=== PATIENT | male | born 1960 | race Caucasian/White ===

== ENCOUNTER → 2016-12-31 | Outpatient (CLI) | payer OTHER ==
[~2016-12-31] MED LIST: ALLERGY10 MG PO; ALLOPURINOL100 MG PO; ALPHA LIPOIC ACID; AMITRIPTYLINE H10 M1 PO; AMOXICILLIN500 MG PO; ASPIR-TRIN325 MG PO; AUGMENTIN 500 M1 TAB PO; AUGMENTIN 875 M1 TAB PO; AUGMENTIN 875875 MG PO; BACTRIM DS 8001 TA1 PO; BAYER PLUS325 MG PO; BENTYL; BENTYL10 MG PO; BUTORPHANOL10 MG/ML NS; CALCIUM; CALCIUM 6001 TA1 PO; CARAFATE1 G1 PO; CARAFATE1 GM PO; CATAFLAM50 MG PO; CETIRIZINE10 MG PO; CIPRO500 MG PO; CLARITIN10 MG PO; COLACE100 MG PO; COMPAZINE10 M1 PO; COMPAZINE10 MG PO; CORDROL20 MG PO; CORTISPORIN SUS10 ML OT; DARVOCET N 1001 TAB PO; DAYPRO600 M1 PO; DEPAKOTE500 MG PO; DEXILANT60 M1 PO; DICYCLOMINE10 MG PO; DULCOLAX100 MG PO; Depakote250 MG PO; EFFEXOR XR150 M1 PO; EFFEXOR XR37.5 MG PO; EFFEXOR XR75 M1 PO; EFFEXOR100 MG PO; EFFEXOR25 MG PO; EFFEXOR37.5 MG PO; EFFEXOR75 MG PO; EPIPEN 0.3MG0.3 MG IM; FLEXERIL10 MG PO; FLOMAX0.4 MG PO; FLOVENT0.11 MG/AC INH; FLOXIN PO; GEODON20 M1 PO; GEODON20 MG PO; GEODON40 MG PO; HYDROCODONE BIT1 T11 PO; HYDROCODONE BIT1 T12 PO; HYDROCODONE/ACE1 T14 PO; IMITREX25 MG PO; IMITREX50 MG PO; K-DUR 1010 MEQ PO; K-NORM10 MEQ PO; LEVAQUIN750 MG PO; LIPITOR10 MG PO; LYRICA200 M1 PO; LYRICA200 MG PO; MEDROL DOSEPAK4 MG PO; MIACALCIN SPRAY1 EA NAS; MIRALAX POWDER255 G1 PO; MIRALAX17 GM/DOSE PO; MIRALAX17 GM/PACK PO; MOTRIN800 MG PO; MS CONTIN15 MG PO; MUCINEX600 MG PO; MULTIPLE VITAMI1 TA3 PO; NAPROSYN500 MG PO; NORCO 325 MG-51 TAB PO; NORCO 5-325 TA1 EACH PO; NORCO 7.5-3251 EACH PO; NORFLEX100 MG PO; Ondansetron4 MG PO; PANTOPRAZOLE SO40 MG PO; PERCOCET 325 MG1 TA2 PO; POLYETHYLENE GL1 P16; POTASSIUM20 MEQ PO; POTASSIUM99 MG PO; PREDNISONE10 MG PO; PREVACID SOLUTA30 MG PO; PROAIR HFA0.09 MG/AC IH; PROTONIX40 MG PO; RELPAX40 MG PO; ROBAXIN750 MG PO; SLOW MAG 110 MG64 MG PO; SPIRIVA -- 3018 MCG INH; TORADOL10 MG PO; TRAMADOL HCL50 MG PO; TRAMADOL50 MG PO; TRAZADONE HYDR100 MG PO; TRAZODONE100 MG PO; ULTRAM50 MG PO; VALIUM5 MG PO; VENTOLIN0.09 MG/AC IH; VICODIN 5/500 505 MG PO; VICODIN 500 MG-1 TAB PO; VISTARIL25 M2 PO; VITAMIN D; VITAMIN D2400 IU PO; VITAMIN D33000 UNIT PO; VITAMIN D400 I1 PO; VITAMIN D50000 I2 PO; VITAMIN D50000 I3 PO; VITAMIN E400 UNI1 PO; VYTORIN 10 MG-41 TA1 PO; VYTORIN 10 MG-41 TAB PO; XANAX0.5 MG PO; ZANTAC150 MG PO; ZETIA10 MG PO; ZOFRAN4 MG PO; ZYLOPRIM100 MG PO; Zofran4 MG PO
[2016-12-31 09:19] LABS: BASO # 0.1 10*3/uL (0.0-0.1); BASO % 0.6 % (0.0-1.0); EOS # 0.2 10*3/uL (0.0-0.4); EOS % 1.8 % (1.0-4.0); HEMATOCRIT 46.4 % (42.0-52.0); LYMPH # 2.9 10*3/uL (1.3-4.4); LYMPH % 27.8 % (27.0-41.0); MEAN CELL VOLUME 88.7 fl (80.0-94.0); MEAN CORPUSCULAR HGB 32.5 pg (27.0-31.0); MEAN CORPUSCULAR HGB CONC 36.6 g/dl (33.0-37.0); MEAN PLATELET VOLUME 9.9 fl (9.6-12.3); MONO # 0.6 10*3/uL (0.1-1.0); MONO % 6.1 % (3.0-9.0); NEUT # 6.6 10*3/uL (2.3-7.9); NEUT % 63.4 % (47.0-73.0); PLATELET COUNT AUTOMATED 313 10*3/uL (130-400); RED BLOOD COUNT 5.23 10*6/uL (4.50-5.90); RED CELL DISTRI WIDTH 11.9 % (0-14.5); WHITE BLOOD COUNT 10.3 10*3/uL (4.8-10.8)
[2016-12-31 09:37] LABS: ALBUMIN 4.5 gm/dl (3.1-4.5); ALKALINE PHOSPHATASE 89 U/L (45-117); BILIRUBIN, TOTAL 0.8 mg/dl (0.2-1.0); BUN 14 mg/dl (7-24); CARBON DIOXIDE 26 mmol/L (21-32); CHLORIDE 104 mmol/L (98-107); CHOLESTEROL 205 mg/dL (<200); EST GLOM FILT AFRICAN AMERICAN > 60 ml/min; GLUCOSE 110 mg/dL (65-99); HDL CHOLESTEROL 52 mg/dl (40-60); LDL CHOLESTEROL 133 mg/dL (9-159); POTASSIUM 3.5 mmol/L (3.5-5.1); SGOT/AST 98 IU/L (3-35); SGPT/ALT 53 U/L (12-78); SODIUM 143 mmol/L (136-145); TOTAL PROTEIN 7.9 gm/dL (6.4-8.2); TRIGLYCERIDES 99 mg/dl (<150); VLDL CHOLESTEROL 20 mg/dL (6-40)
== END | disposition home or self-care (01) ==
LOC: LAB 08:23
PROVIDERS: Nurse Practitioner Family
DX: E78.4 Other hyperlipidemia (principal); M54.5 Low back pain; R81 Glycosuria

== ENCOUNTER → 2017-01-11 | Outpatient (CLI) | payer OTHER | END | disposition home or self-care (01) | LOC: MRI 10:12 | DX: M17.12 Unilateral primary osteoarthritis, left knee (principal); M25.562 Pain in left knee; M25.462 Effusion, left knee ==

== ENCOUNTER → 2017-01-17 | Outpatient (CLI) | payer OTHER ==
[2017-01-17 08:20] LABS: HEMOGLOBIN A1c 5.9 % (4.8-5.6)
[2017-01-17 08:38] LABS: ALBUMIN 4.5 gm/dl (3.1-4.5); ALKALINE PHOSPHATASE 86 U/L (45-117); BILIRUBIN, DIRECT 0.2 mg/dL (0.0-0.2); BILIRUBIN, TOTAL 0.8 mg/dl (0.2-1.0); BUN 8 mg/dl (7-24); CARBON DIOXIDE 28 mmol/L (21-32); CHLORIDE 105 mmol/L (98-107); CHOLESTEROL 175 mg/dL (<200); EST GLOM FILT AFRICAN AMERICAN > 60 ml/min; GLUCOSE 99 mg/dL (65-99); HDL CHOLESTEROL 54 mg/dl (40-60); LDL CHOLESTEROL 100 mg/dL (9-159); POTASSIUM 3.5 mmol/L (3.5-5.1); SGOT/AST 20 IU/L (3-35); SGPT/ALT 33 U/L (12-78); SODIUM 142 mmol/L (136-145); TOTAL PROTEIN 7.8 gm/dL (6.4-8.2); TRIGLYCERIDES 106 mg/dl (<150); VLDL CHOLESTEROL 21 mg/dL (6-40)
[2017-01-17 09:38] LABS: VITAMIN D, 25-HYDROXY 38.1 ng/mL (30-100)
[2017-01-18 09:30] LABS: BILIRUBIN NEGATIVE (NEGATIVE); BLOOD NEGATIVE (NEGATIVE); CLARITY CLEAR (CLEAR); COLOR YELLOW (YELLOW); GLUCOSE NEGATIVE (NEGATIVE); KETONE NEGATIVE (NEGATIVE); LEUKO ESTERASE NEGATIVE (NEGATIVE); NITRITE NEGATIVE (NEGATIVE); PROTEIN NEGATIVE (NEGATIVE)
[2017-01-18 10:07] LABS: EPITHELIAL CELLS 0-2; MUCOUS 2+; WBC 0-2 wbc/hpf (0-5)
== END | disposition home or self-care (01) ==
LOC: LAB 07:40
PROVIDERS: Internal Medicine
DX: E11.65 Type 2 diabetes mellitus with hyperglycemia (principal); E11.42 Type 2 diabetes mellitus with diabetic polyneuropathy; E55.9 Vitamin D deficiency, unspecified; N52.9 Male erectile dysfunction, unspecified; E78.5 Hyperlipidemia, unspecified; E29.1 Testicular hypofunction

== ENCOUNTER 2017-02-20 22:16 | Inpatient (IN) | payer OTHER ==
[~2017-02-20] VITALS: Ht 170.2 cm; Wt 89.8 kg
--- NOTE | ~2017-02-20 | ST ---
[place], [place] EXERCISE STRESS TEST REPORT NAME: [facility]BY WATT JR [facility] [id number] UNIT #: [id number] ROOM: 411 DOCTOR: AJIT RAYMUNDO [facility],RAPHAEL BIRTHDATE: [birth year] DOS: 02/23/2017 Received Lexiscan 0.4 mg at 10 seconds, heart rate is 93. No ischemic changes on EKG. No complications noted. The patient tolerated the procedure well and myocardial perfusion scan to follow. Isotope was injected. RAPHAEL FONG MD CM:STRESS:EXERCISE STRESS TEST REPORT [id number] RAPHAEL FONG MD [facility]
--- NOTE | ~2017-02-20 | CON ---
[place], [place] REPORT OF CONSULTATION [facility] [id number] UNIT #: [id number] ROOM: 411 DOCTOR: [facility]IT [facility]UNDO [facility] BIR[facility]: [birth year] DOS: 02/23/2017 CARDIOLOGY CONSULTATION IMPRESSION: Chest pain, evaluating for ischemic heart disease. No further symptoms at this time. No syncope or presyncope, which was unremarkable. The patient came through the Emergency Room and myocardial perfusion scan is pending and denies any nausea or vomiting. No loose bowel movements. No syncope or presyncope. PHYSICAL EXAMINATION: VITAL SIGNS: Stable with blood pressure 120/67, heart rate is 86 and respiratory rate is 18, pulse ox is good. SKIN: Warm, not diaphoretic. NECK: Supple. LUNGS: No rales heard. HEART: S1, S2. No gallops. CARDIOPULMONARY: As described. GASTROINTESTINAL: Unremarkable. ABDOMEN: Soft. SKIN: Color is good. NEUROLOGICAL: No focal neurological deficits noted. RECTAL AND GENITALIA: Exam deferred, unrelated. DIAGNOSES: Chest pain, evaluating for ischemic heart disease and a possible posttraumatic stress syndrome, chronic obstructive airway disease and chronic kidney disease stage 2, chronic hypertension with hypertensive cardiovascular disease, and history of bronchial asthma. Cardiac chest pain, evaluating for ischemic disease. Workup is in progress. I will continue the current therapy and continue to follow the patient. If the myocardial perfusion scan is abnormal, it will moderately increase the risk, may consider further evaluation. If mild, we will manage conservatively with medical therapy. RAPHAEL FONG MD CM:CONSTR:REPORT OF CONSULTATION 0937 02/24/17 0707 interface
--- NOTE | ~2017-02-20 | EKG ---
[place], [place] ELECTROCARDIOGRAM REPORT NAME: BOBBY WATT JR UNIT #: [id number] ROOM: 411 DOCTOR: JABIER PERDOMO MD BIRTHDATE: [birth year] DOS: 02/20/2017 TIME: 22:23 p.m. Sinus tachycardia at rate of 106. Abnormal R-wave with early precordial R-wave progression. Incomplete right bundle branch block, possible left ventricular hypertrophy by voltage criteria, nonspecific T-wave abnormality, abnormal electrocardiogram. JABIER PERDOMO MD CM:EKGRPT:ELECTROCARDIOGRAM REPORT [id number] JABIER PERDOMO MD
[2017-02-20 22:20] VITALS: BP 173/112
[2017-02-20 22:38] LABS: BASO # 0.1 10*3/uL (0.0-0.1); BASO % 0.5 % (0.0-1.0); EOS # 0.1 10*3/uL (0.0-0.4); EOS % 0.9 % (1.0-4.0); HEMATOCRIT 52.8 % (42.0-52.0); LYMPH # 2.1 10*3/uL (1.3-4.4); LYMPH % 19.4 % (27.0-41.0); MEAN CELL VOLUME 88.7 fl (80.0-94.0); MEAN CORPUSCULAR HGB 31.9 pg (27.0-31.0); MEAN PLATELET VOLUME 9.4 fl (9.6-12.3); MONO # 0.8 10*3/uL (0.1-1.0); MONO % 7.3 % (3.0-9.0); NEUT # 7.6 10*3/uL (2.3-7.9); NEUT % 71.7 % (47.0-73.0); PLATELET COUNT AUTOMATED 318 10*3/uL (130-400); RED BLOOD COUNT 5.95 10*6/uL (4.50-5.90); WHITE BLOOD COUNT 10.6 10*3/uL (4.8-10.8)
[2017-02-20 22:47] LABS: INTERNATIONAL NORM RATIO 1.1 (2.0-3.5); PROTHROMBIN TIME 11.4 SECONDS (9.0-12.4)
[2017-02-20 22:56] LABS: BUN 12 mg/dl (7-24); CARBON DIOXIDE 25 mmol/L (21-32); CHLORIDE 102 mmol/L (98-107); EST GLOM FILT AFRICAN AMERICAN > 60 ml/min; GLUCOSE 126 mg/dL (65-99); MAGNESIUM 1.6 mg/dL (1.5-2.1); POTASSIUM 3.9 mmol/L (3.5-5.1); SODIUM 142 mmol/L (136-145)
[2017-02-20 22:57] LABS: TROPONIN I < 0.015 ng/ml (<0.045)
[2017-02-20 23:15] VITALS: BP 168/110
[2017-02-20 23:24] VITALS: BP 134/92
[2017-02-20 23:48] VITALS: BP 128/88
[2017-02-21 00:30] VITALS: BP 141/85
[2017-02-21 00:37] LABS: CPK 155 U/L (39-308); TROPONIN I < 0.015 ng/ml (<0.045)
[2017-02-21 00:45] VITALS: BP 141/85
[2017-02-21 07:07] LABS: BASO # 0.1 10*3/uL (0.0-0.1); BASO % 0.6 % (0.0-1.0); EOS # 0.2 10*3/uL (0.0-0.4); HEMATOCRIT 49.1 % (42.0-52.0); HEMOGLOBIN 17.7 g/dl (14.0-18.0); LYMPH % 30.7 % (27.0-41.0); MEAN CELL VOLUME 88.6 fl (80.0-94.0); MEAN CORPUSCULAR HGB 31.9 pg (27.0-31.0); MEAN PLATELET VOLUME 9.6 fl (9.6-12.3); MONO # 0.9 10*3/uL (0.1-1.0); MONO % 9.8 % (3.0-9.0); NEUT # 5.4 10*3/uL (2.3-7.9); NEUT % 56.7 % (47.0-73.0); PLATELET COUNT AUTOMATED 304 10*3/uL (130-400); RED BLOOD COUNT 5.54 10*6/uL (4.50-5.90); RED CELL DISTRI WIDTH 12.1 % (0-14.5); WHITE BLOOD COUNT 9.6 10*3/uL (4.8-10.8)
[2017-02-21 07:08] LABS: CKMB 1.2 ng/ml (0.5-3.6); CPK 124 U/L (39-308)
[2017-02-21 07:09] LABS: TROPONIN I < 0.015 ng/ml (<0.045)
[2017-02-21 07:26] LABS: CHLORIDE 102 mmol/L (98-107); FREE T4 1.14 ng/dl (0.76-1.46); POTASSIUM 3.6 mmol/L (3.5-5.1); SODIUM 143 mmol/L (136-145)
[2017-02-21 07:37] LABS: ALBUMIN 4.4 gm/dl (3.1-4.5); ALKALINE PHOSPHATASE 74 U/L (45-117); BUN 13 mg/dl (7-24); CARBON DIOXIDE 29 mmol/L (21-32); EST GLOM FILT AFRICAN AMERICAN > 60 ml/min; GLUCOSE 99 mg/dL (65-99); MAGNESIUM 1.8 mg/dL (1.5-2.1); PHOSPHOROUS 4.1 mg/dL (2.5-4.9); SGOT/AST 22 IU/L (3-35); SGPT/ALT 28 U/L (12-78); TOTAL PROTEIN 7.5 gm/dL (6.4-8.2)
[2017-02-21 07:48] LABS: INTERNATIONAL NORM RATIO 1.1 (2.0-3.5); PROTHROMBIN TIME 11.4 SECONDS (9.0-12.4)
[2017-02-21 08:00] VITALS: BP 116/81
[2017-02-21 08:16] LABS: FOLIC ACID 16.2 ng/mL (>5.38); VITAMIN D, 25-HYDROXY 42.2 ng/mL (30-100)
[2017-02-21 12:00] VITALS: BP 133/84
[2017-02-21 16:00] VITALS: BP 134/80
[2017-02-21] MEDS ORDERED: MIRTAZAPINE30 M2 PO (18:07)
[2017-02-21] MEDS ORDERED: VITAMIN D33000 UNIT PO (18:08)
[2017-02-21] MEDS ORDERED: OXYCODONE AND A1 TA4 PO (18:10)
[2017-02-21] MEDS ORDERED: FLUTICASON0.05 MG/Ac NAS (18:11)
[2017-02-21] MEDS ORDERED: VENTOLIN H0.09 MG/AC INH (18:13)
[2017-02-21] MEDS ORDERED: Flovent 220 M220 MCG INH (18:16)
[2017-02-21 20:00] VITALS: BP 124/89
[2017-02-22] VITALS: BP 132/87
[2017-02-22 08:00] VITALS: BP 107/86
[2017-02-22 12:00] VITALS: BP 120/67
[2017-02-22 16:00] VITALS: BP 138/81
[2017-02-22 20:00] VITALS: BP 134/83
[2017-02-23] VITALS: BP 124/84
[2017-02-23 08:00] VITALS: BP 112/73
[2017-02-23 12:00] VITALS: BP 130/73
[2017-02-23 16:00] VITALS: BP 123/80
[2017-02-23 20:00] VITALS: BP 129/78
[2017-02-23] MEDS ORDERED: TOPROL XL50 M1 PO (20:38)
== END 2017-02-23 21:40 | disposition home or self-care (01) | DRG 206 ==
LOC: ED 22:16 → 4E 23:09 → EDHOLD 23:09 → 4E 23:58
PROVIDERS: Internal Medicine; Student in an Organized Health Care Education/Training Program
PROC: 4A02XM4 Measurement of Cardiac Total Activity, External Approach (ICD-10-PCS; principal; 2017-02-23)
PROC: 3E073KZ Introduction of Other Diagnostic Substance into Coronary Artery, Percutaneous Approach (ICD-10-PCS; 2017-02-23)
DX: M94.0 Chondrocostal junction syndrome [Tietze] (principal); I13.0 Hypertensive heart and chronic kidney disease with heart failure and stage 1 through stage 4 chronic kidney disease, or unspecified chronic kidney disease; I50.32 Chronic diastolic (congestive) heart failure; F33.9 Major depressive disorder, recurrent, unspecified; I25.2 Old myocardial infarction; G62.9 Polyneuropathy, unspecified; M54.9 Dorsalgia, unspecified; N18.2 Chronic kidney disease, stage 2 (mild); J44.9 Chronic obstructive pulmonary disease, unspecified; F41.0 Panic disorder [episodic paroxysmal anxiety]; K21.9 Gastro-esophageal reflux disease without esophagitis; R73.03 Prediabetes; M81.0 Age-related osteoporosis without current pathological fracture; E66.09 Other obesity due to excess calories; F43.10 Post-traumatic stress disorder, unspecified; G43.909 Migraine, unspecified, not intractable, without status migrainosus; J30.2 Other seasonal allergic rhinitis; Z68.31 Body mass index [BMI] 31.0-31.9, adult; Z90.49 Acquired absence of other specified parts of digestive tract; Z87.891 Personal history of nicotine dependence; Z83.6 Family history of other diseases of the respiratory system; Z88.1 Allergy status to other antibiotic agents; Z88.8 Allergy status to other drugs, medicaments and biological substances; Z79.899 Other long term (current) drug therapy

== ENCOUNTER → 2017-04-24 | Outpatient (CLI) | payer OTHER ==
[~2017-04-24] MED LIST changes: +FLUTICASON0.05 MG/Ac NAS; +Flovent 220 M220 MCG INH; +MIRTAZAPINE30 M2 PO; +OXYCODONE AND A1 TA4 PO; +TOPROL XL50 M1 PO; +VENTOLIN H0.09 MG/AC INH
[2017-04-24 08:44] LABS: BASO % 0.5 % (0.0-1.0); EOS # 0.2 10*3/uL (0.0-0.4); EOS % 2.5 % (1.0-4.0); HEMATOCRIT 47.5 % (42.0-52.0); HEMOGLOBIN 17.1 g/dl (14.0-18.0); LYMPH # 1.8 10*3/uL (1.3-4.4); LYMPH % 22.8 % (27.0-41.0); MEAN CELL VOLUME 90.8 fl (80.0-94.0); MEAN CORPUSCULAR HGB 32.7 pg (27.0-31.0); MEAN PLATELET VOLUME 9.8 fl (9.6-12.3); MONO # 0.5 10*3/uL (0.1-1.0); MONO % 5.8 % (3.0-9.0); NEUT # 5.3 10*3/uL (2.3-7.9); NEUT % 68.1 % (47.0-73.0); PLATELET COUNT AUTOMATED 255 10*3/uL (130-400); RED BLOOD COUNT 5.23 10*6/uL (4.50-5.90); RED CELL DISTRI WIDTH 11.7 % (0-14.5); WHITE BLOOD COUNT 7.7 10*3/uL (4.8-10.8)
[2017-04-24 09:14] LABS: ALBUMIN 4.3 gm/dl (3.1-4.5); ALKALINE PHOSPHATASE 76 U/L (45-117); BILIRUBIN, TOTAL 0.8 mg/dl (0.2-1.0); BUN 10 mg/dl (7-24); CARBON DIOXIDE 29 mmol/L (21-32); CHLORIDE 102 mmol/L (98-107); CHOLESTEROL 164 mg/dL (<200); EST GLOM FILT AFRICAN AMERICAN > 60 ml/min; GLUCOSE 108 mg/dL (65-99); HDL CHOLESTEROL 48 mg/dl (40-60); LDL CHOLESTEROL 94 mg/dL (9-159); POTASSIUM 4.6 mmol/L (3.5-5.1); SGOT/AST 16 IU/L (3-35); SGPT/ALT 26 U/L (12-78); SODIUM 143 mmol/L (136-145); TOTAL PROTEIN 7.5 gm/dL (6.4-8.2); TRIGLYCERIDES 108 mg/dl (<150); VLDL CHOLESTEROL 22 mg/dL (6-40)
[2017-04-24 09:21] LABS: THYROID STIM HORMONE (HS) 0.437 uIU/ml (0.358-4.75)
== END ==
LOC: LAB 08:07
PROVIDERS: Nurse Practitioner Family
DX: J44.9 Chronic obstructive pulmonary disease, unspecified (principal); E78.4 Other hyperlipidemia; R73.01 Impaired fasting glucose

== ENCOUNTER 2017-05-11 21:09 | Emergency (ER) | payer OTHER ==
[~2017-05-11] VITALS: Ht 170.1 cm; Wt 90.7 kg
[2017-05-11 21:21] VITALS: BP 144/91
[2017-05-11] MEDS ORDERED: MEDROL DOSEPAK4 MG PO (22:03)
== END 2017-05-11 22:35 | disposition home or self-care (01) ==
LOC: ED 21:09
DX: L25.9 Unspecified contact dermatitis, unspecified cause (principal); Z87.891 Personal history of nicotine dependence; Z90.49 Acquired absence of other specified parts of digestive tract; Z88.1 Allergy status to other antibiotic agents; Z88.8 Allergy status to other drugs, medicaments and biological substances; Z79.899 Other long term (current) drug therapy

== ENCOUNTER 2017-05-21 22:27 | Emergency (ER) | payer OTHER ==
[~2017-05-21] VITALS: Ht 170.1 cm; Wt 93.9 kg
[2017-05-21 23:24] LABS: BASO % 0.4 % (0.0-1.0); EOS # 0.1 10*3/uL (0.0-0.4); EOS % 0.7 % (1.0-4.0); HEMATOCRIT 46.2 % (42.0-52.0); HEMOGLOBIN 16.4 g/dl (14.0-18.0); LYMPH # 2.1 10*3/uL (1.3-4.4); LYMPH % 19.9 % (27.0-41.0); MEAN CELL VOLUME 90.4 fl (80.0-94.0); MEAN CORPUSCULAR HGB 32.1 pg (27.0-31.0); MEAN CORPUSCULAR HGB CONC 35.5 g/dl (33.0-37.0); MEAN PLATELET VOLUME 9.1 fl (9.6-12.3); MONO # 0.7 10*3/uL (0.1-1.0); MONO % 6.2 % (3.0-9.0); NEUT # 7.8 10*3/uL (2.3-7.9); NEUT % 72.4 % (47.0-73.0); PLATELET COUNT AUTOMATED 276 10*3/uL (130-400); RED BLOOD COUNT 5.11 10*6/uL (4.50-5.90); RED CELL DISTRI WIDTH 11.8 % (0-14.5); WHITE BLOOD COUNT 10.7 10*3/uL (4.8-10.8)
[2017-05-21 23:40] VITALS: BP 148/91
[2017-05-21 23:40] LABS: ALBUMIN 3.9 gm/dl (3.1-4.5); ALKALINE PHOSPHATASE 92 U/L (45-117); BILIRUBIN, TOTAL 0.7 mg/dl (0.2-1.0); BUN 11 mg/dl (7-24); CARBON DIOXIDE 29 mmol/L (21-32); CHLORIDE 101 mmol/L (98-107); EST GLOM FILT AFRICAN AMERICAN > 60 ml/min; GLUCOSE 124 mg/dL (65-99); POTASSIUM 3.5 mmol/L (3.5-5.1); SGOT/AST 30 IU/L (3-35); SGPT/ALT 35 U/L (12-78); SODIUM 140 mmol/L (136-145); TOTAL PROTEIN 7.3 gm/dL (6.4-8.2)
== END 2017-05-22 01:36 | disposition home or self-care (01) ==
LOC: ED 22:27
PROVIDERS: Emergency Medicine
DX: R10.31 Right lower quadrant pain (principal); R11.0 Nausea; I13.0 Hypertensive heart and chronic kidney disease with heart failure and stage 1 through stage 4 chronic kidney disease, or unspecified chronic kidney disease; E11.22 Type 2 diabetes mellitus with diabetic chronic kidney disease; N18.2 Chronic kidney disease, stage 2 (mild); I50.32 Chronic diastolic (congestive) heart failure; J44.9 Chronic obstructive pulmonary disease, unspecified; M81.0 Age-related osteoporosis without current pathological fracture; I25.2 Old myocardial infarction; K21.9 Gastro-esophageal reflux disease without esophagitis; G43.909 Migraine, unspecified, not intractable, without status migrainosus; E10.42 Type 1 diabetes mellitus with diabetic polyneuropathy; J45.909 Unspecified asthma, uncomplicated; Z88.1 Allergy status to other antibiotic agents; Z88.8 Allergy status to other drugs, medicaments and biological substances; Z79.899 Other long term (current) drug therapy; Z87.891 Personal history of nicotine dependence

== ENCOUNTER → 2017-05-23 | Outpatient (CLI) | payer OTHER | END | disposition home or self-care (01) | LOC: RESCLI 08:27 | DX: J44.9 Chronic obstructive pulmonary disease, unspecified (principal); R00.0 Tachycardia, unspecified; I10 Essential (primary) hypertension; K21.0 Gastro-esophageal reflux disease with esophagitis; R73.03 Prediabetes; E78.5 Hyperlipidemia, unspecified; F32.9 Major depressive disorder, single episode, unspecified; F41.9 Anxiety disorder, unspecified; J30.2 Other seasonal allergic rhinitis; G89.29 Other chronic pain; G43.909 Migraine, unspecified, not intractable, without status migrainosus ==

== ENCOUNTER 2017-05-26 11:51 | Inpatient (IN) | payer OTHER ==
[~2017-05-26] VITALS: Ht 170.2 cm; Wt 89.4 kg
--- NOTE | ~2017-05-26 | CON ---
[place], [place] REPORT OF CONSULTATION [id number] UNIT #: [id number] ROOM: 508 DOCTOR: Deandra CORREA,SEB BIRTHDATE: [birth year] DOS: 05/27/2017 CHIEF COMPLAINT: "I am doing okay." HISTORY OF PRESENT ILLNESS: The patient is a 57-year-old male with history of hep C and alcoholism, also has a history of schizoaffective disorder, presented to the ER with 2 weeks history of having waxing and waning confusion. He was somewhat lucid. The patient was admitted and consult was called. The patient has long history of schizoaffective disorder and has been in treatment for over 20 years. He has been taking Effexor, Geodon, diazepam and Remeron. Today, he is lying in bed, states he is doing better. His thoughts are getting clearer. Mood is okay, not feeling down or sad. He did sleep okay last night. Appetite is okay. Denies any auditory or visual hallucinations. Denies any thoughts of self-harm. PAST MEDICAL HISTORY: Asthma, CKD, COPD and hypertension. MENTAL STATUS EXAMINATION: The patient is alert, oriented, calm and interactive. Mood euthymic. Affect is appropriate, though he is somewhat tangential, jumping topics and religiously preoccupied. ASSESSMENT AND PLAN: Schizoaffective disorder. PLAN: The patient currently is taking venlafaxine ER 150 mg, Geodon 60 mg daily, diazepam 5 mg b.i.d. and Remeron 30 mg at bedtime, and he does not want to change his medicines. States that he has been doing well on these and he does not want any change, so we shall continue with the same medicines and keep a followup. SEB CORREA MD CM:CONSTR:REPORT OF CONSULTATION 0954 05/27/17 1027 interface
[~2017-05-26 11:51] MED LIST changes: +FLOVENT HFA12 GM INH; -Flovent 220 M220 MCG INH
[2017-05-26 11:57] VITALS: BP 154/90
[2017-05-26 12:33] LABS: BASO # 0.1 10*3/uL (0.0-0.1); BASO % 0.6 % (0.0-1.0); EOS # 0.2 10*3/uL (0.0-0.4); EOS % 2.1 % (1.0-4.0); HEMATOCRIT 43.3 % (42.0-52.0); HEMOGLOBIN 15.2 g/dl (14.0-18.0); LYMPH % 36.4 % (27.0-41.0); MEAN CELL VOLUME 92.3 fl (80.0-94.0); MEAN CORPUSCULAR HGB 32.4 pg (27.0-31.0); MEAN CORPUSCULAR HGB CONC 35.1 g/dl (33.0-37.0); MEAN PLATELET VOLUME 9.6 fl (9.6-12.3); MONO # 0.5 10*3/uL (0.1-1.0); NEUT # 4.4 10*3/uL (2.3-7.9); NEUT % 54.4 % (47.0-73.0); PLATELET COUNT AUTOMATED 237 10*3/uL (130-400); RED BLOOD COUNT 4.69 10*6/uL (4.50-5.90); RED CELL DISTRI WIDTH 11.9 % (0-14.5); WHITE BLOOD COUNT 8.1 10*3/uL (4.8-10.8)
[2017-05-26 12:44] LABS: PROTHROMBIN TIME 10.9 SECONDS (9.0-12.4)
[2017-05-26 12:50] LABS: ALBUMIN 3.8 gm/dl (3.1-4.5); ALKALINE PHOSPHATASE 71 U/L (45-117); BILIRUBIN, TOTAL 0.6 mg/dl (0.2-1.0); BUN 6 mg/dl (7-24); CARBON DIOXIDE 24 mmol/L (21-32); CHLORIDE 105 mmol/L (98-107); CPK 62 U/L (39-308); EST GLOM FILT AFRICAN AMERICAN > 60 ml/min; GLUCOSE 173 mg/dL (65-99); MAGNESIUM 1.4 mg/dL (1.5-2.1); POTASSIUM 3.6 mmol/L (3.5-5.1); SGOT/AST 17 IU/L (3-35); SGPT/ALT 27 U/L (12-78); SODIUM 137 mmol/L (136-145); TOTAL PROTEIN 6.6 gm/dL (6.4-8.2)
[2017-05-26 12:52] LABS: C-REACTIVE PROTEIN < 0.29 MG/DL (0-0.3); CKMB < 0.5 ng/ml (0.5-3.6); TROPONIN I < 0.015 ng/ml (<0.045)
[2017-05-26 13:40] LABS: BILIRUBIN NEGATIVE (NEGATIVE); BLOOD NEGATIVE (NEGATIVE); CLARITY CLEAR (CLEAR); COLOR YELLOW (YELLOW); GLUCOSE NEGATIVE (NEGATIVE); KETONE NEGATIVE (NEGATIVE); LEUKO ESTERASE NEGATIVE (NEGATIVE); NITRITE NEGATIVE (NEGATIVE); PH 5.5 (5.0-9.0); PROTEIN NEGATIVE (NEGATIVE); SPECIFIC GRAVITY <= 1.005 (1.005-1.030); UROBILINOGEN 0.2 E.U./dl (0.2-1.0)
[2017-05-26 13:45] LABS: URINE AMPHETAMINES < 1000 (1000ng/ml); URINE BARBITURATES > 200 (200ng/ml); URINE COCAINE < 300 (300ng/ml)
[2017-05-26 13:59] LABS: EPITHELIAL CELLS 0-2; URINE REFLEX COMMENT NO (NO)
[2017-05-26 14:30] LABS: LA>2 REFLEX 2 HR DRAW NOW
[2017-05-26 17:00] VITALS: BP 143/76
[2017-05-26 20:00] VITALS: BP 111/63
[2017-05-27] VITALS: BP 117/74
[2017-05-27 05:55] LABS: BASO # 0.1 10*3/uL (0.0-0.1); BASO % 0.6 % (0.0-1.0); EOS # 0.2 10*3/uL (0.0-0.4); EOS % 2.6 % (1.0-4.0); HEMATOCRIT 39.1 % (42.0-52.0); HEMOGLOBIN 13.9 g/dl (14.0-18.0); LYMPH # 2.4 10*3/uL (1.3-4.4); LYMPH % 30.9 % (27.0-41.0); MEAN CELL VOLUME 91.6 fl (80.0-94.0); MEAN CORPUSCULAR HGB 32.6 pg (27.0-31.0); MEAN CORPUSCULAR HGB CONC 35.5 g/dl (33.0-37.0); MEAN PLATELET VOLUME 9.6 fl (9.6-12.3); MONO # 0.6 10*3/uL (0.1-1.0); MONO % 7.1 % (3.0-9.0); NEUT # 4.6 10*3/uL (2.3-7.9); NEUT % 58.5 % (47.0-73.0); PLATELET COUNT AUTOMATED 214 10*3/uL (130-400); RED BLOOD COUNT 4.27 10*6/uL (4.50-5.90); RED CELL DISTRI WIDTH 11.9 % (0-14.5); WHITE BLOOD COUNT 7.8 10*3/uL (4.8-10.8)
[2017-05-27 06:29] LABS: ALBUMIN 3.4 gm/dl (3.1-4.5); ALKALINE PHOSPHATASE 66 U/L (45-117); BILIRUBIN, TOTAL 0.3 mg/dl (0.2-1.0); BUN 8 mg/dl (7-24); CARBON DIOXIDE 29 mmol/L (21-32); CHLORIDE 105 mmol/L (98-107); EST GLOM FILT AFRICAN AMERICAN > 60 ml/min; GLUCOSE 115 mg/dL (65-99); MAGNESIUM 1.6 mg/dL (1.5-2.1); PHOSPHOROUS 2.8 mg/dL (2.5-4.9); POTASSIUM 3.5 mmol/L (3.5-5.1); SGOT/AST 13 IU/L (3-35); SGPT/ALT 24 U/L (12-78); SODIUM 141 mmol/L (136-145)
[2017-05-27 06:33] LABS: VITAMIN D, 25-HYDROXY 39.2 ng/mL (30-100)
[2017-05-27 06:34] LABS: FOLIC ACID 5.92 ng/mL (>5.38); PROTHROMBIN TIME 11.1 SECONDS (9.0-12.4)
[2017-05-27 06:37] LABS: FREE T4 0.88 ng/dl (0.76-1.46); TOTAL PROTEIN 5.8 gm/dL (6.4-8.2)
[2017-05-27 08:00] VITALS: BP 101/57
[2017-05-27] MEDS ORDERED: METOPROLOL SUC100 M1 PO (10:08)
[2017-05-27] MEDS ORDERED: TAMSULOSIN HCL0.4 MG PO (10:09)
[2017-05-27] MEDS ORDERED: AMITRIPTYLINE25 MG PO (10:17)
[2017-05-27] MEDS ORDERED: PERCOCET 10-321 EACH PO (10:21)
[2017-05-27] MEDS ORDERED: ALL DAY ALLERGY10 MG PO (10:24)
[2017-05-27] MEDS ORDERED: VITAMIN E400 UNI2 PO (10:25)
[2017-05-27 12:00] VITALS: BP 116/76
== END 2017-05-27 16:30 | disposition home or self-care (01) | DRG 71 ==
LOC: ED 11:51 → EDHOLD 15:36 → 5E 15:38
PROVIDERS: Emergency Medicine; Internal Medicine
DX: G93.41 Metabolic encephalopathy (principal); E87.2 Acidosis; D80.3 Selective deficiency of immunoglobulin G [IgG] subclasses; E44.0 Moderate protein-calorie malnutrition; I50.32 Chronic diastolic (congestive) heart failure; I13.0 Hypertensive heart and chronic kidney disease with heart failure and stage 1 through stage 4 chronic kidney disease, or unspecified chronic kidney disease; F33.9 Major depressive disorder, recurrent, unspecified; R41.0 Disorientation, unspecified; J45.909 Unspecified asthma, uncomplicated; N18.2 Chronic kidney disease, stage 2 (mild); J44.9 Chronic obstructive pulmonary disease, unspecified; K21.9 Gastro-esophageal reflux disease without esophagitis; G43.909 Migraine, unspecified, not intractable, without status migrainosus; F41.0 Panic disorder [episodic paroxysmal anxiety]; G62.9 Polyneuropathy, unspecified; F43.10 Post-traumatic stress disorder, unspecified; M81.0 Age-related osteoporosis without current pathological fracture; E66.9 Obesity, unspecified; F13.10 Sedative, hypnotic or anxiolytic abuse, uncomplicated; E83.42 Hypomagnesemia; R73.9 Hyperglycemia, unspecified; R73.03 Prediabetes; F25.9 Schizoaffective disorder, unspecified; Z68.30 Body mass index [BMI] 30.0-30.9, adult; Z86.19 Personal history of other infectious and parasitic diseases; I25.2 Old myocardial infarction; Z90.49 Acquired absence of other specified parts of digestive tract; Z87.891 Personal history of nicotine dependence; Z83.6 Family history of other diseases of the respiratory system; Z80.8 Family history of malignant neoplasm of other organs or systems; Z88.1 Allergy status to other antibiotic agents

== ENCOUNTER → 2017-06-20 | Outpatient (CLI) | payer OTHER ==
[~2017-06-20] MED LIST changes: +ALL DAY ALLERGY10 MG PO; +AMITRIPTYLINE25 MG PO; +METOPROLOL SUC100 M1 PO; +PERCOCET 10-321 EACH PO; +TAMSULOSIN HCL0.4 MG PO; +VITAMIN E400 UNI2 PO
== END | disposition home or self-care (01) ==
LOC: RESCLI 03:03
DX: J44.9 Chronic obstructive pulmonary disease, unspecified (principal); I10 Essential (primary) hypertension; K21.0 Gastro-esophageal reflux disease with esophagitis; E78.5 Hyperlipidemia, unspecified; F32.9 Major depressive disorder, single episode, unspecified; F41.9 Anxiety disorder, unspecified; G89.29 Other chronic pain; G43.909 Migraine, unspecified, not intractable, without status migrainosus; R73.03 Prediabetes; J30.2 Other seasonal allergic rhinitis; E55.9 Vitamin D deficiency, unspecified; E87.6 Hypokalemia; Z87.891 Personal history of nicotine dependence; Z88.1 Allergy status to other antibiotic agents

== ENCOUNTER 2017-06-28 12:06 | Inpatient (IN) | payer OTHER ==
[~2017-06-28] VITALS: Ht 170.2 cm; Wt 88.1 kg
[2017-06-28 12:24] VITALS: BP 109/67
[2017-06-28 12:59] LABS: BILIRUBIN NEGATIVE (NEGATIVE); BLOOD NEGATIVE (NEGATIVE); CLARITY CLEAR (CLEAR); COLOR YELLOW (YELLOW); GLUCOSE NEGATIVE (NEGATIVE); KETONE NEGATIVE (NEGATIVE); LEUKO ESTERASE NEGATIVE (NEGATIVE); NITRITE NEGATIVE (NEGATIVE); PH 5.5 (5.0-9.0); UROBILINOGEN 0.2 E.U./dl (0.2-1.0)
[2017-06-28 13:04] LABS: BASO # 0.1 10*3/uL (0.0-0.1); BASO % 0.7 % (0.0-1.0); EOS # 0.3 10*3/uL (0.0-0.4); EOS % 4.1 % (1.0-4.0); HEMATOCRIT 40.2 % (42.0-52.0); HEMOGLOBIN 14.2 g/dl (14.0-18.0); LYMPH # 2.6 10*3/uL (1.3-4.4); LYMPH % 33.4 % (27.0-41.0); MEAN CELL VOLUME 91.2 fl (80.0-94.0); MEAN CORPUSCULAR HGB 32.2 pg (27.0-31.0); MEAN CORPUSCULAR HGB CONC 35.3 g/dl (33.0-37.0); MEAN PLATELET VOLUME 9.8 fl (9.6-12.3); MONO # 0.6 10*3/uL (0.1-1.0); MONO % 8.4 % (3.0-9.0); NEUT # 4.1 10*3/uL (2.3-7.9); NEUT % 53.1 % (47.0-73.0); PLATELET COUNT AUTOMATED 244 10*3/uL (130-400); RED BLOOD COUNT 4.41 10*6/uL (4.50-5.90); RED CELL DISTRI WIDTH 12.2 % (0-14.5); WHITE BLOOD COUNT 7.6 10*3/uL (4.8-10.8)
[2017-06-28 13:12] LABS: ACT PARTIAL THROMBO TIME 22.5 SECONDS (20.8-31.5)
[2017-06-28 13:21] LABS: ALBUMIN 3.6 gm/dl (3.1-4.5); ALKALINE PHOSPHATASE 70 U/L (45-117); BUN 6 mg/dl (7-24); CHLORIDE 104 mmol/L (98-107); CKMB 1.5 ng/ml (0.5-3.6); CPK 115 U/L (39-308); CREATININE 1.25 mg/dL (0.70-1.30); LIPASE 103 U/L (73-393); MAGNESIUM 1.8 mg/dL (1.5-2.1); POTASSIUM 3.9 mmol/L (3.5-5.1); SGOT/AST 22 IU/L (3-35); SGPT/ALT 25 U/L (12-78); SODIUM 137 mmol/L (136-145); TOTAL PROTEIN 6.3 gm/dL (6.4-8.2); TROPONIN I < 0.015 ng/ml (<0.045)
[2017-06-28 16:15] VITALS: BP 112/78
[2017-06-28 16:45] VITALS: BP 113/67
[2017-06-28 17:00] VITALS: BP 113/67
--- NOTE | 2017-06-28 17:00 | NUR ---
A 57, admitted to , under the services of MARY Ellis DO with a diagnosis of SYNCOPE. Chief complaint is DIZZINESS. Patient arrived via stretcher from ER. Monitor applied. Initial assessment completed. Vital signs taken and recorded. MARY ELLIS DO notified of admission to the unit. Orders received. See assessment for past medical history, medications and allergies. Patient and/or family oriented to unit. [facility]. Clothing/patient valuable form completed. ELIE CHAPMAN
--- NOTE | 2017-06-28 18:34 | NUR ---
PRN PAIN MED GIVEN FOR 9/10 HEADACHE.
[2017-06-28 20:00] VITALS: BP 97/59
--- NOTE | 2017-06-28 20:54 | NUR ---
DR. VASQUEZ NOTIFIED OF POSITIVE ORTHOS AND PATIENT SYMPTOMATIC. STATED THAT PATIENT WAS ON FLUIDS AT 100 AND HAS AN ECHO SCHEDULED FOR THE MORNING. DR. VASQUEZ STATED TO GIVE THE PATIENT A LITER BOLUS AT THIS TIME
[2017-06-29] VITALS: BP 99/68
[2017-06-29 06:50] LABS: BASO # 0.1 10*3/uL (0.0-0.1); BASO % 0.8 % (0.0-1.0); EOS # 0.3 10*3/uL (0.0-0.4); EOS % 4.4 % (1.0-4.0); HEMATOCRIT 37.2 % (42.0-52.0); HEMOGLOBIN 12.7 g/dl (14.0-18.0); LYMPH # 2.6 10*3/uL (1.3-4.4); LYMPH % 38.9 % (27.0-41.0); MEAN CELL VOLUME 93.5 fl (80.0-94.0); MEAN CORPUSCULAR HGB 31.9 pg (27.0-31.0); MEAN CORPUSCULAR HGB CONC 34.1 g/dl (33.0-37.0); MEAN PLATELET VOLUME 10.3 fl (9.6-12.3); MONO # 0.5 10*3/uL (0.1-1.0); MONO % 8.1 % (3.0-9.0); NEUT # 3.2 10*3/uL (2.3-7.9); NEUT % 47.5 % (47.0-73.0); PLATELET COUNT AUTOMATED 223 10*3/uL (130-400); RED BLOOD COUNT 3.98 10*6/uL (4.50-5.90); RED CELL DISTRI WIDTH 12.3 % (0-14.5); WHITE BLOOD COUNT 6.7 10*3/uL (4.8-10.8)
[2017-06-29 07:26] LABS: ACT PARTIAL THROMBO TIME 23.3 SECONDS (20.8-31.5)
[2017-06-29 07:27] LABS: BUN 6 mg/dl (7-24); CHLORIDE 108 mmol/L (98-107); CREATININE 0.93 mg/dL (0.70-1.30); MAGNESIUM 1.5 mg/dL (1.5-2.1); PHOSPHOROUS 2.2 mg/dL (2.5-4.9); POTASSIUM 4.1 mmol/L (3.5-5.1); SGOT/AST 14 IU/L (3-35); SGPT/ALT 20 U/L (12-78); SODIUM 142 mmol/L (136-145); TOTAL PROTEIN 5.5 gm/dL (6.4-8.2)
[2017-06-29 07:28] LABS: ALKALINE PHOSPHATASE 65 U/L (45-117)
[2017-06-29 08:00] VITALS: BP 113/71
--- NOTE | 2017-06-29 09:00 | NUR ---
Rep[employer] Service Dispatcher in to talk to patient. Patient states lives at home with alone. There are few steps in the home. Physician: carol staton Pharmacy: [facility] health services: none Patient's level of ADLs: INDEPENDENT Patient has working utilities: all working DME: none Follow-up physician's appointment after d/c: will be made by hospitalist nurse director upon discharge Does patient want to access PORTAL?: no Discharge plan discussed with patient, patient lives at home alone, is independent in adls and ambulation, drives, patient states he has a mental health pillowcase folder that helps him whenever he needs, patient states she will be going back home and denies any home needs. SAURABH MAXWELL
[2017-06-29 12:00] VITALS: BP 110/56
--- NOTE | 2017-06-29 13:45 | NUR ---
PHYSICAL THERAPY PAtient evaluated on 4, full evaluation to follow. Continue with PT as per plan of care with fall and vertigo precautions. Home with out patient PT as needed for vertigo if unresolved by D/C. PAtient is moderate complexity via chart review, tests and evaluation: [id number]. Thank you for this referral. Kelsey Goins,PT
--- NOTE | 2017-06-29 14:05 | NUR ---
Occupational Therapy evaluation completed this date on 4 with full eval to follow. Precautions include LOB x1 with head turning during evaluation, slower five times sit to stand but safe in position changes. Patient educated to move slower when position changes and to not turn head quickly when in standing. Patient appeared to understand. At this time patient is independent in functional mobility, transfers and ADLs in his room.No further OT indicated at this time. Recommend return home upon d/c. PT will address balance issues. Thank you for this referral. Nancy Denson OTR/L
[2017-06-29] MEDS ORDERED: PROTONIX40 MG PO (15:17)
[2017-06-29 16:00] VITALS: BP 102/63
--- NOTE | 2017-06-29 16:35 | NUR ---
[facility] Discharge instructions reviewed with patient/family. Patient receptive and verbalizes understanding. Follow-up care arranged. Written instructions given to patient/family. WAYNE MORALES
== END 2017-06-29 16:35 | disposition home or self-care (01) | DRG 312 ==
LOC: ED 12:06 → 4E 14:54 → EDHOLD 14:54 → 4E 15:06
PROVIDERS: Emergency Medicine; Family Medicine; ADMIT Internal Medicine
DX: I95.1 Orthostatic hypotension (principal); E43 Unspecified severe protein-calorie malnutrition; I50.32 Chronic diastolic (congestive) heart failure; I13.0 Hypertensive heart and chronic kidney disease with heart failure and stage 1 through stage 4 chronic kidney disease, or unspecified chronic kidney disease; J44.9 Chronic obstructive pulmonary disease, unspecified; N18.2 Chronic kidney disease, stage 2 (mild); G62.9 Polyneuropathy, unspecified; R26.81 Unsteadiness on feet; F43.10 Post-traumatic stress disorder, unspecified; K21.9 Gastro-esophageal reflux disease without esophagitis; R73.03 Prediabetes; G43.909 Migraine, unspecified, not intractable, without status migrainosus; M1A.9XX0 Chronic gout, unspecified, without tophus (tophi); M54.9 Dorsalgia, unspecified; G89.29 Other chronic pain; E78.5 Hyperlipidemia, unspecified; F32.9 Major depressive disorder, single episode, unspecified; W18.39XA Other fall on same level, initial encounter; E55.9 Vitamin D deficiency, unspecified; J30.2 Other seasonal allergic rhinitis; F41.0 Panic disorder [episodic paroxysmal anxiety]; Z68.30 Body mass index [BMI] 30.0-30.9, adult; Y93.89 Activity, other specified; Y92.89 Other specified places as the place of occurrence of the external cause; Y99.8 Other external cause status; I25.2 Old myocardial infarction; Z90.49 Acquired absence of other specified parts of digestive tract; Z87.891 Personal history of nicotine dependence; Z80.3 Family history of malignant neoplasm of breast; Z83.6 Family history of other diseases of the respiratory system; Z88.1 Allergy status to other antibiotic agents; Z88.8 Allergy status to other drugs, medicaments and biological substances; Z79.899 Other long term (current) drug therapy

== ENCOUNTER 2017-07-01 20:22 | Emergency (ER) | payer OTHER ==
[~2017-07-01] VITALS: Ht 170.1 cm; Wt 90.7 kg
[2017-07-01 20:26] VITALS: BP 100/58
[2017-07-01] MEDS ORDERED: GOOD NEIGHBOR M25 MG PO (20:56)
== END 2017-07-01 22:14 | disposition home or self-care (01) ==
LOC: ED 20:22
DX: R42 Dizziness and giddiness (principal); Z87.891 Personal history of nicotine dependence; Z98.890 Other specified postprocedural states; Z90.49 Acquired absence of other specified parts of digestive tract; Z79.899 Other long term (current) drug therapy; Z88.3 Allergy status to other anti-infective agents; Z88.1 Allergy status to other antibiotic agents; Z88.6 Allergy status to analgesic agent; Z88.8 Allergy status to other drugs, medicaments and biological substances

== ENCOUNTER → 2017-07-21 | Day surgery (SDC) | payer OTHER ==
[~2017-07-21] VITALS: Ht 170.1 cm; Wt 88.5 kg
[~2017-07-21] MED LIST changes: +GOOD NEIGHBOR M25 MG PO
--- NOTE | ~2017-07-21 | O ---
[place], [place] OPERATIVE NOTE NAME: BOBBY WATT JR UNIT #: [id number] ROOM: DOCTOR: JUNAID TAVARES MD BIRTHDATE: [birth year] DOS: HISTORY OF PRESENT ILLNESS: A[age]-year-old patient who has presented with chief complaint of epigastric distress, dyspepsia, undergoing investigation ____. FAMILY HISTORY: Grandfather with colonic carcinoma. PAST MEDICAL HISTORY: Hypertension, anxiety. PAST SURGICAL HISTORY: Cholecystectomy, ankle, neck and back. PROCEDURE: Today's procedure part of investigation is panendoscopy. PREMEDICATION: Versed and Diprivan. SCOPE: Olympus forward-viewing gastroscope Q10 video. REPORT: After putting the patient in the left lateral position and after application of lubricant to the scope, the scope was introduced. Thereafter, under direct visualization, I advanced through the length of the esophagus without difficulty. Esophagus cervicothoracic distally within normal limits. Gastric pouch was entered. Gastritis was seen. Hiatal hernia appreciated. Antral biopsy obtained. Duodenal bulb, second and third part within normal limits. The patient extubated after antral biopsy, tolerated the procedure well. IMPRESSION: Gastritis, hiatal hernia, status post biopsy. PLAN AND DISCUSSION: We are going to proceed with Carafate 1 gram a.m. and p.m. as well as Protonix 40 mg q.a.m., elevation of the head of the bed 6 inches all time, Extra Strength Gaviscon tablets 1 at bedtime is going to be prescribed and the patient was advised to have routine followup with you in office and p.r.n. visit with us in GI Clinic. I thank you very much indeed for your kind referral. [place], [place] OPERATIVE NOTE NAME: BOBBY WATT JR UNIT #: [id number] ROOM: DOCTOR: JUNAID TAVARES MD BIRTHDATE: [birth year] JUNAID TAVARES MD CM:OPRECORD:OPERATIVE NOTE 1207 1355 JUNAID TAVARES MD 07/21/17 4714 interface
[2017-07-21 10:44] VITALS: BP 130/89
[2017-07-21 12:01] VITALS: BP 122/76
[2017-07-21 12:15] VITALS: BP 118/82
[2017-07-21 12:29] VITALS: BP 124/80
== END | disposition home or self-care (01) ==
LOC: SDC 07-18 08:45
DX: K29.50 Unspecified chronic gastritis without bleeding (principal); K44.9 Diaphragmatic hernia without obstruction or gangrene; I10 Essential (primary) hypertension; F41.9 Anxiety disorder, unspecified; Z80.0 Family history of malignant neoplasm of digestive organs; Z90.49 Acquired absence of other specified parts of digestive tract

== ENCOUNTER 2017-08-23 17:35 | Emergency (ER) | payer OTHER ==
[~2017-08-23] VITALS: Ht 170.1 cm; Wt 93.0 kg
[2017-08-23 17:39] VITALS: BP 144/90
== END 2017-08-23 18:05 | disposition home or self-care (01) ==
LOC: ED 17:35
DX: G89.29 Other chronic pain (principal); Z98.890 Other specified postprocedural states; Z90.49 Acquired absence of other specified parts of digestive tract; Z87.891 Personal history of nicotine dependence; Z79.899 Other long term (current) drug therapy; Z88.3 Allergy status to other anti-infective agents; Z88.1 Allergy status to other antibiotic agents; Z88.8 Allergy status to other drugs, medicaments and biological substances; Z88.6 Allergy status to analgesic agent

== ENCOUNTER 2017-09-04 17:41 | Emergency (ER) | payer OTHER ==
[~2017-09-04] VITALS: Ht 170.1 cm; Wt 90.7 kg
[2017-09-04 17:50] VITALS: BP 184/104
[2017-09-04] MEDS ORDERED: NORCO 5-325 TA1 EACH PO (19:19)
== END 2017-09-04 19:24 | disposition home or self-care (01) ==
LOC: ED 17:41
DX: S22.31XA Fracture of one rib, right side, initial encounter for closed fracture (principal); Z90.49 Acquired absence of other specified parts of digestive tract; Z98.890 Other specified postprocedural states; Z87.891 Personal history of nicotine dependence; Z79.899 Other long term (current) drug therapy; Z88.3 Allergy status to other anti-infective agents; Z88.1 Allergy status to other antibiotic agents; Z88.8 Allergy status to other drugs, medicaments and biological substances; W17.89XA Other fall from one level to another, initial encounter; Y93.89 Activity, other specified; Y92.69 Other specified industrial and construction area as the place of occurrence of the external cause; Y99.9 Unspecified external cause status

== ENCOUNTER 2017-09-20 23:29 | Emergency (ER) | payer OTHER ==
[~2017-09-20] VITALS: Ht 170.1 cm; Wt 88.5 kg
[2017-09-20 23:37] VITALS: BP 141/86
[2017-09-20] MEDS ORDERED: CEPHALEXIN500 M1 PO (23:48)
== END 2017-09-21 00:09 | disposition home or self-care (01) ==
LOC: ED 23:29
DX: L98.8 Other specified disorders of the skin and subcutaneous tissue (principal); Z88.1 Allergy status to other antibiotic agents; Z88.8 Allergy status to other drugs, medicaments and biological substances; Z79.899 Other long term (current) drug therapy; Z90.49 Acquired absence of other specified parts of digestive tract; Z87.891 Personal history of nicotine dependence

== ENCOUNTER 2017-10-11 00:40 | Emergency (ER) | payer OTHER ==
[~2017-10-11] VITALS: Wt 86.2 kg
[~2017-10-11 00:40] MED LIST changes: +CEPHALEXIN500 M1 PO
[2017-10-11 00:45] VITALS: BP 161/91
[2017-10-11] MEDS ORDERED: PREDNISONE50 MG PO (00:53)
[2017-10-11] MEDS ORDERED: NAPROSYN500 MG PO (00:53)
== END 2017-10-11 01:11 | disposition home or self-care (01) ==
LOC: ED 00:40
DX: G89.29 Other chronic pain (principal); I13.0 Hypertensive heart and chronic kidney disease with heart failure and stage 1 through stage 4 chronic kidney disease, or unspecified chronic kidney disease; N18.2 Chronic kidney disease, stage 2 (mild); I50.32 Chronic diastolic (congestive) heart failure; K21.9 Gastro-esophageal reflux disease without esophagitis; E78.5 Hyperlipidemia, unspecified; E11.22 Type 2 diabetes mellitus with diabetic chronic kidney disease; E11.40 Type 2 diabetes mellitus with diabetic neuropathy, unspecified; Z87.891 Personal history of nicotine dependence; Z88.1 Allergy status to other antibiotic agents; Z79.899 Other long term (current) drug therapy; Z88.8 Allergy status to other drugs, medicaments and biological substances

== ENCOUNTER → 2017-10-19 | Outpatient (CLI) | payer OTHER ==
[~2017-10-19] MED LIST changes: +PREDNISONE50 MG PO
[2017-10-19 05:32] LABS: BUN 15 mg/dl (7-24); CHLORIDE 104 mmol/L (98-107); CHOLESTEROL 117 mg/dL (<200); CREATININE 1.01 mg/dL (0.70-1.30); HDL CHOLESTEROL 40 mg/dl (40-60); LDL CHOLESTEROL 58 mg/dL (9-159); POTASSIUM 3.5 mmol/L (3.5-5.1); SGOT/AST 18 IU/L (3-35); SGPT/ALT 28 U/L (12-78); SODIUM 144 mmol/L (136-145); TRIGLYCERIDES 95 mg/dl (<150); VLDL CHOLESTEROL 19 mg/dL (6-40)
== END | disposition home or self-care (01) ==
LOC: LAB 04:28
PROVIDERS: Internal Medicine Cardiovascular Disease
DX: I25.10 Atherosclerotic heart disease of native coronary artery without angina pectoris (principal)

== ENCOUNTER 2017-10-29 03:08 | Emergency (ER) | payer OTHER ==
[~2017-10-29] VITALS: Ht 170.1 cm; Wt 85.7 kg
[2017-10-29 03:25] VITALS: BP 139/95
[2017-10-29] MEDS ORDERED: EC NAPROSYN500 MG PO (04:50)
== END 2017-10-29 05:42 | disposition home or self-care (01) ==
LOC: ED 03:08
DX: M77.8 Other enthesopathies, not elsewhere classified (principal); G89.29 Other chronic pain; F41.9 Anxiety disorder, unspecified; I12.9 Hypertensive chronic kidney disease with stage 1 through stage 4 chronic kidney disease, or unspecified chronic kidney disease; N18.2 Chronic kidney disease, stage 2 (mild); J44.9 Chronic obstructive pulmonary disease, unspecified; F32.9 Major depressive disorder, single episode, unspecified; K21.9 Gastro-esophageal reflux disease without esophagitis; M10.9 Gout, unspecified; E78.5 Hyperlipidemia, unspecified; R73.9 Hyperglycemia, unspecified; G43.909 Migraine, unspecified, not intractable, without status migrainosus; F10.10 Alcohol abuse, uncomplicated; Z88.1 Allergy status to other antibiotic agents; Z88.8 Allergy status to other drugs, medicaments and biological substances; Z79.899 Other long term (current) drug therapy; Z90.49 Acquired absence of other specified parts of digestive tract

== ENCOUNTER 2017-11-23 20:08 | Emergency (ER) | payer OTHER ==
[~2017-11-23] VITALS: Ht 170.1 cm; Wt 83.9 kg
[~2017-11-23 20:08] MED LIST changes: +ABILIFY5 MG PO; +ATARAX,VISTARIL50 MG PO; +EC NAPROSYN500 MG PO
[2017-11-23 20:20] VITALS: BP 140/93
[2017-11-23 20:49] LABS: BASO # 0.1 10*3/uL (0.0-0.1); BASO % 0.5 % (0.0-1.0); EOS # 0.2 10*3/uL (0.0-0.4); EOS % 1.6 % (1.0-4.0); HEMATOCRIT 46.2 % (42.0-52.0); HEMOGLOBIN 16.5 g/dl (14.0-18.0); LYMPH # 1.7 10*3/uL (1.3-4.4); LYMPH % 17.8 % (27.0-41.0); MEAN CELL VOLUME 89.5 fl (80.0-94.0); MEAN CORPUSCULAR HGB CONC 35.7 g/dl (33.0-37.0); MEAN PLATELET VOLUME 9.4 fl (9.6-12.3); MONO # 0.5 10*3/uL (0.1-1.0); MONO % 5.7 % (3.0-9.0); NEUT # 7.1 10*3/uL (2.3-7.9); NEUT % 74.2 % (47.0-73.0); PLATELET COUNT AUTOMATED 316 10*3/uL (130-400); RED BLOOD COUNT 5.16 10*6/uL (4.50-5.90); RED CELL DISTRI WIDTH 12.4 % (0-14.5); WHITE BLOOD COUNT 9.6 10*3/uL (4.8-10.8)
[2017-11-23 21:04] LABS: ALBUMIN 4.5 gm/dl (3.1-4.5); ALKALINE PHOSPHATASE 101 U/L (45-117); BUN 10 mg/dl (7-24); CHLORIDE 103 mmol/L (98-107); CREATININE 1.34 mg/dL (0.70-1.30); POTASSIUM 3.6 mmol/L (3.5-5.1); SGOT/AST 23 IU/L (3-35); SGPT/ALT 31 U/L (12-78); SODIUM 138 mmol/L (136-145); TOTAL PROTEIN 7.3 gm/dL (6.4-8.2)
== END 2017-11-24 01:23 | disposition home or self-care (01) ==
LOC: ED 20:08
PROVIDERS: Nurse Practitioner
DX: K52.9 Noninfective gastroenteritis and colitis, unspecified (principal); I10 Essential (primary) hypertension; J45.909 Unspecified asthma, uncomplicated; Z87.891 Personal history of nicotine dependence; Z90.89 Acquired absence of other organs; Z98.890 Other specified postprocedural states; Z90.49 Acquired absence of other specified parts of digestive tract; Z79.899 Other long term (current) drug therapy; Z88.3 Allergy status to other anti-infective agents; Z88.1 Allergy status to other antibiotic agents; Z88.8 Allergy status to other drugs, medicaments and biological substances; Z88.6 Allergy status to analgesic agent

== ENCOUNTER → 2017-12-01 | Outpatient (CLI) | payer OTHER | END | disposition home or self-care (01) | LOC: CANPRECLI → ORTHO 01:51 | DX: M17.12 Unilateral primary osteoarthritis, left knee (principal); M94.262 Chondromalacia, left knee ==

== ENCOUNTER 2018-01-21 13:31 | Inpatient (IN) | payer OTHER ==
[2018-01-21] VITALS (7 sets, daily range): BP systolic 125–151; BP diastolic 76–92
[~2018-01-21] VITALS: Ht 170.1 cm; Wt 91.8 kg
--- NOTE | ~2018-01-21 | CON ---
[place], [place] REPORT OF CONSULTATION NAME: [facility]OBBY WATT JR [facility] [id number] UNIT #: [id number] ROOM: 530 DOCTOR: AJ[facility]DO [facility] B[facility]: [birth year] DOS: 01/22/2018 CARDIOLOGY CONSULTATION HISTORY OF PRESENT ILLNESS: The patient is a 57-year-old male came in with history of chest discomfort and progressive shortness of breath. The patient has history of chronic obstructive disease, congestive heart failure, and history of previous myocardial infarction. The patient was scheduled to have the stress done with Cardiology, but since had several stress done not too long ago and has been canceled. The patient has CT angiogram, no pulmonary emboli, but however, right middle lobe opacification with some atelectasis, underlying pneumonia is concerned; hence, on quinolones IV. Abdominal aortic calcification, but no aneurysm. REVIEW OF SYSTEMS: NEUROLOGICAL: Unremarkable. PSYCHIATRIC: Unremarkable. ENDOCRINOLOGY: Unremarkable. SKIN: Warm, not diaphoretic. NECK: Supple. PHYSICAL EXAMINATION: VITAL SIGNS: Blood pressure 132/83, heart rate is 57-68 and afebrile. HEENT: Unremarkable. NECK: Supple. No jugular venous distention. No carotid bruits were heard. LUNGS: Diminished breath sounds at bases. Basal rhonchi. HEART: S1, S2 regular. No gallops. ABDOMEN: Soft. Color is good, not diaphoretic. RECTAL AND GENITAL: Deferred unrelated. EXTREMITIES: No cyanosis. NEUROLOGIC: No focal neurological deficit noted. LABORATORY DATA: Potassium is low, at the supplements. GFR is normal. Initial enzymes were unremarkable. The CT as described, right middle lobe pneumonia. IMPRESSION: The patient also with 1. Glucose intolerance. 2. Chronic back pain. 3. Hypertension, stable now. PLAN: We will review the echocardiogram and examined the patient and explained to the patient. Optimize medical therapy for the pneumonia with antibiotics. We will follow as an outpatient if he has the pneumonia resolved. If he is still symptomatic, may consider either stress and if it is abnormal coronary artery. Otherwise, conservative medical therapy. I explained to the patient. The patient appears to be comfortable about the current plan of management. Thank you very much for asking me to see the patient. I will follow the patient. [place], [place] REPORT OF CONSULTATION NAME: BOBBY WATT JR W UNIT #: [id number] ROOM: [facility] DOCTOR: AJIT RAYMUNDO [facility]EL BIRTHDATE: [birth year] RAPHAEL FONG MD CM:CONSTR:REPORT OF CONSULTATION 1938 01/23/18 0411 interface
[2018-01-21 14:06] LABS: BASO % 0.4 % (0.0-1.0); EOS # 0.2 10*3/uL (0.0-0.4); EOS % 1.6 % (1.0-4.0); HEMATOCRIT 38.7 % (42.0-52.0); HEMOGLOBIN 13.6 g/dl (14.0-18.0); LYMPH # 1.3 10*3/uL (1.3-4.4); LYMPH % 14.2 % (27.0-41.0); MEAN CELL VOLUME 91.3 fl (80.0-94.0); MEAN CORPUSCULAR HGB 32.1 pg (27.0-31.0); MEAN CORPUSCULAR HGB CONC 35.1 g/dl (33.0-37.0); MEAN PLATELET VOLUME 9.2 fl (9.6-12.3); MONO # 0.6 10*3/uL (0.1-1.0); NEUT # 7.3 10*3/uL (2.3-7.9); NEUT % 77.5 % (47.0-73.0); PLATELET COUNT AUTOMATED 221 10*3/uL (130-400); RED BLOOD COUNT 4.24 10*6/uL (4.50-5.90); RED CELL DISTRI WIDTH 12.6 % (0-14.5); WHITE BLOOD COUNT 9.4 10*3/uL (4.8-10.8)
[2018-01-21 14:23] LABS: ALBUMIN 3.3 gm/dl (3.1-4.5); ALKALINE PHOSPHATASE 76 U/L (45-117); BUN 9 mg/dl (7-24); CHLORIDE 107 mmol/L (98-107); CREATININE 1.07 mg/dL (0.70-1.30); SGOT/AST 17 IU/L (3-35); SGPT/ALT 18 U/L (12-78); SODIUM 142 mmol/L (136-145); TOTAL PROTEIN 6.1 gm/dL (6.4-8.2)
[2018-01-21 14:27] LABS: TROPONIN I < 0.015 ng/ml (<0.045)
[2018-01-22] VITALS: BP 142/73
[2018-01-22 00:33] VITALS: BP 116/64
[2018-01-22 06:21] LABS: HEMATOCRIT 40.9 % (42.0-52.0); HEMOGLOBIN 14.1 g/dl (14.0-18.0); MEAN CELL VOLUME 91.7 fl (80.0-94.0); MEAN CORPUSCULAR HGB 31.6 pg (27.0-31.0); MEAN CORPUSCULAR HGB CONC 34.5 g/dl (33.0-37.0); MEAN PLATELET VOLUME 10.6 fl (9.6-12.3); PLATELET COUNT AUTOMATED 226 10*3/uL (130-400); RED BLOOD COUNT 4.46 10*6/uL (4.50-5.90); RED CELL DISTRI WIDTH 12.4 % (0-14.5); WHITE BLOOD COUNT 10.6 10*3/uL (4.8-10.8)
[2018-01-22 06:33] LABS: ALBUMIN 3.5 gm/dl (3.1-4.5); ALKALINE PHOSPHATASE 78 U/L (45-117); BUN 11 mg/dl (7-24); CHLORIDE 104 mmol/L (98-107); CHOLESTEROL 188 mg/dL (<200); CREATININE 1.05 mg/dL (0.70-1.30); HDL CHOLESTEROL 54 mg/dl (40-60); LDL CHOLESTEROL 126 mg/dL (9-159); PHOSPHOROUS 2.7 mg/dL (2.5-4.9); POTASSIUM 3.4 mmol/L (3.5-5.1); SGOT/AST 15 IU/L (3-35); SGPT/ALT 20 U/L (12-78); SODIUM 139 mmol/L (136-145); TOTAL PROTEIN 6.7 gm/dL (6.4-8.2); TRIGLYCERIDES 42 mg/dl (<150); VLDL CHOLESTEROL 8 mg/dL (6-40)
[2018-01-22 06:38] LABS: THYROID STIM HORMONE (HS) 0.227 uIU/ml (0.358-4.75)
[2018-01-22 06:47] LABS: PLATELET SUFFICIENCY NORMAL (NORMAL); TOTAL CELLS COUNTED 100 #CELLS
[2018-01-22 07:38] LABS: VITAMIN D, 25-HYDROXY 32.8 ng/mL (30-100)
[2018-01-22 08:00] VITALS: BP 142/79
[2018-01-22 12:00] VITALS: BP 157/77
[2018-01-22 16:00] VITALS: BP 100/50
[2018-01-22 20:00] VITALS: BP 118/65
[2018-01-23] VITALS: BP 138/70
[2018-01-23 08:00] VITALS: BP 112/64
[2018-01-23 12:00] VITALS: BP 142/75
[2018-01-23] MEDS ORDERED: PREDNISONE10 MG PO (14:18)
[2018-01-23] MEDS ORDERED: LEVAQUIN500 M2 PO (14:18)
[2018-01-23] MEDS ORDERED: MUCINEX ER600 MG PO (14:18)
[2018-01-23 16:00] VITALS: BP 136/70
== END 2018-01-23 16:35 | disposition home or self-care (01) | DRG 190 ==
LOC: ED 13:31 → EDHOLD 16:50 → 5E 16:50 → EDHOLD 17:07 → 5E 17:25
PROVIDERS: Emergency Medicine; Internal Medicine
DX: J44.0 Chronic obstructive pulmonary disease with (acute) lower respiratory infection (principal); J18.9 Pneumonia, unspecified organism; I13.0 Hypertensive heart and chronic kidney disease with heart failure and stage 1 through stage 4 chronic kidney disease, or unspecified chronic kidney disease; G62.9 Polyneuropathy, unspecified; I50.32 Chronic diastolic (congestive) heart failure; Z79.899 Other long term (current) drug therapy; F43.10 Post-traumatic stress disorder, unspecified; K57.90 Diverticulosis of intestine, part unspecified, without perforation or abscess without bleeding; N18.2 Chronic kidney disease, stage 2 (mild); D50.9 Iron deficiency anemia, unspecified; D72.810 Lymphocytopenia; R73.9 Hyperglycemia, unspecified; F41.0 Panic disorder [episodic paroxysmal anxiety]; K21.9 Gastro-esophageal reflux disease without esophagitis; R73.03 Prediabetes; G43.909 Migraine, unspecified, not intractable, without status migrainosus; M1A.9XX0 Chronic gout, unspecified, without tophus (tophi); M54.9 Dorsalgia, unspecified; G89.29 Other chronic pain; J44.1 Chronic obstructive pulmonary disease with (acute) exacerbation; E78.5 Hyperlipidemia, unspecified; F32.9 Major depressive disorder, single episode, unspecified; F41.9 Anxiety disorder, unspecified; E55.9 Vitamin D deficiency, unspecified; J30.2 Other seasonal allergic rhinitis; I25.2 Old myocardial infarction; Z90.49 Acquired absence of other specified parts of digestive tract; Z87.891 Personal history of nicotine dependence; Z80.1 Family history of malignant neoplasm of trachea, bronchus and lung; Z80.3 Family history of malignant neoplasm of breast; Z88.1 Allergy status to other antibiotic agents; Z88.2 Allergy status to sulfonamides

== ENCOUNTER → 2018-02-21 | Outpatient (CLI) | payer OTHER ==
[~2018-02-21] MED LIST changes: +LEVAQUIN500 M2 PO; +MUCINEX ER600 MG PO
== END | disposition home or self-care (01) ==
LOC: RAD 19:31
DX: J18.9 Pneumonia, unspecified organism (principal)

== ENCOUNTER 2018-02-26 03:48 | Inpatient (IN) | payer OTHER ==
[~2018-02-26] VITALS: Ht 170.1 cm; Wt 91.3 kg
[2018-02-26] VITALS (9 sets, daily range): BP systolic 95–122; BP diastolic 53–73
--- NOTE | ~2018-02-26 | O ---
[place], [place] OPERATIVE NOTE NAME: BOBBY WATT JR [facility] #: [id number] UNIT #: [id number] ROOM: 402 DOCTOR: JUNAID TAVARES MD BIRTHDATE: [birth year] DOS: 02/26/2018 INDICATIONS: A 58-year-old patient who presented with chief complaint of lower GI bleed. The patient has presented himself to the Emergency Room with a concern because of the bright blood per rectum. He had a panel of blood work done. His H and H was stable at 14 and 40 with white blood cell, which is normal. His chest x-ray, meanwhile was obtained and no acute pathology of concern identified. His INR was 0.9. CT scan of the abdomen and pelvis was done. No definitive pathology except chronic COPD at the bottom of the chest on CT scan of the abdomen and pelvis. PAST MEDICAL HISTORY: Depression, diverticulosis, history of chronic renal insufficiency, anxiety, hypertension, migraine cephalalgia, peripheral neuropathy, urolithiasis. PAST SURGICAL HISTORY: Cholecystectomy, lower back surgery, knees and neck surgery, and cholecystectomy. SOCIAL HISTORY: Passive smoker, nonalcohol consumer. FAMILY HISTORY: Noncontributory. ALLERGIES: DOXYCYCLINE, ERYTHROMYCIN, PHENYTOIN, PROMETHAZINE, CLARITHROMYCIN, GABAPENTIN, NIACIN. MEDICATIONS: Otherwise reviewed. He is not on blood thinners. PROCEDURE: Today's procedure part of investigation is colonoscopy in search of rectal bleed complaint. PREMEDICATION: Versed and propofol. SCOPE: Olympus forward-viewing colonoscope 10L video. REPORT: After putting the patient in left lateral position and application of lubricant to the scope, the scope was introduced. Thereafter, under direct visualization, advanced through the length of colon without difficulty. Base of the cecum explored, appendiceal orifice identified, and ileocecal valve was defined. No acute pathology of concern noticed. The patient extubated and tolerated the procedure well. IMPRESSION: Normal colonoscopic examination. No evidence of ischemia. There is no AV malformation, GI reflexion of the scope in the rectum, did not show any substantial hemorrhoid of concern. Therefore, this patient could have bled from a superficial vascular in insult in the rectal sphincter. At the present time, no bleeding. Therefore, we are going to proceed with feeding him regular diet and following him as outpatient. [place], [place] OPERATIVE NOTE NAME: BOBBY WATT JR UNIT #: [id number] ROOM: 402 DOCTOR: JUNAID TAVARES MD BIRTHDATE: [birth year] JUNAID TAVARES MD CM:OPRECORD:OPERATIVE NOTE 1824 34 JUNAID TAVARES MD 02/26/182033 interface
[2018-02-26] MEDS ORDERED: HYDROCODONE-AC1 EAC2 PO (04:07)
[2018-02-26 04:23] LABS: BASO # 0.1 10*3/uL (0.0-0.1); BASO % 0.8 % (0.0-1.0); EOS # 0.2 10*3/uL (0.0-0.4); EOS % 2.6 % (1.0-4.0); HEMATOCRIT 40.8 % (42.0-52.0); HEMOGLOBIN 14.2 g/dl (14.0-18.0); LYMPH # 2.5 10*3/uL (1.3-4.4); LYMPH % 27.8 % (27.0-41.0); MEAN CELL VOLUME 91.5 fl (80.0-94.0); MEAN CORPUSCULAR HGB 31.8 pg (27.0-31.0); MEAN CORPUSCULAR HGB CONC 34.8 g/dl (33.0-37.0); MEAN PLATELET VOLUME 9.7 fl (9.6-12.3); MONO # 0.8 10*3/uL (0.1-1.0); MONO % 8.6 % (3.0-9.0); NEUT # 5.5 10*3/uL (2.3-7.9); NEUT % 59.8 % (47.0-73.0); PLATELET COUNT AUTOMATED 270 10*3/uL (130-400); RED BLOOD COUNT 4.46 10*6/uL (4.50-5.90); RED CELL DISTRI WIDTH 12.4 % (0-14.5); WHITE BLOOD COUNT 9.1 10*3/uL (4.8-10.8)
[2018-02-26 04:31] LABS: ACT PARTIAL THROMBO TIME 21.2 SECONDS (20.8-31.5); INTERNATIONAL NORM RATIO 0.9 (2.0-3.5)
[2018-02-26 04:43] LABS: ALBUMIN 3.9 gm/dl (3.1-4.5); ALKALINE PHOSPHATASE 71 U/L (45-117); BUN 18 mg/dl (7-24); CHLORIDE 109 mmol/L (98-107); CREATININE 1.02 mg/dL (0.70-1.30); POTASSIUM 3.8 mmol/L (3.5-5.1); SGOT/AST 22 IU/L (3-35); SGPT/ALT 25 U/L (12-78); SODIUM 143 mmol/L (136-145); TOTAL PROTEIN 6.5 gm/dL (6.4-8.2)
[2018-02-26 04:50] LABS: TROPONIN I < 0.015 ng/ml (<0.045)
[2018-02-26 05:46] LABS: BILIRUBIN NEGATIVE (NEGATIVE); BLOOD NEGATIVE (NEGATIVE); CLARITY CLEAR (CLEAR); COLOR YELLOW (YELLOW); GLUCOSE NEGATIVE (NEGATIVE); KETONE NEGATIVE (NEGATIVE); LEUKO ESTERASE NEGATIVE (NEGATIVE); NITRITE NEGATIVE (NEGATIVE); PH 5.5 (5.0-9.0); SPECIFIC GRAVITY 1.025 (1.005-1.030); UROBILINOGEN 0.2 E.U./dl (0.2-1.0)
[2018-02-26 05:54] LABS: EPITHELIAL CELLS 0-5; WBC 0-2 wbc/hpf (0-5)
[2018-02-26] MEDS ORDERED: KETOROLAC10 MG PO (06:41)
[2018-02-26] MEDS ORDERED: NORCO 5-325 TA1 EACH PO (06:41)
[2018-02-26] MEDS ORDERED: PROTONIX40 MG PO (11:30)
[2018-02-26] MEDS ORDERED: NORCO 7.5-3251 EACH PO (11:33)
[2018-02-26] MEDS ORDERED: VITAMIN D33000 UNIT PO (11:36)
[2018-02-26] MEDS ORDERED: ATORVASTATIN CA10 M1 PO (11:37)
[2018-02-26] MEDS ORDERED: PROCHLORPERAZIN10 MG PO (11:38)
[2018-02-26] MEDS ORDERED: CETIRIZINE10 MG PO (11:39)
[2018-02-26] MEDS ORDERED: METOPROLOL SUC100 M1 PO (11:39)
== END 2018-02-26 21:28 | disposition left against medical advice (07) | DRG 393 ==
LOC: ED 03:48 → EDHOLD 07:27 → 4E 07:27
PROVIDERS: Student in an Organized Health Care Education/Training Program
PROC: 0DJD8ZZ Inspection of Lower Intestinal Tract, Via Natural or Artificial Opening Endoscopic (ICD-10-PCS; principal; 2018-02-26)
DX: S36.63XA Laceration of rectum, initial encounter (principal); K57.91 Diverticulosis of intestine, part unspecified, without perforation or abscess with bleeding; I13.0 Hypertensive heart and chronic kidney disease with heart failure and stage 1 through stage 4 chronic kidney disease, or unspecified chronic kidney disease; I50.32 Chronic diastolic (congestive) heart failure; M54.9 Dorsalgia, unspecified; G62.9 Polyneuropathy, unspecified; F32.9 Major depressive disorder, single episode, unspecified; R73.9 Hyperglycemia, unspecified; J44.9 Chronic obstructive pulmonary disease, unspecified; N18.2 Chronic kidney disease, stage 2 (mild); F41.0 Panic disorder [episodic paroxysmal anxiety]; K21.9 Gastro-esophageal reflux disease without esophagitis; R00.1 Bradycardia, unspecified; G43.909 Migraine, unspecified, not intractable, without status migrainosus; M1A.9XX0 Chronic gout, unspecified, without tophus (tophi); E55.9 Vitamin D deficiency, unspecified; J30.2 Other seasonal allergic rhinitis; K59.00 Constipation, unspecified; G89.29 Other chronic pain; E78.5 Hyperlipidemia, unspecified; F43.10 Post-traumatic stress disorder, unspecified; X58.XXXA Exposure to other specified factors, initial encounter; Z90.49 Acquired absence of other specified parts of digestive tract; Z87.891 Personal history of nicotine dependence; Z80.3 Family history of malignant neoplasm of breast; Z84.89 Family history of other specified conditions; Z88.1 Allergy status to other antibiotic agents; Z88.8 Allergy status to other drugs, medicaments and biological substances; Z79.899 Other long term (current) drug therapy; Y93.89 Activity, other specified; Y92.89 Other specified places as the place of occurrence of the external cause; Y99.8 Other external cause status

== ENCOUNTER 2018-03-19 23:23 | Emergency (ER) | payer OTHER ==
[~2018-03-19] VITALS: Ht 172.7 cm; Wt 93.9 kg
[2018-03-19 23:23] VITALS: BP 126/71
[~2018-03-19 23:23] MED LIST changes: +ATORVASTATIN CA10 M1 PO; +HYDROCODONE-AC1 EAC2 PO; +KETOROLAC10 MG PO; +PROCHLORPERAZIN10 MG PO
== END 2018-03-19 23:41 | disposition home or self-care (01) ==
LOC: ED 23:23
DX: L98.8 Other specified disorders of the skin and subcutaneous tissue (principal); I13.0 Hypertensive heart and chronic kidney disease with heart failure and stage 1 through stage 4 chronic kidney disease, or unspecified chronic kidney disease; E11.22 Type 2 diabetes mellitus with diabetic chronic kidney disease; N18.2 Chronic kidney disease, stage 2 (mild); E78.5 Hyperlipidemia, unspecified; M10.9 Gout, unspecified; J44.9 Chronic obstructive pulmonary disease, unspecified; Z79.899 Other long term (current) drug therapy; Z87.891 Personal history of nicotine dependence; Z88.1 Allergy status to other antibiotic agents; Z88.8 Allergy status to other drugs, medicaments and biological substances

== ENCOUNTER 2018-03-25 11:38 | Emergency (ER) | payer OTHER ==
[~2018-03-25] VITALS: Wt 81.6 kg
[2018-03-25 12:18] VITALS: BP 131/81
[2018-03-25] MEDS ORDERED: MEDROL DOSEPAK4 MG PO (13:36)
[2018-03-25] MEDS ORDERED: CYCLOBENZAPRINE10 MG PO (13:37)
== END 2018-03-25 14:10 | disposition home or self-care (01) ==
LOC: ED 11:38
DX: S32.020A Wedge compression fracture of second lumbar vertebra, initial encounter for closed fracture (principal); S49.91XA Unspecified injury of right shoulder and upper arm, initial encounter; S89.91XA Unspecified injury of right lower leg, initial encounter; I13.0 Hypertensive heart and chronic kidney disease with heart failure and stage 1 through stage 4 chronic kidney disease, or unspecified chronic kidney disease; E11.22 Type 2 diabetes mellitus with diabetic chronic kidney disease; N18.2 Chronic kidney disease, stage 2 (mild); I50.32 Chronic diastolic (congestive) heart failure; J44.9 Chronic obstructive pulmonary disease, unspecified; K21.9 Gastro-esophageal reflux disease without esophagitis; E78.5 Hyperlipidemia, unspecified; G43.909 Migraine, unspecified, not intractable, without status migrainosus; G62.9 Polyneuropathy, unspecified; G89.29 Other chronic pain; Z98.890 Other specified postprocedural states; Z90.49 Acquired absence of other specified parts of digestive tract; Z87.891 Personal history of nicotine dependence; Z79.899 Other long term (current) drug therapy; Z88.3 Allergy status to other anti-infective agents; Z88.1 Allergy status to other antibiotic agents; Z88.8 Allergy status to other drugs, medicaments and biological substances; W19.XXXA Unspecified fall, initial encounter; Y93.89 Activity, other specified; Y92.69 Other specified industrial and construction area as the place of occurrence of the external cause; Y99.9 Unspecified external cause status

== ENCOUNTER 2018-04-02 02:16 | Inpatient (IN) | payer OTHER ==
[~2018-04-02] VITALS: Ht 172.7 cm; Wt 93.7 kg
[2018-04-02] VITALS (7 sets, daily range): BP systolic 113–128; BP diastolic 68–80
[~2018-04-02 02:16] MED LIST changes: +CYCLOBENZAPRINE10 MG PO
[2018-04-02 03:40] LABS: BASO # 0.1 10*3/uL (0.0-0.1); BASO % 0.6 % (0.0-1.0); EOS # 0.2 10*3/uL (0.0-0.4); EOS % 1.9 % (1.0-4.0); HEMOGLOBIN 14.6 g/dl (14.0-18.0); LYMPH % 29.3 % (27.0-41.0); MEAN CELL VOLUME 93.3 fl (80.0-94.0); MEAN CORPUSCULAR HGB 31.7 pg (27.0-31.0); MEAN PLATELET VOLUME 9.5 fl (9.6-12.3); MONO # 0.7 10*3/uL (0.1-1.0); MONO % 6.5 % (3.0-9.0); NEUT # 6.3 10*3/uL (2.3-7.9); NEUT % 61.3 % (47.0-73.0); PLATELET COUNT AUTOMATED 270 10*3/uL (130-400); RED BLOOD COUNT 4.61 10*6/uL (4.50-5.90); WHITE BLOOD COUNT 10.2 10*3/uL (4.8-10.8)
[2018-04-02 03:55] LABS: ALBUMIN 4.1 gm/dl (3.1-4.5); ALKALINE PHOSPHATASE 74 U/L (45-117); BUN 16 mg/dl (7-24); CHLORIDE 108 mmol/L (98-107); CREATININE 1.03 mg/dL (0.70-1.30); POTASSIUM 3.8 mmol/L (3.5-5.1); SGOT/AST 16 IU/L (3-35); SGPT/ALT 23 U/L (12-78); SODIUM 143 mmol/L (136-145); TOTAL PROTEIN 6.6 gm/dL (6.4-8.2)
[2018-04-02] MEDS ORDERED: NORCO 7.5-3251 EACH PO (04:09)
[2018-04-02] MEDS ORDERED: CYCLOBENZAPRINE10 MG PO (04:10)
[2018-04-03] VITALS: BP 111/71
[2018-04-03 06:10] LABS: BASO % 0.4 % (0.0-1.0); EOS # 0.3 10*3/uL (0.0-0.4); EOS % 3.1 % (1.0-4.0); HEMATOCRIT 42.2 % (42.0-52.0); LYMPH # 2.3 10*3/uL (1.3-4.4); LYMPH % 29.2 % (27.0-41.0); MEAN CELL VOLUME 94.8 fl (80.0-94.0); MEAN CORPUSCULAR HGB 31.5 pg (27.0-31.0); MEAN CORPUSCULAR HGB CONC 33.2 g/dl (33.0-37.0); MEAN PLATELET VOLUME 9.6 fl (9.6-12.3); MONO # 0.7 10*3/uL (0.1-1.0); MONO % 8.7 % (3.0-9.0); NEUT # 4.6 10*3/uL (2.3-7.9); NEUT % 58.1 % (47.0-73.0); PLATELET COUNT AUTOMATED 230 10*3/uL (130-400); RED BLOOD COUNT 4.45 10*6/uL (4.50-5.90); RED CELL DISTRI WIDTH 12.7 % (0-14.5)
[2018-04-03 06:42] LABS: BUN 13 mg/dl (7-24); CHLORIDE 104 mmol/L (98-107); CREATININE 0.97 mg/dL (0.70-1.30); PHOSPHOROUS 3.6 mg/dL (2.5-4.9); SODIUM 142 mmol/L (136-145)
[2018-04-03 08:00] VITALS: BP 119/80
== END 2018-04-03 10:56 | disposition home or self-care (01) | DRG 543 ==
LOC: ED 02:16 → 4E 03:33 → EDHOLD 03:33 → 4E 03:40
PROVIDERS: Student in an Organized Health Care Education/Training Program
DX: M48.56XA Collapsed vertebra, not elsewhere classified, lumbar region, initial encounter for fracture (principal); I50.32 Chronic diastolic (congestive) heart failure; E11.22 Type 2 diabetes mellitus with diabetic chronic kidney disease; E11.40 Type 2 diabetes mellitus with diabetic neuropathy, unspecified; I13.0 Hypertensive heart and chronic kidney disease with heart failure and stage 1 through stage 4 chronic kidney disease, or unspecified chronic kidney disease; E78.5 Hyperlipidemia, unspecified; K21.9 Gastro-esophageal reflux disease without esophagitis; F41.9 Anxiety disorder, unspecified; F32.9 Major depressive disorder, single episode, unspecified; M54.9 Dorsalgia, unspecified; J44.9 Chronic obstructive pulmonary disease, unspecified; G89.29 Other chronic pain; N18.2 Chronic kidney disease, stage 2 (mild); K57.90 Diverticulosis of intestine, part unspecified, without perforation or abscess without bleeding; M10.9 Gout, unspecified; G43.909 Migraine, unspecified, not intractable, without status migrainosus; F43.10 Post-traumatic stress disorder, unspecified; Z90.49 Acquired absence of other specified parts of digestive tract; Z82.49 Family history of ischemic heart disease and other diseases of the circulatory system; Z84.89 Family history of other specified conditions; Z88.8 Allergy status to other drugs, medicaments and biological substances; Z79.899 Other long term (current) drug therapy

== ENCOUNTER 2018-05-18 14:40 | Inpatient (IN) | payer OTHER ==
[~2018-05-18] VITALS: Ht 172.7 cm; Wt 93.0 kg
--- NOTE | ~2018-05-18 | DS ---
[place], [place] DISCHARGE SUMMARY [id number] UNIT #: [id number] ROOM: 312 DOCTOR: GARFIELD MEDEROS MD BIRTHDATE: [birth year] DOS: 05/22/2018 CHIEF COMPLAINT: "I quit my medicine and I am so depressed." HISTORY OF PRESENT ILLNESS: This is a 58-year-old white male who was brought to the Emergency Room in [facility] by EMS, sent here by his primary care physician after he reported increased depression with suicidal ideation and a plan. Per the patient, he quit taking his medication and became increasingly more despondent over the last several weeks prior to this admission. He did go to his primary care physician and did state to the physician that he was feeling increasingly depressed as well as having thoughts to hurt himself. The primary care physician urged him to go by EMS to the Emergency Room at [facility] to be evaluated for possible admission and the patient agreed to do so. The patient does have a lengthy psychiatric history with multiple psychiatric admissions and in fact is known by me by his previous admissions to [facility] when he lived in [place]. He is admitted now to rule out organic factors, to stabilize on medication and to return to the least restrictive environment when psychiatrically stable. PAST MEDICAL HISTORY: Remarkable for chronic back pain, congestive heart failure, chronic kidney disease, COPD, diabetes, diverticulosis, GERD, gout, asbestosis, hyperlipidemia, hypertension, migraine headaches, compression fracture and vitamin D deficiency. SOCIAL HISTORY: The patient does admit to drinking wine, but denies any other substances and is not a cigarette smoker. SUMMARY OF THE HOSPITAL COURSE: The patient was admitted by Dr. Hagen and restarted on his previous medications of Effexor XR 150 mg a day and Abilify 5 mg a day. The patient reported that once he restarted the medicines he began feeling better already. He did still have some residual depression, so I increased his Abilify from 5 to 10 to augment the effectiveness of the Effexor. I also ordered him Zostrix high potency cream to help address some of the chronic pain issues. The patient rapidly improved once he restarted his previous medication regimen and voiced no side effects. He also voiced positive plans for the future and denied suicidal thoughts, homicidal thoughts or any self-injurious thoughts. He voiced a willingness and a readiness to return home. MENTAL STATUS AT DISCHARGE: The patient is alert and oriented to person, place and time. Mood is euthymic. Affect is appropriate. There is no jim or hypomania. There were no auditory or visual hallucinations. No delusions, no paranoia. Short, intermediate and long-term memories are relatively fully intact. FINAL DIAGNOSIS AT THE TIME OF DISCHARGE: Major depression, recurrent, severe. PLAN: All of his prescriptions have been e scribed to [facility] except his Zostrix, which was printed and will be sent with him. There are no acute medical issues at the time of discharge. Psychiatrically, he is stable and [place], [place] DISCHARGE SUMMARY NAME: BOBBY WATT JR [facility] #: [id number] UNIT #: [id number] ROOM: [facility] DOCTOR: GARFIELD MEDEROS MD BIRTHDATE: [birth year] there are no acute psychiatric issues. His biopsychosocial needs are adequately being met by his current treatment modalities. GARFIELD MEDEROS MD CM:JENNIFER 0833 GARFIELD MEDEROS MD 05/22/18 0902 interface
--- NOTE | ~2018-05-18 | EKG ---
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
--- NOTE | ~2018-05-18 | PR ---
[place], [place] PROGRESS NOTE [id number] UN[facility] #: [id number] ROOM: 312 DOCTOR: GARFIELD MEDEROS MD BIRTHDATE: [birth year] DOS: 05/21/2018 CHIEF COMPLAINT: "I am feeling a little better except my keen and my back hurts a lot." SUMMARY OF THE VISIT: The patient was interviewed as he was resting quietly in bed. He reported to me that he presented here to the hospital acutely depressed, but with the medication changes that Dr. Hagen made, he is feeling somewhat better. He still notes some residual depression, but feels that it is improving day by day and he is anxious to be able to leave. He is only consistent and persistent complaint was a complaint of back pain and bilateral knee pain. He reports that the pain is significant enough that he feels he needs some type of intervention done. MENTAL STATUS: He is alert and oriented to person, place and time. Mood does seem to be still somewhat depressed, but it does appear that it is improving when compared to the notes upon admission. The patient is able to engage readily in conversation and denies multiple neurovegetative symptoms, reporting an improvement. There is no hypomania or jim noted. There are no overt auditory or visual hallucinations noted. Memory for the most part seems to be intact. PLAN: Screening examinations reveal him to have a low vitamin B12 level of 231, so I will treat with vitamin B12 injection of 1000 mcg IM monthly. I will order him Zostrix high potency cream t.i.d. for his back and in his knees and simultaneously increase the Abilify to 10 mg at bedtime augmenting the effectiveness of the Effexor. I will discontinue Haldol and Benadryl p.r.n. as I do not feel that he requires these interventions. Engage in individual and rothman milieu activity, returning to the least restrictive environment when psychiatrically stable. GARFIELD MEDEROS MD CM:PNTRANS 5 58 GARFIELD MEDEROS MD 05/21/181856 interface
--- NOTE | ~2018-05-18 | WRIGHTHP ---
[place], [place] PATIENT HISTORY AND PHYSICAL EXAM NAME: BOBBY WATT JR [facility] #: [id number] UNIT #: [id number] ROOM: 312 DOCTOR: SEB CORREA MD BIRTHDATE: [birth year] DOS: 05/19/2018 PSYCHIATRIC HISTORY AND PHYSICAL REASON FOR HOSPITALIZATION: Increased depression and suicidal ideation. HISTORY OF PRESENT ILLNESS: The patient seen and chart reviewed. A 58-year-old white male who was sent to the ER via EMS by his primary care physician after he reported increased depression and suicidal ideation. As per the note, the patient reportedly stopped taking his medication. He went to his PCP and told his PCP that he is feeling increasingly depressed and also having fleeting suicidal thoughts. The patient got cleared medically into the ER and then sent to the psychiatric unit for further care and stabilization. The patient was irritable and angry for being in the hospital. He calmed down. Later on, he mentioned that he stopped taking his medication because he felt that he was on "too much medication." He said that he wanted to see how he feels without taking any medication. Then, he went on to talk about his fall in March while working. He mentioned that since the fall, he was not working and his financial situation is also started going downhill. He also then started talking about two of his previous is cheating on him. He said that when he thinks about it which made him increasingly depressed, sad, helpless, with lack of energy and motivation. He also talked about fleeting suicidal ideation, but denied any intent or plan. He denied any symptoms of psychosis, jim, or hypomania. It should be noted that the patient also stopped taking his antidepressant also. PAST MEDICAL HISTORY: Significant for chronic back pain, congestive heart failure, chronic kidney disease, COPD, diabetes, diverticulosis, GERD, gout, history of asbestosis exposure, hyperlipidemia, hypertension, migraine, vertebral compression fracture and vitamin D deficiency. PAST PSYCHIATRIC HISTORY: Three prior psychiatric hospitalizations, multiple prior suicide attempts. No suicide in the family. Denied having any gun at home. SUBSTANCE ABUSE HISTORY: The patient mentioned that he drinks wine occasionally. Denied any other substances. SOCIAL HISTORY: He was born and raised in [place]. twice, . He claims that he had two masters, he had a son. He does not have any good relationship with him. He is now unemployed since March. He does not have any income. He lives by himself. He does not have a good support system in the community. MENTAL STATUS EXAMINATION: The patient was irritable and angry. He was alert and oriented to day, date, month and year. Speech was normal volume and tone. He described his mood as "I am angry." Affect was broad range, labile. His [place], [place] PATIENT HISTORY AND PHYSICAL EXAM NAME: BOBBY WATT JR UNIT #: [id number] ROOM: [facility] DOCTOR: SEB CORREA MD BIRTHDATE: [birth year] thought process goal directed. No flight of ideas, loosening of association. He denied auditory or visual hallucination. No delusion or paranoia noted. He acknowledges that he had fleeting suicidal ideation, but no intent or plan. Denied any homicidal ideation, intent or plan. Insight and judgment was poor to fair. ASSESSMENT: Major depressive disorder, recurrent, severe without psychotic features, currently depressed and suicidal. PLAN: 1. I will continue his Effexor XR 150 mg in the morning and Abilify 5 mg at night as the patient stopped taking this due to medication also. 2. Continue redirection. 3. Supportive care. 4. Encourage activities in groups. 5. Collateral information. SEB CORREA MD CM:HISPHYS:PATIENT HISTORY AND PHYSICAL EXAMINATION [phone] SEB CORREA MD 05/24/18 1022 interface
--- NOTE | ~2018-05-18 | PR ---
[place], [place] PROGRESS NOTE NAME: BOBBY WATT JR [facility] #: [id number] UNIT #: [id number] ROOM: 312 DOCTOR: SEB CORREA MD BIRTHDATE: [birth year] DOS: 05/20/2018 SUBJECTIVE: Patient seen and spoke with the nursing staff. Per staff, the patient is still depressed, took his medication. No behavioral problems or issues. The patient was in his room. He reports being depressed. He said that he took all of his medication and did not have any side effect from the medication. He wanted to go home. He seems not to be happy for being in the hospital. MENTAL STATUS EXAMINATION: Pleasant and cooperative. Described his mood as "okay." Affect was flat, constricted. Thought process goal directed. No flight of ideas, loosening of association. He denied auditory or visual hallucination. No delusion or paranoia noted. He denies suicidal ideation, intent or plan. He also denied any homicidal ideation, intent or plan. PLAN: 1. Continue current medication and care. 2. Continue redirection. 3. Encourage activity and groups. 4. Supportive care. SEB CORREA MD CM:PNTRANS [id number] SEB CORREA MD 05/21/18 0437 interface
[~2018-05-18 14:40] MED LIST changes: +EFFEXOR-XR150 MG PO; -EFFEXOR100 MG PO
[2018-05-18 14:41] VITALS: BP 131/84
[2018-05-18 15:33] LABS: BASO # 0.1 10*3/uL (0.0-0.1); EOS # 0.2 10*3/uL (0.0-0.4); EOS % 3.5 % (1.0-4.0); HEMATOCRIT 46.1 % (42.0-52.0); HEMOGLOBIN 16.5 g/dl (14.0-18.0); LYMPH # 2.2 10*3/uL (1.3-4.4); LYMPH % 32.2 % (27.0-41.0); MEAN CORPUSCULAR HGB 31.9 pg (27.0-31.0); MEAN CORPUSCULAR HGB CONC 35.8 g/dl (33.0-37.0); MEAN PLATELET VOLUME 9.6 fl (9.6-12.3); MONO # 0.6 10*3/uL (0.1-1.0); MONO % 8.8 % (3.0-9.0); NEUT # 3.7 10*3/uL (2.3-7.9); NEUT % 54.4 % (47.0-73.0); PLATELET COUNT AUTOMATED 245 10*3/uL (130-400); RED BLOOD COUNT 5.18 10*6/uL (4.50-5.90); RED CELL DISTRI WIDTH 11.9 % (0-14.5); WHITE BLOOD COUNT 6.8 10*3/uL (4.8-10.8)
[2018-05-18 15:44] LABS: ACT PARTIAL THROMBO TIME 21.9 SECONDS (20.8-31.5); INTERNATIONAL NORM RATIO 0.9 (2.0-3.5)
[2018-05-18 15:44] LABS: BILIRUBIN NEGATIVE (NEGATIVE); BLOOD NEGATIVE (NEGATIVE); CLARITY CLEAR (CLEAR); COLOR YELLOW (YELLOW); GLUCOSE NEGATIVE (NEGATIVE); KETONE NEGATIVE (NEGATIVE); LEUKO ESTERASE NEGATIVE (NEGATIVE); NITRITE NEGATIVE (NEGATIVE); PH 5.5 (5.0-9.0); SPECIFIC GRAVITY <= 1.005 (1.005-1.030); UROBILINOGEN 0.2 E.U./dl (0.2-1.0)
[2018-05-18 15:47] LABS: ALBUMIN 4.2 gm/dl (3.1-4.5); ALKALINE PHOSPHATASE 71 U/L (45-117); BUN 5 mg/dl (7-24); CHLORIDE 104 mmol/L (98-107); LIPASE 364 U/L (73-393); POTASSIUM 4.2 mmol/L (3.5-5.1); SGOT/AST 19 IU/L (3-35); SGPT/ALT 26 U/L (12-78); SODIUM 137 mmol/L (136-145); TOTAL PROTEIN 7.1 gm/dL (6.4-8.2)
[2018-05-18 15:48] LABS: ACETAMINOPHEN (TYLENOL) < 2.0 ug/ml (10-30); TROPONIN I < 0.015 ng/ml (<0.045)
[2018-05-18 15:50] LABS: BACTERIA 1+; EPITHELIAL CELLS 0-2; RBC 0-2 rbc/hpf (0-2); WBC 0-2 wbc/hpf (0-5)
[2018-05-18 15:52] LABS: URINE AMPHETAMINES < 1000 (1000ng/ml); URINE BARBITURATES < 200 (200ng/ml); URINE BENZODIAZEPINES < 200 (200ng/ml); URINE CANNABINOIDS (THC) < 50 (50ng/ml); URINE COCAINE < 300 (300ng/ml); URINE METHADONE < 300 (300ng/ml); URINE OPIATES > 300 (300ng/ml)
[2018-05-18 15:54] LABS: URINE PHENCYCLIDINE < 25 (25ng/ml)
[2018-05-18 16:01] LABS: ETHYL ALCOHOL < 3.0 mg/dl (<3)
[2018-05-18 16:46] VITALS: BP 127/90
[2018-05-18] MEDS ORDERED: NORCO 7.5-3251 EACH PO (16:49)
[2018-05-18 17:44] VITALS: BP 139/87
[2018-05-18 20:05] VITALS: BP 139/87
[2018-05-19 07:15] LABS: BASO # 0.1 10*3/uL (0.0-0.1); BASO % 1.2 % (0.0-1.0); EOS # 0.3 10*3/uL (0.0-0.4); EOS % 3.2 % (1.0-4.0); HEMATOCRIT 46.6 % (42.0-52.0); HEMOGLOBIN 16.2 g/dl (14.0-18.0); LYMPH # 2.5 10*3/uL (1.3-4.4); LYMPH % 30.5 % (27.0-41.0); MEAN CORPUSCULAR HGB 31.6 pg (27.0-31.0); MEAN CORPUSCULAR HGB CONC 34.8 g/dl (33.0-37.0); MEAN PLATELET VOLUME 9.6 fl (9.6-12.3); MONO # 0.7 10*3/uL (0.1-1.0); NEUT # 4.6 10*3/uL (2.3-7.9); NEUT % 56.7 % (47.0-73.0); PLATELET COUNT AUTOMATED 266 10*3/uL (130-400); RED BLOOD COUNT 5.12 10*6/uL (4.50-5.90); RED CELL DISTRI WIDTH 11.9 % (0-14.5); WHITE BLOOD COUNT 8.1 10*3/uL (4.8-10.8)
[2018-05-19 07:47] VITALS: BP 112/70
[2018-05-19 07:53] LABS: ALBUMIN 3.8 gm/dl (3.1-4.5); BUN 8 mg/dl (7-24); CHLORIDE 103 mmol/L (98-107); CHOLESTEROL 188 mg/dL (<200); CREATININE 0.99 mg/dL (0.70-1.30); POTASSIUM 4.3 mmol/L (3.5-5.1); SGPT/ALT 26 U/L (12-78); SODIUM 141 mmol/L (136-145)
[2018-05-19 08:01] LABS: ALKALINE PHOSPHATASE 69 U/L (45-117); FREE T4 0.87 ng/dl (0.76-1.46); HDL CHOLESTEROL 36 mg/dl (40-60); LDL CHOLESTEROL 115 mg/dL (9-159); SGOT/AST 17 IU/L (3-35); THYROID STIM HORMONE (HS) 0.567 uIU/ml (0.358-4.75); TOTAL PROTEIN 6.6 gm/dL (6.4-8.2); TRIGLYCERIDES 184 mg/dl (<150); VLDL CHOLESTEROL 37 mg/dL (6-40)
[2018-05-19 08:11] LABS: VITAMIN D, 25-HYDROXY 32.8 ng/mL (30-100)
[2018-05-19 19:49] VITALS: BP 121/78
[2018-05-20 07:51] VITALS: BP 140/80
[2018-05-20 19:56] VITALS: BP 129/81
[2018-05-20 20:09] VITALS: BP 129/81
[2018-05-21 07:31] VITALS: BP 134/87
[2018-05-21 20:00] VITALS: BP 112/62
[2018-05-22 08:09] VITALS: BP 128/73
[2018-05-22] MEDS ORDERED: VENLAFAXINE HYD75 M3 PO (08:26)
[2018-05-22] MEDS ORDERED: ARIPIPRAZOLE10 MG PO (08:27)
[2018-05-22] MEDS ORDERED: Zostrix 0.1% T (08:27)
[2018-05-22] MEDS ORDERED: B121000 MCG/1 IM (08:27)
== END 2018-05-22 12:46 | disposition home or self-care (01) | DRG 885 ==
LOC: ED 14:40 → 3N 17:17 → EDHOLD 17:17 → 3N 17:24
PROVIDERS: Emergency Medicine; Psychiatry & Neurology Psychiatry
DX: F33.2 Major depressive disorder, recurrent severe without psychotic features (principal); E11.22 Type 2 diabetes mellitus with diabetic chronic kidney disease; E11.40 Type 2 diabetes mellitus with diabetic neuropathy, unspecified; E87.2 Acidosis; R45.851 Suicidal ideations; I13.0 Hypertensive heart and chronic kidney disease with heart failure and stage 1 through stage 4 chronic kidney disease, or unspecified chronic kidney disease; I50.32 Chronic diastolic (congestive) heart failure; X83.8XXA Intentional self-harm by other specified means, initial encounter; R82.71 Bacteriuria; F41.9 Anxiety disorder, unspecified; G89.29 Other chronic pain; M54.9 Dorsalgia, unspecified; J44.9 Chronic obstructive pulmonary disease, unspecified; K57.90 Diverticulosis of intestine, part unspecified, without perforation or abscess without bleeding; N18.2 Chronic kidney disease, stage 2 (mild); E11.65 Type 2 diabetes mellitus with hyperglycemia; E78.2 Mixed hyperlipidemia; E55.9 Vitamin D deficiency, unspecified; K21.9 Gastro-esophageal reflux disease without esophagitis; M10.9 Gout, unspecified; G43.909 Migraine, unspecified, not intractable, without status migrainosus; Z88.8 Allergy status to other drugs, medicaments and biological substances; Z79.899 Other long term (current) drug therapy; Z90.49 Acquired absence of other specified parts of digestive tract; Z87.891 Personal history of nicotine dependence; Z82.49 Family history of ischemic heart disease and other diseases of the circulatory system; Z84.89 Family history of other specified conditions; Z80.8 Family history of malignant neoplasm of other organs or systems; Z68.31 Body mass index [BMI] 31.0-31.9, adult

== ENCOUNTER 2018-06-29 02:29 | Emergency (ER) | payer OTHER ==
[~2018-06-29] VITALS: Ht 172.7 cm; Wt 94.3 kg
[~2018-06-29 02:29] MED LIST changes: +ARIPIPRAZOLE10 MG PO; +B121000 MCG/1 IM; +VENLAFAXINE HYD75 M3 PO; +Zostrix 0.1% T
[2018-06-29 02:30] VITALS: BP 127/82
[2018-06-29 03:01] LABS: BASO # 0.1 10*3/uL (0.0-0.1); BASO % 0.8 % (0.0-1.0); EOS # 0.2 10*3/uL (0.0-0.4); EOS % 1.7 % (1.0-4.0); HEMATOCRIT 43.7 % (42.0-52.0); HEMOGLOBIN 15.8 g/dl (14.0-18.0); LYMPH # 2.8 10*3/uL (1.3-4.4); LYMPH % 28.6 % (27.0-41.0); MEAN CELL VOLUME 88.5 fl (80.0-94.0); MEAN CORPUSCULAR HGB CONC 36.2 g/dl (33.0-37.0); MEAN PLATELET VOLUME 9.3 fl (9.6-12.3); MONO # 0.9 10*3/uL (0.1-1.0); MONO % 8.7 % (3.0-9.0); NEUT # 5.9 10*3/uL (2.3-7.9); NEUT % 59.9 % (47.0-73.0); PLATELET COUNT AUTOMATED 298 10*3/uL (130-400); RED BLOOD COUNT 4.94 10*6/uL (4.50-5.90); RED CELL DISTRI WIDTH 11.9 % (0-14.5); WHITE BLOOD COUNT 9.9 10*3/uL (4.8-10.8)
[2018-06-29 03:32] LABS: ALKALINE PHOSPHATASE 73 U/L (45-117); BUN 17 mg/dl (7-24); CHLORIDE 105 mmol/L (98-107); POTASSIUM 3.8 mmol/L (3.5-5.1); SGOT/AST 19 IU/L (3-35); SGPT/ALT 28 U/L (12-78); SODIUM 141 mmol/L (136-145); TOTAL PROTEIN 7.3 gm/dL (6.4-8.2)
[2018-06-29 03:54] LABS: BILIRUBIN NEGATIVE (NEGATIVE); BLOOD NEGATIVE (NEGATIVE); CLARITY CLEAR (CLEAR); COLOR YELLOW (YELLOW); GLUCOSE NEGATIVE (NEGATIVE); KETONE TRACE (NEGATIVE); LEUKO ESTERASE NEGATIVE (NEGATIVE); NITRITE NEGATIVE (NEGATIVE); PH 5.5 (5.0-9.0); SPECIFIC GRAVITY 1.025 (1.005-1.030); UROBILINOGEN 0.2 E.U./dl (0.2-1.0)
[2018-06-29 04:02] LABS: CALCIUM OXALATE CRYSTALS 1+; RBC 0-2 rbc/hpf (0-2); WBC 0-2 wbc/hpf (0-5)
== END 2018-06-29 05:17 | disposition home or self-care (01) ==
LOC: ED 02:29
PROVIDERS: Emergency Medicine
DX: R19.8 Other specified symptoms and signs involving the digestive system and abdomen (principal); R11.0 Nausea; K21.9 Gastro-esophageal reflux disease without esophagitis; I13.0 Hypertensive heart and chronic kidney disease with heart failure and stage 1 through stage 4 chronic kidney disease, or unspecified chronic kidney disease; E11.22 Type 2 diabetes mellitus with diabetic chronic kidney disease; N18.2 Chronic kidney disease, stage 2 (mild); I50.32 Chronic diastolic (congestive) heart failure; M10.9 Gout, unspecified; E11.40 Type 2 diabetes mellitus with diabetic neuropathy, unspecified; E78.5 Hyperlipidemia, unspecified; Z87.891 Personal history of nicotine dependence; Z88.1 Allergy status to other antibiotic agents; Z88.8 Allergy status to other drugs, medicaments and biological substances; Z79.899 Other long term (current) drug therapy

== ENCOUNTER 2018-07-18 16:52 | Emergency (ER) | payer OTHER ==
[~2018-07-18] VITALS: Ht 170.1 cm; Wt 98.9 kg
--- NOTE | ~2018-07-18 | EKG ---
[place], [place] ELECTROCARDIOGRAM REPORT NAME: BOBBY WATT JR UNIT #: [id number] ROOM: DOCTOR: EPIPHANY DRAFT REPORT BIRTHDATE: [birth year] [facility] Test Date: 2018-07-18 Test Time: 17:29:45 Pat Name: BOBBY WATT Department: Room: Gender: Cook Cold Meat: NAYAN : 1960 Requested By: VANCE YUN Order Number: [id number] Reading MD: Isaiah Grimes MD Measurements Intervals [place] Rate: 65 P: 17 AL: 139 QRS: 26 QRSD: 103 T: 34 QT: 377 QTc: 392 Interpretive Statements Sinus rhythm Abnormal R-wave progression, early transition Compared to ECG 05/18/2018 15:09:34 No significant change Electronically Signed On 07-18-2018 19:53:05 PDT by Isaiah Grimes MD CM:EKGRPT:ELECTROCARDIOGRAM REPORT 28 [id number] VANCE CANTOR DRAFT REPORT VANCE YUN MD
[2018-07-18 16:56] VITALS: BP 132/73
[2018-07-18 17:54] LABS: BASO # 0.1 10*3/uL (0.0-0.1); BASO % 0.8 % (0.0-1.0); EOS # 0.1 10*3/uL (0.0-0.4); EOS % 0.8 % (1.0-4.0); HEMATOCRIT 47.3 % (42.0-52.0); LYMPH # 1.8 10*3/uL (1.3-4.4); LYMPH % 18.5 % (27.0-41.0); MEAN CORPUSCULAR HGB 32.3 pg (27.0-31.0); MEAN CORPUSCULAR HGB CONC 35.9 g/dl (33.0-37.0); MEAN PLATELET VOLUME 9.3 fl (9.6-12.3); MONO # 0.5 10*3/uL (0.1-1.0); MONO % 5.3 % (3.0-9.0); NEUT # 7.2 10*3/uL (2.3-7.9); NEUT % 74.4 % (47.0-73.0); PLATELET COUNT AUTOMATED 260 10*3/uL (130-400); RED BLOOD COUNT 5.27 10*6/uL (4.50-5.90); WHITE BLOOD COUNT 9.6 10*3/uL (4.8-10.8)
[2018-07-18 18:11] LABS: ALBUMIN 4.5 gm/dl (3.1-4.5); ALKALINE PHOSPHATASE 75 U/L (45-117); BUN 10 mg/dl (7-24); CHLORIDE 107 mmol/L (98-107); CREATININE 0.96 mg/dL (0.70-1.30); POTASSIUM 3.9 mmol/L (3.5-5.1); SGOT/AST 26 IU/L (3-35); SGPT/ALT 34 U/L (12-78); SODIUM 142 mmol/L (136-145); TOTAL PROTEIN 7.8 gm/dL (6.4-8.2)
[2018-07-18 18:12] LABS: MEAN CELL VOLUME 89.8 fl (80.0-94.0)
[2018-07-18 18:16] LABS: TROPONIN I < 0.015 ng/ml (<0.045)
[2018-07-18 19:09] LABS: BILIRUBIN NEGATIVE (NEGATIVE); BLOOD NEGATIVE (NEGATIVE); CLARITY CLEAR (CLEAR); COLOR YELLOW (YELLOW); GLUCOSE NEGATIVE (NEGATIVE); KETONE TRACE (NEGATIVE); UROBILINOGEN 0.2 E.U./dl (0.2-1.0)
[2018-07-18 19:10] LABS: LEUKO ESTERASE NEGATIVE (NEGATIVE); MUCOUS TRACE; NITRITE NEGATIVE (NEGATIVE); RBC 0-2 rbc/hpf (0-2); WBC 0-2 wbc/hpf (0-5)
[2018-07-18] MEDS ORDERED: MACROBID100 M1 PO (19:43)
== END 2018-07-18 19:57 | disposition home or self-care (01) ==
LOC: ED 16:52
PROVIDERS: Emergency Medicine
DX: B34.9 Viral infection, unspecified (principal); I13.0 Hypertensive heart and chronic kidney disease with heart failure and stage 1 through stage 4 chronic kidney disease, or unspecified chronic kidney disease; N18.2 Chronic kidney disease, stage 2 (mild); I50.32 Chronic diastolic (congestive) heart failure; G89.29 Other chronic pain; G43.909 Migraine, unspecified, not intractable, without status migrainosus; E78.5 Hyperlipidemia, unspecified; I25.2 Old myocardial infarction; K21.9 Gastro-esophageal reflux disease without esophagitis; J44.9 Chronic obstructive pulmonary disease, unspecified; E11.22 Type 2 diabetes mellitus with diabetic chronic kidney disease; Z88.1 Allergy status to other antibiotic agents; Z88.8 Allergy status to other drugs, medicaments and biological substances; Z88.6 Allergy status to analgesic agent; Z79.899 Other long term (current) drug therapy; Z87.891 Personal history of nicotine dependence

== ENCOUNTER 2018-10-01 16:34 | Emergency (ER) | payer OTHER ==
[~2018-10-01] VITALS: Ht 172.7 cm; Wt 95.3 kg
[~2018-10-01 16:34] MED LIST changes: +MACROBID100 M1 PO
[2018-10-01 16:36] VITALS: BP 138/82
== END 2018-10-01 19:21 | disposition home or self-care (01) ==
LOC: ED 16:34
DX: R51 Headache (principal); E11.22 Type 2 diabetes mellitus with diabetic chronic kidney disease; I13.0 Hypertensive heart and chronic kidney disease with heart failure and stage 1 through stage 4 chronic kidney disease, or unspecified chronic kidney disease; N18.2 Chronic kidney disease, stage 2 (mild); I50.32 Chronic diastolic (congestive) heart failure; E11.40 Type 2 diabetes mellitus with diabetic neuropathy, unspecified; G89.29 Other chronic pain; J44.9 Chronic obstructive pulmonary disease, unspecified; K21.9 Gastro-esophageal reflux disease without esophagitis; E78.5 Hyperlipidemia, unspecified; I25.2 Old myocardial infarction; Z87.891 Personal history of nicotine dependence; Z90.49 Acquired absence of other specified parts of digestive tract; Z88.1 Allergy status to other antibiotic agents; Z88.8 Allergy status to other drugs, medicaments and biological substances; Z79.2 Long term (current) use of antibiotics; Z79.899 Other long term (current) drug therapy

== ENCOUNTER 2018-10-05 19:43 | Emergency (ER) | payer OTHER ==
[~2018-10-05] VITALS: Ht 172.7 cm; Wt 95.3 kg
--- NOTE | ~2018-10-05 | EKG ---
[place], [place] ELECTROCARDIOGRAM REPORT NAME: BOBBY WATT JR UNIT #: [id number] ROOM: DOCTOR: SAKSHI DRAFT REPORT BIRTHDATE: [birth year] [facility] Test Date: 2018-10-05 Test Time: 20:43:46 Pat Name: BOBBY WATT Department: Room: Gender: M Quality Associate: Ghassan Vila : 1960 Requested By: GAEL SORIA Order Number: [id number] Reading MD: Luis Antonio Boo MD Measurements Intervals [place] Rate: 62 P: 63 [place]: 144 QRS: 37 QRSD: 89 T: 44 QT: 415 QTc: 422 Interpretive Statements Sinus rhythm Abnormal R-wave progression, early transition Borderline ST elevation, lateral leads Compared to ECG 07/18/2018 17:29:45 ST (T wave) deviation now present Electronically Signed On 10-06-2018 7:13:25 PST by Luis Antonio Boo MD CM:EKGRPT:ELECTROCARDIOGRAM REPORT [id number] GAEL SERRANO DRAFT REPORT GAEL SORIA DO
[2018-10-05 20:30] VITALS: BP 114/74
[2018-10-05 20:50] LABS: BASO # 0.1 10*3/uL (0.0-0.1); BASO % 0.8 % (0.0-1.0); EOS # 0.3 10*3/uL (0.0-0.4); EOS % 3.1 % (1.0-4.0); HEMATOCRIT 43.7 % (42.0-52.0); HEMOGLOBIN 15.5 g/dl (14.0-18.0); LYMPH # 2.4 10*3/uL (1.3-4.4); LYMPH % 28.4 % (27.0-41.0); MEAN CORPUSCULAR HGB 32.3 pg (27.0-31.0); MEAN CORPUSCULAR HGB CONC 35.5 g/dl (33.0-37.0); MEAN PLATELET VOLUME 9.2 fl (9.6-12.3); MONO # 0.6 10*3/uL (0.1-1.0); MONO % 7.5 % (3.0-9.0); NEUT % 59.7 % (47.0-73.0); PLATELET COUNT AUTOMATED 255 10*3/uL (130-400); RED CELL DISTRI WIDTH 11.8 % (0-14.5); WHITE BLOOD COUNT 8.4 10*3/uL (4.8-10.8)
[2018-10-05 21:00] LABS: ACT PARTIAL THROMBO TIME 21.1 SECONDS (20.8-31.5)
[2018-10-05 21:06] LABS: ALBUMIN 3.7 gm/dl (3.1-4.5); ALKALINE PHOSPHATASE 80 U/L (45-117); BUN 10 mg/dl (7-24); CHLORIDE 100 mmol/L (98-107); CREATININE 1.14 mg/dL (0.70-1.30); POTASSIUM 3.9 mmol/L (3.5-5.1); SGOT/AST 21 IU/L (3-35); SGPT/ALT 32 U/L (12-78); SODIUM 136 mmol/L (136-145); TOTAL PROTEIN 6.8 gm/dL (6.4-8.2)
[2018-10-05 21:08] LABS: TROPONIN I < 0.015 ng/ml (<0.045)
== END 2018-10-05 22:05 | disposition home or self-care (01) ==
LOC: ED 19:43
PROVIDERS: Internal Medicine
DX: R51 Headache (principal); R42 Dizziness and giddiness; E11.22 Type 2 diabetes mellitus with diabetic chronic kidney disease; E11.40 Type 2 diabetes mellitus with diabetic neuropathy, unspecified; I13.0 Hypertensive heart and chronic kidney disease with heart failure and stage 1 through stage 4 chronic kidney disease, or unspecified chronic kidney disease; N18.2 Chronic kidney disease, stage 2 (mild); I50.32 Chronic diastolic (congestive) heart failure; G89.29 Other chronic pain; K21.9 Gastro-esophageal reflux disease without esophagitis; I25.2 Old myocardial infarction; E78.00 Pure hypercholesterolemia, unspecified; Z88.1 Allergy status to other antibiotic agents; Z88.8 Allergy status to other drugs, medicaments and biological substances; Z79.2 Long term (current) use of antibiotics; Z79.899 Other long term (current) drug therapy; Z87.891 Personal history of nicotine dependence; Z90.49 Acquired absence of other specified parts of digestive tract

== ENCOUNTER 2018-11-01 11:17 | Emergency (ER) | payer OTHER ==
[2018-11-01 11:17] VITALS: BP 143/97
[2018-11-01 11:53] LABS: BASO # 0.1 10*3/uL (0.0-0.1); BASO % 0.7 % (0.0-1.0); EOS # 0.2 10*3/uL (0.0-0.4); EOS % 1.8 % (1.0-4.0); HEMATOCRIT 48.1 % (42.0-52.0); HEMOGLOBIN 16.9 g/dl (14.0-18.0); LYMPH # 1.9 10*3/uL (1.3-4.4); LYMPH % 20.9 % (27.0-41.0); MEAN CELL VOLUME 91.1 fl (80.0-94.0); MEAN CORPUSCULAR HGB CONC 35.1 g/dl (33.0-37.0); MEAN PLATELET VOLUME 9.4 fl (9.6-12.3); MONO # 0.7 10*3/uL (0.1-1.0); NEUT # 6.4 10*3/uL (2.3-7.9); NEUT % 69.2 % (47.0-73.0); PLATELET COUNT AUTOMATED 279 10*3/uL (130-400); RED BLOOD COUNT 5.28 10*6/uL (4.50-5.90); RED CELL DISTRI WIDTH 11.8 % (0-14.5); WHITE BLOOD COUNT 9.2 10*3/uL (4.8-10.8)
[2018-11-01 12:07] LABS: ACT PARTIAL THROMBO TIME 21.7 SECONDS (20.8-31.5)
[2018-11-01 12:09] LABS: ALBUMIN 4.3 gm/dl (3.1-4.5); ALKALINE PHOSPHATASE 77 U/L (45-117); BUN 16 mg/dl (7-24); CHLORIDE 104 mmol/L (98-107); CREATININE 1.06 mg/dL (0.70-1.30); LIPASE 127 U/L (73-393); POTASSIUM 3.5 mmol/L (3.5-5.1); SGOT/AST 25 IU/L (3-35); SGPT/ALT 39 U/L (12-78); SODIUM 139 mmol/L (136-145); TOTAL PROTEIN 7.8 gm/dL (6.4-8.2)
[2018-11-01 12:34] LABS: BILIRUBIN NEGATIVE (NEGATIVE); BLOOD NEGATIVE (NEGATIVE); CLARITY SL CLOUDY (CLEAR); COLOR YELLOW (YELLOW); GLUCOSE NEGATIVE (NEGATIVE); KETONE NEGATIVE (NEGATIVE); LEUKO ESTERASE NEGATIVE (NEGATIVE); NITRITE NEGATIVE (NEGATIVE); PH 5.5 (5.0-9.0); SPECIFIC GRAVITY >= 1.030 (1.005-1.030); UROBILINOGEN 0.2 E.U./dl (0.2-1.0)
[2018-11-01 12:45] LABS: MUCOUS TRACE
[2018-11-01] MEDS ORDERED: ZOFRAN4 MG PO (13:39)
[2019-03-01] MEDS ORDERED: ATARAX,VISTARIL50 MG PO (12:04)
[2019-03-01] MEDS ORDERED: VITAMIN D31000 UNI1 PO (12:05)
[2019-03-01] MEDS ORDERED: LIPITOR20 MG PO (12:05)
[2019-03-01] MEDS ORDERED: VENLAFAXINE75 M1 PO (12:06)
[2019-03-01] MEDS ORDERED: VITAMIN E400 UNI3 PO (12:07)
[2019-03-01] MEDS ORDERED: SEROQUEL50 MG PO (12:07)
[2019-03-03] MEDS ORDERED: PREDNISONE20 M1 PO (14:10)
[2019-03-03] MEDS ORDERED: IMDUR SA60 M1 PO (14:10)
[2019-03-03] MEDS ORDERED: ASPIRIN325 M2 PO (14:10)
[2019-03-04] MEDS ORDERED: METOPROLOL SUCC50 M1 PO (02:46)
== END 2018-11-01 13:46 | disposition home or self-care (01) ==
LOC: ED 11:17
PROVIDERS: Nurse Practitioner Family
DX: R10.12 Left upper quadrant pain (principal); R10.11 Right upper quadrant pain; R10.13 Epigastric pain; R11.2 Nausea with vomiting, unspecified; J44.9 Chronic obstructive pulmonary disease, unspecified; I10 Essential (primary) hypertension; G40.909 Epilepsy, unspecified, not intractable, without status epilepticus; Z90.49 Acquired absence of other specified parts of digestive tract; G62.9 Polyneuropathy, unspecified; Z88.1 Allergy status to other antibiotic agents; Z88.8 Allergy status to other drugs, medicaments and biological substances; Z79.899 Other long term (current) drug therapy; Z87.891 Personal history of nicotine dependence; Z87.19 Personal history of other diseases of the digestive system

== ENCOUNTER 2018-11-12 03:34 | Emergency (ER) | payer OTHER ==
[~2018-11-12] VITALS: Ht 172.7 cm; Wt 95.3 kg
== END 2018-11-12 04:19 | disposition home or self-care (01) ==
LOC: ED 03:34
DX: M54.2 Cervicalgia (principal); I13.0 Hypertensive heart and chronic kidney disease with heart failure and stage 1 through stage 4 chronic kidney disease, or unspecified chronic kidney disease; E11.22 Type 2 diabetes mellitus with diabetic chronic kidney disease; N18.2 Chronic kidney disease, stage 2 (mild); I50.32 Chronic diastolic (congestive) heart failure; K21.9 Gastro-esophageal reflux disease without esophagitis; E78.5 Hyperlipidemia, unspecified; G43.909 Migraine, unspecified, not intractable, without status migrainosus; E11.40 Type 2 diabetes mellitus with diabetic neuropathy, unspecified; M19.90 Unspecified osteoarthritis, unspecified site; Z88.1 Allergy status to other antibiotic agents; Z88.8 Allergy status to other drugs, medicaments and biological substances; Z79.899 Other long term (current) drug therapy; Z79.4 Long term (current) use of insulin; Z87.891 Personal history of nicotine dependence

== ENCOUNTER 2018-11-29 21:30 | Emergency (ER) | payer OTHER ==
[2018-11-29 21:33] VITALS: BP 140/87
[2018-11-29] MEDS ORDERED: CYCLOBENZAPRINE10 MG PO (21:55)
[2018-11-29] MEDS ORDERED: IBU800 MG PO (21:55)
[2019-03-01] MEDS ORDERED: ATARAX,VISTARIL50 MG PO (12:04)
[2019-03-01] MEDS ORDERED: VITAMIN D31000 UNI1 PO (12:05)
[2019-03-01] MEDS ORDERED: LIPITOR20 MG PO (12:05)
[2019-03-01] MEDS ORDERED: VENLAFAXINE75 M1 PO (12:06)
[2019-03-01] MEDS ORDERED: VITAMIN E400 UNI3 PO (12:07)
[2019-03-01] MEDS ORDERED: SEROQUEL50 MG PO (12:07)
[2019-03-03] MEDS ORDERED: IMDUR SA60 M1 PO (14:10)
[2019-03-03] MEDS ORDERED: ASPIRIN325 M2 PO (14:10)
[2019-03-03] MEDS ORDERED: PREDNISONE20 M1 PO (14:10)
[2019-03-04] MEDS ORDERED: METOPROLOL SUCC50 M1 PO (02:46)
== END 2018-11-29 21:59 | disposition home or self-care (01) ==
LOC: ED 21:30
DX: M54.6 Pain in thoracic spine (principal); E11.40 Type 2 diabetes mellitus with diabetic neuropathy, unspecified; G43.909 Migraine, unspecified, not intractable, without status migrainosus; E78.5 Hyperlipidemia, unspecified; K21.9 Gastro-esophageal reflux disease without esophagitis; E11.65 Type 2 diabetes mellitus with hyperglycemia; I13.0 Hypertensive heart and chronic kidney disease with heart failure and stage 1 through stage 4 chronic kidney disease, or unspecified chronic kidney disease; E11.22 Type 2 diabetes mellitus with diabetic chronic kidney disease; N18.2 Chronic kidney disease, stage 2 (mild); I50.32 Chronic diastolic (congestive) heart failure; Z79.899 Other long term (current) drug therapy; Z88.3 Allergy status to other anti-infective agents; Z88.1 Allergy status to other antibiotic agents; Z88.8 Allergy status to other drugs, medicaments and biological substances; Z87.891 Personal history of nicotine dependence; Z98.890 Other specified postprocedural states; Z90.89 Acquired absence of other organs

== ENCOUNTER → 2018-12-03 | Outpatient (CLI) | payer OTHER ==
[~2018-12-03] MED LIST changes: +ASPIRIN325 M2 PO; +IBU800 MG PO; +IMDUR SA60 M1 PO; +LIPITOR20 MG PO; +METOPROLOL SUCC50 M1 PO; +PREDNISONE20 M1 PO; +SEROQUEL50 MG PO; +VENLAFAXINE75 M1 PO; +VITAMIN D31000 UNI1 PO; +VITAMIN E400 UNI3 PO
== END | disposition home or self-care (01) ==
LOC: ORTHO 00:23
DX: M79.641 Pain in right hand (principal); M25.531 Pain in right wrist; W19.XXXD Unspecified fall, subsequent encounter

== ENCOUNTER → 2018-12-12 | Outpatient (CLI) | payer OTHER | END | disposition home or self-care (01) | LOC: MRI 10:02 | DX: M19.031 Primary osteoarthritis, right wrist (principal) ==

== ENCOUNTER 2018-12-16 01:12 | Emergency (ER) | payer OTHER ==
[~2018-12-16] VITALS: Ht 172.7 cm; Wt 98.0 kg
[~2018-12-16 01:12] MED LIST changes: -ASPIRIN325 M2 PO; -IMDUR SA60 M1 PO; -LIPITOR20 MG PO; -METOPROLOL SUCC50 M1 PO; -PREDNISONE20 M1 PO; -SEROQUEL50 MG PO; -VENLAFAXINE75 M1 PO; -VITAMIN D31000 UNI1 PO; -VITAMIN E400 UNI3 PO
[2018-12-16 01:15] VITALS: BP 135/71
[2019-03-01] MEDS ORDERED: ATARAX,VISTARIL50 MG PO (12:04)
[2019-03-01] MEDS ORDERED: LIPITOR20 MG PO (12:05)
[2019-03-01] MEDS ORDERED: VITAMIN D31000 UNI1 PO (12:05)
[2019-03-01] MEDS ORDERED: VENLAFAXINE75 M1 PO (12:06)
[2019-03-01] MEDS ORDERED: SEROQUEL50 MG PO (12:07)
[2019-03-01] MEDS ORDERED: VITAMIN E400 UNI3 PO (12:07)
[2019-03-03] MEDS ORDERED: ASPIRIN325 M2 PO (14:10)
[2019-03-03] MEDS ORDERED: IMDUR SA60 M1 PO (14:10)
[2019-03-03] MEDS ORDERED: PREDNISONE20 M1 PO (14:10)
[2019-03-04] MEDS ORDERED: METOPROLOL SUCC50 M1 PO (02:46)
== END 2018-12-16 01:54 | disposition home or self-care (01) ==
LOC: ED 01:12
DX: G89.29 Other chronic pain (principal); M54.5 Low back pain; M25.519 Pain in unspecified shoulder; M19.031 Primary osteoarthritis, right wrist; M17.0 Bilateral primary osteoarthritis of knee; E11.9 Type 2 diabetes mellitus without complications; Z76.0 Encounter for issue of repeat prescription; Z88.1 Allergy status to other antibiotic agents; Z88.8 Allergy status to other drugs, medicaments and biological substances; Z88.6 Allergy status to analgesic agent; Z79.2 Long term (current) use of antibiotics; Z79.899 Other long term (current) drug therapy; Z90.49 Acquired absence of other specified parts of digestive tract; Z87.891 Personal history of nicotine dependence

== ENCOUNTER → 2019-01-17 | Outpatient (CLI) | payer OTHER ==
[~2019-01-17] MED LIST changes: +ASPIRIN325 M2 PO; +IMDUR SA60 M1 PO; +LIPITOR20 MG PO; +METOPROLOL SUCC50 M1 PO; +PREDNISONE20 M1 PO; +SEROQUEL50 MG PO; +VENLAFAXINE75 M1 PO; +VITAMIN D31000 UNI1 PO; +VITAMIN E400 UNI3 PO
[2019-01-17 20:03] LABS: PTH INTACT 66.4 pg/mL (18.5-88.0); VITAMIN D, 25-HYDROXY 23.9 ng/mL (30-100)
== END | disposition home or self-care (01) ==
LOC: LAB 18:39
PROVIDERS: Nurse Practitioner Family
DX: E83.51 Hypocalcemia (principal)

== ENCOUNTER → 2019-04-12 | Outpatient (CLI) | payer OTHER ==
[~2019-04-12] MED LIST changes: +ASPIR LOW81 MG PO; +GAVISCON ES TA1 EACH PO; -LYRICA200 M1 PO; +LYRICA300 MG PO; +SUMATRIPTAN SUC25 M1 PO; +VITAMIN D50000 UNIT PO
== END | disposition home or self-care (01) ==
LOC: ORTHO 01:40
DX: M17.12 Unilateral primary osteoarthritis, left knee (principal)

== ENCOUNTER → 2019-05-08 | Outpatient (CLI) | payer OTHER | END | disposition home or self-care (01) | LOC: CT 10:11 | DX: M17.12 Unilateral primary osteoarthritis, left knee (principal) ==

== ENCOUNTER 2019-06-09 22:32 | Inpatient (IN) | payer OTHER ==
[~2019-06-09] VITALS: Ht 173.9 cm; Wt 100.7 kg
--- NOTE | ~2019-06-09 | EKG ---
[place], [place] ELECTROCARDIOGRAM REPORT NAME: BOBBY WATT JR UNIT #: [id number] ROOM: 403 DOCTOR: SAKSHI DRAFT REPORT BIRTHDATE: [birth year] [facility] Test Date: 2019-06-09 Test Time: 23:06:12 Pat Name: BOBBY WATT Department: Room: 403 Gender: M Costume Cutter: Nava Almonte : 1960 Requested By: MICKY SAMANO Order Number: [id number] Reading MD: Farhat Navarro MD Measurements Intervals [place] Rate: 71 P: 57 [place]: 128 QRS: 20 QRSD: 104 T: 42 QT: 364 QTc: 396 Interpretive Statements Sinus rhythm Abnormal R-wave progression, early transition Compared to ECG 03/01/2019 03:36:14 No significant changes Electronically Signed On 06-10-2019 5:54:30 PDT by Farhat Navarro MD CM:EKGRPT:ELECTROCARDIOGRAM REPORT 05 0554 MICKY CANTOR DRAFT REPORT MICKY RIOS
--- NOTE | ~2019-06-09 | O ---
[place], [place] OPERATIVE NOTE NAME: BOBBY WATT JR UNIT #: [id number] ROOM: 403 DOCTOR: JUNAID TAVARES MD BIRTHDATE: [birth year] DOS: 06/10/2019 INDICATIONS: A 59-year-old patient who has presented with chief complaint of esophageal dysphagia, history of chest pain, and obesity. PAST SURGICAL HISTORY: Laminectomy, cholecystectomy, and neck. SOCIAL HISTORY: Nonsmoker. Nonalcohol consumer at the present time. FAMILY HISTORY: Noncontributory. ALLERGIES: CLARITHROMYCIN, GABAPENTIN, DOXYCYCLINE, ERYTHROMYCIN, NIACIN, AND PROMETHAZINE, ALL WAS REVIEWED. PROCEDURE: Today's procedure part of investigation is panendoscopy plus biopsy plus esophageal balloon dilation. PREMEDICATION: Propofol. SCOPE: Olympus forward-viewing gastroscope Q10 video. REPORT: After putting the patient in left lateral position and application of lubricant to the scope, the scope was introduced. Thereafter, under direct visualization, advanced through the length of the esophagus without difficulty. Evidence of distal esophagitis with a stricture was noticed. Hiatal hernia was noticed. Bile reflux, gastritis noticed in the stomach, photographed. Antral biopsy obtained. Duodenal bulb, second and third part within normal. The patient extubated after antral biopsy and a balloon dilator size 20 was used and esophagus dilated. Upper esophageal stricture noticed. The patient extubated, tolerated the procedure well. IMPRESSION: Esophageal stricture, status post balloon dilation, hiatal hernia, gastritis of bile reflux type, status post biopsy. PLAN AND DISCUSSION: The patient experiences chest pain, most likely secondary to the reflux contribution as well. The patient is on aspirin product. The patient is on Protonix, Gaviscon 1 q.a.m. p.c. breakfast and one 5 minutes before dinner was recommended. Elevation of the head of the bed 6 inch all time. Photographic series have been attached to chart for documentation. Workup in progress. FOLLOWUP: Routinely with you in office, p.r.n. visit with us in GI Clinic. Thank you very much indeed for your kind referral. [place], [place] OPERATIVE NOTE NAME: BOBBY WATT JR UNIT #: [id number] ROOM: 403 DOCTOR: JUNAID TAVARES MD BIRTHDATE: [birth year] JUNAID TAVARES MD CM:LATANYAECORD:OPERATIVE NOTE 0957 ASHA TAVARES MD 06/21/19 1022 ZOE [email or web address].TM
--- NOTE | ~2019-06-09 | CON ---
[place], [place] REPORT OF CONSULTATION [id number] UN[facility] #: [id number] ROOM: 403 DOCTOR: JUNAID TAVARES MD BIRTHDATE: [birth year] DOS: 06/10/2019 GASTROENDOSCOPIC REPORT SUBJECTIVE: This is a 59-year-old patient who presented with chief complaint of epigastric pain, atypical chest pain, status post cardiac workup and all was negative. Troponin negative. EKG is negative. Basic workup by bottle capper declared negative. INR 0.9. Comprehensive metabolic panel: GFR greater than 60. Liver function tests essentially unremarkable. Troponin again, repeat ileum unremarkable. Chest x-ray, no acute findings and electrocardiograms was reassessed. We were asked for assessment of the patient regarding EGD today; however, not only he has had his aspirin on ____, also has been on Lovenox and he has had breakfast, this cannot be done. As far as endoscopy, arrangement was made to arrange for EGD as outpatient. PAST MEDICAL HISTORY: Obesity, noncardiac chest pain, and gastritis. PAST SURGICAL HISTORY: Cholecystectomy, knee and hip, lumbar laminectomy and neck surgeries. SOCIAL HISTORY: At the present time nonalcohol consumer however, in past he did. FAMILY HISTORY: Noncontributory. ALLERGIES: ERYTHROMYCIN, DOXYCYCLINE, PROMETHAZINE, CLARITHROMYCIN, GABAPENTIN, and NIACIN. REVIEW OF SYSTEMS: HEENT: Denies double vision, blurred vision. RESPIRATORY: Denies shortness of breath, acutely. CARDIOVASCULAR: Atypical chest pain. DIGESTIVE SYSTEM: Epigastric distress. He considers herself to have heartburn, a degree of heartburn and chest pain with it, although he is on Protonix. No hematemesis, no hematochezia. PHYSICAL EXAMINATION: VITAL SIGNS: Stable. HEENT: Head normocephalic, nontraumatic. Mouth and buccal mucosa benign. NECK: Supple, no thyromegaly, no cervical lymphadenopathy. CHEST: Symmetric anatomy, equal expansion. No wheeze, no rhonchi. HEART: Normal sinus rhythm, no gallop, no murmur. ABDOMEN: Soft, obese, large bowel sounds present. No pulsatile mass. EXTREMITIES: No cyanosis, no pedal edema. NEUROLOGIC: Alert, oriented to time, place, person. IMPRESSION: Atypical chest pain, reflux, hiatal hernia, most likely, the patient to remain on Protonix, antireflux measures, Gaviscon as antacid of choice, one at bedtime until endoscopy is performed. [place], [place] REPORT OF CONSULTATION NAME: BOBBY WATT JR UNIT #: [id number] ROOM: 403 DOCTOR: JUNAID TAVARES MD BIRTHDATE: [birth year] JUNAID TAVARES MD CM:CONSTR:REPORT OF CONSULTATION 1434 06/11/19 0529 interface
--- NOTE | ~2019-06-09 | EKG ---
[place], [place] ELECTROCARDIOGRAM REPORT NAME: BOBBY WATT JR UNIT #: [id number] ROOM: 403 DOCTOR: SAKSHI DRAFT REPORT BIRTHDATE: [birth year] [facility] Test Date: 2019-06-10 Test Time: 02:41:37 Pat Name: BOBBY WATT Department: Room: 403 1 Gender: M Road Patcher: Nava Almonte : 1960 Requested By: BARBARA ESPOSITO Order Number: [id number] Reading MD: Farhat Navarro MD Measurements Intervals [place] Rate: 70 P: 58 SD: 136 QRS: 30 QRSD: 91 T: 35 QT: 385 QTc: 416 Interpretive Statements Sinus rhythm Abnormal R-wave progression, early transition Compared to ECG 03/01/2019 03:36:14 No significant changes Electronically Signed On 06-10-2019 5:58:30 PDT by Farhat Navarro MD CM:EKGRPT:ELECTROCARDIOGRAM REPORT [id number] BARBARA SERRANO DRAFT REPORT BARBARA ESPOSITO DO
--- NOTE | ~2019-06-09 | EKG ---
[place], [place] ELECTROCARDIOGRAM REPORT NAME: BOBBY WATT JR UNIT #: [id number] ROOM: 403 DOCTOR: SAKSHI DRAFT REPORT BIRTHDATE: [birth year] [facility] Test Date: 2019-06-10 Test Time: 08:29:05 Pat Name: BOBBY WATT Department: Room: 403 1 Gender: M Tooling Engineering Tech: Glory Dean : 1960 Requested By: MU DUARTE Order Number: [id number] Reading MD: Luis Antonio Boo MD Measurements Intervals [place] Rate: 55 P: 41 [place]: 142 QRS: 36 QRSD: 105 T: 36 QT: 410 QTc: 393 Interpretive Statements Sinus rhythm Abnormal R-wave progression, early transition Compared to ECG 03/01/2019 03:36:14 No significant changes Electronically Signed On 06-10-2019 15:02:46 PDT by Luis Antonio Boo MD CM:EKGRPT:ELECTROCARDIOGRAM REPORT [id number] MU SERRANO DRAFT REPORT MU DUARTE DO
--- NOTE | ~2019-06-09 | CON ---
[place], [place] REPORT OF CONSULTATION NAME: BOBBY WATT JR [facility] #: [id number] UNIT #: [id number] ROOM: 403 DOCTOR: DIONI ANTUNEZ MD BIRTHDATE: [birth year] DOS: 06/10/2019 HISTORY OF PRESENT ILLNESS: This is a 59-year-old -Faroese man with a history of GERD, hiatus hernia, essential hypertension, hyperlipidemia, posttraumatic stress disorder, gout, diverticulosis, depression and COPD, but I do not believe he has been smoking, chronic diastolic heart failure and chronic back pain. He has had back surgery, cholecystectomy, hip surgery, knee surgery and neck surgery. He does not smoke, nor does he drink alcoholic beverages. He quit smoking 39 years ago. There is no family history of coronary artery disease. He was admitted to the hospital through the Emergency Department because of heartburn. He had had epigastric discomfort and burning sensation for about 5 days that would not let up. He had no nausea, vomiting, no blood in the stool or any abdominal cramps. Nothing seems to make this feel better other than antacids and a GI cocktail, which he received a couple of times here. Symptoms abated significantly following administration. Prior to onset of current symptoms, he has never had any exertional chest pain, breathing difficulty, palpitations, dizziness or any loss of consciousness. No PND, orthopnea, or other cardiac problems or symptoms. HOME MEDICATIONS: Include bronchodilator therapy with a Ventolin HFA, aripiprazole 10 mg daily, aspirin 81 daily, atorvastatin 20 at bedtime, cetirizine, cholecalciferol, docusate, Flovent HFA, hydrocodone, acetaminophen, hydroxyzine, metoprolol succinate 100 mg daily, Protonix 40 mg daily, potassium 10 mEq b.i.d., pregabalin, Seroquel, sumatriptan and Wellbutrin 75 b.i.d. PHYSICAL EXAMINATION: GENERAL: Reveals a patient who is moderately obese. He is pleasant. He is alert. His complexion is fine. He is not febrile. VITAL SIGNS: Pulse is 80, regular; blood pressure 137/83. NECK: JVP is normal. AJR is negative. There is no carotid bruit, no murmurs are present. HEART: There is no cardiomegaly. EXTREMITIES: He has good pedal pulses and no edema in lower extremities. RESPIRATORY: Clear to percussion and auscultation, with excellent breath sounds. There is no chest wall tenderness. ABDOMEN: Supple, nontender. Bowel sounds are normal. There is no bruit. DIAGNOSTIC STUDIES AND LABORATORY DATA: ECGs have been normal. Troponin levels are also normal. IMPRESSION: This patient most likely has had esophageal reflux symptoms or he has acute gastritis or peptic ulcer disease. I do not believe any cardiac workup is necessary. From cardiac standpoint, he can be discharged home. [place], [place] REPORT OF CONSULTATION NAME: ALYSA PERKINSBOBBY Sreedhar UNIT #: [id number] ROOM: 403 DOCTOR: DIONI ANTUNEZ MD BIRTHDATE: [birth year] DIONI ANTUNEZ MD CM:CONSTR:REPORT OF CONSULTATION 1844 06/11/19 0001 interface
--- NOTE | ~2019-06-09 | EKG ---
[place], [place] ELECTROCARDIOGRAM REPORT NAME: BOBBY WATT JR UNIT #: [id number] ROOM: 403 DOCTOR: SAKSHI DRAFT REPORT BIRTHDATE: [birth year] [facility] Test Date: 2019-06-10 Test Time: 05:07:04 Pat Name: BOBBY WATT Department: Room: 403 1 Gender: M Conditioner Tumbler: Nava Almonte : 1960 Requested By: BARBARA ESPOSITO Order Number: [id number] Reading MD: Farhat Navarro MD Measurements Intervals [place] Rate: 69 P: 60 [place]: 146 QRS: 34 QRSD: 88 T: 33 QT: 406 QTc: 435 Interpretive Statements Sinus rhythm Early R transition Electronically Signed On 06-10-2019 5:59:36 PDT by Farhat Navarro MD CM:EKGRPT:ELECTROCARDIOGRAM REPORT [id number] BARBARA SERRANO DRAFT REPORT BARBARA ESPOSITO DO
[~2019-06-09 22:32] MED LIST changes: -ASPIR LOW81 MG PO; -GAVISCON ES TA1 EACH PO; -SUMATRIPTAN SUC25 M1 PO; -VITAMIN D50000 UNIT PO
[2019-06-09 22:33] VITALS: BP 137/83
[2019-06-09 23:01] VITALS: BP 121/80
[2019-06-09 23:07] LABS: BASO # 0.1 10*3/uL (0.0-0.1); BASO % 0.9 % (0.0-1.0); EOS # 0.3 10*3/uL (0.0-0.4); EOS % 3.1 % (1.0-4.0); HEMATOCRIT 49.5 % (42.0-52.0); HEMOGLOBIN 17.3 g/dl (14.0-18.0); LYMPH # 2.2 10*3/uL (1.3-4.4); LYMPH % 25.4 % (27.0-41.0); MEAN CELL VOLUME 90.2 fl (80.0-94.0); MEAN CORPUSCULAR HGB 31.5 pg (27.0-31.0); MEAN CORPUSCULAR HGB CONC 34.9 g/dl (33.0-37.0); MEAN PLATELET VOLUME 9.7 fl (9.6-12.3); MONO # 0.7 10*3/uL (0.1-1.0); MONO % 7.7 % (3.0-9.0); NEUT # 5.3 10*3/uL (2.3-7.9); NEUT % 62.4 % (47.0-73.0); PLATELET COUNT AUTOMATED 297 10*3/uL (130-400); RED BLOOD COUNT 5.49 10*6/uL (4.50-5.90); RED CELL DISTRI WIDTH 12.2 % (0-14.5); WHITE BLOOD COUNT 8.5 10*3/uL (4.8-10.8)
[2019-06-09 23:17] LABS: ACT PARTIAL THROMBO TIME 22.3 SECONDS (20.0-32.1); INTERNATIONAL NORM RATIO 0.9 (2.0-3.5)
[2019-06-09 23:22] LABS: ALBUMIN 4.4 gm/dl (3.1-4.5); ALKALINE PHOSPHATASE 93 U/L (45-117); BUN 11 mg/dl (7-24); CHLORIDE 103 mmol/L (98-107); CREATININE 1.25 mg/dL (0.70-1.30); LIPASE 153 U/L (73-393); POTASSIUM 3.5 mmol/L (3.5-5.1); SGOT/AST 45 IU/L (3-35); SGPT/ALT 60 U/L (12-78); SODIUM 138 mmol/L (136-145); TOTAL PROTEIN 7.8 gm/dL (6.4-8.2)
[2019-06-09 23:24] LABS: TROPONIN I < 0.015 ng/ml (<0.045)
[2019-06-10 00:55] VITALS: BP 133/80
--- NOTE | 2019-06-10 00:55 | NUR ---
A 59, admitted to 4E, under the services of BARBARA Hernandez DO with a diagnosis of CHEST PAIN. Chief complaint is HEARTBURN. Patient arrived via stretcher from ER. Monitor applied. Initial assessment completed. Vital signs taken and recorded. BARBARA HERNANDEZ DO notified of admission to the unit. Orders received. See assessment for past medical history, medications and allergies. Patient and/or family oriented to unit. [facility] visitation policy reviewed. Clothing/patient valuable form completed. LULÚ HENDRICKS
[2019-06-10] MEDS ORDERED: ASPIR LOW81 MG PO (01:14)
[2019-06-10] MEDS ORDERED: METOPROLOL SUC100 M1 PO (01:20)
[2019-06-10] MEDS ORDERED: SUMATRIPTAN SUC25 M1 PO (01:26)
[2019-06-10] MEDS ORDERED: VITAMIN D50000 UNIT PO (01:28)
--- NOTE | 2019-06-10 01:30 | NUR ---
MED REC UP TO DATE PER PT RECALL/MED CLAIMS HISTORY.
[2019-06-10 01:48] LABS: BILIRUBIN NEGATIVE (NEGATIVE); BLOOD NEGATIVE (NEGATIVE); CLARITY CLEAR (CLEAR); COLOR YELLOW (YELLOW); GLUCOSE NEGATIVE (NEGATIVE); KETONE NEGATIVE (NEGATIVE); LEUKO ESTERASE NEGATIVE (NEGATIVE); NITRITE NEGATIVE (NEGATIVE); UROBILINOGEN 0.2 E.U./dl (0.2-1.0)
[2019-06-10 01:57] LABS: BACTERIA TRACE; MUCOUS 2+; RBC 0-2 rbc/hpf (0-2)
[2019-06-10 04:30] VITALS: BP 135/87
--- NOTE | 2019-06-10 04:33 | NUR ---
NOTIFIED OF CONTINUED HEARTBURN. NEW ORDER RECEIVED FOR GI COCKTAIL
--- NOTE | 2019-06-10 06:22 | NUR ---
NOTIFIED OF CONSULT. DISCUSSED PERTINENT CARDIAC HISTORY, PRESENT ADMITTING DIAGNOSIS, LABS, MEDICATIONS GIVEN, AND CURRENT S/S. STATES HE WILL SEE PT TODAY.
[2019-06-10 08:00] VITALS: BP 121/84
--- NOTE | 2019-06-10 08:38 | NUR ---
CALLED REGARDING DIET ORDER.
--- NOTE | 2019-06-10 10:54 | NUR ---
CALLED AT THIS TIME REGARDING CONSULT. LEFT MESSAGE ON PHONE. AWAITING RETURN PHONE CALL.
--- NOTE | 2019-06-10 11:42 | NUR ---
AWARE OF CONSULT.
[2019-06-10 12:00] VITALS: BP 127/88
--- NOTE | 2019-06-10 14:14 | NUR ---
PATIENT REQUESTING PAIN MEDICATION. HOME MEDS NOT ORDERED AT THIS TIME. NOTIFIED.
--- NOTE | 2019-06-10 15:01 | NUR ---
PATIENT REQUESTED AND RECEIVED PO NORCO PER PRN ORDER FOR C/O BACK PAIN. CHRONIC PAIN PER PT. WILL MONITOR EFFECTIVENESS.
--- NOTE | 2019-06-10 15:45 | NUR ---
Discharge instructions reviewed with patient/family. Patient receptive and verbalizes understanding. Follow-up care arranged. Written instructions given to patient/family. MADELAINE CARROLL
[2019-06-19] MEDS ORDERED: GAVISCON ES TA1 EACH PO (09:24)
== END 2019-06-10 15:45 | disposition home or self-care (01) | DRG 392 ==
LOC: ED 22:32 → EDHOLD 06-10 00:10 → 4E 06-10 00:17
PROVIDERS: Physician Assistant; ADMIT Emergency Medicine
DX: K21.9 Gastro-esophageal reflux disease without esophagitis (principal); I50.32 Chronic diastolic (congestive) heart failure; R12 Heartburn; R13.10 Dysphagia, unspecified; R74.0 Nonspecific elevation of levels of transaminase and lactic acid dehydrogenase [LDH]; J44.9 Chronic obstructive pulmonary disease, unspecified; R07.89 Other chest pain; E66.9 Obesity, unspecified; I11.0 Hypertensive heart disease with heart failure; K57.90 Diverticulosis of intestine, part unspecified, without perforation or abscess without bleeding; F41.0 Panic disorder [episodic paroxysmal anxiety]; M1A.9XX0 Chronic gout, unspecified, without tophus (tophi); E78.5 Hyperlipidemia, unspecified; G43.909 Migraine, unspecified, not intractable, without status migrainosus; F43.10 Post-traumatic stress disorder, unspecified; G89.29 Other chronic pain; M54.5 Low back pain; G62.9 Polyneuropathy, unspecified; K44.9 Diaphragmatic hernia without obstruction or gangrene; F32.9 Major depressive disorder, single episode, unspecified; I25.2 Old myocardial infarction; Z88.1 Allergy status to other antibiotic agents; Z88.8 Allergy status to other drugs, medicaments and biological substances; Z90.49 Acquired absence of other specified parts of digestive tract; Z87.891 Personal history of nicotine dependence; Z80.3 Family history of malignant neoplasm of breast; Z83.6 Family history of other diseases of the respiratory system; Z84.81 Family history of carrier of genetic disease; Z82.49 Family history of ischemic heart disease and other diseases of the circulatory system; Z79.82 Long term (current) use of aspirin; Z79.899 Other long term (current) drug therapy; Z68.33 Body mass index [BMI] 33.0-33.9, adult

== ENCOUNTER → 2019-06-18 | Outpatient (CLI) | payer OTHER ==
[~2019-06-18] MED LIST changes: +ASPIR LOW81 MG PO; +GAVISCON ES TA1 EACH PO; +SUMATRIPTAN SUC25 M1 PO; +VITAMIN D50000 UNIT PO
--- NOTE | ~2019-06-18 | EKG ---
[place], [place] ELECTROCARDIOGRAM REPORT NAME: BOBBY WATT JR UNIT #: [id number] ROOM: DOCTOR: EPIPHANY DRAFT REPORT BIRTHDATE: [birth year] [facility] Test Date: 2019-06-18 Test Time: 16:11:27 Pat Name: BOBBY WATT Department: Room: Gender: Appliance Assembler: Glory Dean : 1960 Requested By: MARJORIE CULLEN Order Number: [id number] Reading MD: Thai [place] MD Measurements Intervals [place] Rate: 84 P: 70 [place]: 127 QRS: 23 QRSD: 104 T: 54 QT: 353 QTc: 418 Interpretive Statements Sinus rhythm Abnormal R-wave progression, early transition Compared to ECG 06/10/2019 08:29:05 No significant changes Electronically Signed On 06-20-2019 8:09:52 PDT by Thai [place] MD CM:EKGRPT:ELECTROCARDIOGRAM REPORT [id number] MARJORIE SERRANO DRAFT REPORT MARJORIE CULLEN DO
[2019-06-18 16:43] LABS: BASO # 0.1 10*3/uL (0.0-0.1); BASO % 0.9 % (0.0-1.0); EOS # 0.3 10*3/uL (0.0-0.4); EOS % 3.7 % (1.0-4.0); HEMATOCRIT 43.7 % (42.0-52.0); HEMOGLOBIN 15.3 g/dl (14.0-18.0); LYMPH # 2.5 10*3/uL (1.3-4.4); LYMPH % 31.7 % (27.0-41.0); MEAN CELL VOLUME 90.5 fl (80.0-94.0); MEAN CORPUSCULAR HGB 31.7 pg (27.0-31.0); MEAN PLATELET VOLUME 10.2 fl (9.6-12.3); MONO # 0.7 10*3/uL (0.1-1.0); MONO % 8.7 % (3.0-9.0); NEUT # 4.4 10*3/uL (2.3-7.9); NEUT % 54.6 % (47.0-73.0); PLATELET COUNT AUTOMATED 294 10*3/uL (130-400); RED BLOOD COUNT 4.83 10*6/uL (4.50-5.90); RED CELL DISTRI WIDTH 12.5 % (0-14.5)
[2019-06-18 16:52] LABS: BILIRUBIN NEGATIVE (NEGATIVE); BLOOD NEGATIVE (NEGATIVE); CLARITY CLEAR (CLEAR); COLOR YELLOW (YELLOW); GLUCOSE NEGATIVE (NEGATIVE); KETONE NEGATIVE (NEGATIVE); LEUKO ESTERASE NEGATIVE (NEGATIVE); NITRITE NEGATIVE (NEGATIVE); SPECIFIC GRAVITY >= 1.030 (1.005-1.030); UROBILINOGEN 0.2 E.U./dl (0.2-1.0)
[2019-06-18 16:58] LABS: ALBUMIN 3.9 gm/dl (3.1-4.5); ALKALINE PHOSPHATASE 75 U/L (45-117); BUN 7 mg/dl (7-24); CHLORIDE 108 mmol/L (98-107); CREATININE 1.05 mg/dL (0.70-1.30); POTASSIUM 3.9 mmol/L (3.5-5.1); SGOT/AST 40 IU/L (3-35); SGPT/ALT 49 U/L (12-78); SODIUM 139 mmol/L (136-145); TOTAL PROTEIN 6.9 gm/dL (6.4-8.2)
[2019-06-18 16:59] LABS: EPITHELIAL CELLS 0-2
== END | disposition home or self-care (01) ==
LOC: LAB 13:59
PROVIDERS: Orthopaedic Surgery
DX: M17.12 Unilateral primary osteoarthritis, left knee (principal); G89.29 Other chronic pain; R10.13 Epigastric pain; I51.9 Heart disease, unspecified; J45.909 Unspecified asthma, uncomplicated; J44.9 Chronic obstructive pulmonary disease, unspecified; Z87.891 Personal history of nicotine dependence

== ENCOUNTER → 2019-06-19 | Day surgery (SDC) | payer OTHER ==
[~2019-06-19] VITALS: Ht 173.9 cm; Wt 103.0 kg
--- NOTE | ~2019-06-19 | O ---
[place], [place] OPERATIVE NOTE NAME: BOBBY WATT JR UNIT #: [id number] ROOM: DOCTOR: JUNAID TAVARES MD BIRTHDATE: [birth year] DOS: 06/10/2019 INDICATIONS: A 59-year-old patient who has presented with chief complaint of esophageal dysphagia, history of chest pain, and obesity. PAST SURGICAL HISTORY: Laminectomy, cholecystectomy, and neck. SOCIAL HISTORY: Nonsmoker. Nonalcohol consumer at the present time. FAMILY HISTORY: Noncontributory. ALLERGIES: CLARITHROMYCIN, GABAPENTIN, DOXYCYCLINE, ERYTHROMYCIN, NIACIN, AND PROMETHAZINE, ALL WAS REVIEWED. PROCEDURE: Today's procedure part of investigation is panendoscopy plus biopsy plus esophageal balloon dilation. PREMEDICATION: Propofol. SCOPE: Olympus forward-viewing gastroscope Q10 video. REPORT: After putting the patient in left lateral position and application of lubricant to the scope, the scope was introduced. Thereafter, under direct visualization, advanced through the length of the esophagus without difficulty. Evidence of distal esophagitis with a stricture was noticed. Hiatal hernia was noticed. Bile reflux, gastritis noticed in the stomach, photographed. Antral biopsy obtained. Duodenal bulb, second and third part within normal. The patient extubated after antral biopsy and a balloon dilator size 20 was used and esophagus dilated. Upper esophageal stricture noticed. The patient extubated, tolerated the procedure well. IMPRESSION: Esophageal stricture, status post balloon dilation, hiatal hernia, gastritis of bile reflux type, status post biopsy. PLAN AND DISCUSSION: The patient experiences chest pain, most likely secondary to the reflux contribution as well. The patient is on aspirin product. The patient is on Protonix, Gaviscon 1 q.a.m. p.c. breakfast and one 5 minutes before dinner was recommended. Elevation of the head of the bed 6 inch all time. Photographic series have been attached to chart for documentation. Workup in progress. FOLLOWUP: Routinely with you in office, p.r.n. visit with us in GI Clinic. Thank you very much indeed for your kind referral. [place], [place] OPERATIVE NOTE NAME: BOBBY WATT JR UNIT #: [id number] ROOM: DOCTOR: JUNAID TAVRAES MD BIRTHDATE: [birth year] JUNAID TAVARES MD CM:MARCOORD:OPERATIVE NOTE [phone] ASHA TAVARES MD 06/21/19 1020 interface
[2019-06-19 08:00] VITALS: BP 138/80
[2019-06-19 09:08] VITALS: BP 118/74
[2019-06-19 09:23] VITALS: BP 111/71
[2019-06-19 09:37] VITALS: BP 110/70
== END | disposition home or self-care (01) ==
LOC: SDC 06-14 14:00
DX: K29.50 Unspecified chronic gastritis without bleeding (principal); K44.9 Diaphragmatic hernia without obstruction or gangrene; K21.9 Gastro-esophageal reflux disease without esophagitis; I25.10 Atherosclerotic heart disease of native coronary artery without angina pectoris; I11.0 Hypertensive heart disease with heart failure; I50.9 Heart failure, unspecified; J44.9 Chronic obstructive pulmonary disease, unspecified; F32.9 Major depressive disorder, single episode, unspecified; E66.9 Obesity, unspecified; Z68.34 Body mass index [BMI] 34.0-34.9, adult; I25.2 Old myocardial infarction; Z98.890 Other specified postprocedural states; Z79.84 Long term (current) use of oral hypoglycemic drugs; Z79.899 Other long term (current) drug therapy; Z90.49 Acquired absence of other specified parts of digestive tract; Z88.1 Allergy status to other antibiotic agents; Z88.8 Allergy status to other drugs, medicaments and biological substances; Z80.8 Family history of malignant neoplasm of other organs or systems

== ENCOUNTER 2019-07-02 01:28 | Inpatient (IN) | payer OTHER ==
[~2019-07-02] VITALS: Ht 172.7 cm; Wt 108.4 kg
[2019-07-02] VITALS (8 sets, daily range): BP systolic 120–139; BP diastolic 67–84
--- NOTE | 2019-07-02 11:40 | NUR ---
A 59, admitted to , under the services of MU Cruz DO with a diagnosis of TOTAL KNEE REPLACEMENT. Chief complaint is LEFT KNEE PAIN. Patient arrived via from [place]. Monitor applied. Initial assessment completed. Vital signs taken and recorded. MU CRUZ DO notified of admission to the unit. Orders received. See assessment for past medical history, medications and allergies. Patient and/or family oriented to unit. [facility]. Clothing/patient valuable form completed. KAJAL ROMO
--- NOTE | 2019-07-02 12:48 | NUR ---
PT MEDICATED WITH PERCOCET FOR "10"/10 IN LEFT KNEE AND LEFT SHOULDER PAIN.
--- NOTE | 2019-07-02 13:45 | NUR ---
PER PATIENT, PERCOCET HAS BEEN EFFECTIVE.
--- NOTE | 2019-07-02 15:07 | NUR ---
PHYSICAL THERAPY Physical therapy evaluation complete, 4E. Full evaluation/details to follow. Moderate complexity PT evaluation per chart review and evaluation (55992). PT to progress ROM, transfers, gait, and stair training per POC. Patient needs to ascend/descend 8 standard stairs in order to return home safely. Recommend discharge home pending meeting stair goal. Thank you. Susi Shaver,PT,DPT.
--- NOTE | 2019-07-02 16:31 | NUR ---
Occupational Therapy evaluation completed on 4 with full eval to follow. Precautions include L TKA with weight bearing as tolerated, knee precautions, moderate complexity level 10518 via chart review. testing and evaluation. Recommend OT per POC and home with home health OT,PT,SN if patient able to perform stairs with PT. Thank you. Nancy Denson OTR/Prasanna
--- NOTE | 2019-07-02 16:31 | NUR ---
PHYSICAL THERAPY Nursing screen received and chart reviewed. Physical therapy referral received. Physical therapy evaluation completed 07/02/19. Thank you. Susi Shaver, PT,DPT
--- NOTE | 2019-07-02 17:19 | NUR ---
Nursing screen received and Occupational Therapy referral received. Thank you. Nancy Denson OTR/l
--- NOTE | 2019-07-02 18:00 | NUR ---
PT PLACED ON CPM MACHINE AT THIS TIME.
--- NOTE | 2019-07-02 20:00 | NUR ---
PT TAKEN OFF OF CPM MACHINE AT THIS TIME. PT IN PAIN AT THIS TIME. PAIN MEDS REQUESTED.
--- NOTE | 2019-07-02 20:07 | NUR ---
PERCOCET GIVEN PRN PER ORDER FOR COMPLAINT OF 10/10 LEFT KNEE PAIN. WILL CONTINUE TO MONITOR AND REASSESS.
[2019-07-03] VITALS: BP 111/79
--- NOTE | 2019-07-03 00:53 | NUR ---
24 HR chart check completed.
--- NOTE | 2019-07-03 06:05 | NUR ---
PATIENT RESTING QUIETLY IN BED. DRESSING TO LEFT KNEE CLEAN, DRY, & INTACT. PATIENT RATES PAIN 5/10. PATIENT MEDICATED WITH SCHEDULED IV TORADOL ORDERED. CALL LIGHT WTIHIN REACH.
--- NOTE | 2019-07-03 06:30 | NUR ---
CPM MACHINE APPLIED TO PATIENT'S LEFT KNEE. INCREASED TO 40 DEGREES. PATIENT TOLERATING WELL. WILL CONTINUE TO MONITOR.
--- NOTE | 2019-07-03 06:41 | NUR ---
PATIENT IS A DAILY WEIGHT. TRAPEZE BAR WAS ADDED TO THE BED YESTERDAY AFTER SURGERY. PATIENT NEEDS TO STAND TO ZERO THE BED WITH THE NEW EQUIPMENT TO GET AN ACCURATE WEIGHT. PATIENT REFUSED TO STAND NOW. HE STATED HE WILL GET UP AND WE CAN ZERO THE BED WHEN THERAPY COMES TO WORK WITH HIM.
--- NOTE | 2019-07-03 06:49 | NUR ---
ALYSA PERKINSBOBBY [id number] Please refer to the physician's history and physical for past medical history, comorbid conditions, and allergies. Diagnosis: S/P LEFT TOTAL KNEE John Score: 19,LOW OR NO RISK WOUND DESCRIPTIONS: Dressing intact to left leg. Patient stated he had surgery yesterday with Dr. Tirado for a knee replacement. He stated he will make his follow up appointment with Dr. Tirado for discharge. No strikethrough drainage noted at time of assessment. Surface the patient is resting on: Isoflex SKIN PREVENTION RECOMMENDATION: 1. Pressure redistribution support surface as appropriate 2. Elevate heels 3. Remove boots/TEDS every shift and reapply 4. Head of bed 30 degrees as tolerated 5. Assess nutrition and hydration 6. Manage moisture 7. Avoid the use of containment devices while in bed 8. Use absorptive products on surfaces limit layers of linens on bed 9. Turn and reposition every 1-2 hours in bed and every 1 hour in chair as tolerated 10. Weight shifts every 15 minutes while up in chair 11. Offloading with pillows or device to keep heels elevated off bed 12. Monitor skin at least every shift 13. Inspect under medical devices twice a day WOUND TREATMENT RECOMMENDATIONS: Heel raiser pro boots to bilateral feet while in bed. Continue Dr. Lawson post op orders to left knee.
[2019-07-03 07:18] LABS: BASO % 0.1 % (0.0-1.0); HEMATOCRIT 36.1 % (42.0-52.0); HEMOGLOBIN 12.7 g/dl (14.0-18.0); LYMPH # 1.1 10*3/uL (1.3-4.4); LYMPH % 5.2 % (27.0-41.0); MEAN CELL VOLUME 90.7 fl (80.0-94.0); MEAN CORPUSCULAR HGB 31.9 pg (27.0-31.0); MEAN CORPUSCULAR HGB CONC 35.2 g/dl (33.0-37.0); MEAN PLATELET VOLUME 10.6 fl (9.6-12.3); MONO # 1.1 10*3/uL (0.1-1.0); MONO % 5.3 % (3.0-9.0); NEUT # 18.5 10*3/uL (2.3-7.9); NEUT % 88.9 % (47.0-73.0); PLATELET COUNT AUTOMATED 244 10*3/uL (130-400); RED BLOOD COUNT 3.98 10*6/uL (4.50-5.90); RED CELL DISTRI WIDTH 12.5 % (0-14.5); WHITE BLOOD COUNT 20.8 10*3/uL (4.8-10.8)
[2019-07-03 07:46] LABS: ALBUMIN 3.2 gm/dl (3.1-4.5); BUN 13 mg/dl (7-24); CHLORIDE 104 mmol/L (98-107); CREATININE 1.18 mg/dL (0.70-1.30); POTASSIUM 4.4 mmol/L (3.5-5.1); SGOT/AST 22 IU/L (3-35); SGPT/ALT 29 U/L (12-78); SODIUM 138 mmol/L (136-145); TOTAL PROTEIN 5.9 gm/dL (6.4-8.2)
[2019-07-03 07:47] LABS: ALKALINE PHOSPHATASE 66 U/L (45-117)
--- NOTE | 2019-07-03 08:30 | NUR ---
OT NOTE Patient was seen this date for 15 minutes of occupational therapy treatment. Patient was supine in bed upon OT arrival and was agreeable to treatment. Patient performed bed mobility with supervision to EOB. Patient seated EOB donned socks with Max A. Patient educated on further treatment using lower body adaptive equipment. Patient performed functional sit/stand at EOB with supervision followed by a stand pivot to the chair. Patient seated in the chair performed grooming tasks unsupported with supervision to increase seated balance. Patient would benefit from continued OT treatment to address lower body dressing and advanced transfers. Latonia Lobo, OTR/L
--- NOTE | 2019-07-03 08:30 | NUR ---
PT TOLERATED 2 HOURS OF CPM PER ORDER
--- NOTE | 2019-07-03 08:50 | NUR ---
Dr. Ford notified of wound care recommendations.
--- NOTE | 2019-07-03 09:07 | NUR ---
PHYSICAL THERAPY PT SUPINE IN BED WITH BED ALARM ON. PT IDENTIFIED BY NAME AND . PT AGREED TO ALL PHYSICAL THERAPY TREATMENT THIS VISIT. PT PERFORMED BED MOBILITY WITH SBA AND VC'S TO USE BED RAIL. PT PERFORMED STS FROM EOB WITH SBA. PT PERFORMED STAND PIVOT TRANSFER TO RECLINER WITH SBA. PT PERFORMES STS TO RECLINER WITH USE OF BUE FOR ASSIANCE WITH SBA. PT REPROTS 6/10 PAIN AT THIS TIME. PT REPORTS NO OTHER NEEDS AT THIS TIME. PT IN RECLINER WITH BODY ALARM ON AND CALL LIGHT SITTING ON THE BED TO PT RIGHT WITH IN ARMS REACH. PT SEEN 1:1 FOR 14MIN. TANA ELLIS PTA
--- NOTE | 2019-07-03 11:00 | NUR ---
OT NOTE Patient was seen this date for 15 minutes of occupational therapy treatment. Patient was seated in the recliner upon arrival and was agreeable to OT treatment. Patient educated on lower body adaptive equipment- sock aid and stationary fireman. Patient performed sock don/doff with AE with Min A from OT to lift L LE. Patient had good understanding of education. Patient performed upper body dressing with a gown behind the back with supervision prior to mobility. Patient performed functional sit/stand with supervision and ww use. Patient completed functional mobility with ww and supervision. In the bathroom, patient practiced a toilet transfer with good safety. Patient returned to EOB and doffed back gown in stance with CGA. Patient supine in bed upon conclusion of OT treatment with all needs within reach and bed alarm on. Patient would benefit from continued OT treatment to maximize independence in ADLs and functional mobility/transfers. Latonia Lobo, OTR/L
--- NOTE | 2019-07-03 11:13 | NUR ---
PHYSICAL THERAPY PT SITTING IN RECLINER UPON ARRIVAL WITH SON AND DAUGHTER IN-LAW PRESENT. PT AGREED TO ALL PHYSICAL THERAPY THIS 2ND VISIT. PT PERFORMED STS FROM RECLINER WITH SBE AND USE OF BUE FOR ASSIANTANCE. PT GAIT TRAINED 15FT X 2 WITH FWW AND SBA AND VC'S FOR POSTURE. PT PERFORMED STS TO EOB WITH SBA. PT PERFORMED SIT TO SUPINE WITH SBA. PT IN BED WITH BED ALARM ON WITH CASE MANAGEMENT PREST AT END OF SESSION. PT REPROTED NO OTHER NEEDS AT THIS TIME. PT SEEN 1:1 FOR 14MIN. TANA ELLIS PTA
[2019-07-03 11:35] VITALS: BP 106/68
--- NOTE | 2019-07-03 13:42 | NUR ---
Patrol Mother in to talk to patient. Patient states lives at home with family. There are few steps in the home. Physician: carol staton Pharmacy: [facility] services: none Patient's level of ADLs: MODERATE ASSIST Patient has working utilities: all working DME: none Follow-up physician's appointment after d/c: will be made by hospitalist nurse director upon discharge Does patient want to access PORTAL?: no Discharge plan discussed with patient, he states he lives at home with family, he was independent in adls and ambulation prior to his surgery, patient states he has a few steps to get into his house but is able to go around back to get in where there are no steps. educated him on the services of a short term group home for rehab and he felt he didn't need to go to a SNF, he would be returning home and wanted [facility] to see him at home., case management will send a referral to [facility] when patient is medically stable for discharge. SAURABH MAXWELL
--- NOTE | 2019-07-03 15:46 | NUR ---
Nutritional Support Services Note: Pt has healing surgical incision sec to left total knee. Appetite is good for meals, he is eating 100% of all meals. Cardiac diet as ordered. Discussed increased need for calories and protein to promote healing. No other nutrition intervention needed at this time. Will follow as needed. Katlyn Shaikh Rdn Ld
[2019-07-03 16:00] VITALS: BP 109/64
[2019-07-03 16:50] LABS: BASO % 0.1 % (0.0-1.0); EOS % 0.1 % (1.0-4.0); HEMATOCRIT 34.6 % (42.0-52.0); HEMOGLOBIN 11.9 g/dl (14.0-18.0); LYMPH # 1.5 10*3/uL (1.3-4.4); LYMPH % 8.4 % (27.0-41.0); MEAN CELL VOLUME 92.8 fl (80.0-94.0); MEAN CORPUSCULAR HGB 31.9 pg (27.0-31.0); MEAN CORPUSCULAR HGB CONC 34.4 g/dl (33.0-37.0); MEAN PLATELET VOLUME 10.2 fl (9.6-12.3); MONO # 1.4 10*3/uL (0.1-1.0); MONO % 7.8 % (3.0-9.0); NEUT % 83.2 % (47.0-73.0); PLATELET COUNT AUTOMATED 224 10*3/uL (130-400); RED BLOOD COUNT 3.73 10*6/uL (4.50-5.90); RED CELL DISTRI WIDTH 12.7 % (0-14.5); WHITE BLOOD COUNT 18.1 10*3/uL (4.8-10.8)
--- NOTE | 2019-07-03 17:40 | NUR ---
PT UP TO 50 DEGREES ON CPM MACHINE AND TOLERATING WITHOUT DIFFICULTY
--- NOTE | 2019-07-03 19:40 | NUR ---
PT TAKEN OFF OF CPM MACHINE. TOLERATED WELL.
[2019-07-03 20:00] VITALS: BP 109/68
--- NOTE | 2019-07-03 21:12 | NUR ---
24 HR chart check completed.
--- NOTE | 2019-07-03 23:35 | NUR ---
COMPLAINS OF PAIN TO LEFT KNEE. PATIENT RATE PAIN 9/10. MEDICATED WITH PERCOCET.
[2019-07-04] VITALS: BP 96/61
--- NOTE | 2019-07-04 00:35 | NUR ---
PATIENT SLEEPING. NO SIGNS OF PAIN. PERCOCET EFFECTIVE.
--- NOTE | 2019-07-04 05:34 | NUR ---
PATIENT COMPLAINS OF 8/10 PAIN TO LEFT KNEE. MEDICATED WITH PERCOCET ORDERED AND PER PATIENT REQUEST.
[2019-07-04 06:27] LABS: BASO % 0.3 % (0.0-1.0); EOS # 0.1 10*3/uL (0.0-0.4); EOS % 0.4 % (1.0-4.0); HEMATOCRIT 34.7 % (42.0-52.0); HEMOGLOBIN 11.7 g/dl (14.0-18.0); LYMPH # 2.3 10*3/uL (1.3-4.4); LYMPH % 16.9 % (27.0-41.0); MEAN CORPUSCULAR HGB 31.7 pg (27.0-31.0); MEAN CORPUSCULAR HGB CONC 33.7 g/dl (33.0-37.0); MEAN PLATELET VOLUME 10.6 fl (9.6-12.3); MONO # 1.1 10*3/uL (0.1-1.0); MONO % 8.1 % (3.0-9.0); NEUT % 73.7 % (47.0-73.0); PLATELET COUNT AUTOMATED 213 10*3/uL (130-400); RED BLOOD COUNT 3.69 10*6/uL (4.50-5.90); RED CELL DISTRI WIDTH 12.9 % (0-14.5); WHITE BLOOD COUNT 13.6 10*3/uL (4.8-10.8)
--- NOTE | 2019-07-04 06:34 | NUR ---
PATIENT SAID PAIN IS ABOUT THE SAME FOLLOWING PERCOCET. PATIENT SAYS THAT PAIN HAD NOT DECREASED DUE TO BEING ON THE CPM.
[2019-07-04 06:45] LABS: BUN 16 mg/dl (7-24); CHLORIDE 104 mmol/L (98-107); CREATININE 1.12 mg/dL (0.70-1.30); POTASSIUM 4.2 mmol/L (3.5-5.1); SODIUM 138 mmol/L (136-145)
--- NOTE | 2019-07-04 07:39 | NUR ---
24 HR chart check completed.
[2019-07-04 08:00] VITALS: BP 116/74
--- NOTE | 2019-07-04 09:00 | NUR ---
case management visits with patient, he will be returning home when medically stable, [facility] will be notified when patient is medically stable for discharge, case management will follow
--- NOTE | 2019-07-04 09:13 | NUR ---
PHYSICAL THERAPY Patient presented to therapy in supine with report of 8/10 pain in the L KNEE. Patient has bed alarm activated. Patient was identified by name and . Patient gives informed consent for treatment. Patient performed supine to sitting at EOB transfer with SBA. Patient sat on EOB unassisted. Patient sit to stand from EOB with CGA. Patient ambulated with Wh Walker for 50' x 1 with CGA X 1 to Close Supervision and no LOB or other difficulty. patient sat in low chair with CGA with verbal cues for kicking L LE out in front of him. Patient sit to stand from low chair with CGA X 1. Patient transferred back to supine in bed with MIN A X 1 for moving L LE up into bed. Patient was left in supine in bed with head of bed elevated, call light within reach, and bed alarm activated. Patient's compression pump put on L LE and turned on. Patient was 1:1 with this RN RECOVERY for 25 minutes total. ASHLEY KAMARA RN RECOVERY
--- NOTE | 2019-07-04 09:14 | NUR ---
OT NOTE PATIENT SEEN FOR 15 MINUTE OT SESSION THIS DAY AND IDENTIFIED BY NAME AND . PATIENT SEATED IN RECLINER UPON ARRIVAL. STS WITH CGA/MIN A. 3LO2 ON PORTABLE TANK AT THIS TIME TO COMPLETE RESTROOM ACTIVITIES. PATIENT ABLE TO COMPLETE FUNCTIONAL MOBILITY WITH WW AT CGA. FUNCTIONAL TOILET TRANSFER WITH MIN A FOR STS USING GRAB BAR. PATIENT ABLE TO CHAITANYA PANTS WITH MOD A TO THREAD LE'S AND PULL UP IN BACK. PATIENT STAND TO SIT REQUIRED VERBAL CUES FOR HAND PLACEMENT. PATIENT ENDED SESSION SEATED IN RECLINER WITH ALL ITEMS IN PLACE. CONTINUE CURRENT POC AND D/C PLAN TO HOME WITH SON. IRMA CANALES SHAY/Prasanna
--- NOTE | 2019-07-04 09:26 | NUR ---
OT NOTE PATIENT SEEN FOR 15 MINUTE SESSION THIS DAY AND IDENTIFIED BY NAME AND . PATIENT SUPINE IN BED WITH HOB ELEVATED UPON ARRIVAL. PATIENT ABLE TO COMPLETE BED MOBILITY WITH SUPERVISION. STS FROM EOB COMPLETE WITH SBA. PATIENT COMPLETED FUNCTIONAL MOBILITY WITH FWW. FUNCTIONAL TOILET TRANSFER COMPLETED WITH EDUCATION TO KICK LLE OUT WHEN SITTING. STS FROM TOILET AT SBA USING GRAB BAR. FUNCTIONAL MOBILTIY IN HALLWAY WITH GOOD SAFETY AWARENESS. PATIENT RETURNED TO EOB AND REQUIRED MIN A TO LIFT LLE INTO BED. PATIENT ENDED SESSION WITH ALL ITEMS IN PLACE. CONTINUE WITH CURRENT POC AND D/C PLAN TO HOME WITH SON PER PATIENT REQUEST. IRMA DAY/Prasanna
--- NOTE | 2019-07-04 11:06 | NUR ---
OT NOTE PATIENT SUPINE IN BED UPON ARRIVAL AND IDENTIFIED BY NAME AND . PATIENT COMPLETED BED MOBILTY FOR SUPINE TO SIT WITH MIN A FOR POSITIONING OF LLE. STS FROM EOB WITH SBA. FUNCTIONAL MOBILITY WITH WW AT SBA WITH FAIR SAFETY AWARENESS. PATIENT TRANSFERS TO RECLINER WITH VERBAL CUES TO REACH BACK FOR CHAIR AND EXTEND LLE WHEN SITTING. PATIENT ENDED SESSION SEATED IN RECLINER WITH BODY ALARM IN PLACE. CONTINUE WITH CURRENT POC AND D/C PLAN TO HOME. IRMA DAY/Prasanna
--- NOTE | 2019-07-04 11:08 | NUR ---
PHYSICAL THERAPY Patient was approached for second visit of the day and he was supine in bed with head of bed elevated. Patient's bed alarm was activated. Patient was identifed by name and . Patient gives informed consent for treatment. Patient performed supine to sitting at EOB TRANSFER with MIN A X 1 for moving L LE out over EOB. Patient performed sit to stand transfer from EOB with SBA and verbal cues for pushing off the bed with hands. Patient ambulated 70' x 1 with Wh Walker and Close Supervision with no LOB and good gait sequence and posture. Patient stayed within NAMRATA of walker and was careful not to pivot on L LE during turns. Patient transferred to bedside chair with SBA. Patient was left in bedside chair with chair alarm tested and attched to patient, call light within reach, and LEs elevated. Patient was 1:1 with this FORESTRY ADVISER for 20 minutes total. ASHLEY KAMARA FORESTRY ADVISER
[2019-07-04 12:00] VITALS: BP 122/72
--- NOTE | 2019-07-04 12:29 | NUR ---
Another Multi-Disciplinary Team meeting was held on 07/04/19, for the purpose of discharge planning. The patient was referred to the following services for follow-up: patient will return home with [facility], tenative discharge is Monday of this week SAURABH MAXWELL
--- NOTE | 2019-07-04 13:10 | NUR ---
PERCOCET GIVEN PER ORDER FOR PAIN. WILL MONITOR.
--- NOTE | 2019-07-04 14:18 | NUR ---
DR. CULLEN OFFICE CALLED WITH INSTRUCTION TO CHANGE DRESSING TO AQUACEL. ORDERED TO REMOVER CATHETER.
--- NOTE | 2019-07-04 14:40 | NUR ---
PT STATES PERCOCET INEFFECTIVE FOR PAIN. WILL CALL ABOUT INCREASING DOSE PER PT REQUEST.
--- NOTE | 2019-07-04 15:20 | NUR ---
CATHETER REMOVED. PT TOLERATED WELL. CALL LIGHT IN REACH.
[2019-07-04 16:00] VITALS: BP 116/73
--- NOTE | 2019-07-04 16:25 | NUR ---
PT PLACED ON CPM 55 DEGREES. WILL MONITOR. CALL LIGHT IN REACH.
--- NOTE | 2019-07-04 17:48 | NUR ---
PERCOCET GIVEN PRN PER ORDER FOR 8/10 PAIN IN LEFT KNEE. WILL MONITOR AND REASSESS.
--- NOTE | 2019-07-04 19:22 | NUR ---
PER PT, PERCOCET EFFECTIVE FOR PAIN.
[2019-07-04 20:00] VITALS: BP 122/75
--- NOTE | 2019-07-04 21:30 | NUR ---
PERCOCET GIVEN ORDERED FOR 9/10 PAIN IN LEFT KNEE. WILL CONTINUE TO MONITOR AND REASSESS.
--- NOTE | 2019-07-04 22:44 | NUR ---
PER PT, PERCOCET EFFECTIVE FOR PAIN.
[2019-07-05] VITALS: BP 138/76
--- NOTE | 2019-07-05 00:13 | NUR ---
RESTING IN BED WITH EYES CLOSED. APPEARS TO BE SLEEPING. HOB ELEVATED. CALL LIGHT IN REACH. HEP LOCK INTACT. NO DISTRESS NOTED.
--- NOTE | 2019-07-05 04:08 | NUR ---
REMAINS SLEEPING WITHOUT DISTRESS.
--- NOTE | 2019-07-05 05:32 | NUR ---
0525 PERCOCET PO FOR C/O'S POST-OP PAIN L KNEE. WILL MONITOR.
--- NOTE | 2019-07-05 05:46 | NUR ---
0540 CPM MACHINE APPLIED FOR 2 HOURS ORDERED.
[2019-07-05 06:00] LABS: BUN 12 mg/dl (7-24); CHLORIDE 103 mmol/L (98-107); CREATININE 1.06 mg/dL (0.70-1.30); POTASSIUM 4.2 mmol/L (3.5-5.1); SODIUM 138 mmol/L (136-145)
--- NOTE | 2019-07-05 06:05 | NUR ---
RESTING IN BED WITH EYES CLOSED. EARLIER PAIN MED EFFECTIVE. CPM MACHINE INTACT. NO DISTRESS NOTED. CONDITION GUARDED.
[2019-07-05 06:19] LABS: BASO # 0.1 10*3/uL (0.0-0.1); BASO % 0.6 % (0.0-1.0); EOS # 0.2 10*3/uL (0.0-0.4); EOS % 1.3 % (1.0-4.0); HEMATOCRIT 34.6 % (42.0-52.0); HEMOGLOBIN 11.7 g/dl (14.0-18.0); LYMPH # 2.8 10*3/uL (1.3-4.4); LYMPH % 23.6 % (27.0-41.0); MEAN CORPUSCULAR HGB 31.8 pg (27.0-31.0); MEAN CORPUSCULAR HGB CONC 33.8 g/dl (33.0-37.0); MEAN PLATELET VOLUME 10.5 fl (9.6-12.3); MONO # 1.1 10*3/uL (0.1-1.0); MONO % 9.7 % (3.0-9.0); NEUT # 7.5 10*3/uL (2.3-7.9); PLATELET COUNT AUTOMATED 225 10*3/uL (130-400); RED BLOOD COUNT 3.68 10*6/uL (4.50-5.90); RED CELL DISTRI WIDTH 12.9 % (0-14.5); WHITE BLOOD COUNT 11.6 10*3/uL (4.8-10.8)
--- NOTE | 2019-07-05 07:45 | NUR ---
CPM TAKEN OFF. DOES NOT COMPLAIN OF ANY PAIN IN LEFT KNEE. BP 98/60.
[2019-07-05 08:00] VITALS: BP 98/60
--- NOTE | 2019-07-05 09:00 | NUR ---
case management visits with patient, will notify [facility] when patient is medically stable for discharge
--- NOTE | 2019-07-05 09:31 | NUR ---
PHYSICAL THERAPY Pt supine in bed upon arrival this A.M. Pt identified by name and . Pt agreed to al PT threatment this A.M. Pt seen 1:1 for 14 min this A.M. Pt performed bed mobility with Corrina with LLE and use of bed rail and over the bed trapize. Pt sat EOB with no difficaulty of support needed. Pt performed STS from EOB with BUE assitance to FWW with SBA. Pt required short standing break once standing due to pt c/o slight increased pain. Pt gait trained 20ft x2 with fww and CGA. Pt gait was a antalgic gait. Pt performed STS to EOB with SBA with use of BUE for assitance. Pt performed sit to supine with Corrina x1 with LLE. Pt able to use trapize over bed to help with bed moblilty. Pt supine in bed with call light on tray with in arms reach at end of session. Pt reports when walking pain is 6/10 and when sitting or laying pain in 3/10 in L knee. oBbbi Bentley SHORTAGE WORKER
--- NOTE | 2019-07-05 10:25 | NUR ---
MEDICATED WITH ONE PERCOCET FOR COMPLAINTS OF LEFT LEG PAIN. RATES PAIN A 7 ON A SCALE OF 1-10
--- NOTE | 2019-07-05 11:33 | NUR ---
Notified by Danielle in Dr. Tirado's office of patient's refusal of CPM at home. Danielle states the patient was given a walker. Notified test case developer.
[2019-07-05 12:00] VITALS: BP 122/70
--- NOTE | 2019-07-05 13:40 | NUR ---
PHYSICAL THERAPY CO-SIGN I approve of the Physical Therapy notes written above. LATIA VEGA PT,DPT
[2019-07-05] MEDS ORDERED: ENOXAPARIN40 MG/0.2 SC (14:02)
[2019-07-05] MEDS ORDERED: ECPIRIN325 MG PO (14:02)
[2019-07-05] MEDS ORDERED: NORCO 7.5-3251 EACH PO (14:02)
--- NOTE | 2019-07-05 14:04 | NUR ---
case shay received a message to check on cost of lovenox for patient, called [facility] and patient will have a $0 copay
--- NOTE | 2019-07-05 14:58 | NUR ---
OCCUPATIONAL THERAPY CO-SIGN I approve of the Occupational Therapy notes written above. TANYA MUNOZ OTR/Prasanna
--- NOTE | 2019-07-05 15:45 | NUR ---
Discharge instructions reviewed with patient/family. Patient receptive and verbalizes understanding. Follow-up care arranged. Written instructions given to patient/family. CAROL TRAN
== END 2019-07-05 15:45 | disposition home health service (06) | DRG 470 ==
LOC: SDC 01:28 → 4E 07:27 → SDC 07:30 → 4E 07-05 15:45
PROVIDERS: Orthopaedic Surgery; Student in an Organized Health Care Education/Training Program; ADMIT Family Medicine
PROC: 0SRD0J9 Replacement of Left Knee Joint with Synthetic Substitute, Cemented, Open Approach (ICD-10-PCS; principal; 2019-07-02)
DX: M17.12 Unilateral primary osteoarthritis, left knee (principal); I50.32 Chronic diastolic (congestive) heart failure; G89.18 Other acute postprocedural pain; J44.9 Chronic obstructive pulmonary disease, unspecified; K21.9 Gastro-esophageal reflux disease without esophagitis; G43.909 Migraine, unspecified, not intractable, without status migrainosus; E78.5 Hyperlipidemia, unspecified; F43.10 Post-traumatic stress disorder, unspecified; G62.9 Polyneuropathy, unspecified; M54.9 Dorsalgia, unspecified; E55.9 Vitamin D deficiency, unspecified; J30.2 Other seasonal allergic rhinitis; K44.9 Diaphragmatic hernia without obstruction or gangrene; I11.0 Hypertensive heart disease with heart failure; G89.29 Other chronic pain; F32.5 Major depressive disorder, single episode, in full remission; D64.9 Anemia, unspecified; R73.9 Hyperglycemia, unspecified; F41.0 Panic disorder [episodic paroxysmal anxiety]; M10.9 Gout, unspecified; I25.2 Old myocardial infarction; Z90.49 Acquired absence of other specified parts of digestive tract; Z87.891 Personal history of nicotine dependence; Z88.1 Allergy status to other antibiotic agents; Z88.8 Allergy status to other drugs, medicaments and biological substances; Z79.51 Long term (current) use of inhaled steroids; Z79.899 Other long term (current) drug therapy; Z79.82 Long term (current) use of aspirin; Z88.6 Allergy status to analgesic agent

== ENCOUNTER → 2019-07-11 | Outpatient (CLI) | payer OTHER ==
[~2019-07-11] MED LIST changes: +ASPIRIN81 M1 PO; +Carafate1 GM PO; +ECPIRIN325 MG PO; +ENOXAPARIN40 MG/0.2 SC; +XARE15TA PO
== END | disposition home or self-care (01) ==
LOC: ORTHO 14:27
DX: M25.462 Effusion, left knee (principal); Z96.652 Presence of left artificial knee joint

== ENCOUNTER 2019-07-27 17:58 | Emergency (ER) | payer OTHER ==
[~2019-07-27] VITALS: Ht 172.7 cm; Wt 95.3 kg
[~2019-07-27 17:58] MED LIST changes: -ASPIRIN81 M1 PO; -Carafate1 GM PO; -XARE15TA PO
[2019-07-27 20:55] VITALS: BP 110/58
[2019-08-30] MEDS ORDERED: VITAMIN D50000 UNIT PO (14:01)
== END 2019-07-27 20:59 | disposition home or self-care (01) ==
LOC: ED 17:58
DX: G89.29 Other chronic pain (principal); M25.562 Pain in left knee; Z87.891 Personal history of nicotine dependence; Z98.890 Other specified postprocedural states; Z90.49 Acquired absence of other specified parts of digestive tract; Z88.1 Allergy status to other antibiotic agents; Z88.3 Allergy status to other anti-infective agents; Z79.82 Long term (current) use of aspirin; Z96.652 Presence of left artificial knee joint

== ENCOUNTER → 2019-08-14 | Outpatient (CLI) | payer OTHER ==
[~2019-08-14] MED LIST changes: +ASPIRIN81 M1 PO; +Carafate1 GM PO; +XARE15TA PO
== END | disposition home or self-care (01) ==
LOC: ORTHO 01:11
DX: M25.462 Effusion, left knee (principal); Z96.652 Presence of left artificial knee joint

== ENCOUNTER 2019-08-21 14:36 | Emergency (ER) | payer OTHER ==
[~2019-08-21] VITALS: Ht 172.7 cm; Wt 99.8 kg
[~2019-08-21 14:36] MED LIST changes: -ASPIRIN81 M1 PO; -Carafate1 GM PO; -XARE15TA PO
[2019-08-21 14:37] VITALS: BP 124/81
[2019-08-21 16:19] LABS: BASO % 0.4 % (0.0-1.0); EOS # 0.2 10*3/uL (0.0-0.4); EOS % 2.5 % (1.0-4.0); HEMATOCRIT 43.4 % (42.0-52.0); HEMOGLOBIN 14.7 g/dl (14.0-18.0); LYMPH # 1.6 10*3/uL (1.3-4.4); LYMPH % 18.3 % (27.0-41.0); MEAN CELL VOLUME 93.7 fl (80.0-94.0); MEAN CORPUSCULAR HGB 31.7 pg (27.0-31.0); MEAN CORPUSCULAR HGB CONC 33.9 g/dl (33.0-37.0); MEAN PLATELET VOLUME 9.3 fl (9.6-12.3); MONO # 0.5 10*3/uL (0.1-1.0); MONO % 5.7 % (3.0-9.0); NEUT # 6.5 10*3/uL (2.3-7.9); NEUT % 72.8 % (47.0-73.0); PLATELET COUNT AUTOMATED 268 10*3/uL (130-400); RED BLOOD COUNT 4.63 10*6/uL (4.50-5.90); RED CELL DISTRI WIDTH 12.6 % (0-14.5)
[2019-08-21 16:33] LABS: ACT PARTIAL THROMBO TIME 22.5 SECONDS (20.0-32.1)
[2019-08-21 16:35] LABS: ALBUMIN 3.8 gm/dl (3.1-4.5); ALKALINE PHOSPHATASE 96 U/L (45-117); BUN 10 mg/dl (7-24); CHLORIDE 104 mmol/L (98-107); CREATININE 0.94 mg/dL (0.70-1.30); POTASSIUM 4.1 mmol/L (3.5-5.1); SGOT/AST 25 IU/L (3-35); SGPT/ALT 34 U/L (12-78); SODIUM 139 mmol/L (136-145)
[2019-08-21] MEDS ORDERED: XARE15TA PO (16:59)
[2019-08-22] MEDS ORDERED: Carafate1 GM PO (03:39)
[2019-08-22] MEDS ORDERED: ASPIRIN81 M1 PO (09:49)
[2019-08-30] MEDS ORDERED: VITAMIN D50000 UNIT PO (14:01)
== END 2019-08-21 16:58 | disposition home or self-care (01) ==
LOC: ED 14:36
PROVIDERS: Physician Assistant
DX: I82.442 Acute embolism and thrombosis of left tibial vein (principal); I82.452 Acute embolism and thrombosis of left peroneal vein; Z96.652 Presence of left artificial knee joint; Z88.1 Allergy status to other antibiotic agents; Z88.8 Allergy status to other drugs, medicaments and biological substances; Z79.899 Other long term (current) drug therapy; Z87.891 Personal history of nicotine dependence; Z79.82 Long term (current) use of aspirin

== ENCOUNTER 2019-08-21 23:45 | Observation (INO) | payer OTHER ==
[~2019-08-21] VITALS: Ht 175.3 cm; Wt 100.8 kg
--- NOTE | ~2019-08-21 | EKG ---
[place], [place] ELECTROCARDIOGRAM REPORT NAME: BOBBY WATT JR UNIT #: [id number] ROOM: 424 DOCTOR: SAKSHI DRAFT REPORT BIRTHDATE: [birth year] [facility] Test Date: 2019-08-22 Test Time: 02:57:37 Pat Name: BOBBY WATT Department: Room: 424 Gender: M Art Preparator: Isaiah Otto : 1960 Requested By: ARIANNA FLOWERS PA-C Order Number: [id number] Reading MD: Oliverio Hernández Measurements Intervals [place] Rate: 71 P: 66 TX: 139 QRS: 34 QRSD: 108 T: 32 QT: 371 QTc: 404 Interpretive Statements Sinus rhythm Abnormal R-wave progression, early transition Baseline wander in lead(s) V1 Compared to ECG 06/18/2019 16:11:27 No significant changes Electronically Signed On 08-23-2019 7:39:44 PST by Oliverio Hernández CM:EKGRPT:ELECTROCARDIOGRAM REPORT [id number] ARIANNA FLOWERS PA-C EPIPHANY DRAFT REPORT ARIANNA FLOWERS PA-C
--- NOTE | ~2019-08-21 | EKG ---
[place], [place] ELECTROCARDIOGRAM REPORT NAME: BOBBY WATT JR UNIT #: [id number] ROOM: 424 DOCTOR: SAKSHI DRAFT REPORT BIRTHDATE: [birth year] [facility] Test Date: 2019-08-22 Test Time: 00:31:54 Pat Name: BOBBY WATT Department: Room: 424 Gender: M Gradall Operator: : 1960 Requested By: ARIANNA FLOWERS PA-C Order Number: [id number] Reading MD: Oliverio Hernández Measurements Intervals [place] Rate: 81 P: 51 ID: 129 QRS: 23 QRSD: 81 T: 28 QT: 346 QTc: 402 Interpretive Statements Sinus rhythm Abnormal R-wave progression, early transition Compared to ECG 06/18/2019 16:11:27 No significant changes Electronically Signed On 08-23-2019 7:39:38 PST by Oliverio Hernández CM:EKGRPT:ELECTROCARDIOGRAM REPORT [id number] ARIANNA FLOWERS PA-C EPIPHANY DRAFT REPORT ARIANNA FLOWERS PA-C
--- NOTE | ~2019-08-21 | EKG ---
[place], [place] ELECTROCARDIOGRAM REPORT NAME: BOBBY WATT JR UNIT #: [id number] ROOM: 424 DOCTOR: SAKSHI DRAFT REPORT BIRTHDATE: [birth year] [facility] Test Date: 2019-08-22 Test Time: 06:22:11 Pat Name: BOBBY WATT Department: Room: 424 Gender: M Blood Bank Coordinator: : 1960 Requested By: ARIANNA FLOWERS PA-C Order Number: [id number] Reading MD: Oliverio Hernández Measurements Intervals [place] Rate: 72 P: 65 MS: 137 QRS: 24 QRSD: 83 T: 29 QT: 391 QTc: 428 Interpretive Statements Sinus rhythm Abnormal R-wave progression, early transition Compared to ECG 06/18/2019 16:11:27 No significant changes Electronically Signed On 08-23-2019 7:39:47 PST by Oliverio Hernández CM:EKGRPT:ELECTROCARDIOGRAM REPORT 1 ARIANNA FLOWERS PA-C EPIPHANY DRAFT REPORT ARIANNA FLOWERS PA-C
[2019-08-21 23:45] VITALS: BP 127/79
[~2019-08-21 23:45] MED LIST changes: +XARE15TA PO
[2019-08-22 00:14] LABS: BASO # 0.1 10*3/uL (0.0-0.1); BASO % 0.9 % (0.0-1.0); EOS # 0.3 10*3/uL (0.0-0.4); EOS % 4.1 % (1.0-4.0); HEMATOCRIT 40.4 % (42.0-52.0); HEMOGLOBIN 13.9 g/dl (14.0-18.0); LYMPH # 2.5 10*3/uL (1.3-4.4); LYMPH % 30.4 % (27.0-41.0); MEAN CELL VOLUME 92.7 fl (80.0-94.0); MEAN CORPUSCULAR HGB 31.9 pg (27.0-31.0); MEAN CORPUSCULAR HGB CONC 34.4 g/dl (33.0-37.0); MEAN PLATELET VOLUME 9.8 fl (9.6-12.3); MONO # 0.6 10*3/uL (0.1-1.0); MONO % 7.5 % (3.0-9.0); NEUT # 4.6 10*3/uL (2.3-7.9); NEUT % 56.9 % (47.0-73.0); PLATELET COUNT AUTOMATED 266 10*3/uL (130-400); RED BLOOD COUNT 4.36 10*6/uL (4.50-5.90); RED CELL DISTRI WIDTH 12.5 % (0-14.5); WHITE BLOOD COUNT 8.1 10*3/uL (4.8-10.8)
[2019-08-22 00:25] LABS: ACT PARTIAL THROMBO TIME 27.2 SECONDS (20.0-32.1); INTERNATIONAL NORM RATIO 1.1 (2.0-3.5)
[2019-08-22 00:30] VITALS: BP 133/80
[2019-08-22 00:31] LABS: ALBUMIN 3.6 gm/dl (3.1-4.5); ALKALINE PHOSPHATASE 89 U/L (45-117); BUN 11 mg/dl (7-24); CHLORIDE 106 mmol/L (98-107); CREATININE 1.05 mg/dL (0.70-1.30); POTASSIUM 3.6 mmol/L (3.5-5.1); SGOT/AST 23 IU/L (3-35); SGPT/ALT 31 U/L (12-78); SODIUM 141 mmol/L (136-145); TOTAL PROTEIN 6.6 gm/dL (6.4-8.2)
[2019-08-22 00:33] LABS: TROPONIN I < 0.015 ng/ml (<0.045)
[2019-08-22 01:30] VITALS: BP 105/59
[2019-08-22 02:10] VITALS: BP 124/76
[2019-08-22 03:20] VITALS: BP 132/84
--- NOTE | 2019-08-22 03:30 | NUR ---
A 59, admitted to , under the services of EDUARDO Mathews DO with a diagnosis of DVT. Chief complaint is CHEST PAIN. Patient arrived via stretcher from ER. Monitor applied. Initial assessment completed. Vital signs taken and recorded. EDUARDO MATHEWS DO notified of admission to the unit. Orders received. See assessment for past medical history, medications and allergies. Patient and/or family oriented to unit. [facility] reviewed. Clothing/patient valuable form completed. LINDA ONEILL
[2019-08-22] MEDS ORDERED: Carafate1 GM PO (03:39)
--- NOTE | 2019-08-22 03:40 | NUR ---
MED REC COMPLETED WITH PATIENT ALERT AND ORIENTED TO PERSON PLACE AND TIME
--- NOTE | 2019-08-22 08:01 | NUR ---
Per patient c/o pain in his leg, contacted Dr. Jiménez for medication. See new orders.
--- NOTE | 2019-08-22 09:00 | NUR ---
Plasterer Helper in to talk to patient. Patient states lives at home with family. There are few steps in the home. Physician: carol staton Pharmacy: [facility] services: none Patient's level of ADLs: INDEPENDENT Patient has working utilities: all working DME: none Follow-up physician's appointment after d/c: will be made by hospitalist nurse director upon discharge Does patient want to access PORTAL?: no Discharge plan discussed with patient, he lives at home with family, states he is independent in adls and ambulation, he states he will return home when medically stable and denies any home needs, case management will follow. SAURABH MAXWELL
[2019-08-22] MEDS ORDERED: ASPIRIN81 M1 PO (09:49)
--- NOTE | 2019-08-22 11:45 | NUR ---
Discharge instructions reviewed with patient/family. Patient receptive and verbalizes understanding. Follow-up care arranged. Written instructions given to patient/family.Patient was educated on prescription changes and to follow up with Laura Sun CNP with in one week post discharge. Patient ambulated from unit with all personal belongings accounted for. ANA MORALES
--- NOTE | 2019-08-22 16:21 | NUR ---
Nursing screen received and patient discharged before screen completed. Nancy Denson OTR/l
[2019-08-30] MEDS ORDERED: VITAMIN D50000 UNIT PO (14:01)
== END 2019-08-22 11:45 | disposition home or self-care (01) ==
LOC: ED 23:45 → EDHOLD 08-22 02:25 → 4E 08-22 02:25
PROVIDERS: Physician Assistant; ADMIT Internal Medicine
DX: R07.89 Other chest pain (principal); E44.1 Mild protein-calorie malnutrition; D64.9 Anemia, unspecified; J44.9 Chronic obstructive pulmonary disease, unspecified; R73.9 Hyperglycemia, unspecified; F41.0 Panic disorder [episodic paroxysmal anxiety]; K21.9 Gastro-esophageal reflux disease without esophagitis; G43.909 Migraine, unspecified, not intractable, without status migrainosus; I11.0 Hypertensive heart disease with heart failure; I50.32 Chronic diastolic (congestive) heart failure; M10.9 Gout, unspecified; G62.9 Polyneuropathy, unspecified; E78.5 Hyperlipidemia, unspecified; F32.9 Major depressive disorder, single episode, unspecified; E55.9 Vitamin D deficiency, unspecified; K44.9 Diaphragmatic hernia without obstruction or gangrene; M17.10 Unilateral primary osteoarthritis, unspecified knee; G89.29 Other chronic pain; I82.409 Acute embolism and thrombosis of unspecified deep veins of unspecified lower extremity

== ENCOUNTER 2019-09-02 10:12 | Inpatient (IN) | payer OTHER ==
[~2019-09-02] VITALS: Ht 174 cm; Wt 123.1 kg
[2019-09-02] VITALS (7 sets, daily range): BP systolic 104–130; BP diastolic 52–82
--- NOTE | ~2019-09-02 | CON ---
[place], [place] REPORT OF CONSULTATION NAME: BOBBY WATT JR [facility] #: [id number] UNIT #: [id number] ROOM: 427 DOCTOR: DIONI ANTUNEZ MD BIRTHDATE: [birth year] DOS: HISTORY OF PRESENT ILLNESS: This is a 59-year-old -Greek man with a history of hypertension, COPD who has not had any significant coronary artery disease. He had a diagnostic heart cath done last month in [facility] and I actually reviewed the images before I came to see the patient. It showed normal LV systolic function, normal left anterior descending artery, circumflex and the left main coronary artery. He had about 30% stenosis in the right dominant artery. He has never had a stroke, cancer or any kidney problems. He had left knee surgery and was on anticoagulant from June onwards. Two weeks ago, he was diagnosed with DVT of the left leg and was started on Xarelto and yesterday morning he developed sharp pain over the anterior part of the chest that went into the back. He did not have any right ____ chest pain, it this lasted for about 20-25 minutes and disappeared. There is no fever, chills and he did not cough and he does not recall any swelling of the lower extremities. PAST MEDICAL HISTORY: Reviewed and there was some odd and rare diagnoses as well. PAST SURGICAL HISTORY: ____ with back surgery, cholecystectomy, hip surgery, knee surgery, neck surgery as well. MEDICATIONS AT HOME: Include Ventolin HFA, atorvastatin, cetirizine, pantoprazole, potassium chloride, pregabalin, Seroquel, rivaroxaban 15 mg b.i.d., sumatriptan and vitamin E. PHYSICAL EXAMINATION: GENERAL: This reveals a patient moderately obese, very pleasant, alert, comfortable. He is not tachypneic. There is no thyromegaly or finger clubbing. VITAL SIGNS: Pulse is 66 regular, blood pressure ____. NECK: JVP is normal. AJR is negative. No bruit in the neck. HEART: There is no cardiomegaly. Auscultation reveals no murmurs or rubs. There is no extra sound. P2 is of normal intensity. EXTREMITIES: Good pedal pulses and no edema in lower extremities. RESPIRATORY: Lungs are clear to percussion and auscultation with excellent breath sounds. There are no rubs. There is no chest wall tenderness. LABORATORY DATA: ECG showed normal sinus rhythm, with normal pattern. Cardiac lab is unremarkable. IMPRESSION: This patient has right upper pulmonary embolism which is acute resulting from DVT of the left leg despite being on Xarelto 15 mg b.i.d. He has very mild coronary artery disease as per heart cath as I described above and I do not suspect any underlying coronary issues at this time. Therefore, no further cardiac workup is recommended. [place], [place] REPORT OF CONSULTATION NAME: BOBBY WATT JR UNIT #: [id number] ROOM: 427 DOCTOR: DIONI ANTUNEZ MD BIRTHDATE: [birth year] I thank you for this consult. DIONI ANTUNEZ MD CM:CONSTR:REPORT OF CONSULTATION 1755 09/04/19 1505 interface
--- NOTE | ~2019-09-02 | EKG ---
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
--- NOTE | ~2019-09-02 | EKG ---
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
--- NOTE | ~2019-09-02 | EKG ---
[place], [place] ELECTROCARDIOGRAM REPORT NAME: BOBBY WATT JR UNIT #: [id number] ROOM: 427 DOCTOR: SAKSHI DRAFT REPORT BIRTHDATE: [birth year] [facility] Test Date: 2019-09-02 Test Time: 13:37:36 Pat Name: BOBBY WATT Department: Room: 427 Gender: M Commissions Coordinator: : 1960 Requested By: BARBARA ESPOSITO Order Number: [id number] Reading MD: Anthony Haynes MD Measurements Intervals [place] Rate: 51 P: 40 [place]: 134 QRS: 41 QRSD: 86 T: 33 QT: 409 QTc: 377 Interpretive Statements Sinus rhythm Abnormal R-wave progression, early transition Compared to ECG 08/22/2019 06:22:11 No significant changes Electronically Signed On 09-03-2019 8:58:41 PST by Anthony Haynes MD CM:EKGRPT:ELECTROCARDIOGRAM REPORT [id number] BARBARA SERRANO DRAFT REPORT BARBARA ESPOSITO DO
[~2019-09-02 10:12] MED LIST changes: +ASPIRIN81 M1 PO; +Carafate1 GM PO
[2019-09-02 10:33] LABS: BASO # 0.1 10*3/uL (0.0-0.1); BASO % 0.8 % (0.0-1.0); EOS # 0.3 10*3/uL (0.0-0.4); HEMATOCRIT 43.1 % (42.0-52.0); HEMOGLOBIN 14.4 g/dl (14.0-18.0); LYMPH # 2.5 10*3/uL (1.3-4.4); LYMPH % 29.2 % (27.0-41.0); MEAN CELL VOLUME 94.1 fl (80.0-94.0); MEAN CORPUSCULAR HGB 31.4 pg (27.0-31.0); MEAN CORPUSCULAR HGB CONC 33.4 g/dl (33.0-37.0); MEAN PLATELET VOLUME 9.9 fl (9.6-12.3); MONO # 0.5 10*3/uL (0.1-1.0); MONO % 6.4 % (3.0-9.0); NEUT # 5.1 10*3/uL (2.3-7.9); NEUT % 60.4 % (47.0-73.0); PLATELET COUNT AUTOMATED 253 10*3/uL (130-400); RED BLOOD COUNT 4.58 10*6/uL (4.50-5.90); RED CELL DISTRI WIDTH 12.3 % (0-14.5); WHITE BLOOD COUNT 8.5 10*3/uL (4.8-10.8)
[2019-09-02 10:41] LABS: ACT PARTIAL THROMBO TIME 31.4 SECONDS (20.0-32.1); INTERNATIONAL NORM RATIO 1.4 (2.0-3.5)
[2019-09-02 10:50] LABS: CHLORIDE 107 mmol/L (98-107); POTASSIUM 3.8 mmol/L (3.5-5.1); SGPT/ALT 37 U/L (12-78); SODIUM 142 mmol/L (136-145)
[2019-09-02 11:03] LABS: ALBUMIN 3.5 gm/dl (3.1-4.5); ALKALINE PHOSPHATASE 89 U/L (45-117); BUN 8 mg/dl (7-24); CREATININE 1.07 mg/dL (0.70-1.30); SGOT/AST 31 IU/L (3-35); TOTAL PROTEIN 6.7 gm/dL (6.4-8.2)
[2019-09-02 11:04] LABS: TROPONIN I < 0.015 ng/ml (<0.045)
[2019-09-02] MEDS ORDERED: NORCO 7.5-3251 EACH PO (13:59)
[2019-09-03] VITALS: BP 110/68
[2019-09-03 06:47] LABS: BASO # 0.1 10*3/uL (0.0-0.1); BASO % 0.7 % (0.0-1.0); EOS # 0.2 10*3/uL (0.0-0.4); EOS % 3.4 % (1.0-4.0); HEMATOCRIT 39.8 % (42.0-52.0); HEMOGLOBIN 13.2 g/dl (14.0-18.0); LYMPH # 2.4 10*3/uL (1.3-4.4); LYMPH % 35.4 % (27.0-41.0); MEAN CELL VOLUME 92.8 fl (80.0-94.0); MEAN CORPUSCULAR HGB 30.8 pg (27.0-31.0); MEAN CORPUSCULAR HGB CONC 33.2 g/dl (33.0-37.0); MONO # 0.5 10*3/uL (0.1-1.0); MONO % 6.7 % (3.0-9.0); NEUT # 3.6 10*3/uL (2.3-7.9); NEUT % 53.7 % (47.0-73.0); PLATELET COUNT AUTOMATED 244 10*3/uL (130-400); RED BLOOD COUNT 4.29 10*6/uL (4.50-5.90); RED CELL DISTRI WIDTH 12.2 % (0-14.5); WHITE BLOOD COUNT 6.7 10*3/uL (4.8-10.8)
[2019-09-03 07:07] LABS: ALBUMIN 3.3 gm/dl (3.1-4.5); CHLORIDE 105 mmol/L (98-107); POTASSIUM 3.8 mmol/L (3.5-5.1); SODIUM 140 mmol/L (136-145)
[2019-09-03 07:14] LABS: ALKALINE PHOSPHATASE 89 U/L (45-117); BUN 12 mg/dl (7-24); CREATININE 1.08 mg/dL (0.70-1.30); PHOSPHOROUS 3.3 mg/dL (2.5-4.9); SGOT/AST 50 IU/L (3-35); SGPT/ALT 59 U/L (12-78)
[2019-09-03 08:00] VITALS: BP 98/53
[2019-09-03 12:00] VITALS: BP 106/62
[2019-09-03 16:00] VITALS: BP 126/67
[2019-09-03 20:00] VITALS: BP 107/66; BP 112/68
[2019-09-04] VITALS: BP 109/58
[2019-09-04 08:00] VITALS: BP 110/70
[2019-09-04] MEDS ORDERED: XARELTO20 M1 PO (11:44)
[2019-09-04] MEDS ORDERED: IMDUR SA60 M1 PO (11:44)
[2019-09-04 12:00] VITALS: BP 104/49
== END 2019-09-04 13:26 | disposition home or self-care (01) | DRG 134 ==
LOC: ED 10:12 → EDHOLD 11:33 → 4E 11:33
PROVIDERS: Emergency Medicine; Registered Nurse; ADMIT Family Medicine
DX: I26.99 Other pulmonary embolism without acute cor pulmonale (principal); J44.9 Chronic obstructive pulmonary disease, unspecified; I82.402 Acute embolism and thrombosis of unspecified deep veins of left lower extremity; I50.32 Chronic diastolic (congestive) heart failure; E44.0 Moderate protein-calorie malnutrition; Z96.652 Presence of left artificial knee joint; I11.0 Hypertensive heart disease with heart failure; F41.9 Anxiety disorder, unspecified; G89.29 Other chronic pain; M54.9 Dorsalgia, unspecified; F32.9 Major depressive disorder, single episode, unspecified; K57.90 Diverticulosis of intestine, part unspecified, without perforation or abscess without bleeding; K21.9 Gastro-esophageal reflux disease without esophagitis; M10.9 Gout, unspecified; G43.909 Migraine, unspecified, not intractable, without status migrainosus; G62.9 Polyneuropathy, unspecified; E78.2 Mixed hyperlipidemia; E55.9 Vitamin D deficiency, unspecified; I25.10 Atherosclerotic heart disease of native coronary artery without angina pectoris; Z90.49 Acquired absence of other specified parts of digestive tract; Z87.891 Personal history of nicotine dependence; Z80.1 Family history of malignant neoplasm of trachea, bronchus and lung; Z80.8 Family history of malignant neoplasm of other organs or systems; I25.2 Old myocardial infarction; Z82.49 Family history of ischemic heart disease and other diseases of the circulatory system; Z79.01 Long term (current) use of anticoagulants; Z88.8 Allergy status to other drugs, medicaments and biological substances; Z79.82 Long term (current) use of aspirin; Z79.899 Other long term (current) drug therapy; Z68.32 Body mass index [BMI] 32.0-32.9, adult

== ENCOUNTER → 2019-09-09 | Outpatient (CLI) | payer OTHER ==
[~2019-09-09] MED LIST changes: +XARE20MG PO; +XARELTO20 M1 PO
[2019-09-10 05:08] LABS: RHEUMATOID ARTHRITIS FACTOR <10.0 IU/mL (0.0-13.9)
[2019-09-11 00:10] LABS: CCP ANTIBODIES IGG/IGA 7 units (0-19)
== END | disposition home or self-care (01) ==
LOC: LAB 15:08
PROVIDERS: Nurse Practitioner Family
DX: M79.641 Pain in right hand (principal); M79.642 Pain in left hand; M10.9 Gout, unspecified

== ENCOUNTER 2019-09-13 10:16 | Emergency (ER) | payer OTHER ==
[~2019-09-13] VITALS: Ht 172.7 cm; Wt 98.4 kg
[2019-09-13 10:16] VITALS: BP 157/79
[~2019-09-13 10:16] MED LIST changes: -XARE20MG PO
[2019-09-13] MEDS ORDERED: XARE20MG PO (10:33)
== END 2019-09-13 11:15 | disposition home or self-care (01) ==
LOC: ED 10:16
DX: I82.402 Acute embolism and thrombosis of unspecified deep veins of left lower extremity (principal); I26.99 Other pulmonary embolism without acute cor pulmonale; Z76.0 Encounter for issue of repeat prescription; I25.2 Old myocardial infarction; I11.0 Hypertensive heart disease with heart failure; I50.9 Heart failure, unspecified; J44.9 Chronic obstructive pulmonary disease, unspecified; G89.29 Other chronic pain; I50.32 Chronic diastolic (congestive) heart failure; K21.9 Gastro-esophageal reflux disease without esophagitis; E78.5 Hyperlipidemia, unspecified; G43.909 Migraine, unspecified, not intractable, without status migrainosus; G62.9 Polyneuropathy, unspecified; M17.10 Unilateral primary osteoarthritis, unspecified knee; Z88.1 Allergy status to other antibiotic agents; Z88.8 Allergy status to other drugs, medicaments and biological substances; Z79.899 Other long term (current) drug therapy; Z79.82 Long term (current) use of aspirin; Z87.891 Personal history of nicotine dependence; Z86.718 Personal history of other venous thrombosis and embolism

== ENCOUNTER 2019-10-05 22:28 | Emergency (ER) | payer OTHER ==
[~2019-10-05] VITALS: Ht 172.7 cm; Wt 99.3 kg
[~2019-10-05 22:28] MED LIST changes: +XARE20MG PO
[2019-10-06 01:21] VITALS: BP 120/68
[2019-10-06] MEDS ORDERED: AMOXICILLIN500 M2 PO (01:36)
== END 2019-10-06 01:52 | disposition home or self-care (01) ==
LOC: ED 22:28
DX: G43.909 Migraine, unspecified, not intractable, without status migrainosus (principal); H66.91 Otitis media, unspecified, right ear; H92.02 Otalgia, left ear; I25.2 Old myocardial infarction; J44.9 Chronic obstructive pulmonary disease, unspecified; I11.0 Hypertensive heart disease with heart failure; I50.9 Heart failure, unspecified; Z88.1 Allergy status to other antibiotic agents; Z88.8 Allergy status to other drugs, medicaments and biological substances; Z79.899 Other long term (current) drug therapy; Z90.49 Acquired absence of other specified parts of digestive tract; Z87.891 Personal history of nicotine dependence; Z86.718 Personal history of other venous thrombosis and embolism

== ENCOUNTER → 2019-11-14 | Outpatient (CLI) | payer OTHER ==
[~2019-11-14] MED LIST changes: +AMOXICILLIN500 M2 PO
== END | disposition home or self-care (01) ==
LOC: D 10:56
DX: E11.9 Type 2 diabetes mellitus without complications (principal); E78.5 Hyperlipidemia, unspecified; E55.9 Vitamin D deficiency, unspecified; I10 Essential (primary) hypertension; J44.9 Chronic obstructive pulmonary disease, unspecified

== ENCOUNTER 2019-12-01 18:45 | Emergency (ER) | payer OTHER ==
[~2019-12-01] VITALS: Ht 172.7 cm; Wt 100.7 kg
[2019-12-01 19:19] VITALS: BP 138/77
[2019-12-01 19:58] LABS: BASO # 0.1 10*3/uL (0.0-0.1); BASO % 0.6 % (0.0-1.0); EOS # 0.1 10*3/uL (0.0-0.4); EOS % 1.6 % (1.0-4.0); HEMATOCRIT 46.9 % (42.0-52.0); HEMOGLOBIN 16.2 g/dl (14.0-18.0); LYMPH # 1.5 10*3/uL (1.3-4.4); MEAN CORPUSCULAR HGB 31.1 pg (27.0-31.0); MEAN CORPUSCULAR HGB CONC 34.5 g/dl (33.0-37.0); MEAN PLATELET VOLUME 9.6 fl (9.6-12.3); MONO # 0.4 10*3/uL (0.1-1.0); NEUT # 6.6 10*3/uL (2.3-7.9); NEUT % 75.5 % (47.0-73.0); PLATELET COUNT AUTOMATED 270 10*3/uL (130-400); RED BLOOD COUNT 5.21 10*6/uL (4.50-5.90); RED CELL DISTRI WIDTH 12.4 % (0-14.5); WHITE BLOOD COUNT 8.8 10*3/uL (4.8-10.8)
[2019-12-01 20:08] LABS: ACT PARTIAL THROMBO TIME 24.8 SECONDS (20.0-32.1)
[2019-12-01 20:14] LABS: ALBUMIN 4.1 gm/dl (3.1-4.5); ALKALINE PHOSPHATASE 119 U/L (45-117); BUN 11 mg/dl (7-24); CHLORIDE 106 mmol/L (98-107); CREATININE 1.18 mg/dL (0.70-1.30); POTASSIUM 3.8 mmol/L (3.5-5.1); SGOT/AST 33 IU/L (3-35); SGPT/ALT 51 U/L (12-78); SODIUM 140 mmol/L (136-145); TOTAL PROTEIN 7.6 gm/dL (6.4-8.2)
[2019-12-01 20:15] LABS: TROPONIN I < 0.015 ng/ml (<0.045)
== END 2019-12-02 03:02 | disposition home or self-care (01) ==
LOC: ED 18:45
PROVIDERS: Emergency Medicine
DX: S39.011A Strain of muscle, fascia and tendon of abdomen, initial encounter (principal); G43.909 Migraine, unspecified, not intractable, without status migrainosus; G89.29 Other chronic pain; J44.9 Chronic obstructive pulmonary disease, unspecified; K21.9 Gastro-esophageal reflux disease without esophagitis; E78.5 Hyperlipidemia, unspecified; I11.0 Hypertensive heart disease with heart failure; I50.32 Chronic diastolic (congestive) heart failure; I25.2 Old myocardial infarction; M17.10 Unilateral primary osteoarthritis, unspecified knee; Z88.1 Allergy status to other antibiotic agents; Z88.8 Allergy status to other drugs, medicaments and biological substances; Z79.82 Long term (current) use of aspirin; Z79.2 Long term (current) use of antibiotics; Z79.899 Other long term (current) drug therapy; Z90.49 Acquired absence of other specified parts of digestive tract; Z98.890 Other specified postprocedural states; Z87.891 Personal history of nicotine dependence; X58.XXXA Exposure to other specified factors, initial encounter; Y93.89 Activity, other specified; Y92.89 Other specified places as the place of occurrence of the external cause; Y99.8 Other external cause status

== ENCOUNTER → 2020-04-09 | Outpatient (CLI) | payer OTHER | END | disposition home or self-care (01) | LOC: LAB 09:00 | DX: E11.9 Type 2 diabetes mellitus without complications (principal); R10.9 Unspecified abdominal pain; I10 Essential (primary) hypertension; E78.5 Hyperlipidemia, unspecified; J44.9 Chronic obstructive pulmonary disease, unspecified; R19.7 Diarrhea, unspecified ==

== ENCOUNTER → 2020-04-10 | Outpatient (CLI) | payer OTHER ==
[2020-04-10 15:56] LABS: CLARITY CLOUDY (CLEAR); COLOR YELLOW (YELLOW)
[2020-04-10 15:58] LABS: BILIRUBIN NEGATIVE (NEGATIVE); BLOOD NEGATIVE (NEGATIVE); GLUCOSE NEGATIVE (NEGATIVE); KETONE NEGATIVE (NEGATIVE); UROBILINOGEN 0.2 E.U./dl (0.2-1.0)
[2020-04-10 16:05] LABS: BACTERIA TRACE; CALCIUM OXALATE CRYSTALS TR; LEUKO ESTERASE NEGATIVE (NEGATIVE); NITRITE NEGATIVE (NEGATIVE); RBC 0-2 rbc/hpf (0-2); WBC 0-2 wbc/hpf (0-5)
== END | disposition home or self-care (01) ==
LOC: LAB 14:20
PROVIDERS: Nurse Practitioner Family
DX: E11.9 Type 2 diabetes mellitus without complications (principal); R10.9 Unspecified abdominal pain; I10 Essential (primary) hypertension; E78.5 Hyperlipidemia, unspecified; J44.9 Chronic obstructive pulmonary disease, unspecified; R19.7 Diarrhea, unspecified

== ENCOUNTER → 2020-05-08 | Outpatient (CLI) | payer OTHER ==
[~2020-05-08] VITALS: Ht 172.7 cm; Wt 97.5 kg
== END | disposition home or self-care (01) ==
LOC: COVID19 00:08
DX: Z01.818 Encounter for other preprocedural examination (principal); Z11.59 Encounter for screening for other viral diseases

== ENCOUNTER → 2020-05-14 | Day surgery (SDC) | payer OTHER ==
[~2020-05-14] VITALS: Ht 172.7 cm; Wt 97.5 kg
[2020-05-14 07:00] VITALS: BP 133/88
[2020-05-14 08:30] VITALS: BP 101/52
[2020-05-14 08:43] VITALS: BP 112/66
[2020-05-14 08:56] VITALS: BP 105/84
== END | disposition home or self-care (01) ==
LOC: SDC 05-11 11:00
DX: R10.9 Unspecified abdominal pain (principal); K29.50 Unspecified chronic gastritis without bleeding; D12.3 Benign neoplasm of transverse colon; R11.14 Bilious vomiting; I11.0 Hypertensive heart disease with heart failure; I50.9 Heart failure, unspecified; I25.2 Old myocardial infarction; J44.9 Chronic obstructive pulmonary disease, unspecified; K21.9 Gastro-esophageal reflux disease without esophagitis; F41.9 Anxiety disorder, unspecified; F32.9 Major depressive disorder, single episode, unspecified; Z86.010 Personal history of colon polyps; Z79.899 Other long term (current) drug therapy

== ENCOUNTER 2020-06-14 18:23 | Emergency (ER) | payer OTHER ==
[2020-06-14 18:33] VITALS: BP 124/88
== END 2020-06-14 20:09 | disposition home or self-care (01) ==
LOC: ED 18:23
DX: S61.411A Laceration without foreign body of right hand, initial encounter (principal); Z23 Encounter for immunization; F41.9 Anxiety disorder, unspecified; J44.9 Chronic obstructive pulmonary disease, unspecified; K21.9 Gastro-esophageal reflux disease without esophagitis; M10.9 Gout, unspecified; E78.5 Hyperlipidemia, unspecified; G43.909 Migraine, unspecified, not intractable, without status migrainosus; Z88.8 Allergy status to other drugs, medicaments and biological substances; Z79.899 Other long term (current) drug therapy; Z90.49 Acquired absence of other specified parts of digestive tract; X58.XXXA Exposure to other specified factors, initial encounter; Y93.89 Activity, other specified; Y92.89 Other specified places as the place of occurrence of the external cause; Y99.8 Other external cause status

== ENCOUNTER 2020-07-18 19:26 | Emergency (ER) | payer OTHER ==
[~2020-07-18] VITALS: Ht 173.9 cm; Wt 99.8 kg
[2020-07-18 19:32] VITALS: BP 148/85
[2020-07-18] MEDS ORDERED: ZOFRAN4 MG PO (20:33)
== END 2020-07-18 20:25 | disposition home or self-care (01) ==
LOC: ED 19:26
DX: K52.9 Noninfective gastroenteritis and colitis, unspecified (principal); Z88.8 Allergy status to other drugs, medicaments and biological substances; Z79.82 Long term (current) use of aspirin; Z79.899 Other long term (current) drug therapy; Z90.49 Acquired absence of other specified parts of digestive tract

== ENCOUNTER → 2020-08-14 | Outpatient (CLI) | payer OTHER | END | disposition home or self-care (01) | LOC: RAD 09:58 | PROVIDERS: ATTEND Nurse Practitioner Family | DX: M25.562 Pain in left knee (principal) ==

== ENCOUNTER 2020-10-05 15:07 | Emergency (ER) | payer OTHER ==
[~2020-10-05] VITALS: Wt 95.3 kg
[2020-10-05 15:13] VITALS: BP 130/82
[2020-10-05 15:33] LABS: BASO # 0.1 10*3/uL (0.0-0.1); BASO % 0.7 % (0.0-1.0); EOS # 0.3 10*3/uL (0.0-0.4); EOS % 2.8 % (1.0-4.0); HEMATOCRIT 45.5 % (42.0-52.0); LYMPH # 3.4 10*3/uL (1.3-4.4); LYMPH % 33.1 % (27.0-41.0); MEAN CELL VOLUME 85.5 fl (80.0-94.0); MEAN CORPUSCULAR HGB 29.7 pg (27.0-31.0); MEAN CORPUSCULAR HGB CONC 34.7 g/dl (33.0-37.0); MEAN PLATELET VOLUME 9.3 fl (9.6-12.3); MONO # 0.9 10*3/uL (0.1-1.0); MONO % 8.8 % (3.0-9.0); NEUT # 5.7 10*3/uL (2.3-7.9); NEUT % 54.4 % (47.0-73.0); PLATELET COUNT AUTOMATED 312 10*3/uL (130-400); RED BLOOD COUNT 5.32 10*6/uL (4.50-5.90); RED CELL DISTRI WIDTH 12.4 % (0-14.5); WHITE BLOOD COUNT 10.4 10*3/uL (4.8-10.8)
[2020-10-05 16:04] LABS: ALBUMIN 3.7 gm/dl (3.1-4.5); ALKALINE PHOSPHATASE 93 U/L (45-117); BUN 7 mg/dl (7-24); CHLORIDE 107 mmol/L (98-107); CREATININE 1.12 mg/dL (0.70-1.30); LIPASE 105 U/L (73-393); POTASSIUM 3.8 mmol/L (3.5-5.1); SGOT/AST 19 IU/L (3-35); SGPT/ALT 39 U/L (12-78); SODIUM 139 mmol/L (136-145); TOTAL PROTEIN 6.9 gm/dL (6.4-8.2)
[2020-10-05 16:11] LABS: TROPONIN I < 0.015 ng/ml (<0.045)
== END 2020-10-05 17:37 | disposition home or self-care (01) ==
LOC: ED 15:07
PROVIDERS: Emergency Medicine
DX: R10.13 Epigastric pain (principal); Z88.1 Allergy status to other antibiotic agents; Z88.8 Allergy status to other drugs, medicaments and biological substances; Z79.899 Other long term (current) drug therapy; Z87.891 Personal history of nicotine dependence

== ENCOUNTER 2021-04-01 14:11 | Emergency (ER) | payer OTHER ==
[~2021-04-01] VITALS: Ht 172.7 cm; Wt 97.5 kg
[2021-04-01 14:15] VITALS: BP 150/84
== END 2021-04-01 18:59 | disposition home or self-care (01) ==
LOC: ED 14:11
DX: S63.616A Unspecified sprain of right little finger, initial encounter (principal); S60.221A Contusion of right hand, initial encounter; Z88.8 Allergy status to other drugs, medicaments and biological substances; Z79.899 Other long term (current) drug therapy; Z98.890 Other specified postprocedural states; Z90.49 Acquired absence of other specified parts of digestive tract; Z87.891 Personal history of nicotine dependence; X58.XXXA Exposure to other specified factors, initial encounter; Y93.89 Activity, other specified; Y92.89 Other specified places as the place of occurrence of the external cause; Y99.8 Other external cause status

== ENCOUNTER 2021-05-05 15:38 | Inpatient (IN) | payer OTHER ==
[~2021-05-05] VITALS: Ht 172.7 cm; Wt 96.0 kg
[~2021-05-05 15:38] MED LIST changes: -K-DUR 1010 MEQ PO; +KLOR-CON 1010 ME1 PO
[2021-05-05 15:48] VITALS: BP 151/102
[2021-05-05 15:56] VITALS: BP 122/83
[2021-05-05 16:11] LABS: BASO # 0.1 10*3/uL (0.0-0.1); BASO % 0.6 % (0.0-1.0); EOS # 0.2 10*3/uL (0.0-0.4); HEMATOCRIT 48.6 % (42.0-52.0); LYMPH # 2.2 10*3/uL (1.3-4.4); LYMPH % 19.5 % (27.0-41.0); MEAN CELL VOLUME 87.6 fl (80.0-94.0); MEAN CORPUSCULAR HGB 31.4 pg (27.0-31.0); MEAN CORPUSCULAR HGB CONC 35.8 g/dl (33.0-37.0); MEAN PLATELET VOLUME 9.6 fl (9.6-12.3); MONO # 0.7 10*3/uL (0.1-1.0); MONO % 6.4 % (3.0-9.0); NEUT % 71.1 % (47.0-73.0); PLATELET COUNT AUTOMATED 280 10*3/uL (130-400); RED BLOOD COUNT 5.55 10*6/uL (4.50-5.90); RED CELL DISTRI WIDTH 11.9 % (0-14.5); WHITE BLOOD COUNT 11.3 10*3/uL (4.8-10.8)
[2021-05-05 16:16] VITALS: BP 124/74
[2021-05-05 16:26] LABS: LIPASE 138 U/L (73-393)
[2021-05-05 16:28] LABS: ALBUMIN 4.2 gm/dl (3.1-4.5); ALKALINE PHOSPHATASE 97 U/L (45-117); BUN 11 mg/dl (7-24); CHLORIDE 106 mmol/L (98-107); CREATININE 1.24 mg/dL (0.70-1.30); POTASSIUM 3.8 mmol/L (3.5-5.1); SGOT/AST 17 IU/L (3-35); SGPT/ALT 27 U/L (12-78); SODIUM 135 mmol/L (136-145); TOTAL PROTEIN 7.7 gm/dL (6.4-8.2)
[2021-05-05 16:30] LABS: TROPONIN I < 0.015 ng/ml (<0.045)
[2021-05-05 19:58] VITALS: BP 122/76
[2021-05-05 20:30] VITALS: BP 144/90
[2021-05-05] MEDS ORDERED: COGENTIN0.5 MG PO (20:44)
[2021-05-05] MEDS ORDERED: FARXIGA5 M1 PO (20:45)
[2021-05-05] MEDS ORDERED: ZYLOPRIM100 MG PO (20:51)
[2021-05-05] MEDS ORDERED: EFFEXOR XR75 M1 PO (20:52)
[2021-05-06] VITALS: BP 141/97
[2021-05-06 06:09] LABS: ALBUMIN 4.3 gm/dl (3.1-4.5); BASO # 0.1 10*3/uL (0.0-0.1); BASO % 0.6 % (0.0-1.0); BUN 14 mg/dl (7-24); CHLORIDE 104 mmol/L (98-107); EOS # 0.1 10*3/uL (0.0-0.4); HEMATOCRIT 49.1 % (42.0-52.0); LYMPH # 1.8 10*3/uL (1.3-4.4); LYMPH % 14.5 % (27.0-41.0); MEAN CELL VOLUME 89.3 fl (80.0-94.0); MEAN CORPUSCULAR HGB 31.3 pg (27.0-31.0); MEAN PLATELET VOLUME 10.1 fl (9.6-12.3); MONO # 0.8 10*3/uL (0.1-1.0); NEUT # 9.8 10*3/uL (2.3-7.9); NEUT % 77.7 % (47.0-73.0); PLATELET COUNT AUTOMATED 280 10*3/uL (130-400); SGOT/AST 17 IU/L (3-35); SODIUM 136 mmol/L (136-145); WHITE BLOOD COUNT 12.6 10*3/uL (4.8-10.8)
[2021-05-06 06:17] LABS: ALKALINE PHOSPHATASE 105 U/L (45-117); CREATININE 1.18 mg/dL (0.70-1.30); FREE T4 0.98 ng/dl (0.76-1.46); SGPT/ALT 28 U/L (12-78); THYROID STIM HORMONE (HS) 0.644 uIU/ml (0.358-4.75); TOTAL PROTEIN 7.7 gm/dL (6.4-8.2)
[2021-05-06 06:21] LABS: ACT PARTIAL THROMBO TIME 23.1 SECONDS (20.0-32.1)
[2021-05-06 08:00] VITALS: BP 144/92
[2021-05-06 11:49] VITALS: BP 130/84
[2021-05-06 12:00] VITALS: BP 133/85
== END 2021-05-06 15:20 | disposition home or self-care (01) | DRG 756 ==
LOC: ED 15:38 → 5E 17:37 → EDHOLD 17:37 → 5E 20:08
PROVIDERS: Emergency Medicine; Student in an Organized Health Care Education/Training Program; ADMIT Family Medicine; ATTEND Family Medicine
PROC: 4A02XM4 Measurement of Cardiac Total Activity, External Approach (ICD-10-PCS; principal; 2021-05-06)
PROC: 3E073KZ Introduction of Other Diagnostic Substance into Coronary Artery, Percutaneous Approach (ICD-10-PCS; 2021-05-06)
DX: F41.9 Anxiety disorder, unspecified (principal); E87.2 Acidosis; E87.1 Hypo-osmolality and hyponatremia; R73.9 Hyperglycemia, unspecified; E80.6 Other disorders of bilirubin metabolism; R11.2 Nausea with vomiting, unspecified; R65.10 Systemic inflammatory response syndrome (SIRS) of non-infectious origin without acute organ dysfunction; J44.9 Chronic obstructive pulmonary disease, unspecified; F41.0 Panic disorder [episodic paroxysmal anxiety]; K21.9 Gastro-esophageal reflux disease without esophagitis; I50.32 Chronic diastolic (congestive) heart failure; M10.9 Gout, unspecified; G62.9 Polyneuropathy, unspecified; E78.5 Hyperlipidemia, unspecified; F32.9 Major depressive disorder, single episode, unspecified; E55.9 Vitamin D deficiency, unspecified; J30.2 Other seasonal allergic rhinitis; K57.90 Diverticulosis of intestine, part unspecified, without perforation or abscess without bleeding; G89.29 Other chronic pain; G43.909 Migraine, unspecified, not intractable, without status migrainosus; I11.0 Hypertensive heart disease with heart failure; Z96.652 Presence of left artificial knee joint; F43.10 Post-traumatic stress disorder, unspecified; Z88.1 Allergy status to other antibiotic agents; Z90.49 Acquired absence of other specified parts of digestive tract; Z88.8 Allergy status to other drugs, medicaments and biological substances; Z87.891 Personal history of nicotine dependence; Z80.3 Family history of malignant neoplasm of breast; Z82.5 Family history of asthma and other chronic lower respiratory diseases; Z82.49 Family history of ischemic heart disease and other diseases of the circulatory system; Z86.718 Personal history of other venous thrombosis and embolism; Z86.711 Personal history of pulmonary embolism; I25.2 Old myocardial infarction; Z79.899 Other long term (current) drug therapy; Z79.82 Long term (current) use of aspirin

== ENCOUNTER 2021-05-22 16:56 | Inpatient (IN) | payer OTHER ==
[~2021-05-22] VITALS: Ht 172.7 cm; Wt 99.8 kg
[2021-05-22 16:56] VITALS: BP 140/91
[~2021-05-22 16:56] MED LIST changes: +COGENTIN0.5 MG PO; +FARXIGA5 M1 PO
[2021-05-22 18:14] LABS: BASO # 0.1 10*3/uL (0.0-0.1); BASO % 0.4 % (0.0-1.0); EOS # 0.1 10*3/uL (0.0-0.4); EOS % 0.6 % (1.0-4.0); HEMATOCRIT 42.2 % (42.0-52.0); LYMPH % 7.9 % (27.0-41.0); MEAN CELL VOLUME 88.7 fl (80.0-94.0); MEAN CORPUSCULAR HGB 31.3 pg (27.0-31.0); MEAN CORPUSCULAR HGB CONC 35.3 g/dl (33.0-37.0); MEAN PLATELET VOLUME 9.4 fl (9.6-12.3); MONO # 0.6 10*3/uL (0.1-1.0); MONO % 5.3 % (3.0-9.0); NEUT # 10.3 10*3/uL (2.3-7.9); NEUT % 85.2 % (47.0-73.0); PLATELET COUNT AUTOMATED 263 10*3/uL (130-400); RED BLOOD COUNT 4.76 10*6/uL (4.50-5.90); RED CELL DISTRI WIDTH 11.9 % (0-14.5); WHITE BLOOD COUNT 12.1 10*3/uL (4.8-10.8)
[2021-05-22 18:31] LABS: ALBUMIN 3.6 gm/dl (3.1-4.5); ALKALINE PHOSPHATASE 82 U/L (45-117); BUN 9 mg/dl (7-24); CHLORIDE 108 mmol/L (98-107); CPK 282 U/L (39-308); CREATININE 1.15 mg/dL (0.70-1.30); LIPASE 82 U/L (73-393); POTASSIUM 3.9 mmol/L (3.5-5.1); SGOT/AST 22 IU/L (3-35); SGPT/ALT 29 U/L (12-78); SODIUM 141 mmol/L (136-145); TOTAL PROTEIN 6.7 gm/dL (6.4-8.2); TROPONIN I < 0.015 ng/ml (<0.045)
[2021-05-22 19:54] LABS: BILIRUBIN Negative (Negative); BLOOD Negative (Negative); CLARITY Clear (Clear); COLOR Yellow (Yellow); GLUCOSE 3+ (Negative); KETONE Negative (Negative); LEUKO ESTERASE Negative (Negative); NITRITE Negative (Negative); PH 5.5 (4.5-8.0); SPECIFIC GRAVITY 1.015 (1.001-1.030); UROBILINOGEN 0.2 E.U./dl (0.0-1.0)
[2021-05-22 20:09] LABS: BACTERIA TRACE; RBC 0-2 rbc/hpf (0-2); WBC 0-2 wbc/hpf (0-5)
[2021-05-23 00:14] VITALS: BP 124/83
[2021-05-23 04:52] LABS: BASO # 0.1 10*3/uL (0.0-0.1); BASO % 0.7 % (0.0-1.0); EOS # 0.2 10*3/uL (0.0-0.4); EOS % 2.2 % (1.0-4.0); HEMATOCRIT 42.1 % (42.0-52.0); LYMPH # 1.9 10*3/uL (1.3-4.4); LYMPH % 17.7 % (27.0-41.0); MEAN CELL VOLUME 89.6 fl (80.0-94.0); MEAN CORPUSCULAR HGB 31.7 pg (27.0-31.0); MEAN CORPUSCULAR HGB CONC 35.4 g/dl (33.0-37.0); MEAN PLATELET VOLUME 9.8 fl (9.6-12.3); MONO # 0.8 10*3/uL (0.1-1.0); MONO % 7.5 % (3.0-9.0); NEUT # 7.9 10*3/uL (2.3-7.9); NEUT % 71.7 % (47.0-73.0); PLATELET COUNT AUTOMATED 262 10*3/uL (130-400); RED CELL DISTRI WIDTH 12.1 % (0-14.5)
[2021-05-23 05:10] LABS: ALBUMIN 3.5 gm/dl (3.1-4.5); ALKALINE PHOSPHATASE 80 U/L (45-117); BUN 10 mg/dl (7-24); CHLORIDE 106 mmol/L (98-107); CREATININE 0.97 mg/dL (0.70-1.30); POTASSIUM 3.7 mmol/L (3.5-5.1); SGOT/AST 23 IU/L (3-35); SGPT/ALT 28 U/L (12-78); SODIUM 140 mmol/L (136-145); TOTAL PROTEIN 6.7 gm/dL (6.4-8.2)
[2021-05-23 09:42] VITALS: BP 139/86
[2021-05-23] MEDS ORDERED: HYSINGLA ER30 MG PO (10:12)
[2021-05-23] MEDS ORDERED: EFFEXOR XR75 M1 PO (10:13)
[2021-05-23] MEDS ORDERED: LAMICTAL CD25 MG PO (10:13)
[2021-05-23] MEDS ORDERED: ABILIFY10 MG PO (10:13)
== END 2021-05-23 12:51 | disposition home or self-care (01) | DRG 48 ==
LOC: ED 16:56 → EDHOLD 22:09
PROVIDERS: Hospitalist; Physician Assistant; ADMIT Internal Medicine; ATTEND Internal Medicine
DX: G90.8 Other disorders of autonomic nervous system (principal); M94.0 Chondrocostal junction syndrome [Tietze]; R65.10 Systemic inflammatory response syndrome (SIRS) of non-infectious origin without acute organ dysfunction; E87.2 Acidosis; E87.8 Other disorders of electrolyte and fluid balance, not elsewhere classified; R73.9 Hyperglycemia, unspecified; J44.9 Chronic obstructive pulmonary disease, unspecified; F43.10 Post-traumatic stress disorder, unspecified; K21.9 Gastro-esophageal reflux disease without esophagitis; F41.0 Panic disorder [episodic paroxysmal anxiety]; I11.0 Hypertensive heart disease with heart failure; I50.32 Chronic diastolic (congestive) heart failure; M1A.9XX0 Chronic gout, unspecified, without tophus (tophi); G62.9 Polyneuropathy, unspecified; E78.5 Hyperlipidemia, unspecified; F32.9 Major depressive disorder, single episode, unspecified; E55.9 Vitamin D deficiency, unspecified; G89.29 Other chronic pain; Z96.652 Presence of left artificial knee joint; M17.10 Unilateral primary osteoarthritis, unspecified knee; G40.909 Epilepsy, unspecified, not intractable, without status epilepticus; K57.90 Diverticulosis of intestine, part unspecified, without perforation or abscess without bleeding; G43.909 Migraine, unspecified, not intractable, without status migrainosus; T14.8XXA Other injury of unspecified body region, initial encounter; X58.XXXA Exposure to other specified factors, initial encounter; Y93.89 Activity, other specified; Y92.89 Other specified places as the place of occurrence of the external cause; Y99.8 Other external cause status; Z86.718 Personal history of other venous thrombosis and embolism; Z86.711 Personal history of pulmonary embolism; I25.2 Old myocardial infarction; Z90.49 Acquired absence of other specified parts of digestive tract; Z87.891 Personal history of nicotine dependence; Z80.3 Family history of malignant neoplasm of breast; Z82.5 Family history of asthma and other chronic lower respiratory diseases; Z82.49 Family history of ischemic heart disease and other diseases of the circulatory system; Z88.1 Allergy status to other antibiotic agents; Z88.8 Allergy status to other drugs, medicaments and biological substances; Z79.899 Other long term (current) drug therapy

== ENCOUNTER 2021-06-30 23:54 | Emergency (ER) | payer OTHER ==
[~2021-06-30] VITALS: Ht 172.7 cm; Wt 95.3 kg
[~2021-06-30 23:54] MED LIST changes: +ABILIFY10 MG PO; +HYSINGLA ER30 MG PO; +LAMICTAL CD25 MG PO
[2021-06-30 23:55] VITALS: BP 106/70
[2021-07-01 00:17] LABS: BASO # 0.1 10*3/uL (0.0-0.1); BASO % 0.9 % (0.0-1.0); EOS # 0.4 10*3/uL (0.0-0.4); EOS % 4.2 % (1.0-4.0); HEMATOCRIT 44.3 % (42.0-52.0); LYMPH # 2.4 10*3/uL (1.3-4.4); LYMPH % 26.3 % (27.0-41.0); MEAN CELL VOLUME 90.4 fl (80.0-94.0); MEAN CORPUSCULAR HGB 30.8 pg (27.0-31.0); MEAN CORPUSCULAR HGB CONC 34.1 g/dl (33.0-37.0); MEAN PLATELET VOLUME 9.6 fl (9.6-12.3); MONO # 0.6 10*3/uL (0.1-1.0); MONO % 6.7 % (3.0-9.0); NEUT # 5.7 10*3/uL (2.3-7.9); NEUT % 61.7 % (47.0-73.0); PLATELET COUNT AUTOMATED 257 10*3/uL (130-400); RED CELL DISTRI WIDTH 12.1 % (0-14.5); WHITE BLOOD COUNT 9.3 10*3/uL (4.8-10.8)
[2021-07-01 00:35] LABS: ALBUMIN 3.6 gm/dl (3.1-4.5); ALKALINE PHOSPHATASE 100 U/L (45-117); BUN 7 mg/dl (7-24); CHLORIDE 105 mmol/L (98-107); CREATININE 1.18 mg/dL (0.70-1.30); POTASSIUM 4.3 mmol/L (3.5-5.1); SGOT/AST 21 IU/L (3-35); SGPT/ALT 30 U/L (12-78); SODIUM 140 mmol/L (136-145); TOTAL PROTEIN 6.9 gm/dL (6.4-8.2)
[2021-07-01 00:37] LABS: TROPONIN I < 0.015 ng/ml (<0.045)
== END 2021-07-01 01:20 | disposition home or self-care (01) ==
LOC: ED 23:54
PROVIDERS: Internal Medicine
DX: R07.89 Other chest pain (principal); Z88.1 Allergy status to other antibiotic agents; Z88.8 Allergy status to other drugs, medicaments and biological substances; Z79.899 Other long term (current) drug therapy; Z98.890 Other specified postprocedural states; Z90.49 Acquired absence of other specified parts of digestive tract; Z96.652 Presence of left artificial knee joint; Z98.61 Coronary angioplasty status; Z87.891 Personal history of nicotine dependence

== ENCOUNTER 2021-07-15 21:51 | Emergency (ER) | payer OTHER ==
[~2021-07-15] VITALS: Ht 172.7 cm; Wt 95.3 kg
[2021-07-15 22:03] VITALS: BP 154/86
== END 2021-07-15 23:33 | disposition home or self-care (01) ==
LOC: ED 21:51
DX: G62.9 Polyneuropathy, unspecified (principal); Z88.1 Allergy status to other antibiotic agents; Z88.8 Allergy status to other drugs, medicaments and biological substances; Z79.899 Other long term (current) drug therapy; Z87.891 Personal history of nicotine dependence

== ENCOUNTER 2021-08-10 18:12 | Emergency (ER) | payer OTHER ==
[~2021-08-10] VITALS: Ht 172.7 cm; Wt 95.3 kg
[2021-08-10 18:15] VITALS: BP 152/81
[2021-08-10 18:53] LABS: BASO % 0.4 % (0.0-1.0); EOS % 0.2 % (1.0-4.0); HEMATOCRIT 49.3 % (42.0-52.0); LYMPH # 0.9 10*3/uL (1.3-4.4); LYMPH % 9.2 % (27.0-41.0); MEAN CELL VOLUME 89.5 fl (80.0-94.0); MEAN CORPUSCULAR HGB 31.2 pg (27.0-31.0); MEAN CORPUSCULAR HGB CONC 34.9 g/dl (33.0-37.0); MEAN PLATELET VOLUME 9.7 fl (9.6-12.3); MONO # 0.3 10*3/uL (0.1-1.0); MONO % 3.5 % (3.0-9.0); NEUT # 8.3 10*3/uL (2.3-7.9); NEUT % 86.3 % (47.0-73.0); PLATELET COUNT AUTOMATED 258 10*3/uL (130-400); RED BLOOD COUNT 5.51 10*6/uL (4.50-5.90); RED CELL DISTRI WIDTH 12.3 % (0-14.5); WHITE BLOOD COUNT 9.6 10*3/uL (4.8-10.8)
[2021-08-10 19:28] LABS: ALBUMIN 4.2 gm/dl (3.1-4.5); ALKALINE PHOSPHATASE 100 U/L (45-117); BUN 11 mg/dl (7-24); CHLORIDE 104 mmol/L (98-107); CREATININE 1.21 mg/dL (0.70-1.30); POTASSIUM 4.1 mmol/L (3.5-5.1); SGOT/AST 27 IU/L (3-35); SGPT/ALT 39 U/L (12-78); SODIUM 137 mmol/L (136-145); TOTAL PROTEIN 7.8 gm/dL (6.4-8.2); TROPONIN I < 0.015 ng/ml (<0.045)
[2021-08-10] MEDS ORDERED: MECLIZINE HCL25 M2 PO (22:20)
== END 2021-08-10 23:22 | disposition home or self-care (01) ==
LOC: ED 18:12
PROVIDERS: Physician Assistant
DX: R11.2 Nausea with vomiting, unspecified (principal); T50.905A Adverse effect of unspecified drugs, medicaments and biological substances, initial encounter; Z88.1 Allergy status to other antibiotic agents; Z88.8 Allergy status to other drugs, medicaments and biological substances; Z79.899 Other long term (current) drug therapy; Z87.891 Personal history of nicotine dependence; Y92.89 Other specified places as the place of occurrence of the external cause

== ENCOUNTER 2021-11-04 21:59 | Emergency (ER) | payer OTHER ==
[~2021-11-04] VITALS: Ht 172.7 cm; Wt 94.8 kg
[~2021-11-04 21:59] MED LIST changes: +MECLIZINE HCL25 M2 PO
[2021-11-04 22:55] LABS: BASO # 0.1 10*3/uL (0.0-0.1); BASO % 0.5 % (0.0-1.0); EOS # 0.3 10*3/uL (0.0-0.4); EOS % 3.5 % (1.0-4.0); HEMATOCRIT 42.1 % (42.0-52.0); LYMPH # 3.2 10*3/uL (1.3-4.4); MEAN CORPUSCULAR HGB 31.7 pg (27.0-31.0); MEAN CORPUSCULAR HGB CONC 35.6 g/dl (33.0-37.0); MEAN PLATELET VOLUME 8.9 fl (9.6-12.3); MONO # 0.6 10*3/uL (0.1-1.0); MONO % 6.3 % (3.0-9.0); NEUT # 5.2 10*3/uL (2.3-7.9); NEUT % 55.5 % (47.0-73.0); PLATELET COUNT AUTOMATED 241 10*3/uL (130-400); RED BLOOD COUNT 4.73 10*6/uL (4.50-5.90); RED CELL DISTRI WIDTH 12.2 % (0-14.5); WHITE BLOOD COUNT 9.3 10*3/uL (4.8-10.8)
[2021-11-04 23:12] LABS: ALBUMIN 3.7 gm/dl (3.1-4.5); ALKALINE PHOSPHATASE 89 U/L (45-117); BUN 7 mg/dl (7-24); CHLORIDE 110 mmol/L (98-107); CREATININE 1.04 mg/dL (0.70-1.30); POTASSIUM 3.4 mmol/L (3.5-5.1); SGOT/AST 21 IU/L (3-35); SGPT/ALT 29 U/L (12-78); SODIUM 142 mmol/L (136-145); TOTAL PROTEIN 6.8 gm/dL (6.4-8.2)
[2021-11-04 23:13] LABS: ACETAMINOPHEN (TYLENOL) < 5.0 ug/ml (10-30); ETHYL ALCOHOL < 3.0 mg/dl (<3)
[2021-11-04 23:47] LABS: BILIRUBIN Negative (Negative); BLOOD Negative (Negative); CLARITY Clear (Clear); COLOR Yellow (Yellow); GLUCOSE Negative (Negative); KETONE Negative (Negative); LEUKO ESTERASE Negative (Negative); NITRITE Negative (Negative); SPECIFIC GRAVITY <= 1.005 (1.001-1.030); UROBILINOGEN 0.2 E.U./dl (0.0-1.0)
[2021-11-04 23:55] LABS: URINE AMPHETAMINES < 1000 (1000ng/ml); URINE BARBITURATES < 200 (200ng/ml); URINE BENZODIAZEPINES < 200 (200ng/ml); URINE CANNABINOIDS (THC) < 50 (50ng/ml); URINE COCAINE < 300 (300ng/ml); URINE METHADONE < 300 (300ng/ml); URINE OPIATES > 300 (300ng/ml)
[2021-11-04 23:56] LABS: URINE PHENCYCLIDINE < 25 (25ng/ml)
[2021-11-05 00:02] LABS: WBC 0-2 wbc/hpf (0-5)
[2021-11-05 06:58] VITALS: BP 124/70
== END 2021-11-05 10:18 | disposition home or self-care (01) ==
LOC: ED 21:59
PROVIDERS: Emergency Medicine
DX: F32.9 Major depressive disorder, single episode, unspecified (principal); Z20.822 Contact with and (suspected) exposure to COVID-19; I25.2 Old myocardial infarction; J44.9 Chronic obstructive pulmonary disease, unspecified; J45.909 Unspecified asthma, uncomplicated; I50.9 Heart failure, unspecified; I11.0 Hypertensive heart disease with heart failure; Z88.8 Allergy status to other drugs, medicaments and biological substances; Z88.1 Allergy status to other antibiotic agents; Z79.899 Other long term (current) drug therapy; Z90.49 Acquired absence of other specified parts of digestive tract; Z98.890 Other specified postprocedural states; Z87.891 Personal history of nicotine dependence

== ENCOUNTER → 2021-12-15 | Outpatient (CLI) | payer OTHER | END | disposition home or self-care (01) | LOC: RAD 14:02 | PROVIDERS: ATTEND Nurse Practitioner Family | DX: J98.11 Atelectasis (principal); J44.9 Chronic obstructive pulmonary disease, unspecified; I51.7 Cardiomegaly; I10 Essential (primary) hypertension; G89.4 Chronic pain syndrome ==

== ENCOUNTER 2021-12-27 00:25 | Emergency (ER) | payer OTHER ==
[~2021-12-27] VITALS: Wt 95.3 kg
[2021-12-27 00:31] VITALS: BP 130/75
== END 2021-12-27 00:58 | disposition home or self-care (01) ==
LOC: ED 00:25
DX: M54.50 Low back pain, unspecified (principal); Z88.8 Allergy status to other drugs, medicaments and biological substances; Z88.1 Allergy status to other antibiotic agents; Z90.49 Acquired absence of other specified parts of digestive tract; Z98.890 Other specified postprocedural states; Z87.891 Personal history of nicotine dependence

== ENCOUNTER 2021-12-28 15:35 | Emergency (ER) | payer OTHER ==
[~2021-12-28] VITALS: Ht 172.7 cm; Wt 95.3 kg
[2021-12-28 15:42] VITALS: BP 173/94
== END 2021-12-28 16:50 | disposition home or self-care (01) ==
LOC: ED 15:35
DX: F11.20 Opioid dependence, uncomplicated (principal); Z88.1 Allergy status to other antibiotic agents; Z88.8 Allergy status to other drugs, medicaments and biological substances; Z79.899 Other long term (current) drug therapy; Z98.890 Other specified postprocedural states; Z90.49 Acquired absence of other specified parts of digestive tract; Z87.891 Personal history of nicotine dependence

== ENCOUNTER 2022-03-24 10:13 | Emergency (ER) | payer OTHER ==
[~2022-03-24] VITALS: Ht 172.7 cm; Wt 86.2 kg
[2022-03-24 10:31] VITALS: BP 160/93
[2022-03-24 11:00] LABS: BASO # 0.1 10*3/uL (0.0-0.1); BASO % 0.6 % (0.0-1.0); EOS # 0.3 10*3/uL (0.0-0.4); EOS % 2.3 % (1.0-4.0); HEMATOCRIT 45.5 % (42.0-52.0); LYMPH # 2.1 10*3/uL (1.3-4.4); LYMPH % 19.3 % (27.0-41.0); MEAN CELL VOLUME 90.5 fl (80.0-94.0); MEAN CORPUSCULAR HGB 31.4 pg (27.0-31.0); MEAN CORPUSCULAR HGB CONC 34.7 g/dl (33.0-37.0); MEAN PLATELET VOLUME 8.9 fl (9.6-12.3); MONO # 0.9 10*3/uL (0.1-1.0); MONO % 8.3 % (3.0-9.0); NEUT # 7.4 10*3/uL (2.3-7.9); NEUT % 69.2 % (47.0-73.0); PLATELET COUNT AUTOMATED 295 10*3/uL (130-400); RED BLOOD COUNT 5.03 10*6/uL (4.50-5.90); RED CELL DISTRI WIDTH 12.1 % (0-14.5); WHITE BLOOD COUNT 10.7 10*3/uL (4.8-10.8)
[2022-03-24 11:14] LABS: ALKALINE PHOSPHATASE 93 U/L (45-117); BUN 10 mg/dl (7-24); CHLORIDE 106 mmol/L (98-107); CREATININE 1.02 mg/dL (0.70-1.30); LIPASE 125 U/L (73-393); POTASSIUM 4.4 mmol/L (3.5-5.1); SGOT/AST 24 IU/L (3-35); SGPT/ALT 32 U/L (12-78); SODIUM 139 mmol/L (136-145); TOTAL PROTEIN 6.4 gm/dL (6.4-8.2)
[2022-03-24 11:19] LABS: BILIRUBIN Negative (Negative); BLOOD Negative (Negative); CLARITY Clear (Clear); COLOR Yellow (Yellow); GLUCOSE Negative (Negative); KETONE Trace (Negative); LEUKO ESTERASE Negative (Negative); NITRITE Negative (Negative); PH 5.5 (4.5-8.0)
[2022-03-24 11:30] LABS: URINE AMPHETAMINES < 1000 (1000ng/ml); URINE BARBITURATES < 200 (200ng/ml); URINE BENZODIAZEPINES < 200 (200ng/ml); URINE CANNABINOIDS (THC) > 50 (50ng/ml); URINE COCAINE < 300 (300ng/ml); URINE METHADONE < 300 (300ng/ml); URINE OPIATES < 300 (300ng/ml)
[2022-03-24 11:44] LABS: BACTERIA TRACE; MUCOUS TRACE; URINE PHENCYCLIDINE < 25 (25ng/ml); WBC 0-2 wbc/hpf (0-5)
== END 2022-03-24 14:02 | disposition home or self-care (01) ==
LOC: ED 10:13
PROVIDERS: Family Medicine
DX: G89.29 Other chronic pain (principal); M79.605 Pain in left leg; R10.31 Right lower quadrant pain; Z88.1 Allergy status to other antibiotic agents; Z88.8 Allergy status to other drugs, medicaments and biological substances; Z79.899 Other long term (current) drug therapy; Z90.49 Acquired absence of other specified parts of digestive tract; Z98.890 Other specified postprocedural states; Z87.891 Personal history of nicotine dependence

== ENCOUNTER 2022-04-02 03:03 | Emergency (ER) | payer OTHER ==
[~2022-04-02] VITALS: Ht 167.6 cm; Wt 82.6 kg
[2022-04-02 03:11] VITALS: BP 93/63
[2022-04-02 03:46] LABS: HEMATOCRIT 41.3 % (42.0-52.0); MEAN CELL VOLUME 92.8 fl (80.0-94.0); MEAN CORPUSCULAR HGB 32.6 pg (27.0-31.0); MEAN CORPUSCULAR HGB CONC 35.1 g/dl (33.0-37.0); MEAN PLATELET VOLUME 9.3 fl (9.6-12.3); PLATELET COUNT AUTOMATED 353 10*3/uL (130-400); RED BLOOD COUNT 4.45 10*6/uL (4.50-5.90); RED CELL DISTRI WIDTH 12.6 % (0-14.5); WHITE BLOOD COUNT 20.7 10*3/uL (4.8-10.8)
[2022-04-02 03:59] LABS: MANUAL DIFF REFLEX YES
[2022-04-02 04:04] LABS: ALKALINE PHOSPHATASE 74 U/L (45-117); BUN 17 mg/dl (7-24); CHLORIDE 107 mmol/L (98-107); CREATININE 1.23 mg/dL (0.70-1.30); POTASSIUM 4.1 mmol/L (3.5-5.1); SGOT/AST 20 IU/L (3-35); SGPT/ALT 34 U/L (12-78); SODIUM 140 mmol/L (136-145); TOTAL PROTEIN 6.1 gm/dL (6.4-8.2)
[2022-04-02 04:12] LABS: ACT PARTIAL THROMBO TIME 22.1 SECONDS (20.0-32.1)
[2022-04-02 04:17] LABS: PLATELET SUFFICIENCY NORMAL (NORMAL); TOTAL CELLS COUNTED 100 #CELLS
[2022-04-02 04:18] LABS: BURR CELLS FEW
== END 2022-04-02 06:12 | disposition home or self-care (01) ==
LOC: ED 03:03
PROVIDERS: Internal Medicine
DX: K21.9 Gastro-esophageal reflux disease without esophagitis (principal); R73.9 Hyperglycemia, unspecified; D72.829 Elevated white blood cell count, unspecified; I11.0 Hypertensive heart disease with heart failure; I50.9 Heart failure, unspecified; I25.2 Old myocardial infarction; J44.9 Chronic obstructive pulmonary disease, unspecified; Z88.1 Allergy status to other antibiotic agents; Z88.8 Allergy status to other drugs, medicaments and biological substances; Z79.899 Other long term (current) drug therapy; Z98.890 Other specified postprocedural states; Z90.49 Acquired absence of other specified parts of digestive tract; Z87.891 Personal history of nicotine dependence

== ENCOUNTER 2022-04-07 17:31 | Emergency (ER) | payer OTHER ==
[~2022-04-07] VITALS: Wt 86.2 kg
[2022-04-07 17:54] LABS: BASO # 0.1 10*3/uL (0.0-0.1); BASO % 0.5 % (0.0-1.0); EOS # 0.3 10*3/uL (0.0-0.4); EOS % 2.2 % (1.0-4.0); HEMATOCRIT 47.6 % (42.0-52.0); LYMPH # 2.5 10*3/uL (1.3-4.4); LYMPH % 21.2 % (27.0-41.0); MEAN CELL VOLUME 91.7 fl (80.0-94.0); MEAN CORPUSCULAR HGB 31.4 pg (27.0-31.0); MEAN CORPUSCULAR HGB CONC 34.2 g/dl (33.0-37.0); MEAN PLATELET VOLUME 8.6 fl (9.6-12.3); MONO # 0.7 10*3/uL (0.1-1.0); MONO % 6.3 % (3.0-9.0); NEUT # 8.1 10*3/uL (2.3-7.9); NEUT % 69.4 % (47.0-73.0); PLATELET COUNT AUTOMATED 347 10*3/uL (130-400); RED BLOOD COUNT 5.19 10*6/uL (4.50-5.90); RED CELL DISTRI WIDTH 12.4 % (0-14.5); WHITE BLOOD COUNT 11.6 10*3/uL (4.8-10.8)
[2022-04-07 18:05] LABS: ACT PARTIAL THROMBO TIME 22.2 SECONDS (20.0-32.1)
[2022-04-07 18:23] LABS: ALKALINE PHOSPHATASE 90 U/L (45-117); BUN 12 mg/dl (7-24); CHLORIDE 109 mmol/L (98-107); CREATININE 1.32 mg/dL (0.70-1.30); POTASSIUM 4.1 mmol/L (3.5-5.1); SGOT/AST 20 IU/L (3-35); SGPT/ALT 24 U/L (12-78); SODIUM 143 mmol/L (136-145); TOTAL PROTEIN 6.5 gm/dL (6.4-8.2)
[2022-04-07 18:32] VITALS: BP 116/70
== END 2022-04-07 20:11 | disposition home or self-care (01) ==
LOC: ED 17:31
PROVIDERS: Emergency Medicine
DX: J98.6 Disorders of diaphragm (principal); I13.0 Hypertensive heart and chronic kidney disease with heart failure and stage 1 through stage 4 chronic kidney disease, or unspecified chronic kidney disease; N18.30 Chronic kidney disease, stage 3 unspecified; I50.9 Heart failure, unspecified; I25.2 Old myocardial infarction; Z88.1 Allergy status to other antibiotic agents; Z88.8 Allergy status to other drugs, medicaments and biological substances; Z79.899 Other long term (current) drug therapy; Z90.49 Acquired absence of other specified parts of digestive tract; Z98.890 Other specified postprocedural states; Z87.891 Personal history of nicotine dependence

== ENCOUNTER 2022-04-11 21:20 | Emergency (ER) | payer OTHER ==
[~2022-04-11] VITALS: Ht 172.7 cm; Wt 86.2 kg
[2022-04-11 21:34] VITALS: BP 146/84
[2022-04-11] MEDS ORDERED: ROPINIROLE HYDRO2 M1 PO (21:35)
[2022-04-11] MEDS ORDERED: REMERON15 M2 PO (21:35)
[2022-04-11] MEDS ORDERED: CYMBALTA60 MG PO (21:36)
== END 2022-04-11 23:46 | disposition home or self-care (01) ==
LOC: ED 21:20
DX: M87.88 Other osteonecrosis, other site (principal); M54.16 Radiculopathy, lumbar region; Z88.1 Allergy status to other antibiotic agents; Z88.8 Allergy status to other drugs, medicaments and biological substances; Z79.899 Other long term (current) drug therapy; Z90.49 Acquired absence of other specified parts of digestive tract; Z98.890 Other specified postprocedural states; Z87.891 Personal history of nicotine dependence

== ENCOUNTER 2022-04-12 21:23 | Emergency (ER) | payer OTHER ==
[~2022-04-12 21:23] MED LIST changes: +CYMBALTA60 MG PO; +REMERON15 M2 PO; +ROPINIROLE HYDRO2 M1 PO
[2022-04-12 21:35] VITALS: BP 125/78
[2022-04-13] MEDS ORDERED: HYDROCODON-ACE1 EACH PO (00:34)
== END 2022-04-13 01:09 | disposition home or self-care (01) ==
LOC: ED 21:23
DX: G89.29 Other chronic pain (principal); M25.552 Pain in left hip; F17.210 Nicotine dependence, cigarettes, uncomplicated; Z79.899 Other long term (current) drug therapy; Z88.1 Allergy status to other antibiotic agents; Z88.8 Allergy status to other drugs, medicaments and biological substances

== ENCOUNTER → 2022-04-14 | Outpatient (CLI) | payer OTHER ==
[~2022-04-14] MED LIST changes: +HYDROCODON-ACE1 EACH PO; +VITAMIN D310 MC2 PO
== END ==
LOC: RAD 09:51
PROVIDERS: ATTEND Orthopaedic Surgery
DX: M25.552 Pain in left hip (principal)

== ENCOUNTER → 2022-04-21 | Day surgery (SDC) | payer OTHER ==
[~2022-04-21] VITALS: Ht 172.7 cm; Wt 85.7 kg
[2022-04-21] VITALS (13 sets, daily range): BP systolic 60–141; BP diastolic 35–93
== END | disposition home or self-care (01) ==
LOC: SDC 04-19 08:45
PROVIDERS: ATTEND Orthopaedic Surgery
DX: M87.052 Idiopathic aseptic necrosis of left femur (principal); G89.4 Chronic pain syndrome; M54.50 Low back pain, unspecified; I25.10 Atherosclerotic heart disease of native coronary artery without angina pectoris; I11.0 Hypertensive heart disease with heart failure; I50.9 Heart failure, unspecified; I25.2 Old myocardial infarction; F41.9 Anxiety disorder, unspecified; F43.10 Post-traumatic stress disorder, unspecified; G62.9 Polyneuropathy, unspecified; M10.9 Gout, unspecified; J44.9 Chronic obstructive pulmonary disease, unspecified; F32.9 Major depressive disorder, single episode, unspecified; Z79.899 Other long term (current) drug therapy

== ENCOUNTER 2022-04-26 15:11 | Emergency (ER) | payer OTHER ==
[~2022-04-26] VITALS: Wt 92.5 kg
[2022-04-26 15:26] VITALS: BP 122/80
[2022-04-26 18:36] LABS: BASO # 0.1 10*3/uL (0.0-0.1); BASO % 0.8 % (0.0-1.0); EOS # 0.1 10*3/uL (0.0-0.4); EOS % 1.3 % (1.0-4.0); HEMATOCRIT 48.9 % (42.0-52.0); LYMPH # 0.8 10*3/uL (1.3-4.4); LYMPH % 8.1 % (27.0-41.0); MEAN CELL VOLUME 90.7 fl (80.0-94.0); MEAN CORPUSCULAR HGB 31.9 pg (27.0-31.0); MEAN CORPUSCULAR HGB CONC 35.2 g/dl (33.0-37.0); MEAN PLATELET VOLUME 8.7 fl (9.6-12.3); MONO # 0.9 10*3/uL (0.1-1.0); MONO % 8.8 % (3.0-9.0); NEUT % 79.5 % (47.0-73.0); PLATELET COUNT AUTOMATED 278 10*3/uL (130-400); RED BLOOD COUNT 5.39 10*6/uL (4.50-5.90); RED CELL DISTRI WIDTH 12.9 % (0-14.5)
[2022-04-26 18:36] LABS: BILIRUBIN Negative (Negative); BLOOD Negative (Negative); CLARITY Clear (Clear); COLOR Yellow (Yellow); GLUCOSE 3+ (Negative); KETONE Negative (Negative); LEUKO ESTERASE Negative (Negative); NITRITE Negative (Negative); SPECIFIC GRAVITY >= 1.030 (1.001-1.030); UROBILINOGEN 0.2 E.U./dl (0.0-1.0)
[2022-04-26 18:45] LABS: BACTERIA 1+
[2022-04-26 18:52] LABS: ALKALINE PHOSPHATASE 112 U/L (45-117); BUN 14 mg/dl (7-24); CHLORIDE 101 mmol/L (98-107); CREATININE 1.17 mg/dL (0.70-1.30); POTASSIUM 4.1 mmol/L (3.5-5.1); SGOT/AST 37 IU/L (3-35); SGPT/ALT 47 U/L (12-78); SODIUM 135 mmol/L (136-145); TOTAL PROTEIN 7.3 gm/dL (6.4-8.2)
[2022-04-26] MEDS ORDERED: CIPRO500 MG PO (19:26)
== END 2022-04-26 19:37 | disposition home or self-care (01) ==
LOC: ED 15:11
PROVIDERS: Physician Assistant
DX: R30.0 Dysuria (principal); Z87.891 Personal history of nicotine dependence; Z98.890 Other specified postprocedural states; Z79.899 Other long term (current) drug therapy; Z88.3 Allergy status to other anti-infective agents; Z88.1 Allergy status to other antibiotic agents; Z88.8 Allergy status to other drugs, medicaments and biological substances

== ENCOUNTER 2022-05-23 12:16 | Emergency (ER) | payer OTHER ==
[~2022-05-23] VITALS: Ht 175.3 cm; Wt 93.0 kg
[2022-05-23 12:39] LABS: BILIRUBIN Negative (Negative); BLOOD Negative (Negative); CLARITY Clear (Clear); COLOR Yellow (Yellow); GLUCOSE 3+ (Negative); KETONE Negative (Negative); LEUKO ESTERASE Negative (Negative); NITRITE Negative (Negative); SPECIFIC GRAVITY 1.015 (1.001-1.030); UROBILINOGEN 0.2 E.U./dl (0.0-1.0)
[2022-05-23 12:54] LABS: BACTERIA TRACE; EPITHELIAL CELLS 0-2; MUCOUS TRACE; RBC 0-2 rbc/hpf (0-2); WBC 0-2 wbc/hpf (0-5)
[2022-05-23 13:05] LABS: BASO # 0.1 10*3/uL (0.0-0.1); BASO % 0.7 % (0.0-1.0); EOS # 0.1 10*3/uL (0.0-0.4); EOS % 0.5 % (1.0-4.0); MEAN CELL VOLUME 92.6 fl (80.0-94.0); MEAN CORPUSCULAR HGB 32.3 pg (27.0-31.0); MEAN CORPUSCULAR HGB CONC 34.9 g/dl (33.0-37.0); MEAN PLATELET VOLUME 8.9 fl (9.6-12.3); MONO # 0.7 10*3/uL (0.1-1.0); MONO % 6.6 % (3.0-9.0); NEUT # 7.5 10*3/uL (2.3-7.9); NEUT % 72.7 % (47.0-73.0); PLATELET COUNT AUTOMATED 272 10*3/uL (130-400); RED BLOOD COUNT 5.51 10*6/uL (4.50-5.90); RED CELL DISTRI WIDTH 12.5 % (0-14.5); WHITE BLOOD COUNT 10.3 10*3/uL (4.8-10.8)
[2022-05-23 13:25] LABS: ALKALINE PHOSPHATASE 111 U/L (45-117); BUN 12 mg/dl (7-24); CHLORIDE 103 mmol/L (98-107); CREATININE 1.32 mg/dL (0.70-1.30); LIPASE 207 U/L (73-393); SGOT/AST 26 IU/L (3-35); SGPT/ALT 24 U/L (12-78); SODIUM 139 mmol/L (136-145)
[2022-05-23 13:42] LABS: URINE AMPHETAMINES < 1000 (1000ng/ml); URINE BARBITURATES < 200 (200ng/ml); URINE BENZODIAZEPINES < 200 (200ng/ml); URINE CANNABINOIDS (THC) < 50 (50ng/ml); URINE COCAINE < 300 (300ng/ml); URINE METHADONE < 300 (300ng/ml); URINE OPIATES < 300 (300ng/ml); URINE PHENCYCLIDINE < 25 (25ng/ml)
[2022-05-23 16:58] VITALS: BP 137/66
== END 2022-05-23 17:02 | disposition home or self-care (01) ==
LOC: ED 12:16
PROVIDERS: Emergency Medicine
DX: K44.9 Diaphragmatic hernia without obstruction or gangrene (principal); R10.13 Epigastric pain; Z87.891 Personal history of nicotine dependence; Z88.3 Allergy status to other anti-infective agents; Z88.8 Allergy status to other drugs, medicaments and biological substances

== ENCOUNTER 2022-05-31 21:20 | Emergency (ER) | payer OTHER ==
[~2022-05-31] VITALS: Ht 172.7 cm; Wt 90.7 kg
[2022-05-31 21:50] VITALS: BP 137/90
[2022-05-31] MEDS ORDERED: XANAX0.5 MG PO (21:52)
[2022-05-31] MEDS ORDERED: PREDNISONE10 M1 PO (23:06)
== END 2022-05-31 23:20 | disposition home or self-care (01) ==
LOC: ED 21:20
DX: T63.461A Toxic effect of venom of wasps, accidental (unintentional), initial encounter (principal); M79.641 Pain in right hand; F41.9 Anxiety disorder, unspecified; J44.9 Chronic obstructive pulmonary disease, unspecified; K21.9 Gastro-esophageal reflux disease without esophagitis; E78.5 Hyperlipidemia, unspecified; I13.0 Hypertensive heart and chronic kidney disease with heart failure and stage 1 through stage 4 chronic kidney disease, or unspecified chronic kidney disease; I50.32 Chronic diastolic (congestive) heart failure; N18.9 Chronic kidney disease, unspecified; G43.909 Migraine, unspecified, not intractable, without status migrainosus; I25.2 Old myocardial infarction; F32.9 Major depressive disorder, single episode, unspecified; G62.9 Polyneuropathy, unspecified; M17.10 Unilateral primary osteoarthritis, unspecified knee; F41.0 Panic disorder [episodic paroxysmal anxiety]; Z88.1 Allergy status to other antibiotic agents; Z88.8 Allergy status to other drugs, medicaments and biological substances; Z79.899 Other long term (current) drug therapy; Z90.49 Acquired absence of other specified parts of digestive tract; Z98.890 Other specified postprocedural states; Z96.652 Presence of left artificial knee joint; Z87.891 Personal history of nicotine dependence; Y92.89 Other specified places as the place of occurrence of the external cause

== ENCOUNTER → 2022-06-07 | Outpatient (CLI) | payer OTHER ==
[~2022-06-07] MED LIST changes: +PREDNISONE10 M1 PO
== END | disposition home or self-care (01) ==
LOC: CARD 01:58
PROVIDERS: ATTEND Internal Medicine Cardiovascular Disease
DX: R06.02 Shortness of breath (principal)

== ENCOUNTER 2022-06-12 21:50 | Emergency (ER) | payer OTHER ==
[~2022-06-12] VITALS: Ht 172.7 cm; Wt 90.7 kg
[2022-06-12 22:12] VITALS: BP 123/74
[2022-06-12 23:57] LABS: BASO # 0.1 10*3/uL (0.0-0.1); BASO % 0.5 % (0.0-1.0); EOS # 0.2 10*3/uL (0.0-0.4); EOS % 1.4 % (1.0-4.0); HEMATOCRIT 45.6 % (42.0-52.0); LYMPH % 22.2 % (27.0-41.0); MEAN CELL VOLUME 95.6 fl (80.0-94.0); MEAN CORPUSCULAR HGB 32.5 pg (27.0-31.0); MEAN PLATELET VOLUME 8.9 fl (9.6-12.3); MONO # 0.8 10*3/uL (0.1-1.0); NEUT # 9.2 10*3/uL (2.3-7.9); NEUT % 69.2 % (47.0-73.0); PLATELET COUNT AUTOMATED 256 10*3/uL (130-400); RED BLOOD COUNT 4.77 10*6/uL (4.50-5.90); RED CELL DISTRI WIDTH 13.1 % (0-14.5); WHITE BLOOD COUNT 13.3 10*3/uL (4.8-10.8)
[2022-06-13 00:19] LABS: ALKALINE PHOSPHATASE 84 U/L (45-117); BUN 16 mg/dl (7-24); CHLORIDE 104 mmol/L (98-107); CREATININE 1.22 mg/dL (0.70-1.30); POTASSIUM 4.1 mmol/L (3.5-5.1); SGOT/AST 18 IU/L (3-35); SGPT/ALT 28 U/L (12-78); SODIUM 141 mmol/L (136-145); TOTAL PROTEIN 6.2 gm/dL (6.4-8.2)
[2022-06-13 02:40] LABS: BILIRUBIN Negative (Negative); BLOOD Negative (Negative); CLARITY Clear (Clear); COLOR Yellow (Yellow); GLUCOSE 3+ (Negative); KETONE Negative (Negative); LEUKO ESTERASE Negative (Negative); NITRITE Negative (Negative); PH 6.5 (4.5-8.0)
[2022-06-13 03:04] LABS: WBC 0-2 wbc/hpf (0-5)
== END 2022-06-13 03:01 | disposition home or self-care (01) ==
LOC: ED 21:50
PROVIDERS: Emergency Medicine
DX: G40.909 Epilepsy, unspecified, not intractable, without status epilepticus (principal); I13.0 Hypertensive heart and chronic kidney disease with heart failure and stage 1 through stage 4 chronic kidney disease, or unspecified chronic kidney disease; N18.31 Chronic kidney disease, stage 3a; I50.32 Chronic diastolic (congestive) heart failure; I48.91 Unspecified atrial fibrillation; J44.9 Chronic obstructive pulmonary disease, unspecified; K21.9 Gastro-esophageal reflux disease without esophagitis; G43.909 Migraine, unspecified, not intractable, without status migrainosus; F32.9 Major depressive disorder, single episode, unspecified; I25.2 Old myocardial infarction; F41.9 Anxiety disorder, unspecified; Z86.718 Personal history of other venous thrombosis and embolism; Z88.1 Allergy status to other antibiotic agents; Z88.8 Allergy status to other drugs, medicaments and biological substances; Z79.899 Other long term (current) drug therapy; Z90.49 Acquired absence of other specified parts of digestive tract; Z98.890 Other specified postprocedural states; Z96.652 Presence of left artificial knee joint; Z87.891 Personal history of nicotine dependence

== ENCOUNTER → 2022-07-12 | Outpatient (CLI) | payer OTHER ==
[2022-07-12 11:56] LABS: BASO # 0.1 10*3/uL (0.0-0.1); BASO % 0.4 % (0.0-1.0); EOS # 0.1 10*3/uL (0.0-0.4); EOS % 1.1 % (1.0-4.0); HEMATOCRIT 48.4 % (42.0-52.0); LYMPH # 0.8 10*3/uL (1.3-4.4); LYMPH % 6.4 % (27.0-41.0); MEAN CELL VOLUME 92.4 fl (80.0-94.0); MEAN CORPUSCULAR HGB 32.6 pg (27.0-31.0); MEAN CORPUSCULAR HGB CONC 35.3 g/dl (33.0-37.0); MEAN PLATELET VOLUME 8.6 fl (9.6-12.3); MONO # 0.6 10*3/uL (0.1-1.0); MONO % 5.4 % (3.0-9.0); NEUT # 10.2 10*3/uL (2.3-7.9); NEUT % 86.4 % (47.0-73.0); PLATELET COUNT AUTOMATED 240 10*3/uL (130-400); RED BLOOD COUNT 5.24 10*6/uL (4.50-5.90); RED CELL DISTRI WIDTH 12.2 % (0-14.5); WHITE BLOOD COUNT 11.8 10*3/uL (4.8-10.8)
[2022-07-12 12:40] LABS: ALKALINE PHOSPHATASE 106 U/L (45-117); BUN 17 mg/dl (7-24); CHLORIDE 101 mmol/L (98-107); CREATININE 1.13 mg/dL (0.70-1.30); POTASSIUM 3.8 mmol/L (3.5-5.1); SGOT/AST 19 IU/L (3-35); SGPT/ALT 29 U/L (12-78); SODIUM 138 mmol/L (136-145); TOTAL PROTEIN 7.3 gm/dL (6.4-8.2)
== END | disposition home or self-care (01) ==
LOC: LAB 11:34
PROVIDERS: ATTEND Urology
DX: D40.0 Neoplasm of uncertain behavior of prostate (principal); I25.10 Atherosclerotic heart disease of native coronary artery without angina pectoris; R53.83 Other fatigue

== ENCOUNTER → 2022-09-02 | Outpatient (CLI) | payer OTHER | LOC: US 11:48 | PROVIDERS: ATTEND Urology | DX: E29.1 Testicular hypofunction (principal) ==

== ENCOUNTER 2022-09-14 09:54 | Emergency (ER) | payer OTHER ==
[~2022-09-14] VITALS: Wt 95.3 kg
[2022-09-14 10:04] VITALS: BP 145/95
[2022-09-14 12:03] LABS: BILIRUBIN Negative (Negative); BLOOD Negative (Negative); CLARITY Clear (Clear); COLOR Yellow (Yellow); GLUCOSE 3+ (Negative); KETONE Negative (Negative); LEUKO ESTERASE Negative (Negative); NITRITE Negative (Negative); SPECIFIC GRAVITY >= 1.030 (1.001-1.030); UROBILINOGEN 0.2 E.U./dl (0.0-1.0)
[2022-09-14 12:10] LABS: BASO # 0.1 10*3/uL (0.0-0.1); BASO % 0.8 % (0.0-1.0); EOS # 0.4 10*3/uL (0.0-0.4); EOS % 3.8 % (1.0-4.0); HEMATOCRIT 47.7 % (42.0-52.0); LYMPH # 2.3 10*3/uL (1.3-4.4); LYMPH % 24.3 % (27.0-41.0); MEAN CELL VOLUME 92.3 fl (80.0-94.0); MEAN CORPUSCULAR HGB 32.5 pg (27.0-31.0); MEAN CORPUSCULAR HGB CONC 35.2 g/dl (33.0-37.0); MEAN PLATELET VOLUME 8.6 fl (9.6-12.3); MONO # 0.8 10*3/uL (0.1-1.0); MONO % 8.5 % (3.0-9.0); NEUT # 5.9 10*3/uL (2.3-7.9); NEUT % 62.1 % (47.0-73.0); PLATELET COUNT AUTOMATED 248 10*3/uL (130-400); RED BLOOD COUNT 5.17 10*6/uL (4.50-5.90); RED CELL DISTRI WIDTH 12.3 % (0-14.5); WHITE BLOOD COUNT 9.6 10*3/uL (4.8-10.8)
[2022-09-14 12:15] LABS: WBC 0-2 wbc/hpf (0-5)
[2022-09-14 12:16] LABS: EPITHELIAL CELLS 0-2; RBC 0-2 rbc/hpf (0-2)
[2022-09-14 12:27] LABS: ALKALINE PHOSPHATASE 87 U/L (46-116); BUN 9 mg/dl (9-23); CHLORIDE 103 mmol/L (98-107); CREATININE 1.13 mg/dL (0.70-1.30); LIPASE 36 U/L (12-53); POTASSIUM 3.9 mmol/L (3.4-5.1); SGPT/ALT 26 U/L (10-49); SODIUM 141 mmol/L (136-145); TOTAL PROTEIN 6.7 gm/dL (6.0-8.0)
[2022-09-14 12:32] LABS: ACT PARTIAL THROMBO TIME 25.1 SECONDS (20.0-32.1)
[2022-09-14] MEDS ORDERED: ONDANSETRON4 MG SL (14:18)
== END 2022-09-14 14:34 | disposition home or self-care (01) ==
LOC: ED 09:54
PROVIDERS: Emergency Medicine
DX: R10.9 Unspecified abdominal pain (principal); R11.0 Nausea; Z88.1 Allergy status to other antibiotic agents; Z88.8 Allergy status to other drugs, medicaments and biological substances; Z79.899 Other long term (current) drug therapy; Z90.49 Acquired absence of other specified parts of digestive tract; Z98.890 Other specified postprocedural states; Z87.891 Personal history of nicotine dependence

== ENCOUNTER 2022-09-24 01:32 | Emergency (ER) | payer OTHER ==
[~2022-09-24] VITALS: Ht 172.7 cm; Wt 99.8 kg
[~2022-09-24 01:32] MED LIST changes: +ONDANSETRON4 MG SL
[2022-09-24 01:46] VITALS: BP 140/92
== END 2022-09-24 02:34 | disposition home or self-care (01) ==
LOC: ED 01:32
DX: B02.9 Zoster without complications (principal); Z88.8 Allergy status to other drugs, medicaments and biological substances; Z88.1 Allergy status to other antibiotic agents; Z98.890 Other specified postprocedural states; Z87.891 Personal history of nicotine dependence

== ENCOUNTER 2022-10-17 21:37 | Emergency (ER) | payer OTHER ==
[~2022-10-17] VITALS: Ht 172.7 cm; Wt 100.2 kg
[2022-10-17 21:56] VITALS: BP 136/85
[2022-10-17] MEDS ORDERED: PREDNISONE20 M1 PO (23:00)
[2022-10-18] MEDS ORDERED: LEVOFLOXACIN500 MG PO (14:54)
== END 2022-10-17 23:19 | disposition home or self-care (01) ==
LOC: ED 21:37
DX: M25.551 Pain in right hip (principal); Z88.1 Allergy status to other antibiotic agents; Z88.8 Allergy status to other drugs, medicaments and biological substances; Z90.49 Acquired absence of other specified parts of digestive tract; Z90.89 Acquired absence of other organs; Z98.890 Other specified postprocedural states; Z87.891 Personal history of nicotine dependence

== ENCOUNTER 2022-10-18 13:00 | Emergency (ER) | payer OTHER ==
[~2022-10-18] VITALS: Ht 172.7 cm
[2022-10-18 13:07] VITALS: BP 147/79
[2022-10-18 13:36] LABS: HEMATOCRIT 45.8 % (42.0-52.0); MEAN CELL VOLUME 91.8 fl (80.0-94.0); MEAN CORPUSCULAR HGB 32.3 pg (27.0-31.0); MEAN CORPUSCULAR HGB CONC 35.2 g/dl (33.0-37.0); PLATELET COUNT AUTOMATED 256 10*3/uL (130-400); RED BLOOD COUNT 4.99 10*6/uL (4.50-5.90); RED CELL DISTRI WIDTH 13.1 % (0-14.5)
[2022-10-18 13:41] LABS: MANUAL DIFF REFLEX YES
[2022-10-18 13:56] LABS: TOTAL CELLS COUNTED 100 #CELLS
[2022-10-18 13:57] LABS: PLATELET SUFFICIENCY NORMAL (NORMAL); POLYCHROMASIA SLIGHT
[2022-10-18 14:21] LABS: ALKALINE PHOSPHATASE 71 U/L (46-116); BUN 16 mg/dl (9-23); CHLORIDE 103 mmol/L (98-107); POTASSIUM 3.8 mmol/L (3.4-5.1); SGPT/ALT 22 U/L (10-49); TOTAL PROTEIN 6.6 gm/dL (6.0-8.0)
[2022-10-18] MEDS ORDERED: LEVOFLOXACIN500 MG PO (14:54)
== END 2022-10-18 15:07 ==
LOC: ED 13:00
PROVIDERS: Emergency Medicine
DX: J18.9 Pneumonia, unspecified organism (principal); Z88.1 Allergy status to other antibiotic agents; Z88.8 Allergy status to other drugs, medicaments and biological substances; Z90.49 Acquired absence of other specified parts of digestive tract; Z98.890 Other specified postprocedural states; Z87.891 Personal history of nicotine dependence

== ENCOUNTER 2022-10-24 02:51 | Emergency (ER) | payer OTHER ==
[~2022-10-24] VITALS: Ht 172.7 cm; Wt 108.4 kg
[~2022-10-24 02:51] MED LIST changes: +LEVOFLOXACIN500 MG PO
[2022-10-24 04:11] LABS: BASO # 0.1 10*3/uL (0.0-0.1); BASO % 0.6 % (0.0-1.0); EOS # 0.3 10*3/uL (0.0-0.4); EOS % 2.8 % (1.0-4.0); HEMATOCRIT 48.4 % (42.0-52.0); LYMPH # 2.9 10*3/uL (1.3-4.4); LYMPH % 25.4 % (27.0-41.0); MEAN CELL VOLUME 93.1 fl (80.0-94.0); MEAN CORPUSCULAR HGB 32.9 pg (27.0-31.0); MEAN CORPUSCULAR HGB CONC 35.3 g/dl (33.0-37.0); MEAN PLATELET VOLUME 9.3 fl (9.6-12.3); MONO # 0.9 10*3/uL (0.1-1.0); MONO % 7.8 % (3.0-9.0); NEUT % 62.5 % (47.0-73.0); PLATELET COUNT AUTOMATED 276 10*3/uL (130-400); RED CELL DISTRI WIDTH 13.2 % (0-14.5); WHITE BLOOD COUNT 11.2 10*3/uL (4.8-10.8)
[2022-10-24 04:27] LABS: ALKALINE PHOSPHATASE 76 U/L (46-116); BUN 11 mg/dl (9-23); CHLORIDE 101 mmol/L (98-107); POTASSIUM 4.1 mmol/L (3.4-5.1); SGPT/ALT 25 U/L (10-49); TOTAL PROTEIN 6.3 gm/dL (6.0-8.0)
[2022-10-24 05:04] VITALS: BP 120/76
== END 2022-10-24 06:01 | disposition home or self-care (01) ==
LOC: ED 02:51
PROVIDERS: Internal Medicine
DX: R07.89 Other chest pain (principal); E83.42 Hypomagnesemia; Z88.8 Allergy status to other drugs, medicaments and biological substances; Z88.2 Allergy status to sulfonamides; Z90.49 Acquired absence of other specified parts of digestive tract; Z98.890 Other specified postprocedural states; Z96.652 Presence of left artificial knee joint; Z87.891 Personal history of nicotine dependence; Z20.822 Contact with and (suspected) exposure to COVID-19

== ENCOUNTER 2022-11-02 15:17 | Emergency (ER) | payer OTHER ==
[~2022-11-02] VITALS: Ht 172.7 cm; Wt 104.8 kg
[2022-11-02 15:23] VITALS: BP 105/73
[2022-11-02 16:12] LABS: BASO # 0.1 10*3/uL (0.0-0.1); BASO % 0.6 % (0.0-1.0); EOS # 0.2 10*3/uL (0.0-0.4); EOS % 2.8 % (1.0-4.0); LYMPH # 1.7 10*3/uL (1.3-4.4); LYMPH % 21.9 % (27.0-41.0); MEAN CELL VOLUME 93.7 fl (80.0-94.0); MEAN CORPUSCULAR HGB 32.6 pg (27.0-31.0); MEAN CORPUSCULAR HGB CONC 34.8 g/dl (33.0-37.0); MEAN PLATELET VOLUME 9.1 fl (9.6-12.3); MONO # 0.6 10*3/uL (0.1-1.0); MONO % 7.7 % (3.0-9.0); NEUT # 5.3 10*3/uL (2.3-7.9); NEUT % 66.7 % (47.0-73.0); PLATELET COUNT AUTOMATED 225 10*3/uL (130-400); RED BLOOD COUNT 4.91 10*6/uL (4.50-5.90); RED CELL DISTRI WIDTH 12.9 % (0-14.5)
[2022-11-02 16:26] LABS: ACT PARTIAL THROMBO TIME 26.9 SECONDS (20.0-32.1)
[2022-11-02 16:27] LABS: ALKALINE PHOSPHATASE 69 U/L (46-116); BUN 18 mg/dl (9-23); CHLORIDE 104 mmol/L (98-107); POTASSIUM 3.8 mmol/L (3.4-5.1); SGPT/ALT 25 U/L (10-49); TOTAL PROTEIN 5.9 gm/dL (6.0-8.0)
[2022-11-02] MEDS ORDERED: CEFUROXIME AXE500 MG PO (18:11)
[2022-11-02] MEDS ORDERED: PREDNISONE10 MG PO (18:11)
== END 2022-11-02 18:28 | disposition home or self-care (01) ==
LOC: ED 15:17
PROVIDERS: Family Medicine
DX: J44.1 Chronic obstructive pulmonary disease with (acute) exacerbation (principal); Z88.1 Allergy status to other antibiotic agents; Z88.8 Allergy status to other drugs, medicaments and biological substances; Z98.890 Other specified postprocedural states; Z90.49 Acquired absence of other specified parts of digestive tract; Z87.891 Personal history of nicotine dependence

== ENCOUNTER 2022-11-09 03:43 | Emergency (ER) | payer OTHER ==
[~2022-11-09] VITALS: Ht 172.7 cm; Wt 100.2 kg
[~2022-11-09 03:43] MED LIST changes: +CEFUROXIME AXE500 MG PO
[2022-11-09 04:54] LABS: BASO % 0.3 % (0.0-1.0); EOS % 0.4 % (1.0-4.0); HEMATOCRIT 45.8 % (42.0-52.0); LYMPH # 1.1 10*3/uL (1.3-4.4); LYMPH % 10.1 % (27.0-41.0); MEAN CELL VOLUME 92.9 fl (80.0-94.0); MEAN CORPUSCULAR HGB 32.5 pg (27.0-31.0); MEAN CORPUSCULAR HGB CONC 34.9 g/dl (33.0-37.0); MEAN PLATELET VOLUME 9.1 fl (9.6-12.3); MONO # 0.3 10*3/uL (0.1-1.0); MONO % 2.9 % (3.0-9.0); NEUT % 85.4 % (47.0-73.0); PLATELET COUNT AUTOMATED 265 10*3/uL (130-400); RED BLOOD COUNT 4.93 10*6/uL (4.50-5.90); RED CELL DISTRI WIDTH 12.9 % (0-14.5); WHITE BLOOD COUNT 10.5 10*3/uL (4.8-10.8)
[2022-11-09 05:11] LABS: ALKALINE PHOSPHATASE 71 U/L (46-116); BUN 10 mg/dl (9-23); CHLORIDE 101 mmol/L (98-107); POTASSIUM 4.1 mmol/L (3.4-5.1); SGPT/ALT 23 U/L (10-49); TOTAL PROTEIN 6.1 gm/dL (6.0-8.0)
[2022-11-09 05:17] VITALS: BP 131/96
[2022-11-09] MEDS ORDERED: PREDNISONE20 M1 PO (05:43)
[2022-11-09] MEDS ORDERED: VENTOLIN 02.5 MG/3 M INH (05:45)
[2022-11-09] MEDS ORDERED: ALBUTEROL2.5 MG/0.5 INH (05:45)
== END 2022-11-09 06:13 | disposition home or self-care (01) ==
LOC: ED 03:43
PROVIDERS: Emergency Medicine
DX: J44.1 Chronic obstructive pulmonary disease with (acute) exacerbation (principal); R07.89 Other chest pain; I48.91 Unspecified atrial fibrillation; Z88.1 Allergy status to other antibiotic agents; Z88.8 Allergy status to other drugs, medicaments and biological substances; Z90.49 Acquired absence of other specified parts of digestive tract; Z98.890 Other specified postprocedural states; Z90.89 Acquired absence of other organs; Z96.652 Presence of left artificial knee joint; Z87.891 Personal history of nicotine dependence

== ENCOUNTER 2022-11-26 18:07 | Emergency (ER) | payer OTHER ==
[~2022-11-26] VITALS: Ht 172.7 cm; Wt 100.2 kg
[~2022-11-26 18:07] MED LIST changes: +ALBUTEROL2.5 MG/0.5 INH; +VENTOLIN 02.5 MG/3 M INH
[2022-11-26 18:17] VITALS: BP 155/83
[2022-11-26] MEDS ORDERED: ASPIRIN ADULT L81 M2 PO (18:43)
[2022-11-26] MEDS ORDERED: FINASTERIDE5 M1 PO (18:47)
[2022-11-26] MEDS ORDERED: ELIQUIS5 M1 PO (18:50)
[2022-11-26 19:05] LABS: BASO % 0.5 % (0.0-1.0); EOS # 0.2 10*3/uL (0.0-0.4); EOS % 2.1 % (1.0-4.0); HEMATOCRIT 46.4 % (42.0-52.0); LYMPH # 1.6 10*3/uL (1.3-4.4); LYMPH % 21.1 % (27.0-41.0); MEAN CELL VOLUME 96.1 fl (80.0-94.0); MEAN CORPUSCULAR HGB 33.5 pg (27.0-31.0); MEAN CORPUSCULAR HGB CONC 34.9 g/dl (33.0-37.0); MEAN PLATELET VOLUME 9.2 fl (9.6-12.3); MONO # 0.6 10*3/uL (0.1-1.0); MONO % 7.6 % (3.0-9.0); NEUT # 5.3 10*3/uL (2.3-7.9); NEUT % 68.1 % (47.0-73.0); PLATELET COUNT AUTOMATED 196 10*3/uL (130-400); RED BLOOD COUNT 4.83 10*6/uL (4.50-5.90); RED CELL DISTRI WIDTH 12.5 % (0-14.5); WHITE BLOOD COUNT 7.8 10*3/uL (4.8-10.8)
[2022-11-26 19:21] LABS: ALKALINE PHOSPHATASE 92 U/L (46-116); BUN 8 mg/dl (9-23); CHLORIDE 101 mmol/L (98-107); POTASSIUM 3.9 mmol/L (3.4-5.1); SGPT/ALT 48 U/L (10-49); TOTAL PROTEIN 6.2 gm/dL (6.0-8.0)
[2022-11-26] MEDS ORDERED: SEPTDS PO (20:40)
[2022-11-26] MEDS ORDERED: CEPHALEXIN500 M1 PO (20:40)
== END 2022-11-26 21:16 | disposition home or self-care (01) ==
LOC: ED 18:07
PROVIDERS: Physician Assistant
DX: L03.314 Cellulitis of groin (principal); Z88.1 Allergy status to other antibiotic agents; Z88.8 Allergy status to other drugs, medicaments and biological substances; Z90.49 Acquired absence of other specified parts of digestive tract; Z98.890 Other specified postprocedural states; Z96.652 Presence of left artificial knee joint; Z87.891 Personal history of nicotine dependence

== ENCOUNTER 2022-12-15 20:38 | Emergency (ER) | payer OTHER ==
[~2022-12-15] VITALS: Ht 172.7 cm; Wt 100.2 kg
[~2022-12-15 20:38] MED LIST changes: +ASPIRIN ADULT L81 M2 PO; +ELIQUIS5 M1 PO; +FINASTERIDE5 M1 PO; +SEPTDS PO
[2022-12-15 20:43] VITALS: BP 142/86
[2022-12-15 21:09] LABS: BILIRUBIN Negative (Negative); BLOOD Negative (Negative); CLARITY Clear (Clear); COLOR Yellow (Yellow); GLUCOSE 3+ (Negative); KETONE Negative (Negative); LEUKO ESTERASE Negative (Negative); NITRITE Negative (Negative); PH 5.5 (4.5-8.0); SPECIFIC GRAVITY >= 1.030 (1.001-1.030); UROBILINOGEN 0.2 E.U./dl (0.0-1.0)
[2022-12-15 21:19] LABS: BACTERIA TRACE; RBC 0-2 rbc/hpf (0-2); WBC 0-2 wbc/hpf (0-5)
[2022-12-15] MEDS ORDERED: CIPRO500 MG PO (21:27)
== END 2022-12-15 21:47 | disposition home or self-care (01) ==
LOC: ED 20:38
PROVIDERS: Internal Medicine
DX: R82.71 Bacteriuria (principal); I25.2 Old myocardial infarction; J44.9 Chronic obstructive pulmonary disease, unspecified; J45.909 Unspecified asthma, uncomplicated; I50.9 Heart failure, unspecified; I11.0 Hypertensive heart disease with heart failure; I48.91 Unspecified atrial fibrillation; Z88.1 Allergy status to other antibiotic agents; Z88.8 Allergy status to other drugs, medicaments and biological substances; Z79.899 Other long term (current) drug therapy; Z79.82 Long term (current) use of aspirin; Z90.49 Acquired absence of other specified parts of digestive tract; Z98.890 Other specified postprocedural states; Z87.891 Personal history of nicotine dependence

== ENCOUNTER 2022-12-18 03:29 | Emergency (ER) | payer OTHER ==
[~2022-12-18] VITALS: Ht 172.7 cm; Wt 100.7 kg
[2022-12-18 03:42] VITALS: BP 155/103
[2022-12-19] MEDS ORDERED: Ondansetron4 MG PO (22:25)
[2022-12-19] MEDS ORDERED: PREDNISONE10 MG PO (22:25)
== END 2022-12-18 04:26 | disposition home or self-care (01) ==
LOC: ED 03:29
DX: K21.9 Gastro-esophageal reflux disease without esophagitis (principal); I10 Essential (primary) hypertension; J45.909 Unspecified asthma, uncomplicated; F32.A Depression, unspecified; Z88.1 Allergy status to other antibiotic agents; Z88.8 Allergy status to other drugs, medicaments and biological substances; Z98.890 Other specified postprocedural states; Z90.49 Acquired absence of other specified parts of digestive tract; Z96.653 Presence of artificial knee joint, bilateral; Z87.891 Personal history of nicotine dependence

== ENCOUNTER 2022-12-19 21:57 | Emergency (ER) | payer OTHER ==
[~2022-12-19] VITALS: Wt 100.2 kg
[2022-12-19 22:05] VITALS: BP 151/93
[2022-12-19] MEDS ORDERED: PREDNISONE10 MG PO (22:25)
[2022-12-19] MEDS ORDERED: Ondansetron4 MG PO (22:25)
[2022-12-19 22:26] LABS: BASO # 0.1 10*3/uL (0.0-0.1); BASO % 0.8 % (0.0-1.0); EOS # 0.2 10*3/uL (0.0-0.4); EOS % 2.6 % (1.0-4.0); HEMATOCRIT 48.2 % (42.0-52.0); LYMPH # 2.2 10*3/uL (1.3-4.4); LYMPH % 24.7 % (27.0-41.0); MEAN CELL VOLUME 94.1 fl (80.0-94.0); MEAN CORPUSCULAR HGB 33.4 pg (27.0-31.0); MEAN CORPUSCULAR HGB CONC 35.5 g/dl (33.0-37.0); MONO # 0.9 10*3/uL (0.1-1.0); NEUT # 5.5 10*3/uL (2.3-7.9); NEUT % 61.3 % (47.0-73.0); PLATELET COUNT AUTOMATED 259 10*3/uL (130-400); RED BLOOD COUNT 5.12 10*6/uL (4.50-5.90); RED CELL DISTRI WIDTH 12.2 % (0-14.5)
[2022-12-19 22:43] LABS: ALKALINE PHOSPHATASE 89 U/L (46-116); BUN 9 mg/dl (9-23); CHLORIDE 104 mmol/L (98-107); POTASSIUM 3.8 mmol/L (3.4-5.1); SGPT/ALT 26 U/L (10-49); TOTAL PROTEIN 6.9 gm/dL (6.0-8.0)
== END 2022-12-19 23:12 | disposition home or self-care (01) ==
LOC: ED 21:57
PROVIDERS: Emergency Medicine
DX: R11.2 Nausea with vomiting, unspecified (principal); J44.1 Chronic obstructive pulmonary disease with (acute) exacerbation; K21.9 Gastro-esophageal reflux disease without esophagitis; I10 Essential (primary) hypertension; F32.A Depression, unspecified; F41.9 Anxiety disorder, unspecified; Z88.1 Allergy status to other antibiotic agents; Z88.8 Allergy status to other drugs, medicaments and biological substances; Z90.49 Acquired absence of other specified parts of digestive tract; Z96.652 Presence of left artificial knee joint; Z98.890 Other specified postprocedural states; Z87.891 Personal history of nicotine dependence

== ENCOUNTER 2022-12-21 07:00 | Emergency (ER) | payer OTHER ==
[~2022-12-21] VITALS: Ht 172.7 cm; Wt 104.3 kg
[2022-12-21 07:03] VITALS: BP 128/77
[2022-12-21 07:45] LABS: MEAN CELL VOLUME 95.2 fl (80.0-94.0); MEAN CORPUSCULAR HGB 33.1 pg (27.0-31.0); MEAN CORPUSCULAR HGB CONC 34.8 g/dl (33.0-37.0); MEAN PLATELET VOLUME 8.8 fl (9.6-12.3); PLATELET COUNT AUTOMATED 227 10*3/uL (130-400); RED BLOOD COUNT 4.62 10*6/uL (4.50-5.90); RED CELL DISTRI WIDTH 12.2 % (0-14.5); WHITE BLOOD COUNT 7.4 10*3/uL (4.8-10.8)
[2022-12-21 07:46] LABS: MANUAL DIFF REFLEX YES
[2022-12-21 07:54] LABS: ACT PARTIAL THROMBO TIME 24.2 SECONDS (20.0-32.1); INTERNATIONAL NORM RATIO 1.1 (2.0-3.5)
[2022-12-21 07:59] LABS: ALKALINE PHOSPHATASE 77 U/L (46-116); BUN 8 mg/dl (9-23); CHLORIDE 103 mmol/L (98-107); SGPT/ALT 26 U/L (10-49); TOTAL PROTEIN 6.1 gm/dL (6.0-8.0)
[2022-12-21 08:07] LABS: ATYPICAL LYMPHS 2 % (0-0); BURR CELLS FEW; PLATELET SUFFICIENCY NORMAL (NORMAL); POLYCHROMASIA SLIGHT; TOTAL CELLS COUNTED 100 #CELLS
[2022-12-22] MEDS ORDERED: METOPROLOL SUC200 MG PO (13:52)
== END 2022-12-21 10:08 | disposition home or self-care (01) ==
LOC: ED 07:00
PROVIDERS: Family Medicine
DX: R07.89 Other chest pain (principal); I25.2 Old myocardial infarction; J45.909 Unspecified asthma, uncomplicated; F32.A Depression, unspecified; F41.9 Anxiety disorder, unspecified; I48.91 Unspecified atrial fibrillation; I11.0 Hypertensive heart disease with heart failure; I50.9 Heart failure, unspecified; Z88.5 Allergy status to narcotic agent; Z88.1 Allergy status to other antibiotic agents; Z88.6 Allergy status to analgesic agent; Z88.8 Allergy status to other drugs, medicaments and biological substances; Z90.49 Acquired absence of other specified parts of digestive tract; Z96.652 Presence of left artificial knee joint; Z98.890 Other specified postprocedural states; Z87.891 Personal history of nicotine dependence

== ENCOUNTER 2022-12-22 08:37 | Inpatient (IN) | payer OTHER ==
[~2022-12-22] VITALS: Ht 172.7 cm; Wt 104.5 kg
[2022-12-22 08:51] VITALS: BP 139/80
[2022-12-22 11:00] LABS: BASO # 0.1 10*3/uL (0.0-0.1); BASO % 0.3 % (0.0-1.0); EOS % 0.2 % (1.0-4.0); HEMATOCRIT 42.4 % (42.0-52.0); LYMPH # 2.2 10*3/uL (1.3-4.4); LYMPH % 12.3 % (27.0-41.0); MEAN CELL VOLUME 95.7 fl (80.0-94.0); MEAN CORPUSCULAR HGB 34.8 pg (27.0-31.0); MEAN CORPUSCULAR HGB CONC 36.3 g/dl (33.0-37.0); MEAN PLATELET VOLUME 9.6 fl (9.6-12.3); MONO # 1.4 10*3/uL (0.1-1.0); MONO % 8.1 % (3.0-9.0); NEUT # 13.9 10*3/uL (2.3-7.9); NEUT % 78.4 % (47.0-73.0); PLATELET COUNT AUTOMATED 266 10*3/uL (130-400); RED BLOOD COUNT 4.43 10*6/uL (4.50-5.90); RED CELL DISTRI WIDTH 12.4 % (0-14.5); WHITE BLOOD COUNT 17.7 10*3/uL (4.8-10.8)
[2022-12-22 11:12] LABS: ALKALINE PHOSPHATASE 76 U/L (46-116); BUN 12 mg/dl (9-23); CHLORIDE 102 mmol/L (98-107); POTASSIUM 3.7 mmol/L (3.4-5.1); SGPT/ALT 22 U/L (10-49)
[2022-12-22 11:30] VITALS: BP 132/70
[2022-12-22 13:30] VITALS: BP 144/70
[2022-12-22] MEDS ORDERED: METOPROLOL SUC200 MG PO (13:52)
[2022-12-22 16:00] VITALS: BP 123/88
[2022-12-22 20:00] VITALS: BP 130/83
[2022-12-22 22:50] LABS: BILIRUBIN Negative (Negative); BLOOD Negative (Negative); CLARITY Clear (Clear); COLOR Yellow (Yellow); GLUCOSE 3+ (Negative); KETONE Negative (Negative); LEUKO ESTERASE Negative (Negative); NITRITE Negative (Negative); SPECIFIC GRAVITY >= 1.030 (1.001-1.030); UROBILINOGEN 0.2 E.U./dl (0.0-1.0)
[2022-12-22 23:14] LABS: RBC 0-2 rbc/hpf (0-2); WBC 0-2 wbc/hpf (0-5)
[2022-12-23] VITALS: BP 132/80
[2022-12-23 07:05] LABS: BASO # 0.1 10*3/uL (0.0-0.1); BASO % 0.4 % (0.0-1.0); EOS # 0.1 10*3/uL (0.0-0.4); EOS % 0.4 % (1.0-4.0); HEMATOCRIT 45.8 % (42.0-52.0); LYMPH # 3.6 10*3/uL (1.3-4.4); MEAN CELL VOLUME 96.4 fl (80.0-94.0); MEAN CORPUSCULAR HGB 33.3 pg (27.0-31.0); MEAN CORPUSCULAR HGB CONC 34.5 g/dl (33.0-37.0); MONO # 0.9 10*3/uL (0.1-1.0); MONO % 6.4 % (3.0-9.0); NEUT # 9.1 10*3/uL (2.3-7.9); NEUT % 66.2 % (47.0-73.0); PLATELET COUNT AUTOMATED 227 10*3/uL (130-400); RED BLOOD COUNT 4.75 10*6/uL (4.50-5.90); RED CELL DISTRI WIDTH 12.3 % (0-14.5); WHITE BLOOD COUNT 13.8 10*3/uL (4.8-10.8)
[2022-12-23 07:21] LABS: ALKALINE PHOSPHATASE 72 U/L (46-116); BUN 18 mg/dl (9-23); CHLORIDE 103 mmol/L (98-107); CHOLESTEROL 143 mg/dL (<200); LDL CHOLESTEROL 73 mg/dL (9-159); POTASSIUM 3.7 mmol/L (3.4-5.1); SGPT/ALT 20 U/L (10-49); TOTAL PROTEIN 6.1 gm/dL (6.0-8.0); TRIGLYCERIDES 126 mg/dl (<150)
== END 2022-12-23 16:50 | disposition home or self-care (01) | DRG 243 ==
LOC: ED 08:37 → EDHOLD 12:41 → 4E 12:41
PROVIDERS: Family Medicine; Internal Medicine; ADMIT Student in an Organized Health Care Education/Training Program; ATTEND Student in an Organized Health Care Education/Training Program
PROC: 4A02XM4 Measurement of Cardiac Total Activity, External Approach (ICD-10-PCS; principal; 2022-12-23)
PROC: 3E073KZ Introduction of Other Diagnostic Substance into Coronary Artery, Percutaneous Approach (ICD-10-PCS; 2022-12-23)
DX: K21.9 Gastro-esophageal reflux disease without esophagitis (principal); J44.1 Chronic obstructive pulmonary disease with (acute) exacerbation; F41.9 Anxiety disorder, unspecified; D72.9 Disorder of white blood cells, unspecified; Z96.652 Presence of left artificial knee joint; I12.9 Hypertensive chronic kidney disease with stage 1 through stage 4 chronic kidney disease, or unspecified chronic kidney disease; I25.10 Atherosclerotic heart disease of native coronary artery without angina pectoris; N18.9 Chronic kidney disease, unspecified; E11.22 Type 2 diabetes mellitus with diabetic chronic kidney disease; Z86.718 Personal history of other venous thrombosis and embolism; Z86.711 Personal history of pulmonary embolism; Z87.891 Personal history of nicotine dependence; Z90.49 Acquired absence of other specified parts of digestive tract; Z88.1 Allergy status to other antibiotic agents; Z88.8 Allergy status to other drugs, medicaments and biological substances; Z79.51 Long term (current) use of inhaled steroids; Z79.899 Other long term (current) drug therapy; Z82.5 Family history of asthma and other chronic lower respiratory diseases; Z80.3 Family history of malignant neoplasm of breast; Z79.82 Long term (current) use of aspirin; Z82.49 Family history of ischemic heart disease and other diseases of the circulatory system; E55.9 Vitamin D deficiency, unspecified

== ENCOUNTER 2022-12-26 23:18 | Emergency (ER) | payer OTHER ==
[~2022-12-26] VITALS: Ht 172.7 cm; Wt 100.2 kg
[~2022-12-26 23:18] MED LIST changes: +METOPROLOL SUC200 MG PO
[2022-12-26 23:42] VITALS: BP 141/96
[2022-12-27 00:14] LABS: BASO # 0.1 10*3/uL (0.0-0.1); BASO % 0.4 % (0.0-1.0); EOS % 0.1 % (1.0-4.0); HEMATOCRIT 45.5 % (42.0-52.0); LYMPH # 2.2 10*3/uL (1.3-4.4); LYMPH % 13.3 % (27.0-41.0); MEAN CORPUSCULAR HGB 33.5 pg (27.0-31.0); MEAN CORPUSCULAR HGB CONC 34.9 g/dl (33.0-37.0); MEAN PLATELET VOLUME 8.8 fl (9.6-12.3); MONO # 0.8 10*3/uL (0.1-1.0); MONO % 5.1 % (3.0-9.0); NEUT # 12.9 10*3/uL (2.3-7.9); NEUT % 79.9 % (47.0-73.0); PLATELET COUNT AUTOMATED 274 10*3/uL (130-400); RED BLOOD COUNT 4.74 10*6/uL (4.50-5.90); RED CELL DISTRI WIDTH 12.6 % (0-14.5); WHITE BLOOD COUNT 16.1 10*3/uL (4.8-10.8)
[2022-12-27 00:34] LABS: ALKALINE PHOSPHATASE 81 U/L (46-116); BUN 9 mg/dl (9-23); CHLORIDE 105 mmol/L (98-107); POTASSIUM 4.9 mmol/L (3.4-5.1); SGPT/ALT 27 U/L (10-49); TOTAL PROTEIN 6.4 gm/dL (6.0-8.0)
[2022-12-27] MEDS ORDERED: BENZONATATE100 M1 PO (06:06)
[2022-12-27] MEDS ORDERED: ALBUTEROL2.5 MG/0.5 INH (06:06)
[2022-12-27] MEDS ORDERED: AMOX-CLAV 875-1 EACH PO (06:06)
== END 2022-12-27 05:59 | disposition home or self-care (01) ==
LOC: ED 23:18
PROVIDERS: Emergency Medicine
DX: J44.1 Chronic obstructive pulmonary disease with (acute) exacerbation (principal); Z88.1 Allergy status to other antibiotic agents; Z88.8 Allergy status to other drugs, medicaments and biological substances; K21.9 Gastro-esophageal reflux disease without esophagitis; E11.9 Type 2 diabetes mellitus without complications; F32.A Depression, unspecified; M10.9 Gout, unspecified; I11.0 Hypertensive heart disease with heart failure; I50.9 Heart failure, unspecified; G43.909 Migraine, unspecified, not intractable, without status migrainosus; I48.91 Unspecified atrial fibrillation; I25.2 Old myocardial infarction; Z86.718 Personal history of other venous thrombosis and embolism; Z86.711 Personal history of pulmonary embolism; Z87.442 Personal history of urinary calculi; Z90.49 Acquired absence of other specified parts of digestive tract; Z98.890 Other specified postprocedural states; Z96.652 Presence of left artificial knee joint; Z87.891 Personal history of nicotine dependence

== ENCOUNTER 2023-01-01 11:08 | Emergency (ER) | payer OTHER ==
[~2023-01-01] VITALS: Ht 172.7 cm; Wt 104.3 kg
[~2023-01-01 11:08] MED LIST changes: +AMOX-CLAV 875-1 EACH PO; +BENZONATATE100 M1 PO
[2023-01-01 11:17] VITALS: BP 131/74
== END 2023-01-01 12:55 | disposition home or self-care (01) ==
LOC: ED 11:08
DX: R51.9 Headache, unspecified (principal); J44.9 Chronic obstructive pulmonary disease, unspecified; I11.0 Hypertensive heart disease with heart failure; I50.9 Heart failure, unspecified; F32.A Depression, unspecified; F41.9 Anxiety disorder, unspecified; K21.9 Gastro-esophageal reflux disease without esophagitis; Z86.718 Personal history of other venous thrombosis and embolism; I48.91 Unspecified atrial fibrillation; Z88.1 Allergy status to other antibiotic agents

== ENCOUNTER → 2023-01-04 | Outpatient (CLI) | payer OTHER ==
[2023-01-04 13:25] LABS: BASO # 0.1 10*3/uL (0.0-0.1); BASO % 0.5 % (0.0-1.0); EOS # 0.2 10*3/uL (0.0-0.4); EOS % 1.4 % (1.0-4.0); HEMATOCRIT 46.9 % (42.0-52.0); LYMPH # 4.1 10*3/uL (1.3-4.4); LYMPH % 29.3 % (27.0-41.0); MEAN CELL VOLUME 95.3 fl (80.0-94.0); MEAN CORPUSCULAR HGB 33.7 pg (27.0-31.0); MEAN CORPUSCULAR HGB CONC 35.4 g/dl (33.0-37.0); MEAN PLATELET VOLUME 9.4 fl (9.6-12.3); MONO % 7.4 % (3.0-9.0); NEUT # 8.5 10*3/uL (2.3-7.9); NEUT % 60.3 % (47.0-73.0); PLATELET COUNT AUTOMATED 278 10*3/uL (130-400); RED BLOOD COUNT 4.92 10*6/uL (4.50-5.90); RED CELL DISTRI WIDTH 12.4 % (0-14.5)
[2023-01-04 13:51] LABS: ALKALINE PHOSPHATASE 82 U/L (46-116); BUN 15 mg/dl (9-23); CHLORIDE 104 mmol/L (98-107); POTASSIUM 3.9 mmol/L (3.4-5.1); SGPT/ALT 35 U/L (10-49); TOTAL PROTEIN 6.5 gm/dL (6.0-8.0)
== END | disposition home or self-care (01) ==
LOC: LAB 12:25
PROVIDERS: ATTEND Nurse Practitioner Family
DX: J98.4 Other disorders of lung (principal); Q79.1 Other congenital malformations of diaphragm; R05.9 Cough, unspecified; R93.89 Abnormal findings on diagnostic imaging of other specified body structures; D72.9 Disorder of white blood cells, unspecified

== ENCOUNTER 2023-01-06 00:55 | Emergency (ER) | payer OTHER ==
[~2023-01-06] VITALS: Ht 175.2 cm; Wt 104.3 kg
[2023-01-06 01:06] VITALS: BP 136/80
[2023-01-06 02:21] LABS: BASO # 0.1 10*3/uL (0.0-0.1); BASO % 0.5 % (0.0-1.0); EOS # 0.2 10*3/uL (0.0-0.4); EOS % 1.7 % (1.0-4.0); HEMATOCRIT 44.3 % (42.0-52.0); LYMPH # 2.2 10*3/uL (1.3-4.4); MEAN CELL VOLUME 95.3 fl (80.0-94.0); MEAN CORPUSCULAR HGB CONC 35.7 g/dl (33.0-37.0); MEAN PLATELET VOLUME 8.9 fl (9.6-12.3); MONO # 0.9 10*3/uL (0.1-1.0); MONO % 7.9 % (3.0-9.0); NEUT # 8.1 10*3/uL (2.3-7.9); NEUT % 70.3 % (47.0-73.0); PLATELET COUNT AUTOMATED 255 10*3/uL (130-400); RED BLOOD COUNT 4.65 10*6/uL (4.50-5.90); RED CELL DISTRI WIDTH 12.3 % (0-14.5); WHITE BLOOD COUNT 11.6 10*3/uL (4.8-10.8)
[2023-01-06 02:35] LABS: ALKALINE PHOSPHATASE 84 U/L (46-116); BUN 11 mg/dl (9-23); CHLORIDE 102 mmol/L (98-107); SGPT/ALT 43 U/L (10-49); TOTAL PROTEIN 6.2 gm/dL (6.0-8.0)
[2023-01-06 03:00] LABS: BILIRUBIN Negative (Negative); BLOOD Negative (Negative); CLARITY Clear (Clear); COLOR Yellow (Yellow); GLUCOSE 3+ (Negative); KETONE Negative (Negative); LEUKO ESTERASE Negative (Negative); NITRITE Negative (Negative); SPECIFIC GRAVITY >= 1.030 (1.001-1.030); UROBILINOGEN 0.2 E.U./dl (0.0-1.0)
[2023-01-06 03:12] LABS: EPITHELIAL CELLS 0-2; MUCOUS 1+; RBC 0-2 rbc/hpf (0-2); WBC 0-2 wbc/hpf (0-5)
== END 2023-01-06 06:28 | disposition home or self-care (01) ==
LOC: ED 00:55
PROVIDERS: Emergency Medicine
DX: R00.2 Palpitations (principal); E11.65 Type 2 diabetes mellitus with hyperglycemia; I25.2 Old myocardial infarction; J45.909 Unspecified asthma, uncomplicated; J44.9 Chronic obstructive pulmonary disease, unspecified; I50.9 Heart failure, unspecified; I11.0 Hypertensive heart disease with heart failure; I48.91 Unspecified atrial fibrillation

== ENCOUNTER 2023-01-18 12:56 | Emergency (ER) | payer OTHER ==
[~2023-01-18] VITALS: Ht 172.7 cm; Wt 104.3 kg
[2023-01-18 14:48] LABS: BASO # 0.1 10*3/uL (0.0-0.1); BASO % 0.7 % (0.0-1.0); EOS # 0.3 10*3/uL (0.0-0.4); EOS % 3.2 % (1.0-4.0); HEMATOCRIT 47.5 % (42.0-52.0); LYMPH # 1.9 10*3/uL (1.3-4.4); LYMPH % 18.4 % (27.0-41.0); MEAN CELL VOLUME 96.7 fl (80.0-94.0); MEAN CORPUSCULAR HGB 33.8 pg (27.0-31.0); MEAN CORPUSCULAR HGB CONC 34.9 g/dl (33.0-37.0); MEAN PLATELET VOLUME 9.2 fl (9.6-12.3); MONO # 1.2 10*3/uL (0.1-1.0); MONO % 11.5 % (3.0-9.0); NEUT # 6.7 10*3/uL (2.3-7.9); NEUT % 65.9 % (47.0-73.0); PLATELET COUNT AUTOMATED 245 10*3/uL (130-400); RED BLOOD COUNT 4.91 10*6/uL (4.50-5.90); RED CELL DISTRI WIDTH 12.1 % (0-14.5); WHITE BLOOD COUNT 10.1 10*3/uL (4.8-10.8)
[2023-01-18 15:10] LABS: ALKALINE PHOSPHATASE 89 U/L (46-116); BUN 8 mg/dl (9-23); CHLORIDE 98 mmol/L (98-107); LIPASE 34 U/L (12-53); POTASSIUM 3.6 mmol/L (3.4-5.1); SGPT/ALT 21 U/L (10-49); TOTAL PROTEIN 7.1 gm/dL (6.0-8.0)
[2023-01-18 16:37] VITALS: BP 105/49
[2023-01-18] MEDS ORDERED: LEVOFLOXACIN750 M2 PO (17:31)
[2023-01-18] MEDS ORDERED: PREDNISONE50 MG PO (17:31)
[2023-01-18] MEDS ORDERED: MUCINEX DM ER1 EACH PO (17:34)
== END 2023-01-18 17:58 | disposition home or self-care (01) ==
LOC: ED 12:56
PROVIDERS: Emergency Medicine
DX: J20.9 Acute bronchitis, unspecified (principal); Z88.8 Allergy status to other drugs, medicaments and biological substances; Z88.1 Allergy status to other antibiotic agents; Z79.899 Other long term (current) drug therapy; Z79.82 Long term (current) use of aspirin; Z98.890 Other specified postprocedural states; Z90.49 Acquired absence of other specified parts of digestive tract; Z87.891 Personal history of nicotine dependence

== ENCOUNTER 2023-02-05 19:02 | Emergency (ER) | payer OTHER ==
[~2023-02-05] VITALS: Ht 167.6 cm; Wt 99.8 kg
[~2023-02-05 19:02] MED LIST changes: +LEVOFLOXACIN750 M2 PO; +MUCINEX DM ER1 EACH PO
[2023-02-05 19:20] VITALS: BP 112/75
[2023-02-05 19:49] LABS: BASO # 0.1 10*3/uL (0.0-0.1); BASO % 0.8 % (0.0-1.0); EOS # 0.2 10*3/uL (0.0-0.4); EOS % 2.7 % (1.0-4.0); LYMPH # 1.7 10*3/uL (1.3-4.4); LYMPH % 18.8 % (27.0-41.0); MEAN CELL VOLUME 93.2 fl (80.0-94.0); MEAN CORPUSCULAR HGB 33.1 pg (27.0-31.0); MEAN CORPUSCULAR HGB CONC 35.6 g/dl (33.0-37.0); MEAN PLATELET VOLUME 9.4 fl (9.6-12.3); MONO # 0.7 10*3/uL (0.1-1.0); MONO % 7.4 % (3.0-9.0); NEUT # 6.2 10*3/uL (2.3-7.9); NEUT % 70.1 % (47.0-73.0); PLATELET COUNT AUTOMATED 290 10*3/uL (130-400); RED BLOOD COUNT 4.83 10*6/uL (4.50-5.90); RED CELL DISTRI WIDTH 11.9 % (0-14.5); WHITE BLOOD COUNT 8.8 10*3/uL (4.8-10.8)
[2023-02-05 20:27] LABS: ALKALINE PHOSPHATASE 71 U/L (46-116); BUN 7 mg/dl (9-23); CHLORIDE 105 mmol/L (98-107); POTASSIUM 3.7 mmol/L (3.4-5.1); SGPT/ALT 23 U/L (10-49); TOTAL PROTEIN 6.2 gm/dL (6.0-8.0)
== END 2023-02-05 23:03 | disposition home or self-care (01) ==
LOC: ED 19:02
PROVIDERS: Internal Medicine
DX: E83.42 Hypomagnesemia (principal); R51.9 Headache, unspecified; R07.89 Other chest pain; I25.2 Old myocardial infarction; I10 Essential (primary) hypertension; J44.9 Chronic obstructive pulmonary disease, unspecified; F41.9 Anxiety disorder, unspecified; I48.91 Unspecified atrial fibrillation; M81.0 Age-related osteoporosis without current pathological fracture; F32.A Depression, unspecified; Z88.1 Allergy status to other antibiotic agents; Z88.8 Allergy status to other drugs, medicaments and biological substances; Z90.49 Acquired absence of other specified parts of digestive tract; Z96.652 Presence of left artificial knee joint; Z98.890 Other specified postprocedural states; Z87.891 Personal history of nicotine dependence

== ENCOUNTER 2023-02-11 22:59 | Emergency (ER) | payer OTHER ==
[~2023-02-11] VITALS: Wt 100.9 kg
[2023-02-11 23:16] LABS: BASO % 0.5 % (0.0-1.0); EOS # 0.3 10*3/uL (0.0-0.4); EOS % 3.1 % (1.0-4.0); HEMATOCRIT 43.7 % (42.0-52.0); LYMPH # 1.9 10*3/uL (1.3-4.4); LYMPH % 23.8 % (27.0-41.0); MEAN CELL VOLUME 93.4 fl (80.0-94.0); MEAN CORPUSCULAR HGB 33.5 pg (27.0-31.0); MEAN CORPUSCULAR HGB CONC 35.9 g/dl (33.0-37.0); MONO # 0.7 10*3/uL (0.1-1.0); MONO % 8.4 % (3.0-9.0); NEUT # 5.1 10*3/uL (2.3-7.9); NEUT % 63.9 % (47.0-73.0); PLATELET COUNT AUTOMATED 233 10*3/uL (130-400); RED BLOOD COUNT 4.68 10*6/uL (4.50-5.90); RED CELL DISTRI WIDTH 11.9 % (0-14.5)
[2023-02-11 23:37] LABS: ALKALINE PHOSPHATASE 76 U/L (46-116); BUN 7 mg/dl (9-23); CHLORIDE 102 mmol/L (98-107); POTASSIUM 2.9 mmol/L (3.4-5.1); SGPT/ALT 22 U/L (10-49); TOTAL PROTEIN 6.5 gm/dL (6.0-8.0)
[2023-02-12 01:11] LABS: BILIRUBIN Negative (Negative); BLOOD Negative (Negative); CLARITY Clear (Clear); COLOR Yellow (Yellow); GLUCOSE 3+ (Negative); KETONE Negative (Negative); LEUKO ESTERASE Negative (Negative); NITRITE Negative (Negative); PH 5.5 (4.5-8.0); SPECIFIC GRAVITY 1.015 (1.001-1.030); UROBILINOGEN 0.2 E.U./dl (0.0-1.0)
[2023-02-12 01:16] VITALS: BP 130/79
[2023-02-12 01:19] LABS: RBC 0-2 rbc/hpf (0-2)
[2023-02-12 01:20] LABS: EPITHELIAL CELLS 0-2
== END 2023-02-12 02:22 | disposition home or self-care (01) ==
LOC: ED 22:59
PROVIDERS: Internal Medicine
DX: S00.93XA Contusion of unspecified part of head, initial encounter (principal); K21.9 Gastro-esophageal reflux disease without esophagitis; E87.6 Hypokalemia; E83.42 Hypomagnesemia; R55 Syncope and collapse; M54.2 Cervicalgia; R73.9 Hyperglycemia, unspecified; I25.2 Old myocardial infarction; J44.9 Chronic obstructive pulmonary disease, unspecified; I50.9 Heart failure, unspecified; I11.0 Hypertensive heart disease with heart failure; I48.91 Unspecified atrial fibrillation; R07.89 Other chest pain; Z88.1 Allergy status to other antibiotic agents; Z88.8 Allergy status to other drugs, medicaments and biological substances; Z79.899 Other long term (current) drug therapy; Z79.82 Long term (current) use of aspirin; Z90.49 Acquired absence of other specified parts of digestive tract; Z98.890 Other specified postprocedural states; Z87.891 Personal history of nicotine dependence; W18.39XA Other fall on same level, initial encounter; Y93.89 Activity, other specified; Y92.89 Other specified places as the place of occurrence of the external cause; Y99.8 Other external cause status

== ENCOUNTER → 2023-02-13 | Outpatient (CLI) | payer MEDICARE ==
[2023-02-13 15:37] LABS: POTASSIUM 3.7 mmol/L (3.4-5.1)
== END | disposition home or self-care (01) ==
LOC: LAB 14:59
PROVIDERS: ATTEND Nurse Practitioner Family
DX: K44.9 Diaphragmatic hernia without obstruction or gangrene (principal); K21.9 Gastro-esophageal reflux disease without esophagitis; E87.6 Hypokalemia

== ENCOUNTER 2023-04-22 19:58 | Emergency (ER) | payer MEDICARE ==
[~2023-04-22] VITALS: Wt 95.3 kg
[2023-04-22 20:01] VITALS: BP 105/70
[2023-04-22 20:19] LABS: BASO # 0.1 10*3/uL (0.0-0.1); BASO % 0.8 % (0.0-1.0); EOS # 0.2 10*3/uL (0.0-0.4); HEMATOCRIT 46.3 % (42.0-52.0); LYMPH # 2.2 10*3/uL (1.3-4.4); MEAN CELL VOLUME 92.6 fl (80.0-94.0); MEAN CORPUSCULAR HGB CONC 35.6 g/dl (33.0-37.0); MEAN PLATELET VOLUME 9.8 fl (9.6-12.3); MONO # 0.9 10*3/uL (0.1-1.0); MONO % 9.5 % (3.0-9.0); NEUT # 6.2 10*3/uL (2.3-7.9); NEUT % 64.5 % (47.0-73.0); PLATELET COUNT AUTOMATED 278 10*3/uL (130-400); RED CELL DISTRI WIDTH 11.9 % (0-14.5); WHITE BLOOD COUNT 9.5 10*3/uL (4.8-10.8)
[2023-04-22 20:32] LABS: ACT PARTIAL THROMBO TIME 26.7 SECONDS (20.0-32.1); INTERNATIONAL NORM RATIO 1.1 (2.0-3.5)
[2023-04-22 20:47] LABS: ALKALINE PHOSPHATASE 80 U/L (46-116); BUN 9 mg/dl (9-23); CHLORIDE 101 mmol/L (98-107); POTASSIUM 3.5 mmol/L (3.4-5.1); SGPT/ALT 27 U/L (10-49); TOTAL PROTEIN 6.6 gm/dL (6.0-8.0)
== END 2023-04-22 22:27 | disposition home or self-care (01) ==
LOC: ED 19:58
PROVIDERS: Nurse Practitioner Family
DX: R07.89 Other chest pain (principal); E83.42 Hypomagnesemia; I25.2 Old myocardial infarction; R06.02 Shortness of breath; J44.9 Chronic obstructive pulmonary disease, unspecified; I50.9 Heart failure, unspecified; I11.0 Hypertensive heart disease with heart failure; F32.A Depression, unspecified; F41.9 Anxiety disorder, unspecified; Z86.718 Personal history of other venous thrombosis and embolism; I48.91 Unspecified atrial fibrillation; Z88.8 Allergy status to other drugs, medicaments and biological substances; Z88.1 Allergy status to other antibiotic agents; Z88.6 Allergy status to analgesic agent; Z90.49 Acquired absence of other specified parts of digestive tract; Z98.890 Other specified postprocedural states; Z96.652 Presence of left artificial knee joint; Z87.891 Personal history of nicotine dependence

== ENCOUNTER 2023-05-08 09:54 | Emergency (ER) | payer OTHER, MEDICAID ==
[~2023-05-08] VITALS: Ht 172.7 cm; Wt 97.5 kg
[2023-05-08 10:26] VITALS: BP 123/78
[2023-05-08] MEDS ORDERED: PREDNISONE20 M1 PO ×2 (10:41→10:46)
[2023-05-08] MEDS ORDERED: TRIAMCINOLONE430 GM TD (10:46)
== END 2023-05-08 10:56 | disposition home or self-care (01) ==
LOC: ED 09:54
DX: L25.9 Unspecified contact dermatitis, unspecified cause (principal); Z88.1 Allergy status to other antibiotic agents; Z88.8 Allergy status to other drugs, medicaments and biological substances; Z79.899 Other long term (current) drug therapy; Z90.49 Acquired absence of other specified parts of digestive tract; Z98.890 Other specified postprocedural states; Z96.652 Presence of left artificial knee joint; Z87.891 Personal history of nicotine dependence

== ENCOUNTER 2023-05-23 21:20 | Emergency (ER) | payer OTHER, MEDICAID ==
[~2023-05-23] VITALS: Ht 172.7 cm; Wt 93.0 kg
[~2023-05-23 21:20] MED LIST changes: +TRIAMCINOLONE430 GM TD
[2023-05-23 22:42] VITALS: BP 132/77
[2023-05-23 23:55] LABS: BILIRUBIN Negative (Negative); BLOOD Negative (Negative); CLARITY Clear (Clear); COLOR Yellow (Yellow); GLUCOSE 3+ (Negative); KETONE Negative (Negative); LEUKO ESTERASE Negative (Negative); NITRITE Negative (Negative); PH 5.5 (4.5-8.0); UROBILINOGEN 0.2 E.U./dl (0.0-1.0)
[2023-05-24] MEDS ORDERED: LEVOFLOXACIN500 MG PO (03:43)
== END 2023-05-24 04:00 | disposition home or self-care (01) ==
LOC: ED 21:20
PROVIDERS: Emergency Medicine
DX: N45.1 Epididymitis (principal); J44.9 Chronic obstructive pulmonary disease, unspecified; K21.9 Gastro-esophageal reflux disease without esophagitis; E87.6 Hypokalemia; E83.42 Hypomagnesemia; F41.9 Anxiety disorder, unspecified; Z86.718 Personal history of other venous thrombosis and embolism; M10.9 Gout, unspecified; E78.5 Hyperlipidemia, unspecified; I11.0 Hypertensive heart disease with heart failure; I50.9 Heart failure, unspecified; I48.91 Unspecified atrial fibrillation; I25.2 Old myocardial infarction; Z87.442 Personal history of urinary calculi; G43.909 Migraine, unspecified, not intractable, without status migrainosus; E11.65 Type 2 diabetes mellitus with hyperglycemia; E11.40 Type 2 diabetes mellitus with diabetic neuropathy, unspecified; Z90.49 Acquired absence of other specified parts of digestive tract; Z88.8 Allergy status to other drugs, medicaments and biological substances; Z88.1 Allergy status to other antibiotic agents; Z98.890 Other specified postprocedural states; Z96.652 Presence of left artificial knee joint; Z87.891 Personal history of nicotine dependence

== ENCOUNTER 2023-06-04 13:02 | Emergency (ER) | payer OTHER, MEDICAID ==
[~2023-06-04] VITALS: Ht 172.7 cm; Wt 95.3 kg
[2023-06-04 13:13] VITALS: BP 128/80
[2023-06-04] MEDS ORDERED: FLOMAX0.4 MG PO (13:14)
[2023-06-04] MEDS ORDERED: PREDNISONE50 MG PO (13:24)
== END 2023-06-04 13:41 | disposition home or self-care (01) ==
LOC: ED 13:02
DX: L23.7 Allergic contact dermatitis due to plants, except food (principal); Z79.2 Long term (current) use of antibiotics; Z79.899 Other long term (current) drug therapy; Z79.82 Long term (current) use of aspirin; Z90.49 Acquired absence of other specified parts of digestive tract; Z98.890 Other specified postprocedural states; Z96.652 Presence of left artificial knee joint; Z87.891 Personal history of nicotine dependence

== ENCOUNTER 2023-06-14 19:19 | Emergency (ER) | payer OTHER, MEDICAID ==
[~2023-06-14] VITALS: Ht 175.2 cm; Wt 90.7 kg
[2023-06-14 20:05] VITALS: BP 110/73
[2023-06-14] MEDS ORDERED: PREDNISONE50 MG PO (20:09)
[2023-06-14 21:05] LABS: BASO % 0.2 % (0.0-1.0); EOS # 0.2 10*3/uL (0.0-0.4); EOS % 1.8 % (1.0-4.0); HEMATOCRIT 48.3 % (42.0-52.0); LYMPH # 2.2 10*3/uL (1.3-4.4); LYMPH % 22.2 % (27.0-41.0); MEAN CELL VOLUME 92.9 fl (80.0-94.0); MEAN CORPUSCULAR HGB 32.1 pg (27.0-31.0); MEAN CORPUSCULAR HGB CONC 34.6 g/dl (33.0-37.0); MEAN PLATELET VOLUME 9.3 fl (9.6-12.3); MONO # 0.7 10*3/uL (0.1-1.0); MONO % 7.4 % (3.0-9.0); NEUT # 6.6 10*3/uL (2.3-7.9); NEUT % 67.5 % (47.0-73.0); PLATELET COUNT AUTOMATED 271 10*3/uL (130-400); RED CELL DISTRI WIDTH 12.4 % (0-14.5); WHITE BLOOD COUNT 9.8 10*3/uL (4.8-10.8)
[2023-06-14 21:14] LABS: ACT PARTIAL THROMBO TIME 24.5 SECONDS (20.0-32.1)
[2023-06-14 21:27] LABS: BILIRUBIN Negative (Negative); BLOOD Negative (Negative); CLARITY Clear (Clear); COLOR Yellow (Yellow); GLUCOSE 3+ (Negative); KETONE Negative (Negative); LEUKO ESTERASE Negative (Negative); NITRITE Negative (Negative); PH 6.5 (4.5-8.0); SPECIFIC GRAVITY >= 1.030 (1.001-1.030)
[2023-06-14 21:31] LABS: ALKALINE PHOSPHATASE 88 U/L (46-116); BUN 10 mg/dl (9-23); CHLORIDE 104 mmol/L (98-107); LIPASE 41 U/L (12-53); POTASSIUM 4.4 mmol/L (3.4-5.1); SGPT/ALT 29 U/L (10-49); TOTAL PROTEIN 6.2 gm/dL (6.0-8.0)
[2023-06-14 21:33] LABS: BACTERIA TRACE; EPITHELIAL CELLS 0-2; RBC 0-2 rbc/hpf (0-2); WBC 0-2 wbc/hpf (0-5)
[2023-06-14] MEDS ORDERED: TRIAMCINOLONE430 GM TD (21:55)
== END 2023-06-14 22:17 | disposition home or self-care (01) ==
LOC: ED 19:19
PROVIDERS: Internal Medicine
DX: L23.7 Allergic contact dermatitis due to plants, except food (principal); M25.552 Pain in left hip; R51.9 Headache, unspecified; R11.0 Nausea; K21.9 Gastro-esophageal reflux disease without esophagitis; J44.9 Chronic obstructive pulmonary disease, unspecified; F17.210 Nicotine dependence, cigarettes, uncomplicated; Z88.1 Allergy status to other antibiotic agents; Z88.8 Allergy status to other drugs, medicaments and biological substances; Z79.2 Long term (current) use of antibiotics; Z79.899 Other long term (current) drug therapy; Z90.49 Acquired absence of other specified parts of digestive tract; Z98.890 Other specified postprocedural states; Z96.652 Presence of left artificial knee joint; Z87.891 Personal history of nicotine dependence

== ENCOUNTER 2023-07-01 19:29 | Emergency (ER) | payer OTHER, MEDICAID ==
[2023-07-01 19:49] LABS: BASO % 0.5 % (0.0-1.0); EOS # 0.1 10*3/uL (0.0-0.4); EOS % 2.4 % (1.0-4.0); HEMATOCRIT 43.6 % (42.0-52.0); LYMPH # 1.4 10*3/uL (1.3-4.4); LYMPH % 23.2 % (27.0-41.0); MEAN CELL VOLUME 92.4 fl (80.0-94.0); MEAN CORPUSCULAR HGB 33.1 pg (27.0-31.0); MEAN CORPUSCULAR HGB CONC 35.8 g/dl (33.0-37.0); MEAN PLATELET VOLUME 9.1 fl (9.6-12.3); MONO # 0.5 10*3/uL (0.1-1.0); MONO % 8.7 % (3.0-9.0); NEUT # 3.8 10*3/uL (2.3-7.9); PLATELET COUNT AUTOMATED 196 10*3/uL (130-400); RED BLOOD COUNT 4.72 10*6/uL (4.50-5.90); RED CELL DISTRI WIDTH 12.1 % (0-14.5); WHITE BLOOD COUNT 5.9 10*3/uL (4.8-10.8)
[2023-07-01 20:01] LABS: ACT PARTIAL THROMBO TIME 24.3 SECONDS (20.0-32.1)
[2023-07-01 20:09] LABS: ALKALINE PHOSPHATASE 83 U/L (46-116); BUN 7 mg/dl (9-23); CHLORIDE 105 mmol/L (98-107); LIPASE 37 U/L (12-53); POTASSIUM 3.2 mmol/L (3.4-5.1); SGPT/ALT 30 U/L (10-49); TOTAL PROTEIN 6.3 gm/dL (6.0-8.0)
[2023-07-01] MEDS ORDERED: PREDNISONE50 MG PO (22:28)
== END 2023-07-01 22:38 | disposition home or self-care (01) ==
LOC: ED 19:29
PROVIDERS: Internal Medicine
DX: R07.89 Other chest pain (principal); L23.7 Allergic contact dermatitis due to plants, except food; R55 Syncope and collapse; J44.9 Chronic obstructive pulmonary disease, unspecified; I11.0 Hypertensive heart disease with heart failure; I25.2 Old myocardial infarction; I50.9 Heart failure, unspecified; Z86.718 Personal history of other venous thrombosis and embolism; I48.91 Unspecified atrial fibrillation; Z88.8 Allergy status to other drugs, medicaments and biological substances; Z88.1 Allergy status to other antibiotic agents; Z90.49 Acquired absence of other specified parts of digestive tract; Z98.890 Other specified postprocedural states; Z96.652 Presence of left artificial knee joint; Z87.891 Personal history of nicotine dependence

== ENCOUNTER 2023-07-17 22:08 | Emergency (ER) | payer OTHER ==
[~2023-07-17] VITALS: Ht 172.7 cm; Wt 91.2 kg
[~2023-07-17 22:08] MED LIST changes: +OCUFLOX 5 ML5 ML OP
[2023-07-17 22:50] VITALS: BP 147/88
[2023-07-17] MEDS ORDERED: PREDNISONE20 M1 PO (23:20)
== END 2023-07-17 23:22 | disposition home or self-care (01) ==
LOC: ED 22:08
DX: L23.7 Allergic contact dermatitis due to plants, except food (principal); R00.2 Palpitations; Z88.1 Allergy status to other antibiotic agents; Z88.8 Allergy status to other drugs, medicaments and biological substances; Z79.2 Long term (current) use of antibiotics; Z79.899 Other long term (current) drug therapy; Z79.82 Long term (current) use of aspirin; Z98.890 Other specified postprocedural states; Z90.49 Acquired absence of other specified parts of digestive tract; Z96.652 Presence of left artificial knee joint; Z87.891 Personal history of nicotine dependence

== ENCOUNTER 2023-07-26 22:54 | Emergency (ER) | payer OTHER ==
[~2023-07-26] VITALS: Ht 172.7 cm; Wt 95.3 kg
[2023-07-26 22:59] VITALS: BP 125/80
[2023-07-27] MEDS ORDERED: NAPROXEN250 MG PO (01:29)
== END 2023-07-27 01:32 | disposition home or self-care (01) ==
LOC: ED 22:54
DX: S10.93XA Contusion of unspecified part of neck, initial encounter (principal); S80.02XA Contusion of left knee, initial encounter; S80.01XA Contusion of right knee, initial encounter; S30.0XXA Contusion of lower back and pelvis, initial encounter; S70.02XA Contusion of left hip, initial encounter; S70.01XA Contusion of right hip, initial encounter; S90.02XA Contusion of left ankle, initial encounter; S90.01XA Contusion of right ankle, initial encounter; I25.2 Old myocardial infarction; J44.9 Chronic obstructive pulmonary disease, unspecified; I11.0 Hypertensive heart disease with heart failure; I50.9 Heart failure, unspecified; F32.A Depression, unspecified; F41.9 Anxiety disorder, unspecified; Z86.718 Personal history of other venous thrombosis and embolism; I48.91 Unspecified atrial fibrillation; Z88.8 Allergy status to other drugs, medicaments and biological substances; Z88.1 Allergy status to other antibiotic agents; Z98.890 Other specified postprocedural states; Z90.49 Acquired absence of other specified parts of digestive tract; Z96.652 Presence of left artificial knee joint; Z95.5 Presence of coronary angioplasty implant and graft; Z87.891 Personal history of nicotine dependence; W01.10XA Fall on same level from slipping, tripping and stumbling with subsequent striking against unspecified object, initial encounter; Y93.01 Activity, walking, marching and hiking; Y92.009 Unspecified place in unspecified non-institutional (private) residence as the place of occurrence of the external cause; Y99.8 Other external cause status

== ENCOUNTER → 2023-08-11 | Outpatient (CLI) | payer OTHER ==
[~2023-08-11] MED LIST changes: +NAPROXEN250 MG PO
[2023-08-11 13:42] LABS: HEMATOCRIT 48.7 % (42.0-52.0); MEAN CELL VOLUME 91.7 fl (80.0-94.0); MEAN CORPUSCULAR HGB 33.3 pg (27.0-31.0); MEAN CORPUSCULAR HGB CONC 36.3 g/dl (33.0-37.0); MEAN PLATELET VOLUME 9.2 fl (9.6-12.3); PLATELET COUNT AUTOMATED 260 10*3/uL (130-400); RED BLOOD COUNT 5.31 10*6/uL (4.50-5.90); RED CELL DISTRI WIDTH 12.2 % (0-14.5); WHITE BLOOD COUNT 12.1 10*3/uL (4.8-10.8)
[2023-08-11 13:43] LABS: MANUAL DIFF REFLEX YES
[2023-08-11 14:13] LABS: ALKALINE PHOSPHATASE 114 U/L (46-116); BUN 10 mg/dl (9-23); CHLORIDE 99 mmol/L (98-107); CHOLESTEROL 146 mg/dL (<200); LDL CHOLESTEROL 55 mg/dL (9-159); POTASSIUM 3.6 mmol/L (3.4-5.1); SGPT/ALT 36 U/L (5-49); TOTAL PROTEIN 6.6 gm/dL (6.0-8.0); TRIGLYCERIDES 209 mg/dl (<150)
[2023-08-11 14:23] LABS: BASOPHILS 1 % (0-1); BURR CELLS FEW; PLATELET SUFFICIENCY NORMAL (NORMAL); TOTAL CELLS COUNTED 100 #CELLS
== END | disposition home or self-care (01) ==
LOC: LAB 13:17
PROVIDERS: ATTEND Nurse Practitioner Family
DX: E78.5 Hyperlipidemia, unspecified (principal); J44.9 Chronic obstructive pulmonary disease, unspecified; E55.9 Vitamin D deficiency, unspecified; I10 Essential (primary) hypertension; G25.81 Restless legs syndrome; E11.42 Type 2 diabetes mellitus with diabetic polyneuropathy

== ENCOUNTER 2023-08-25 22:16 | Emergency (ER) | payer OTHER ==
[~2023-08-25] VITALS: Ht 172.7 cm; Wt 98.9 kg
[2023-08-25 22:46] LABS: BASO # 0.1 10*3/uL (0.0-0.1); BASO % 0.7 % (0.0-1.0); EOS # 0.2 10*3/uL (0.0-0.4); EOS % 2.5 % (1.0-4.0); HEMATOCRIT 43.2 % (42.0-52.0); LYMPH % 27.5 % (27.0-41.0); MEAN CELL VOLUME 93.1 fl (80.0-94.0); MEAN CORPUSCULAR HGB 33.2 pg (27.0-31.0); MEAN CORPUSCULAR HGB CONC 35.6 g/dl (33.0-37.0); MEAN PLATELET VOLUME 8.9 fl (9.6-12.3); MONO # 0.8 10*3/uL (0.1-1.0); MONO % 10.7 % (3.0-9.0); NEUT # 4.1 10*3/uL (2.3-7.9); NEUT % 57.8 % (47.0-73.0); PLATELET COUNT AUTOMATED 232 10*3/uL (130-400); RED BLOOD COUNT 4.64 10*6/uL (4.50-5.90); RED CELL DISTRI WIDTH 12.7 % (0-14.5); WHITE BLOOD COUNT 7.2 10*3/uL (4.8-10.8)
[2023-08-25 23:09] LABS: ALKALINE PHOSPHATASE 88 U/L (46-116); BUN 10 mg/dl (9-23); CHLORIDE 108 mmol/L (98-107); LIPASE 41 U/L (12-53); POTASSIUM 4.3 mmol/L (3.4-5.1); SGPT/ALT 36 U/L (5-49); TOTAL PROTEIN 6.1 gm/dL (6.0-8.0)
[2023-08-26 00:52] VITALS: BP 110/75
== END 2023-08-26 01:12 | disposition home or self-care (01) ==
LOC: ED 22:16
PROVIDERS: Internal Medicine
DX: K21.9 Gastro-esophageal reflux disease without esophagitis (principal); R51.9 Headache, unspecified; R11.0 Nausea; I25.2 Old myocardial infarction; J44.9 Chronic obstructive pulmonary disease, unspecified; I11.0 Hypertensive heart disease with heart failure; I50.9 Heart failure, unspecified; F32.A Depression, unspecified; F41.9 Anxiety disorder, unspecified; Z86.718 Personal history of other venous thrombosis and embolism; I48.91 Unspecified atrial fibrillation; Z88.8 Allergy status to other drugs, medicaments and biological substances; Z88.1 Allergy status to other antibiotic agents; Z90.49 Acquired absence of other specified parts of digestive tract; Z96.652 Presence of left artificial knee joint; Z98.890 Other specified postprocedural states; Z95.5 Presence of coronary angioplasty implant and graft; Z87.891 Personal history of nicotine dependence

== ENCOUNTER 2023-09-05 11:19 | Emergency (ER) | payer OTHER ==
[~2023-09-05] VITALS: Ht 172.7 cm; Wt 95.3 kg
[2023-09-05 12:11] LABS: BASO # 0.1 10*3/uL (0.0-0.1); BASO % 0.7 % (0.0-1.0); EOS # 0.1 10*3/uL (0.0-0.4); EOS % 1.9 % (1.0-4.0); HEMATOCRIT 44.8 % (42.0-52.0); LYMPH % 26.7 % (27.0-41.0); MEAN CORPUSCULAR HGB 33.1 pg (27.0-31.0); MEAN CORPUSCULAR HGB CONC 35.9 g/dl (33.0-37.0); MEAN PLATELET VOLUME 8.9 fl (9.6-12.3); MONO # 0.8 10*3/uL (0.1-1.0); NEUT # 4.5 10*3/uL (2.3-7.9); NEUT % 60.2 % (47.0-73.0); PLATELET COUNT AUTOMATED 265 10*3/uL (130-400); RED BLOOD COUNT 4.87 10*6/uL (4.50-5.90); RED CELL DISTRI WIDTH 12.5 % (0-14.5); WHITE BLOOD COUNT 7.5 10*3/uL (4.8-10.8)
[2023-09-05 12:13] VITALS: BP 133/87
[2023-09-05] MEDS ORDERED: LANTUS SOL100 UNIT/1 SC (12:16)
[2023-09-05 12:27] LABS: ACT PARTIAL THROMBO TIME 25.6 SECONDS (20.0-32.1)
[2023-09-05 12:35] LABS: ALKALINE PHOSPHATASE 101 U/L (46-116); BUN 9 mg/dl (9-23); CHLORIDE 102 mmol/L (98-107); LIPASE 46 U/L (12-53); POTASSIUM 3.5 mmol/L (3.4-5.1); SGPT/ALT 34 U/L (5-49); TOTAL PROTEIN 6.7 gm/dL (6.0-8.0)
== END 2023-09-05 14:54 | disposition home or self-care (01) ==
LOC: ED 11:19
PROVIDERS: Emergency Medicine
DX: R00.2 Palpitations (principal); I25.2 Old myocardial infarction; I11.0 Hypertensive heart disease with heart failure; I50.9 Heart failure, unspecified; J44.9 Chronic obstructive pulmonary disease, unspecified; F32.A Depression, unspecified; F41.9 Anxiety disorder, unspecified; Z86.718 Personal history of other venous thrombosis and embolism; I48.91 Unspecified atrial fibrillation; Z88.1 Allergy status to other antibiotic agents; Z88.8 Allergy status to other drugs, medicaments and biological substances; Z98.890 Other specified postprocedural states; Z90.49 Acquired absence of other specified parts of digestive tract; Z96.652 Presence of left artificial knee joint; Z95.5 Presence of coronary angioplasty implant and graft; Z87.891 Personal history of nicotine dependence

== ENCOUNTER 2023-09-26 01:53 | Emergency (ER) | payer OTHER ==
[~2023-09-26] VITALS: Ht 172.7 cm; Wt 94.3 kg
[~2023-09-26 01:53] MED LIST changes: +LANTUS SOL100 UNIT/1 SC
[2023-09-26 01:59] VITALS: BP 136/88
[2023-09-26 02:35] LABS: ALKALINE PHOSPHATASE 78 U/L (46-116); BUN 7 mg/dl (9-23); CHLORIDE 103 mmol/L (98-107); SGPT/ALT 19 U/L (5-49); TOTAL PROTEIN 6.1 gm/dL (6.0-8.0)
== END 2023-09-26 03:00 | disposition home or self-care (01) ==
LOC: ED 01:53
PROVIDERS: Internal Medicine
DX: E11.65 Type 2 diabetes mellitus with hyperglycemia (principal); I25.2 Old myocardial infarction; J44.9 Chronic obstructive pulmonary disease, unspecified; I11.0 Hypertensive heart disease with heart failure; I50.9 Heart failure, unspecified; F32.A Depression, unspecified; F41.9 Anxiety disorder, unspecified; Z86.718 Personal history of other venous thrombosis and embolism; I48.91 Unspecified atrial fibrillation; Z88.1 Allergy status to other antibiotic agents; Z88.8 Allergy status to other drugs, medicaments and biological substances; Z90.49 Acquired absence of other specified parts of digestive tract; Z98.890 Other specified postprocedural states; Z96.652 Presence of left artificial knee joint; Z95.5 Presence of coronary angioplasty implant and graft; Z87.891 Personal history of nicotine dependence

== ENCOUNTER 2023-12-31 16:24 | Emergency (ER) | payer OTHER ==
[2023-12-31 16:28] VITALS: BP 140/85
[2023-12-31 16:59] LABS: BASO % 0.5 % (0.0-1.0); EOS # 0.3 10*3/uL (0.0-0.4); EOS % 3.2 % (1.0-4.0); HEMATOCRIT 45.8 % (42.0-52.0); LYMPH # 1.3 10*3/uL (1.3-4.4); LYMPH % 16.9 % (27.0-41.0); MEAN CELL VOLUME 92.7 fl (80.0-94.0); MEAN CORPUSCULAR HGB 30.8 pg (27.0-31.0); MEAN CORPUSCULAR HGB CONC 33.2 g/dl (33.0-37.0); MEAN PLATELET VOLUME 9.3 fl (9.6-12.3); MONO # 0.7 10*3/uL (0.1-1.0); MONO % 8.9 % (3.0-9.0); NEUT # 5.5 10*3/uL (2.3-7.9); NEUT % 70.2 % (47.0-73.0); PLATELET COUNT AUTOMATED 290 10*3/uL (130-400); RED BLOOD COUNT 4.94 10*6/uL (4.50-5.90); RED CELL DISTRI WIDTH 12.4 % (0-14.5); WHITE BLOOD COUNT 7.9 10*3/uL (4.8-10.8)
[2023-12-31 17:23] LABS: ALKALINE PHOSPHATASE 78 U/L (46-116); BUN 8 mg/dl (9-23); CHLORIDE 103 mmol/L (98-107); LIPASE 37 U/L (12-53); POTASSIUM 3.8 mmol/L (3.4-5.1); SGPT/ALT 16 U/L (5-49); TOTAL PROTEIN 7.1 gm/dL (6.0-8.0)
== END 2023-12-31 19:15 | disposition home or self-care (01) ==
LOC: ED 16:24
PROVIDERS: Internal Medicine
DX: R41.0 Disorientation, unspecified (principal); Z88.1 Allergy status to other antibiotic agents; Z88.8 Allergy status to other drugs, medicaments and biological substances; Z79.899 Other long term (current) drug therapy; Z79.82 Long term (current) use of aspirin; Z79.4 Long term (current) use of insulin; Z98.890 Other specified postprocedural states; Z90.49 Acquired absence of other specified parts of digestive tract; Z96.652 Presence of left artificial knee joint; Z87.891 Personal history of nicotine dependence

== ENCOUNTER → 2024-01-05 | Outpatient (CLI) | payer OTHER ==
[2024-01-05 15:30] LABS: BASO # 0.1 10*3/uL (0.0-0.1); BASO % 0.8 % (0.0-1.0); EOS # 0.3 10*3/uL (0.0-0.4); EOS % 3.5 % (1.0-4.0); HEMATOCRIT 47.3 % (42.0-52.0); LYMPH # 1.6 10*3/uL (1.3-4.4); LYMPH % 20.7 % (27.0-41.0); MEAN CELL VOLUME 93.3 fl (80.0-94.0); MEAN CORPUSCULAR HGB 31.2 pg (27.0-31.0); MEAN CORPUSCULAR HGB CONC 33.4 g/dl (33.0-37.0); MEAN PLATELET VOLUME 9.3 fl (9.6-12.3); MONO # 0.8 10*3/uL (0.1-1.0); MONO % 10.8 % (3.0-9.0); NEUT # 4.9 10*3/uL (2.3-7.9); NEUT % 64.1 % (47.0-73.0); PLATELET COUNT AUTOMATED 274 10*3/uL (130-400); RED BLOOD COUNT 5.07 10*6/uL (4.50-5.90); RED CELL DISTRI WIDTH 12.7 % (0-14.5); WHITE BLOOD COUNT 7.7 10*3/uL (4.8-10.8)
[2024-01-05 15:52] LABS: ALKALINE PHOSPHATASE 76 U/L (46-116); BUN 8 mg/dl (9-23); CHLORIDE 105 mmol/L (98-107); CHOLESTEROL 159 mg/dL (<200); LDL CHOLESTEROL 101 mg/dL (9-159); POTASSIUM 3.9 mmol/L (3.4-5.1); SGPT/ALT 24 U/L (5-49); TOTAL PROTEIN 6.9 gm/dL (6.0-8.0); TRIGLYCERIDES 93 mg/dl (<150)
[2024-01-05 16:04] LABS: VITAMIN D, 25-HYDROXY 38.6 ng/mL (30-100)
== END | disposition home or self-care (01) ==
LOC: LAB 15:02
PROVIDERS: ATTEND Nurse Practitioner Family
DX: I10 Essential (primary) hypertension (principal); E11.9 Type 2 diabetes mellitus without complications; E55.9 Vitamin D deficiency, unspecified; Z79.899 Other long term (current) drug therapy

== ENCOUNTER → 2024-02-08 | Outpatient (CLI) | payer OTHER ==
[2024-02-08 13:44] LABS: BASO # 0.1 10*3/uL (0.0-0.1); BASO % 0.9 % (0.0-1.0); EOS # 0.2 10*3/uL (0.0-0.4); EOS % 2.4 % (1.0-4.0); HEMATOCRIT 49.9 % (42.0-52.0); LYMPH # 1.4 10*3/uL (1.3-4.4); LYMPH % 16.9 % (27.0-41.0); MEAN CELL VOLUME 91.2 fl (80.0-94.0); MEAN CORPUSCULAR HGB 31.3 pg (27.0-31.0); MEAN CORPUSCULAR HGB CONC 34.3 g/dl (33.0-37.0); MEAN PLATELET VOLUME 9.3 fl (9.6-12.3); MONO # 0.7 10*3/uL (0.1-1.0); MONO % 9.2 % (3.0-9.0); NEUT # 5.7 10*3/uL (2.3-7.9); NEUT % 70.4 % (47.0-73.0); PLATELET COUNT AUTOMATED 300 10*3/uL (130-400); RED BLOOD COUNT 5.47 10*6/uL (4.50-5.90); RED CELL DISTRI WIDTH 12.3 % (0-14.5)
[2024-02-08 14:00] LABS: URINE CREATININE RANDOM 187.48 mg/dL
[2024-02-08 14:11] LABS: ALKALINE PHOSPHATASE 79 U/L (46-116); BUN 5 mg/dl (9-23); CHLORIDE 101 mmol/L (98-107); CHOLESTEROL 172 mg/dL (<200); LDL CHOLESTEROL 109 mg/dL (9-159); POTASSIUM 3.4 mmol/L (3.4-5.1); SGPT/ALT 17 U/L (5-49); TOTAL PROTEIN 7.2 gm/dL (6.0-8.0); TRIGLYCERIDES 119 mg/dl (<150)
== END | disposition home or self-care (01) ==
LOC: LAB 13:15
PROVIDERS: ATTEND Nurse Practitioner Family
DX: I10 Essential (primary) hypertension (principal); E11.9 Type 2 diabetes mellitus without complications; E78.5 Hyperlipidemia, unspecified; Z86.69 Personal history of other diseases of the nervous system and sense organs

== ENCOUNTER 2024-02-14 21:39 | Emergency (ER) | payer OTHER ==
[~2024-02-14] VITALS: Ht 172.7 cm; Wt 92.6 kg
[2024-02-14 21:41] VITALS: BP 127/71
[2024-02-14] MEDS ORDERED: diphenhydrAMINE hydrochloride 50 MG/ML VIAL IV ONE (22:00)
[2024-02-14] MEDS ORDERED: Metoclopramide Hydrochloride 10 MG/2 ML AMP IV ONE (22:00)
[2024-02-14] MEDS ORDERED: SODIUM CHLORIDE 0.9% 1,000 ML IV ONE (22:00)
[2024-02-14] MEDS ORDERED: Ketorolac Tromethamine 30 MG/ML VIAL IV ONE (22:00)
[2024-02-14 22:15] LABS: BASO # 0.1 10*3/uL (0.0-0.1); BASO % 0.6 % (0.0-1.0); EOS # 0.2 10*3/uL (0.0-0.4); EOS % 2.4 % (1.0-4.0); HEMATOCRIT 43.1 % (42.0-52.0); LYMPH # 1.6 10*3/uL (1.3-4.4); LYMPH % 17.5 % (27.0-41.0); MEAN CELL VOLUME 91.9 fl (80.0-94.0); MEAN CORPUSCULAR HGB 31.6 pg (27.0-31.0); MEAN CORPUSCULAR HGB CONC 34.3 g/dl (33.0-37.0); MEAN PLATELET VOLUME 9.5 fl (9.6-12.3); MONO # 0.7 10*3/uL (0.1-1.0); MONO % 7.3 % (3.0-9.0); NEUT # 6.4 10*3/uL (2.3-7.9); NEUT % 72.1 % (47.0-73.0); PLATELET COUNT AUTOMATED 262 10*3/uL (130-400); RED BLOOD COUNT 4.69 10*6/uL (4.50-5.90); RED CELL DISTRI WIDTH 12.3 % (0-14.5); WHITE BLOOD COUNT 8.9 10*3/uL (4.8-10.8)
[2024-02-14 22:36] LABS: ALKALINE PHOSPHATASE 73 U/L (46-116); BUN 9 mg/dl (9-23); CHLORIDE 105 mmol/L (98-107); SGPT/ALT 15 U/L (5-49); TOTAL PROTEIN 6.3 gm/dL (6.0-8.0)
[2024-02-14] MEDS ORDERED: MAGNESIUM SULFATE 50 ML IV ONE (22:40)
[2024-02-14] MEDS ORDERED: Dexamethasone Sodium Phospha 10 MG/1 ML VIAL IV ONE (23:45)
[2024-02-14] MEDS ORDERED: PREDNISONE20 M1 PO (23:45)
== END 2024-02-14 23:57 | disposition home or self-care (01) ==
LOC: ED 21:39
PROVIDERS: Nurse Practitioner Family
DX: S39.012A Strain of muscle, fascia and tendon of lower back, initial encounter (principal); G43.909 Migraine, unspecified, not intractable, without status migrainosus; F41.9 Anxiety disorder, unspecified; K21.9 Gastro-esophageal reflux disease without esophagitis; F32.A Depression, unspecified; E11.22 Type 2 diabetes mellitus with diabetic chronic kidney disease; N18.31 Chronic kidney disease, stage 3a; I50.32 Chronic diastolic (congestive) heart failure; J44.9 Chronic obstructive pulmonary disease, unspecified; E78.5 Hyperlipidemia, unspecified; I25.2 Old myocardial infarction; Z88.1 Allergy status to other antibiotic agents; Z88.8 Allergy status to other drugs, medicaments and biological substances; Z79.899 Other long term (current) drug therapy; Z79.82 Long term (current) use of aspirin; Z86.718 Personal history of other venous thrombosis and embolism; Z87.442 Personal history of urinary calculi; Z86.711 Personal history of pulmonary embolism; Z98.890 Other specified postprocedural states; Z90.49 Acquired absence of other specified parts of digestive tract; Z96.652 Presence of left artificial knee joint; Z87.891 Personal history of nicotine dependence; X50.1XXA Overexertion from prolonged static or awkward postures, initial encounter; Y93.89 Activity, other specified; Y92.89 Other specified places as the place of occurrence of the external cause; Y99.8 Other external cause status

== ENCOUNTER 2024-02-18 22:01 | Emergency (ER) | payer OTHER ==
[~2024-02-18] VITALS: Ht 172.7 cm; Wt 90.8 kg
[2024-02-18 22:05] VITALS: BP 137/88
[2024-02-19] MEDS ORDERED: Bacitracin Zinc 14 GM TUBE T ONE (00:35)
[2024-02-19] MEDS ORDERED: ACETAMINOPHEN 325 MG TAB PO ONE (00:35)
== END 2024-02-19 00:40 | disposition home or self-care (01) ==
LOC: ED 22:01
DX: M25.551 Pain in right hip (principal); S80.811A Abrasion, right lower leg, initial encounter; M25.562 Pain in left knee; I25.2 Old myocardial infarction; I11.0 Hypertensive heart disease with heart failure; J45.909 Unspecified asthma, uncomplicated; J44.9 Chronic obstructive pulmonary disease, unspecified; I50.9 Heart failure, unspecified; F32.A Depression, unspecified; F41.9 Anxiety disorder, unspecified; Z86.718 Personal history of other venous thrombosis and embolism; I48.91 Unspecified atrial fibrillation; Z88.8 Allergy status to other drugs, medicaments and biological substances; Z88.1 Allergy status to other antibiotic agents; Z90.49 Acquired absence of other specified parts of digestive tract; Z98.890 Other specified postprocedural states; Z96.652 Presence of left artificial knee joint; Z95.5 Presence of coronary angioplasty implant and graft; Z87.891 Personal history of nicotine dependence; W10.9XXA Fall (on) (from) unspecified stairs and steps, initial encounter; Y93.89 Activity, other specified; Y92.009 Unspecified place in unspecified non-institutional (private) residence as the place of occurrence of the external cause; Y99.8 Other external cause status

== ENCOUNTER → 2024-03-14 | Outpatient (CLI) | payer OTHER | END | disposition home or self-care (01) | LOC: MRI 08:12 | PROVIDERS: ATTEND Nurse Practitioner Family | DX: I67.9 Cerebrovascular disease, unspecified (principal); Z86.69 Personal history of other diseases of the nervous system and sense organs; R55 Syncope and collapse ==

== ENCOUNTER 2024-04-16 11:45 | Emergency (ER) | payer OTHER ==
[~2024-04-16] VITALS: Ht 172.7 cm; Wt 81.2 kg
[2024-04-16 11:53] VITALS: BP 140/100
[2024-04-16] MEDS ORDERED: IOHEXOL 300 MG/ML 100 ML VIAL IV ONE (12:40)
[2024-04-16] MEDS ORDERED: IOHEXOL 300 MG/ML 100 ML VIAL ONE (12:54)
[2024-04-16] MEDS ORDERED: IBU600 M1 PO (15:37)
== END 2024-04-16 15:45 | disposition home or self-care (01) ==
LOC: ED 11:45
DX: S40.012A Contusion of left shoulder, initial encounter (principal); R07.89 Other chest pain; I25.2 Old myocardial infarction; J44.9 Chronic obstructive pulmonary disease, unspecified; I11.0 Hypertensive heart disease with heart failure; I50.9 Heart failure, unspecified; F32.A Depression, unspecified; I48.91 Unspecified atrial fibrillation; Z86.718 Personal history of other venous thrombosis and embolism; Z88.1 Allergy status to other antibiotic agents; Z88.8 Allergy status to other drugs, medicaments and biological substances; Z90.49 Acquired absence of other specified parts of digestive tract; Z98.890 Other specified postprocedural states; Z96.652 Presence of left artificial knee joint; Z95.5 Presence of coronary angioplasty implant and graft; Z87.891 Personal history of nicotine dependence; V49.9XXA Car occupant (driver) (passenger) injured in unspecified traffic accident, initial encounter; Y93.89 Activity, other specified; Y92.89 Other specified places as the place of occurrence of the external cause; Y99.8 Other external cause status

== ENCOUNTER 2024-04-24 20:31 | Emergency (ER) | payer OTHER ==
[~2024-04-24] VITALS: Ht 172.7 cm; Wt 79.4 kg
[~2024-04-24 20:31] MED LIST changes: +IBU600 M1 PO
[2024-04-24 20:37] VITALS: BP 125/67
[2024-04-24] MEDS ORDERED: NAPROXEN 250 MG TAB PO ONE (20:40)
[2024-04-24 20:57] LABS: BASO % 0.5 % (0.0-1.0); EOS # 0.2 10*3/uL (0.0-0.4); EOS % 2.2 % (1.0-4.0); HEMATOCRIT 45.9 % (42.0-52.0); LYMPH # 1.6 10*3/uL (1.3-4.4); LYMPH % 19.6 % (27.0-41.0); MEAN CELL VOLUME 90.7 fl (80.0-94.0); MEAN CORPUSCULAR HGB 31.8 pg (27.0-31.0); MEAN CORPUSCULAR HGB CONC 35.1 g/dl (33.0-37.0); MEAN PLATELET VOLUME 8.7 fl (9.6-12.3); MONO # 0.8 10*3/uL (0.1-1.0); MONO % 9.4 % (3.0-9.0); NEUT # 5.7 10*3/uL (2.3-7.9); NEUT % 68.1 % (47.0-73.0); PLATELET COUNT AUTOMATED 289 10*3/uL (130-400); RED BLOOD COUNT 5.06 10*6/uL (4.50-5.90); RED CELL DISTRI WIDTH 11.9 % (0-14.5); WHITE BLOOD COUNT 8.3 10*3/uL (4.8-10.8)
[2024-04-24 21:07] LABS: ACT PARTIAL THROMBO TIME 24.4 SECONDS (20.0-32.1)
[2024-04-24 21:13] LABS: ALKALINE PHOSPHATASE 76 U/L (46-116); BUN 13 mg/dl (9-23); CHLORIDE 105 mmol/L (98-107); POTASSIUM 3.9 mmol/L (3.4-5.1); SGPT/ALT 14 U/L (5-49); TOTAL PROTEIN 6.6 gm/dL (6.0-8.0)
[2024-04-24] MEDS ORDERED: Dexamethasone Sodium Phospha 20 MG/5 ML VIAL IM ONE (22:30)
[2024-04-24] MEDS ORDERED: MEDROL DOSEPAK4 MG PO (22:32)
[2024-04-24] MEDS ORDERED: VALTREX1000 MG PO (22:32)
[2024-04-24] MEDS ORDERED: MAGNESIUM OXIDE 400 MG TAB PO ONE (22:40)
== END 2024-04-24 22:49 | disposition home or self-care (01) ==
LOC: ED 20:31
PROVIDERS: Internal Medicine
DX: B02.9 Zoster without complications (principal); E83.42 Hypomagnesemia; R07.89 Other chest pain; M54.9 Dorsalgia, unspecified; I25.2 Old myocardial infarction; I11.0 Hypertensive heart disease with heart failure; J44.9 Chronic obstructive pulmonary disease, unspecified; I50.9 Heart failure, unspecified; F32.A Depression, unspecified; F41.9 Anxiety disorder, unspecified; Z86.718 Personal history of other venous thrombosis and embolism; I48.91 Unspecified atrial fibrillation; Z88.1 Allergy status to other antibiotic agents; Z88.8 Allergy status to other drugs, medicaments and biological substances; Z90.49 Acquired absence of other specified parts of digestive tract; Z98.890 Other specified postprocedural states; Z96.652 Presence of left artificial knee joint; Z87.891 Personal history of nicotine dependence

== ENCOUNTER → 2024-04-26 | Outpatient (CLI) | payer OTHER ==
[~2024-04-26] MED LIST changes: +VALTREX1000 MG PO
== END | disposition home or self-care (01) ==
LOC: ORTHO 01:21
PROVIDERS: ATTEND Orthopaedic Surgery
DX: M19.012 Primary osteoarthritis, left shoulder (principal); M25.712 Osteophyte, left shoulder; M25.511 Pain in right shoulder

== ENCOUNTER → 2024-05-09 | Outpatient (CLI) | payer OTHER ==
[2024-05-09 10:53] LABS: BASO # 0.1 10*3/uL (0.0-0.1); BASO % 0.7 % (0.0-1.0); EOS # 0.2 10*3/uL (0.0-0.4); EOS % 1.8 % (1.0-4.0); HEMATOCRIT 47.6 % (42.0-52.0); LYMPH # 2.7 10*3/uL (1.3-4.4); LYMPH % 26.1 % (27.0-41.0); MEAN CORPUSCULAR HGB 32.5 pg (27.0-31.0); MEAN CORPUSCULAR HGB CONC 34.2 g/dl (33.0-37.0); MEAN PLATELET VOLUME 9.3 fl (9.6-12.3); MONO # 0.6 10*3/uL (0.1-1.0); NEUT # 6.7 10*3/uL (2.3-7.9); PLATELET COUNT AUTOMATED 249 10*3/uL (130-400); RED BLOOD COUNT 5.01 10*6/uL (4.50-5.90); RED CELL DISTRI WIDTH 13.2 % (0-14.5); WHITE BLOOD COUNT 10.3 10*3/uL (4.8-10.8)
[2024-05-09 11:20] LABS: ALKALINE PHOSPHATASE 71 U/L (46-116); BUN 14 mg/dl (9-23); CHLORIDE 103 mmol/L (98-107); CHOLESTEROL 152 mg/dL (<200); LDL CHOLESTEROL 82 mg/dL (9-159); POTASSIUM 4.1 mmol/L (3.4-5.1); SGPT/ALT 42 U/L (5-49); TOTAL PROTEIN 5.9 gm/dL (6.0-8.0); TRIGLYCERIDES 154 mg/dl (<150)
== END | disposition home or self-care (01) ==
LOC: LAB 10:15
PROVIDERS: ATTEND Nurse Practitioner Family
DX: I10 Essential (primary) hypertension (principal); E11.9 Type 2 diabetes mellitus without complications; E78.5 Hyperlipidemia, unspecified; Z86.69 Personal history of other diseases of the nervous system and sense organs

== ENCOUNTER 2024-07-12 22:36 | Emergency (ER) | payer OTHER ==
[~2024-07-12] VITALS: Ht 172.7 cm; Wt 88.5 kg
[2024-07-12 22:40] VITALS: BP 145/85
[2024-07-12 22:53] LABS: BASO # 0.1 10*3/uL (0.0-0.1); BASO % 0.6 % (0.0-1.0); EOS # 0.2 10*3/uL (0.0-0.4); EOS % 2.5 % (1.0-4.0); HEMATOCRIT 46.5 % (42.0-52.0); LYMPH % 22.1 % (27.0-41.0); MEAN CELL VOLUME 93.9 fl (80.0-94.0); MEAN CORPUSCULAR HGB 32.9 pg (27.0-31.0); MEAN CORPUSCULAR HGB CONC 35.1 g/dl (33.0-37.0); MEAN PLATELET VOLUME 9.1 fl (9.6-12.3); MONO # 0.8 10*3/uL (0.1-1.0); MONO % 9.1 % (3.0-9.0); NEUT # 5.8 10*3/uL (2.3-7.9); NEUT % 65.4 % (47.0-73.0); PLATELET COUNT AUTOMATED 276 10*3/uL (130-400); RED BLOOD COUNT 4.95 10*6/uL (4.50-5.90); RED CELL DISTRI WIDTH 12.2 % (0-14.5); WHITE BLOOD COUNT 8.9 10*3/uL (4.8-10.8)
[2024-07-12 23:12] LABS: BUN 7 mg/dl (9-23); CHLORIDE 103 mmol/L (98-107); POTASSIUM 3.1 mmol/L (3.4-5.1)
[2024-07-12 23:13] LABS: ETHYL ALCOHOL < 3.0 mg/dl (<3)
[2024-07-13 00:36] LABS: BILIRUBIN Negative (Negative); BLOOD Negative (Negative); CLARITY Clear (Clear); COLOR Yellow (Yellow); GLUCOSE Negative (Negative); KETONE Negative (Negative); LEUKO ESTERASE Negative (Negative); NITRITE Negative (Negative); SPECIFIC GRAVITY 1.015 (1.001-1.030)
[2024-07-13 00:42] LABS: URINE AMPHETAMINES Negative (1000ng/ml); URINE BARBITURATES Negative (200ng/ml); URINE BENZODIAZEPINES Negative (200ng/ml); URINE CANNABINOIDS (THC) Positive (50ng/ml); URINE COCAINE Negative (300ng/ml); URINE METHADONE Negative (300ng/ml); URINE OPIATES Negative (300ng/ml); URINE PHENCYCLIDINE Negative (25ng/ml)
[2024-07-13 01:11] LABS: WBC 0-2 wbc/hpf (0-5)
[2024-07-13] MEDS ORDERED: POTASSIUM CHLORIDE 20 MEQ TAB PO ONE (01:25)
== END 2024-07-13 01:36 | disposition home or self-care (01) ==
LOC: ED 22:36
PROVIDERS: Internal Medicine
DX: E87.6 Hypokalemia (principal); I25.2 Old myocardial infarction; J44.9 Chronic obstructive pulmonary disease, unspecified; I11.0 Hypertensive heart disease with heart failure; I50.9 Heart failure, unspecified; F32.A Depression, unspecified; F41.9 Anxiety disorder, unspecified; K21.9 Gastro-esophageal reflux disease without esophagitis; I48.91 Unspecified atrial fibrillation; Z86.718 Personal history of other venous thrombosis and embolism; Z88.8 Allergy status to other drugs, medicaments and biological substances; Z88.1 Allergy status to other antibiotic agents; Z98.890 Other specified postprocedural states; Z90.49 Acquired absence of other specified parts of digestive tract; Z96.652 Presence of left artificial knee joint; Z95.5 Presence of coronary angioplasty implant and graft; Z87.891 Personal history of nicotine dependence; Z79.899 Other long term (current) drug therapy

== ENCOUNTER → 2024-08-06 | Outpatient (CLI) | payer OTHER ==
[2024-08-06 12:54] LABS: BASO # 0.1 10*3/uL (0.0-0.1); BASO % 0.8 % (0.0-1.0); EOS # 0.2 10*3/uL (0.0-0.4); EOS % 2.6 % (1.0-4.0); HEMATOCRIT 46.2 % (42.0-52.0); LYMPH # 2.5 10*3/uL (1.3-4.4); LYMPH % 28.9 % (27.0-41.0); MEAN CELL VOLUME 91.8 fl (80.0-94.0); MEAN CORPUSCULAR HGB 33.2 pg (27.0-31.0); MEAN CORPUSCULAR HGB CONC 36.1 g/dl (33.0-37.0); MEAN PLATELET VOLUME 9.2 fl (9.6-12.3); MONO # 0.7 10*3/uL (0.1-1.0); MONO % 7.4 % (3.0-9.0); NEUT # 5.3 10*3/uL (2.3-7.9); PLATELET COUNT AUTOMATED 293 10*3/uL (130-400); RED BLOOD COUNT 5.03 10*6/uL (4.50-5.90); RED CELL DISTRI WIDTH 12.1 % (0-14.5); WHITE BLOOD COUNT 8.8 10*3/uL (4.8-10.8)
[2024-08-06 13:22] LABS: ALKALINE PHOSPHATASE 80 U/L (46-116); BUN 9 mg/dl (9-23); CHLORIDE 103 mmol/L (98-107); CHOLESTEROL 174 mg/dL (<200); LDL CHOLESTEROL 113 mg/dL (9-159); POTASSIUM 4.1 mmol/L (3.4-5.1); SGPT/ALT 15 U/L (5-49); TOTAL PROTEIN 6.9 gm/dL (6.0-8.0); TRIGLYCERIDES 108 mg/dl (<150)
== END | disposition home or self-care (01) ==
LOC: LAB 12:30
PROVIDERS: ATTEND Nurse Practitioner Family
DX: I10 Essential (primary) hypertension (principal); E78.5 Hyperlipidemia, unspecified; E11.9 Type 2 diabetes mellitus without complications; K21.9 Gastro-esophageal reflux disease without esophagitis

== ENCOUNTER → 2024-08-19 | Outpatient (CLI) | payer OTHER ==
[2024-08-19 10:07] LABS: BASO # 0.1 10*3/uL (0.0-0.1); BASO % 0.9 % (0.0-1.0); EOS # 0.3 10*3/uL (0.0-0.4); EOS % 4.4 % (1.0-4.0); HEMATOCRIT 45.1 % (42.0-52.0); LYMPH # 2.6 10*3/uL (1.3-4.4); LYMPH % 33.7 % (27.0-41.0); MEAN CELL VOLUME 94.5 fl (80.0-94.0); MEAN CORPUSCULAR HGB 32.5 pg (27.0-31.0); MEAN CORPUSCULAR HGB CONC 34.4 g/dl (33.0-37.0); MEAN PLATELET VOLUME 9.7 fl (9.6-12.3); MONO # 0.6 10*3/uL (0.1-1.0); MONO % 7.4 % (3.0-9.0); NEUT # 4.1 10*3/uL (2.3-7.9); NEUT % 53.2 % (47.0-73.0); PLATELET COUNT AUTOMATED 279 10*3/uL (130-400); RED BLOOD COUNT 4.77 10*6/uL (4.50-5.90); WHITE BLOOD COUNT 7.8 10*3/uL (4.8-10.8)
[2024-08-19 10:50] LABS: ALKALINE PHOSPHATASE 70 U/L (46-116); SGPT/ALT 15 U/L (5-49); TOTAL PROTEIN 7.1 gm/dL (6.0-8.0)
== END | disposition home or self-care (01) ==
LOC: LAB 09:31
PROVIDERS: ATTEND Psychiatry & Neurology Neurology
DX: I10 Essential (primary) hypertension (principal); H54.7 Unspecified visual loss; E11.9 Type 2 diabetes mellitus without complications; E50.9 Vitamin A deficiency, unspecified

== ENCOUNTER 2024-10-11 16:02 | Emergency (ER) | payer OTHER ==
[~2024-10-11] VITALS: Ht 172.7 cm; Wt 92.5 kg
[2024-10-11 17:00] VITALS: BP 163/91
[2024-10-11] MEDS ORDERED: Albuterol Sulfate 2.5 MG/3 ML VIAL NEB ONE (17:10)
[2024-10-11] MEDS ORDERED: MAGNESIUM SULFATE 50 ML IV ONE (17:10)
[2024-10-11] MEDS ORDERED: methylPREDNISolone sod succ 125 MG VIAL IV ONE (17:10)
[2024-10-11 17:51] LABS: POTASSIUM 3.3 mmol/L (3.4-5.1)
[2024-10-11] MEDS ORDERED: POTASSIUM CHLORIDE 20 MEQ TAB PO ONE (18:25)
[2024-10-11] MEDS ORDERED: LEVOFLOXACIN750 M2 PO (18:26)
== END 2024-10-11 18:50 | disposition home or self-care (01) ==
LOC: ED 16:02
PROVIDERS: Emergency Medicine
DX: J44.1 Chronic obstructive pulmonary disease with (acute) exacerbation (principal); I50.9 Heart failure, unspecified; F32.A Depression, unspecified; F41.9 Anxiety disorder, unspecified; R55 Syncope and collapse; E11.22 Type 2 diabetes mellitus with diabetic chronic kidney disease; I13.0 Hypertensive heart and chronic kidney disease with heart failure and stage 1 through stage 4 chronic kidney disease, or unspecified chronic kidney disease; N18.9 Chronic kidney disease, unspecified; I48.91 Unspecified atrial fibrillation; Z86.718 Personal history of other venous thrombosis and embolism; Z88.8 Allergy status to other drugs, medicaments and biological substances; Z88.1 Allergy status to other antibiotic agents; Z90.49 Acquired absence of other specified parts of digestive tract; Z98.890 Other specified postprocedural states; Z96.652 Presence of left artificial knee joint; Z95.5 Presence of coronary angioplasty implant and graft; Z87.891 Personal history of nicotine dependence

== ENCOUNTER 2024-10-12 08:11 | Inpatient (IN) | payer OTHER ==
[2024-10-12 08:13] VITALS: BP 128/84
[2024-10-12] MEDS ORDERED: Albuterol Sulfate 2.5 MG/3 ML VIAL NEB ONE (08:15)
[2024-10-12] MEDS ORDERED: methylPREDNISolone sod succ 125 MG VIAL IV ONE (08:15)
[2024-10-12] MEDS ORDERED: LEVOFLOXACIN 750 MG TAB PO ONE (08:20)
[2024-10-12] MEDS ORDERED: LORazepam 2 MG/ML VIAL IV ONE (08:20)
[2024-10-12] MEDS ORDERED: Ondansetron Hydrochloride 4 MG/2 ML VIAL IV PRN (08:50)
[2024-10-12] MEDS ORDERED: TEMAZEPAM 15 MG CAP PO PRN (08:50)
[2024-10-12] MEDS ORDERED: BISACODYL 5 MG TAB PO PRN (08:50)
[2024-10-12] MEDS ORDERED: Magnesium Hydroxide 30 ML UDC PO PRN (08:50)
[2024-10-12] MEDS ORDERED: BISACODYL 10 MG SUPP R PRN (08:50)
[2024-10-12] MEDS ORDERED: Albuterol Sulf/Ipratropium 3 ML VIAL NEB PRN (09:00)
[2024-10-12] MEDS ORDERED: GUAIFENESIN 600 MG TAB ER PO SCH (10:00)
[2024-10-12 10:44] LABS: HEMATOCRIT 48.1 % (42.0-52.0); MEAN CELL VOLUME 90.4 fl (80.0-94.0); MEAN CORPUSCULAR HGB 32.5 pg (27.0-31.0); MEAN PLATELET VOLUME 9.1 fl (9.6-12.3); PLATELET COUNT AUTOMATED 298 10*3/uL (130-400); RED BLOOD COUNT 5.32 10*6/uL (4.50-5.90); RED CELL DISTRI WIDTH 11.9 % (0-14.5); WHITE BLOOD COUNT 22.3 10*3/uL (4.8-10.8)
[2024-10-12 10:49] LABS: MANUAL DIFF REFLEX YES
[2024-10-12 10:58] LABS: ACT PARTIAL THROMBO TIME 22.5 SECONDS (20.0-32.1)
[2024-10-12 11:06] LABS: PLATELET SUFFICIENCY NORMAL (NORMAL); TOTAL CELLS COUNTED 100 #CELLS
[2024-10-12 11:08] LABS: BUN 21 mg/dl (9-23); CHLORIDE 106 mmol/L (98-107)
[2024-10-12 12:26] LABS: VITAMIN D, 25-HYDROXY 21.3 ng/mL (30-100)
[2024-10-12] MEDS ORDERED: ACETAMINOPHEN 325 MG TAB PO PRN (12:50)
[2024-10-12] MEDS ORDERED: DEXTROSE 10 % IN WATER 250 ML IV PRN (14:40)
[2024-10-12] MEDS ORDERED: METOPROLOL SUCCINATE XR 100 MG TAB PO SCH (14:45)
[2024-10-12] MEDS ORDERED: INSULIN LISPRO 1 UNIT/0.01 ML SQ SCH (16:30)
[2024-10-12] MEDS ORDERED: APIXABAN 5 MG TAB PO SCH (18:00)
[2024-10-13] MEDS ORDERED: LEVOFLOXACIN 750 MG TAB PO SCH (10:00)
[2024-10-13] MEDS ORDERED: methylPREDNISolone sod succ 40 MG VIAL IV SCH (10:00)
== END 2024-10-12 16:33 | disposition left against medical advice (07) | DRG 190 ==
LOC: ED 08:11 → EDHOLD 08:23
PROVIDERS: ADMIT Internal Medicine; ATTEND Internal Medicine
DX: J44.1 Chronic obstructive pulmonary disease with (acute) exacerbation (principal); N17.0 Acute kidney failure with tubular necrosis; I50.32 Chronic diastolic (congestive) heart failure; I13.0 Hypertensive heart and chronic kidney disease with heart failure and stage 1 through stage 4 chronic kidney disease, or unspecified chronic kidney disease; K21.9 Gastro-esophageal reflux disease without esophagitis; F41.9 Anxiety disorder, unspecified; E87.6 Hypokalemia; E11.65 Type 2 diabetes mellitus with hyperglycemia; I48.91 Unspecified atrial fibrillation; M10.9 Gout, unspecified; E78.5 Hyperlipidemia, unspecified; F32.9 Major depressive disorder, single episode, unspecified; E55.9 Vitamin D deficiency, unspecified; M79.2 Neuralgia and neuritis, unspecified; G89.29 Other chronic pain; Z53.29 Procedure and treatment not carried out because of patient's decision for other reasons; G40.909 Epilepsy, unspecified, not intractable, without status epilepticus; N18.31 Chronic kidney disease, stage 3a; Z96.652 Presence of left artificial knee joint; E11.22 Type 2 diabetes mellitus with diabetic chronic kidney disease; Z86.718 Personal history of other venous thrombosis and embolism; Z87.891 Personal history of nicotine dependence; Z82.5 Family history of asthma and other chronic lower respiratory diseases; Z80.3 Family history of malignant neoplasm of breast; Z88.1 Allergy status to other antibiotic agents; Z88.8 Allergy status to other drugs, medicaments and biological substances; Z79.82 Long term (current) use of aspirin; Z79.4 Long term (current) use of insulin; Z79.899 Other long term (current) drug therapy; Z90.49 Acquired absence of other specified parts of digestive tract; I25.2 Old myocardial infarction; Z86.711 Personal history of pulmonary embolism

== ENCOUNTER → 2025-04-08 | Emergency (ER) | payer OTHER ==
[~2025-04-08] VITALS: Ht 172.7 cm; Wt 88.0 kg
[~2025-04-08] MED LIST changes: +Ondansetron Hydrochloride 4 MG/2 ML VIAL IV ONE; +SODIUM CHLORIDE 0.9% 1,000 ML IV ONE
[2025-04-08 01:16] LABS: BASO % 0.2 % (0.0-1.0); EOS # 0.1 10*3/uL (0.0-0.4); EOS % 0.6 % (1.0-4.0); HEMATOCRIT 41.2 % (42.0-52.0); MEAN CELL VOLUME 93.6 fl (80.0-94.0); MEAN CORPUSCULAR HGB 32.3 pg (27.0-31.0); MEAN CORPUSCULAR HGB CONC 34.5 g/dl (33.0-37.0); MONO # 1.2 10*3/uL (0.1-1.0); MONO % 8.5 % (3.0-9.0); NEUT # 11.7 10*3/uL (2.3-7.9); NEUT % 81.2 % (47.0-73.0); PLATELET COUNT AUTOMATED 259 10*3/uL (130-400); RED CELL DISTRI WIDTH 11.9 % (0-14.5); WHITE BLOOD COUNT 14.4 10*3/uL (4.8-10.8)
[2025-04-08 01:41] LABS: POTASSIUM 3.9 mmol/L (3.4-5.1); TOTAL PROTEIN 6.1 gm/dL (6.0-8.0)
[2025-04-08 04:59] VITALS: BP 108/85
== END ==
LOC: ED 00:51
PROVIDERS: Internal Medicine
DX: R55 Syncope and collapse (principal); I13.0 Hypertensive heart and chronic kidney disease with heart failure and stage 1 through stage 4 chronic kidney disease, or unspecified chronic kidney disease; N18.32 Chronic kidney disease, stage 3b; I50.9 Heart failure, unspecified; R51.9 Headache, unspecified; I95.9 Hypotension, unspecified; D72.829 Elevated white blood cell count, unspecified; J44.9 Chronic obstructive pulmonary disease, unspecified; Z79.899 Other long term (current) drug therapy; Z88.1 Allergy status to other antibiotic agents; Z88.6 Allergy status to analgesic agent; Z88.8 Allergy status to other drugs, medicaments and biological substances; Z90.49 Acquired absence of other specified parts of digestive tract; Z90.89 Acquired absence of other organs; Z98.890 Other specified postprocedural states

== ENCOUNTER 2025-05-18 16:31 | Emergency (ER) | payer OTHER ==
[~2025-05-18] VITALS: Ht 175.2 cm; Wt 92.8 kg
[~2025-05-18 16:31] MED LIST changes: -Ondansetron Hydrochloride 4 MG/2 ML VIAL IV ONE; -SODIUM CHLORIDE 0.9% 1,000 ML IV ONE
[2025-05-18 16:35] VITALS: BP 106/76
[2025-05-18] MEDS ORDERED: SODIUM CHLORIDE 0.9% 1,000 ML IV ONE (16:40)
[2025-05-18] MEDS ORDERED: FAMOTIDINE 50 ML IV ONE (16:40)
[2025-05-18] MEDS ORDERED: diphenhydrAMINE hydrochloride 50 MG/ML VIAL IV ONE (16:40)
[2025-05-18] MEDS ORDERED: Metoclopramide Hydrochloride 10 MG/2 ML VIAL IV ONE (16:40)
[2025-05-18] MEDS ORDERED: ACETAMINOPHEN 325 MG TAB PO ONE (16:40)
[2025-05-18 16:50] LABS: BASO # 0.0 10*3/uL (0.0-0.1); BASO % 0.3 % (0.0-1.0); EOS # 0.2 10*3/uL (0.0-0.4); EOS % 1.6 % (1.0-4.0); MEAN CELL VOLUME 93.3 fl (80.0-94.0); MEAN CORPUSCULAR HGB 32.3 pg (27.0-31.0); MEAN PLATELET VOLUME 9.5 fl (9.6-12.3); MONO # 0.8 10*3/uL (0.1-1.0); MONO % 5.6 % (3.0-9.0); NEUT # 12.0 10*3/uL (2.3-7.9); NEUT % 81.9 % (47.0-73.0); NUCLEATED RED BLOOD CELL 0.0 % (0.0-0.0); NUCLEATED RED BLOOD CELL 0.0 10*3/uL (0.0-0.0); PLATELET COUNT AUTOMATED 218 10*3/uL (130-400); RED CELL DISTRI WIDTH 12.2 % (0-14.5)
[2025-05-18 17:13] LABS: BUN 9 mg/dl (9-23)
[2025-05-18] MEDS ORDERED: TYLENOL EXTRA500 M2 PO (18:08)
[2025-05-18] MEDS ORDERED: REGLAN10 M1 PO (18:08)
== END 2025-05-18 18:24 | disposition home or self-care (01) ==
LOC: ED 16:31
PROVIDERS: Emergency Medicine
DX: R10.10 Upper abdominal pain, unspecified (principal); R51.9 Headache, unspecified; R11.0 Nausea; F12.90 Cannabis use, unspecified, uncomplicated; Z87.891 Personal history of nicotine dependence; Z98.890 Other specified postprocedural states; Z90.49 Acquired absence of other specified parts of digestive tract; Z88.1 Allergy status to other antibiotic agents; Z88.8 Allergy status to other drugs, medicaments and biological substances

== ENCOUNTER → 2025-05-21 | Outpatient (CLI) | payer OTHER ==
[~2025-05-21] MED LIST changes: +ALPRAZOLAM0.5 M3 PO; +GADOTERATE MEGLUMINE 10 MMOL/20 ML VIAL IV ONE; +LOSARTAN POTASS50 M1 PO; +REGLAN10 M1 PO; +TYLENOL EXTRA500 M2 PO
== END | disposition home or self-care (01) ==
LOC: MRI 09:49
PROVIDERS: ATTEND Psychiatry & Neurology Neurology
DX: C80.1 Malignant (primary) neoplasm, unspecified (principal); I67.82 Cerebral ischemia

== ENCOUNTER → 2025-10-06 | Outpatient (CLI) | payer OTHER ==
[~2025-10-06] MED LIST changes: -GADOTERATE MEGLUMINE 10 MMOL/20 ML VIAL IV ONE
[2025-10-06 09:03] LABS: BUN 14 mg/dl (9-23)
== END | disposition home or self-care (01) ==
LOC: LAB 08:15
PROVIDERS: Neurological Surgery; ATTEND Psychiatry & Neurology Neurology
DX: G40.309 Generalized idiopathic epilepsy and epileptic syndromes, not intractable, without status epilepticus (principal); M89.9 Disorder of bone, unspecified